=== PATIENT | male | born 1965 | race Caucasian/White ===

== ENCOUNTER 2019-06-23 09:28 | Emergency (ER) | payer OTHER, SELFPAY ==
--- NOTE | ~2019-06-23 | XR_ITS ---
XR abdomen/kub 1V DATE: 06/23/2019 10:25 INDICATION: Nausea and diarrhea for 2 weeks. History of appendectomy and left nephrectomy for renal c ancer TECHNIQUE: Portable supine AP rejection, 2 views COMPARISON: 09/29/2018 CT abdomen pelvis FINDINGS: A pinpoint calcification overlies the right renal silhouette, likely a small calcified calc ulus. Postoperative changes from left nephrectomy and appendectomy. No evidence of bowel obstruction. The psoas shadows are intact. No visceromegaly is detected. Included skeletal structures are unremarkable. IMPRESSION: Pinpoint right renal calcified calculus is suggested Status post left nephrectomy and appendectomy Reviewed, dictated and finalized at [facility]. Reviewed, dictated and finalized at [facility]. [employer]
[2019-06-23 09:44] VITALS: BP 152/84; PULSE 73; RESP 18; TEMP 36.6; O2SAT 100
--- NOTE | 2019-06-23 09:48 | ED.NAVMDI ---
HPI - Nausea/Vomiting/Diarrhea General Chief complaint: Nausea/Vomiting/Diarrhea Stated complaint: unknown Related Data Home Medications Medication Instructions Recorded Confirmed gabapentin 300 mg PO DAILY 06/23/19 06/23/19 hydrocodone-acetaminophen 1 tablet PO BID-TID PRN 06/23/19 06/23/19 hydrocodone-acetaminophen 1 tablet PO BID-TID PRN 06/23/19 06/23/19 hydroxychloroquine 200 mg PO DAILY 06/23/19 06/23/19 lorazepam 0.5 mg PO BID PRN 06/23/19 06/23/19 lovastatin 40 mg PO DAILY 06/23/19 06/23/19 omeprazole 40 mg PO DAILY 06/23/19 06/23/19 ondansetron 4 mg TRANSLINGUAL BID-TID PRN 06/23/19 06/23/19 prednisone 10 mg PO DAILY 06/23/19 06/23/19 sotalol 80 mg PO DAILY 06/23/19 06/23/19 sotalol 80 mg PO DAILY 06/23/19 06/23/19 Allergies Allergy/AdvReac Type Severity Reaction Status Date / Time No Known Allergies Allergy Unverified 12/20/17 00:50 Review of Systems Eyes: Eyes: Reports no additional eye complaints ENT: Reports system reviewed and no additional complaints, except as documented Cardiovascular: Cardiovascular: Reports no additional cardiovascular complaints, Denies chest pain, Denies rapid heart rate and Denies slow heart rate Respiratory: Respiratory: Reports no additional respiratory complaints, Denies chest congestion, Denies cough, Denies dyspnea and Denies wheezing Gastrointestinal: Gastrointestinal: Denies abdominal pain, Denies bloating, Denies constipation, Denies heartburn, Reports diarrhea, Reports nausea and Denies vomiting Genitourinary: Genitourinary: Reports no additional male genitourinary complaints, Denies genital lesions, Denies dysuria, Denies penile discharge, Denies testicular pain, Denies urinary frequency and Denies urinary incontinence Musculoskeletal: Musculoskeletal: Reports no additional musculoskeletal complaints Integumentary/Breasts: Skin/Breast: Reports system reviewed and no additional complaints, except as docu Neurologic: Reports as per HPI, Denies confusion and Reports weakness Psychiatric: Psychiatric: Reports no additional psychiatric complaints Endocrine: Endocrine: Reports no additional endocrine complaints Hematologic/Lymphatic: Hematologic/Lymphatic: Reports no additional hematologic/lymphatic complaints Allergic/Immunologic: Allergic/Immunologic: Reports no additional allergic/immunologic complaints [facility] Past Medical History Medical History (Updated 06/23/19 @ 11:41 by Abiodun Lim MD) Anxiety Atrial fibrillation CKD (chronic kidney disease), stage III Cocaine abuse GERD (gastroesophageal reflux disease) HTN (hypertension) Hyperlipidemia Neuropathy Renal cell carcinoma Rheumatoid arthritis Surgical History Surgical History (Updated 06/23/19 @ 11:23 by Abiodun Lim MD) History of appendectomy History of nephrectomy, left History of tonsillectomy and adenoidectomy Exam Const: General: no acute distress and alert; No confused Orientation/consciousness: oriented x3 Limitations: No altered mental status HENMT: Head: normal to inspection Eyes: Pupils: PERRL Neck: Neck: normal visual inspection Chest: Chest palpation & inspection: normal inspection of the chest, no tenderness and No pacemaker Resp: Effort & Inspection: normal respiratory effort Cardio: Rate: regular rate Rhythm: regular rhythm GI: GI Palp: Yes soft, No tender and No rebound tenderness Auscultation: normal bowel sounds : General: No no CVA tenderness Testes: normal Skin: General skin exam: normal color Neuro: General: oriented x3 and moves all extremities Extrem: General: normal to inspection Other: Ambulates at home with Walker. Psych: Appearance: grossly normal Mental Status: mental status grossly normal Affect: normal affect Attitude: cooperative Thought content: Yes normal, No hallucinations and No depressive thoughts Course Course Emergency Course: Patients workup reviewed w/ Patient. Encouraged him to keep ambulating (w/ walker).
[2019-06-23 10:12] LABS: Basophils Absolute Auto 0.04 K/mm3 (0.00-0.10); Basophils Percent Auto 0.5 % (0.0-1.0); Eosinophils Absolute Auto 0.14 K/mm3 (0.02-0.50); Eosinophils Percent Auto 1.7 % (1.0-6.0); Hematocrit 45.5 % (40.0-54.0); Immature Granulocyte Absolute 0.05 K/mm3 (0.00-0.00); Immature Granulocyte Percent A 0.6 % (0.0-0.0); Lymphocytes Percent Auto 16.6 % (18.0-42.0); Mean Corpuscular HGB Conc 35.2 g/dL (32.0-36.0); Mean Corpuscular Volume 93.8 fL (78.0-102.0); Mean Platelet Volume 9.9 fl (8.7-11.0); Monocytes Absolute Auto 0.78 K/mm3 (0.10-0.90); Monocytes Percent Auto 9.3 % (2.0-11.0); Neutrophils Percent Auto 71.3 % (50.0-70.0); Platelet Count Result 307 K/mm3 (150-420); Red Blood Count 4.85 M/mm3 (4.70-6.10); Red Cell Distribution Width 14.9 % (11.6-14.4); White Blood Count 8.4 K/mm3 (4.8-10.8)
[2019-06-23 10:18] LABS: Glucose Point of Care 79 (65-105)
[2019-06-23 10:22] LABS: Add Urine Microscopic? YES; Appearance Urine Clear (Clear); Bilirubin Urine 1+ (Negative); Blood Urine Negative (Negative); Color Urine Yellow (Yellow); Glucose Urine UA Negative (Negative); Ketones Urine 2+ (Negative); Leukocyte Esterase Ur Negative LEU/UL (Negative); Nitrate Urine Negative (Negative); Protein Urine Trace (Negative); Specific Grav Ur >= 1.030 (1.010-1.020); Urobilinogen Urine 0.2 mg/dL (0.2-1.0); pH Urine 5.5 (5.0-8.0)
[2019-06-23] MEDS: ONDANSETRON INJ 4 MG/2 ML VIAL IV PUSH (10:24)
[2019-06-23] MEDS: SODIUM CHLORIDE 0.9% IV 1,000 ML 999 ML IV CONT (10:24)
[2019-06-23 10:26] LABS: Partial Thromboplastin Time 31.5 SEC (22.3-31.6); Prothrombin Time 10.4 Seconds (9.64-11.0)
[2019-06-23 10:27] LABS: Alanine Aminotransferase 20 U/L (16-63); Albumin Level 3.8 g/dL (3.4-5.0); Alkaline Phosphatase 116 U/L (46-116); Anion Gap 20.5 mmol/L (7-16); Aspartate Amino Transferase 17 U/L (15-37); Bilirubin,Total 1.3 mg/dL (0.00-1.00); Blood Urea Nitrogen 22 mg/dL (7-18); Calcium 9.8 mg/dL (8.5-10.1); Carbon Dioxide 20 mmol/L (21-32); Chloride 102 mmol/L (98-108); Estimated CRCL calculation 37 ml/min; Estimated Glomerular Filt Rate 38; Glucose 99 mg/dL (70-99); Osmolality Calculated 291 mOsm/kg (285-295); Potassium 3.5 mmol/L (3.5-5.1); Sodium 139 mmol/L (136-145); Total Protein 7.9 g/dL (6.4-8.2)
[2019-06-23 10:30] LABS: Amphetamine Screen Urine Negative (Negative); Barbiturate Screen Urine Negative (Negative); Benzodiazepines Screen Urine Positive (Negative); Cannabinoid Screen Urine Positive (Negative); Cocaine Screen Urine Positive (Negative); Methadone Screen Urine Negative (Negative); Opiate Screen Urine Positive (Negative); Phencyclidine Screen Urine Negative (Negative); RBC Urine 0-2 /hpf (0-2); Squamous Epithelial Cell Urine Occasional /hpf (Few); WBC Urine 0-3 /hpf (0-3)
[2019-06-23 10:31] LABS: Bacteria Urine 1+ /hpf
[2019-06-23 10:38] LABS: Ethanol < 3 mg/dL (0-6)
[2019-06-23 10:52] LABS: Lipase 323 U/L (73-393)
--- NOTE | 2019-06-23 10:54 | PC.NURSE ---
pt sleeping, easily awakens. report to DEREK RIVERA. no distress noted. no questions or concerns at this time.
--- NOTE | 2019-06-23 11:15 | PC.NURSE ---
call to dr shukla office. requested history and med list. awaiting fax.
[2019-06-23] MEDS: CLONIDINE HCL 0.2 MG TABLET PO (11:35)
[2019-06-23] MEDS: CLONIDINE HCL 0.1 MG TABLET PO (11:35)
--- NOTE | 2019-06-23 11:46 | PC.NURSE ---
LUNCH TRAY SERVED
[2019-06-23 11:56] VITALS: BP 146/84; PULSE 68; RESP 18
== END 2019-06-23 12:00 | disposition home or self-care (01) ==
PROVIDERS: Emergency Provider Family Medicine
DX: K52.9 Noninfective gastroenteritis and colitis, unspecified (principal); N18.3 Chronic kidney disease, stage 3 (moderate); F14.10 Cocaine abuse, uncomplicated; I10 Essential (primary) hypertension
CPT/HCPCS: 36415; 74018; 80053; 80307; 81001; 82948; 83690; 85025; 85610; 85730; 96361; 96374; 99283; 99284; A9270; J2405; J7030

== ENCOUNTER 2019-08-17 17:41 | Emergency (ER) | payer OTHER, SELFPAY ==
[2019-08-17 18:04] VITALS: BP 154/91; PULSE 52; RESP 18; TEMP 36.6; O2SAT 100
--- NOTE | 2019-08-17 18:31 | ED.GENADULT ---
HPI - General Adult General Chief complaint: Anxiety Stated complaint: Anxiety Time Seen by Provider: 08/17/19 17:48 Source: EMS Mode of arrival: EMS Limitations: no limitations History of Present Illness HPI narrative: Patient is a 54-year-old male who presents to emergency department for evaluation of anxiety and depression patient notes that he had the loss of a recent friend which is caused increasing depression patient also notes anxiety. 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 Patient notes passive thoughts of wishing he was but denies any plan of hurting himself or others Related Data Home Medications Medication Instructions Recorded Confirmed gabapentin 300 mg PO DAILY 06/23/19 06/23/19 hydrocodone-acetaminophen 1 tablet PO BID-TID PRN 06/23/19 06/23/19 hydrocodone-acetaminophen 1 tablet PO BID-TID PRN 06/23/19 06/23/19 hydroxychloroquine 200 mg PO DAILY 06/23/19 06/23/19 lorazepam 0.5 mg PO BID PRN 06/23/19 06/23/19 lovastatin 40 mg PO DAILY 06/23/19 06/23/19 omeprazole 40 mg PO DAILY 06/23/19 06/23/19 ondansetron 4 mg TRANSLINGUAL BID-TID PRN 06/23/19 06/23/19 prednisone 10 mg PO DAILY 06/23/19 06/23/19 sotalol 80 mg PO DAILY 06/23/19 06/23/19 sotalol 80 mg PO DAILY 06/23/19 06/23/19 Allergies Allergy/AdvReac Type Severity Reaction Status Date / Time No Known Allergies Allergy Unverified 12/20/17 00:50 Review of Systems Review of Systems: All systems reviewed & are unremarkable except as noted in HPI and below PMFSH Past Medical History Medical History Anxiety Atrial fibrillation CKD (chronic kidney disease), stage III Cocaine abuse GERD (gastroesophageal reflux disease) HTN (hypertension) Hyperlipidemia Neuropathy Renal cell carcinoma Rheumatoid arthritis Surgical History Surgical History History of appendectomy History of nephrectomy, left History of tonsillectomy and adenoidectomy Exam Narrative: Exam Narrative: GENERAL: Well-appearing, well-nourished, and in no acute distress. HEAD: Normocephalic, atraumatic. EYES: PERRLA and EOMI. ENT: Nares clear, no rhinorrhea or epistaxis. Mucous membranes moist. Oropharynx without tonsillar hypertrophy exudate or other lesions. NECK: Supple. No adenopathy or masses. CHEST: Clear to auscultation. No respiratory distress. No wheezes rales or rhonchi HEART: Regular rate and rhythm. No murmur heard. Normal peripheral pulses. ABDOMEN: Soft, nontender, nondistended EXTREMITIES: Normal range of motion. No edema. SKIN: Warm, dry, no rash. NEURO: No focal deficits. Alert and oriented x3. Cranial nerves II through XII grossly intact PSYCH: Acutely tearful but normal affect Course Course Emergency Course: Patient in the room at this time in no distress aware of case findings treatment plan and diagnosis agreeing to follow-up with primary care and psych resources evaluated by crisis and felt appropriate for discharge home. With safety contract Vital Signs Vital signs: Vital Signs Temperature 97.9 F 08/17/19 18:04 Pulse Rate 52 L 08/17/19 18:04 Respiratory Rate 18 08/17/19 18:04 Blood Pressure 154/91 H 08/17/19 18:04 Pulse Oximetry 100 08/17/19 18:04 Temperature 97.9 F 08/17/19 18:04 Pulse Rate 52 L 08/17/19 18:04 Respiratory Rate 18 08/17/19 18:04 Blood Pressure 154/91 H 08/17/19 18:04 Pulse Oximetry 100 08/17/19 18:04 Medical Decision Making MDM Narrative Medical decision making narrative: Patient stable in the room at this time will be sent home
[2019-08-17 18:58] LABS: Basophils Absolute Auto 0.1 K/mm3 (0.0-0.1); Basophils Percent Auto 0.7 % (0.2-1.2); Eosinophils Absolute Auto 0.3 K/mm3 (0-0.3); Eosinophils Percent Auto 2.2 % (0-4.4); Hematocrit 46.3 % (42.0-52.0); Hemoglobin 15.4 g/dL (14.0-18.0); Immature Granulocyte Absolute 0.07 K/mm3 (0.00-0.031); Immature Granulocyte Percent A 0.6 % (0-0.5); Lymphocytes Absolute Auto 1.19 K/mm3 (0.9-3.2); Mean Corpuscular HGB Conc 33.3 g/dl (32-36); Mean Corpuscular Hemoglobin 32.4 pg (26-34); Mean Corpuscular Volume 97.3 fl (80-100); Mean Platelet Volume 10.3 fl (7.4-10.4); Monocytes Absolute Auto 1.1 K/mm3 (0.1-0.6); Monocytes Percent Auto 8.9 % (2.6-8.5); Neutrophils Absolute Auto 9.2 K/mm3 (1.3-6.7); Neutrophils Percent Auto 77.6 % (45.5-73.1); Platelet Count Result 316 k/mm3 (150-375); Red Blood Count 4.76 M/mm3 (4.6-6.20); Red Cell Distribution Width 14.5 % (11.5-14.5); White Blood Count 11.9 K/mm3 (4.5-10.0)
[2019-08-17 19:01] LABS: Add Urine Microscopic? YES; Appearance Urine Clear (Clear); Bilirubin Urine Negative (Negative); Blood Urine Negative (Negative); Color Urine Yellow (Yellow); Glucose Urine UA Negative (Negative); Ketones Urine Negative (Negative); Leukocyte Esterase Ur Negative LEU/UL (Negative); Mucus Urine Rare /lpf; Nitrate Urine Negative (Negative); Protein Urine 1+ mg/dL (Negative); Urobilinogen Urine Negative mg/dL (<2.0); WBC Urine 0-3 /hpf
[2019-08-17 19:09] LABS: Alanine Aminotransferase 19 U/L (4-50); Albumin Level 4.1 g/dL (3.5-5.1); Alkaline Phosphatase 106 U/L (38-126); Aspartate Amino Transferase 23 U/L (17-59); Blood Urea Nitrogen 16 mg/dL (9-20); Calcium 9.6 mg/dL (8.4-10.2); Carbon Dioxide 18 mmol/L (22-30); Chloride 111 mmol/L (98-107); Estimated CRCL calculation 37 ml/min; Estimated Glomerular Filt Rate 33; Glucose 107 mg/dL (75-110); Potassium 4.4 mmol/L (3.4-5.0); Sodium 139 mmol/L (137-145)
[2019-08-17 19:10] LABS: Ethanol < 10 mg/dL (<10)
[2019-08-17 19:14] LABS: Amphetamine Screen Urine Negative (Negative); Barbiturate Screen Urine Negative (Negative); Benzodiazepines Screen Urine Positive (Negative); Cannabinoid Screen Urine Positive (Negative); Cocaine Screen Urine Positive (Negative); Methadone Screen Urine Negative (Negative); Opiate Screen Urine Positive (Negative); Phencyclidine Screen Urine Negative (Negative)
--- NOTE | 2019-08-17 19:28 | PC.NURSE ---
CALLED CRIS[facility] [phone] THEY WILL SEND SOMEONE OUT TO EVALUATE PT
[2019-08-17 20:45] VITALS: BP 142/82; PULSE 58; RESP 16; TEMP 36.8; O2SAT 98
[2019-08-17 22:06] VITALS: BP 138/86; PULSE 60; RESP 18; O2SAT 97
== END 2019-08-17 22:09 | disposition home or self-care (01) ==
PROVIDERS: Emergency Provider Emergency Medicine
DX: F32.9 Major depressive disorder, single episode, unspecified (principal); F14.10 Cocaine abuse, uncomplicated; F12.10 Cannabis abuse, uncomplicated; F11.10 Opioid abuse, uncomplicated; F13.10 Sedative, hypnotic or anxiolytic abuse, uncomplicated; I48.91 Unspecified atrial fibrillation; I12.9 Hypertensive chronic kidney disease with stage 1 through stage 4 chronic kidney disease, or unspecified chronic kidney disease; N18.3 Chronic kidney disease, stage 3 (moderate); K21.9 Gastro-esophageal reflux disease without esophagitis; E78.5 Hyperlipidemia, unspecified; M06.9 Rheumatoid arthritis, unspecified; Z85.528 Personal history of other malignant neoplasm of kidney; G62.9 Polyneuropathy, unspecified; Z90.5 Acquired absence of kidney
CPT/HCPCS: 36415; 80053; 80307; 81001; 84443; 85025; 99284

== ENCOUNTER 2019-08-18 16:21 | Emergency (ER) | payer OTHER, SELFPAY ==
[2019-08-18 17:00] VITALS: BP 146/94; PULSE 59; RESP 13; TEMP 36.6; O2SAT 97
[2019-08-18 17:18] LABS: Influenza Control Valid (Valid)
[2019-08-18 17:21] LABS: Basophils Absolute Auto 0.06 K/mm3 (0.00-0.10); Basophils Percent Auto 0.7 % (0.0-1.0); Eosinophils Absolute Auto 0.13 K/mm3 (0.02-0.50); Eosinophils Percent Auto 1.4 % (1.0-6.0); Hematocrit 45.2 % (40.0-54.0); Hemoglobin 15.6 g/dL (14.0-18.0); Immature Granulocyte Absolute 0.05 K/mm3 (0.00-0.00); Immature Granulocyte Percent A 0.5 % (0.0-0.0); Lymphocytes Absolute Auto 0.96 K/mm3 (1.10-4.50); Lymphocytes Percent Auto 10.4 % (18.0-42.0); Mean Corpuscular HGB Conc 34.5 g/dL (32.0-36.0); Mean Corpuscular Hemoglobin 33.2 pg (27.0-31.0); Mean Corpuscular Volume 96.2 fL (78.0-102.0); Mean Platelet Volume 9.8 fl (8.7-11.0); Monocytes Absolute Auto 0.84 K/mm3 (0.10-0.90); Monocytes Percent Auto 9.1 % (2.0-11.0); Neutrophils Absolute Auto 7.2 K/mm3 (1.7-7.2); Neutrophils Percent Auto 77.9 % (50.0-70.0); Platelet Count Result 334 K/mm3 (150-420); Red Cell Distribution Width 14.1 % (11.6-14.4); White Blood Count 9.2 K/mm3 (4.8-10.8)
[2019-08-18] MEDS: SODIUM CHLORIDE 0.9% IV 1,000 ML 999 ML IV CONT (17:36)
[2019-08-18 17:48] LABS: Alanine Aminotransferase 22 U/L (16-63); Albumin Level 3.8 g/dL (3.4-5.0); Alkaline Phosphatase 104 U/L (46-116); Aspartate Amino Transferase 22 U/L (15-37); Bilirubin,Total 1.4 mg/dL (0.00-1.00); Blood Urea Nitrogen 19 mg/dL (7-18); Calcium 9.1 mg/dL (8.5-10.1); Carbon Dioxide 19 mmol/L (21-32); Chloride 103 mmol/L (98-108); Estimated CRCL calculation 34 ml/min; Estimated Glomerular Filt Rate 30; Glucose 99 mg/dL (70-99); Osmolality Calculated 288 mOsm/kg (285-295); Sodium 138 mmol/L (136-145); Total Protein 7.7 g/dL (6.4-8.2)
[2019-08-18 20:05] LABS: Add Urine Microscopic? YES; Appearance Urine Clear (Clear); Bilirubin Urine Negative (Negative); Blood Urine Negative (Negative); Color Urine Yellow (Yellow); Glucose Urine UA Negative (Negative); Ketones Urine 1+ (Negative); Leukocyte Esterase Ur Negative (Negative); Nitrate Urine Negative (Negative); Protein Urine Negative (Negative); Specific Grav Ur >= 1.030 (1.010-1.020); Urobilinogen Urine 0.2 mg/dL (0.2-1.0); pH Urine 5.5 (5.0-8.0)
[2019-08-18 20:09] LABS: Bacteria Urine Trace /hpf; RBC Urine 0-2 /hpf (0-2); WBC Urine 0-3 /hpf (0-3)
--- NOTE | 2019-08-18 20:26 | ED.GENADULT ---
HPI - General Adult General Chief complaint: Nausea/Vomiting/Diarrhea Stated complaint: vomiting History of Present Illness HPI narrative: Jay is a 54-year-old man with a past medical history of CKD stage 3, hypertension, hyperlipidemia, neuropathy, RA and cocaine abuse that was referred to the emergency department from clinic for nausea and vomiting. He reports that for the last week he has felt poorly. He has been nauseous and had nonbilious nonbloody vomiting as well as diarrhea. The diarrhea was watery and nonbloody. There is no blood in the vomit. He was also seen for an episode of anxiety / depression chest pain earlier in the week discharge from the ER. His biggest concerns are the lack of energy and inability to keep p.o. down. He currently denies any chest pain, shortness of breath, and syncope/near syncope. MD complaint: nausea vomiting Related Data Home Medications Medication Instructions Recorded Confirmed hydrocodone-acetaminophen 1 tablet PO BID-TID PRN 06/23/19 08/18/19 hydroxychloroquine 200 mg PO DAILY 06/23/19 08/18/19 lorazepam 0.5 mg PO BID PRN 06/23/19 08/18/19 lovastatin 40 mg PO DAILY 06/23/19 08/18/19 omeprazole 40 mg PO DAILY 06/23/19 08/18/19 ondansetron 4 mg TRANSLINGUAL BID-TID PRN 06/23/19 08/18/19 sotalol 80 mg PO DAILY 06/23/19 08/18/19 aspirin 81 mg tablet,delayed 81 mg PO DAILY 08/18/19 08/18/19 release naproxen 500 mg tablet 500 mg PO BID PRN 08/18/19 08/18/19 prednisone 10 mg tablet 5 mg PO DAILY tablet 08/18/19 08/18/19 tramadol 50 mg tablet 50 mg PO Q6H PRN 08/18/19 08/18/19 Allergies Allergy/AdvReac Type Severity Reaction Status Date / Time No Known Allergies Allergy Verified 08/18/19 15:44 Review of Systems Constitutional: Constitutional: Denies chills, Reports fatigue and Denies fever(s) Eyes: Eyes: Reports as per HPI ENT: Reports system reviewed and no additional complaints, except as documented Cardiovascular: Cardiovascular: Denies chest pain, Denies rapid heart rate and Denies radiating jaw, neck or arm pain Respiratory: Respiratory: Denies cough, Denies dyspnea and Denies wheezing Gastrointestinal: Gastrointestinal: Reports abdominal pain, Denies constipation, Reports diarrhea, Reports nausea and Reports vomiting Genitourinary: Genitourinary: Reports no additional male genitourinary complaints Musculoskeletal: Musculoskeletal: Reports no additional musculoskeletal complaints Integumentary/Breasts: Skin/Breast: Reports system reviewed and no additional complaints, except as docu Neurologic: Reports system reviewed and no additional complaints, except as documented Psychiatric: Psychiatric: Reports no additional psychiatric complaints Endocrine: Endocrine: Reports no additional endocrine complaints Hematologic/Lymphatic: Hematologic/Lymphatic: Reports no additional hematologic/lymphatic complaints Allergic/Immunologic: Allergic/Immunologic: Reports no additional allergic/immunologic complaints [facility] Past Medical History Medical History Anxiety Atrial fibrillation CKD (chronic kidney disease), stage III Cocaine abuse Drug abuse GERD (gastroesophageal reflux disease) HTN (hypertension) Hyperlipidemia Neuropathy Renal cell carcinoma Rheumatoid arthritis Surgical History Surgical History History of appendectomy History of nephrectomy, left History of tonsillectomy and adenoidectomy Social History Social History Substance use: current Substance use type: marijuana, crack/cocaine, opiates and prescription drug Exam Const: General: no acute distress and alert Orientation/consciousness: patient oriented x3 Limitations: No altered mental status HENMT: Head: normal to inspection and contusion Other: normocephalic, atraumatic, slightly dry mucous membranes Eyes: Conjunct
[2019-08-18 20:30] VITALS: BP 122/84; PULSE 57; RESP 14; O2SAT 96
== END 2019-08-18 20:31 | disposition home or self-care (01) ==
PROVIDERS: Emergency Provider Family Medicine; PCP Family Medicine
DX: N17.9 Acute kidney failure, unspecified (principal)
CPT/HCPCS: 36415; 80053; 81001; 85025; 87804; 96360; 99283; J7030

== ENCOUNTER 2019-08-19 10:35 | Emergency (ER) | payer OTHER, SELFPAY ==
[2019-08-19 11:30] VITALS: BP 132/82; PULSE 64; RESP 18; TEMP 36.1; O2SAT 100
--- NOTE | 2019-08-19 11:46 | ED.SYNCOPE ---
HPI - Syncope General Chief Complaint: Dizziness Stated Complaint: hot cold sweats,dizzy Time Seen by Provider: 08/19/19 11:43 Source: patient Limitations: no limitations History of Present Illness HPI narrative: patient states that he has been off and on hot and cold. Some sweats, dizziness. He has stopped doing cocaine approximately 3-4 days before. He was here in the ER last evening with an elevated kidney function. He was advised to see his doctor today and have labs retested. He said that he was so dizzy and just feeling overall poorly that his girlfriend brought him back to the emergency room. He said that he was also at [facility] 2 days ago for chest pain and was ruled out for any coronary event time. Today he continues to abstain from cocaine but he is having withdrawal symptoms. MD complaint: felt faint Onset (ago): hour(s) (2-3) -: second(s) Prodromal symptoms: none Witnessed: No Context: standing up Injuries sustained associated with event: none Current symptoms: lightheaded Treatments prior to arrival: none Related Data Home Medications Medication Instructions Recorded Confirmed hydrocodone-acetaminophen 1 tablet PO BID-TID PRN 06/23/19 08/19/19 hydroxychloroquine 200 mg PO DAILY 06/23/19 08/19/19 lorazepam 0.5 mg PO BID PRN 06/23/19 08/19/19 lovastatin 40 mg PO DAILY 06/23/19 08/19/19 omeprazole 40 mg PO DAILY 06/23/19 08/19/19 ondansetron 4 mg TRANSLINGUAL BID-TID PRN 06/23/19 08/19/19 sotalol 80 mg PO DAILY 06/23/19 08/19/19 aspirin 81 mg tablet,delayed 81 mg PO DAILY 08/18/19 08/19/19 release naproxen 500 mg tablet 500 mg PO BID PRN 08/18/19 08/19/19 prednisone 10 mg tablet 5 mg PO DAILY tablet 08/18/19 08/19/19 tramadol 50 mg tablet 50 mg PO Q6H PRN 08/18/19 08/19/19 Allergies Allergy/AdvReac Type Severity Reaction Status Date / Time No Known Allergies Allergy Verified 08/18/19 15:44 Review of Systems Constitutional: Constitutional: Reports chills and Reports weakness Eyes: Eyes: Reports no additional eye complaints ENT: Reports system reviewed and no additional complaints, except as documented Cardiovascular: Cardiovascular: Reports no additional cardiovascular complaints and Denies chest pain Respiratory: Respiratory: Reports no additional respiratory complaints and Denies dyspnea Gastrointestinal: Gastrointestinal: Reports nausea and Denies vomiting Genitourinary: Genitourinary: Reports no additional male genitourinary complaints Musculoskeletal: Musculoskeletal: Reports muscle cramps Neurologic: Denies confusion, Reports dizziness, Denies headache(s) and Denies focal weakness Psychiatric: Psychiatric: Reports no additional psychiatric complaints Hematologic/Lymphatic: Hematologic/Lymphatic: Reports no additional hematologic/lymphatic complaints PMFSH Past Medical History Medical History Anxiety Atrial fibrillation CKD (chronic kidney disease), stage III Cocaine abuse Drug abuse GERD (gastroesophageal reflux disease) HTN (hypertension) Hyperlipidemia Neuropathy Renal cell carcinoma Rheumatoid arthritis Surgical History Surgical History History of appendectomy History of nephrectomy, left History of tonsillectomy and adenoidectomy Social History Social History Substance use: current Substance use type: marijuana, crack/cocaine, opiates and prescription drug Exam Const: General: healthy appearing and no acute distress Nutritional Appearance: well nourished Orientation/consciousness: patient oriented x3 HENMT: Head: normal to inspection Ears: external ears normal General nose exam: Normal external nose present Face and sinus: normal facial exam Mouth: Yes moist mucous membranes Eyes: Conjunctivae: conjunctivae normal Pupils: Equal, round and reactive pupils present EOM: EOMs intact hanh
[2019-08-19] MEDS: SODIUM CHLORIDE 0.9% IV 1,000 ML 999 ML IV CONT (12:20)
[2019-08-19 12:38] LABS: Basophils Absolute Auto 0.06 K/mm3 (0.00-0.10); Basophils Percent Auto 0.8 % (0.0-1.0); Eosinophils Absolute Auto 0.15 K/mm3 (0.02-0.50); Eosinophils Percent Auto 1.9 % (1.0-6.0); Hematocrit 42.5 % (40.0-54.0); Hemoglobin 14.3 g/dL (14.0-18.0); Immature Granulocyte Absolute 0.03 K/mm3 (0.00-0.00); Immature Granulocyte Percent A 0.4 % (0.0-0.0); Lymphocytes Absolute Auto 1.07 K/mm3 (1.10-4.50); Lymphocytes Percent Auto 13.8 % (18.0-42.0); Mean Corpuscular HGB Conc 33.6 g/dL (32.0-36.0); Mean Corpuscular Volume 98.2 fL (78.0-102.0); Mean Platelet Volume 10.1 fl (8.7-11.0); Monocytes Absolute Auto 0.78 K/mm3 (0.10-0.90); Monocytes Percent Auto 10.1 % (2.0-11.0); Neutrophils Absolute Auto 5.6 K/mm3 (1.7-7.2); Platelet Count Result 288 K/mm3 (150-420); Red Blood Count 4.33 M/mm3 (4.70-6.10); Red Cell Distribution Width 14.1 % (11.6-14.4); White Blood Count 7.7 K/mm3 (4.8-10.8)
[2019-08-19 12:51] LABS: Alanine Aminotransferase 21 U/L (16-63); Albumin Level 3.6 g/dL (3.4-5.0); Alkaline Phosphatase 95 U/L (46-116); Anion Gap 21.6 mmol/L (7-16); Aspartate Amino Transferase 21 U/L (15-37); Bilirubin,Total 1.5 mg/dL (0.00-1.00); Blood Urea Nitrogen 20 mg/dL (7-18); Calcium 9.1 mg/dL (8.5-10.1); Carbon Dioxide 16 mmol/L (21-32); Chloride 103 mmol/L (98-108); Estimated CRCL calculation 38 ml/min; Estimated Glomerular Filt Rate 34; Glucose 64 mg/dL (70-99); Osmolality Calculated 284 mOsm/kg (285-295); Potassium 3.6 mmol/L (3.5-5.1); Sodium 137 mmol/L (136-145); Total Protein 7.4 g/dL (6.4-8.2)
[2019-08-19 13:51] VITALS: BP 106/68; PULSE 61; RESP 16; O2SAT 100
== END 2019-08-19 14:33 | disposition home or self-care (01) ==
PROVIDERS: Emergency Provider Emergency Medicine; PCP Family Medicine
DX: F14.23 Cocaine dependence with withdrawal (principal); R42 Dizziness and giddiness
CPT/HCPCS: 36415; 80053; 85025; 96360; 99283; J7030

== ENCOUNTER 2020-01-24 11:02 | Outpatient (CLI) | payer OTHER, SELFPAY ==
--- NOTE | ~2020-01-24 | CT_ITS ---
EXAMINATION:CT chest wo con DATE: 01/24/2020 11:42 INDICATION: Lung nodule. TECHNIQUE: Computed tomography (CT) of the chest was performed without intravenous contrast. Automate d exposure control and iterative reconstruction technique were employed. The dose-length product (DLP ) was 516.93 mGy-cm. COMPARISON: Chest CT 06/01/2018, CT abdomen and pelvis 07/08/2019 FINDINGS: There is mosaic attenuation the lungs, likely small airways disease. There is an 8 mm nodul e in lingula that measured 3 mm on 06/01/2018 and 7 mm on 07/08/19. There are a few scattered 2 mm nod ules in the lungs. There is a 4 mm nodule in left lower lobe and measures 3 mm on 06/01/2018. No pleu ral effusion. The heart size is normal. There are coronary artery calcifications. No pericardial effu beba. There is a 2.3 cm nodule in the thyroid. There are changes of left nephrectomy. There is mild t horacic spondylosis. There are benign bone islands in right sixth and eighth ribs. IMPRESSION: 1. Worsened pulmonary nodules measuring up to 8 mm, which may be granulomatous disease and/or maligna ncy. 2. Thyroid nodule. Consider thyroid ultrasound for risk stratification. Reviewed, dictated and finalized at [facility]. IMPRESSION: 1. Worsened pulmonary nodules measuring up to 8 mm, which may be granulomatous disease and/or malignancy. 2. Thyroid nodule. Consider thyroid ultrasound for risk stratification.
== END 2020-01-24 11:03 | disposition home or self-care (01) ==
LOC: CHSIMG 11:06
PROVIDERS: PCP Family Medicine; Visit Provider Internal Medicine Pulmonary Disease
DX: R91.8 Other nonspecific abnormal finding of lung field (principal)
CPT/HCPCS: 71250

== ENCOUNTER 2020-03-28 13:13 | Outpatient (CLI) | payer OTHER, SELFPAY ==
[2020-03-28 14:42] LABS: Thyroid Stimulating Hormone Reflex 3.34 u/IU/mL (0.36-3.74)
[2020-03-28 22:02] LABS: SARS-CoV-2 RNA PCR Negative
== END 2020-03-28 13:14 | disposition home or self-care (01) ==
LOC: CHSLAB 13:16
PROVIDERS: PCP Family Medicine; Visit Provider Family Medicine
DX: J06.9 Acute upper respiratory infection, unspecified (principal); E04.1 Nontoxic single thyroid nodule; Z20.828 Contact with and (suspected) exposure to other viral communicable diseases
CPT/HCPCS: 36415; 84443; 87635; C9803; U0003

== ENCOUNTER 2020-05-12 08:40 | Emergency (ER) | payer OTHER, SELFPAY ==
--- NOTE | ~2020-05-12 | CT_ITS ---
EXAMINATION: CTA chest PE protocol DATE: 05/12/2020 10:41 INDICATION: Dyspnea. Elevated d-dimer. TECHNIQUE: Computed tomography (CT) pulmonary angiogram of the chest was performed with 100 mL Omnipa que-350 intravenous contrast. Additional 3D reconstructions utilizing coronal maximum intensity proje ction (MIP) were performed. Automated exposure control and iterative reconstruction technique were em ployed. The dose-length product was 812.54 mGy-cm. COMPARISON: 01/24/2020 and 06/01/2018 FINDINGS: Excellent contrast opacification of the pulmonary arteries. There is mild streak artifact from dense contrast in the superior vena cava and right atrium. Mild scattered respiratory motion artifact which does not significantly limit evaluation. No pulmonary embolism. No pneumonia, pulmonary edema, pleur al effusion or pneumothorax. 8 mm lingular nodule which is increased from 3 mm on 06/01/2018. 4 mm no dule at the posterior medial left lung base increased from 3 mm on 06/01/2018. A few additional 2-3 m m nodules in the left upper, right middle and right lower lobes which are unchanged since 2018. Heart size is normal. No pericardial effusion. No pathologically enlarged thoracic lymphadenopathy. 2.3 cm nodule at the thyroid isthmus. Postoperative change of prior left nephrectomy and adrenalectomy. A c ouple sclerotic bone islands along the right sixth and eighth ribs. Mild thoracic spondylosis. IMPRESSION: 1. No pulmonary embolism or other acute cardiopulmonary disease. 2. Several small pulmonary nodules the largest measuring 8 mm at the lingula which is increased since 2018 and could be either granulomatous disease or malignancy. 3. 2.3 cm thyroid nodule. Consider thyroid ultrasound for risk stratification. Reviewed, dictated and finalized at location A. IAL ARTS INSTRUCTOR IMPRESSION: 1. No pulmonary embolism or other acute cardiopulmonary disease. 2. Several small pulmonary nodules the largest measuring 8 mm at the lingula wh ich is increased since 2018 and could be either granulomatous disease or malign ana paula. 3. 2.3 cm thyroid nodule. Consider thyroid ultrasound for risk stratification.
--- NOTE | 2020-05-12 08:52 | ECG_ITS ---
Measurements Intervals [place] Rate: 101 P: 20 OR: 135 QRS: 37 QRSD: 88 T: 12 QT: 327 QTc: 426 Interpretive Statements SINUS TACHYCARDIA BORDERLINE ST-T WAVE ABNORMALITY- INFERIOR LEADS BASELINE ARTIFACT- V5-V6 BORDERLINE ECG Electronically Signed On 05-12-2020 14:39:17 [employer] by Edvin Joshi D.O.
[2020-05-12 09:00] VITALS: BP 124/86; PULSE 98; RESP 22; TEMP 36.2; O2SAT 98
[2020-05-12 09:15] LABS: Basophils Absolute Auto 0.03 K/mm3 (0.00-0.10); Basophils Percent Auto 0.3 % (0.0-1.0); Eosinophils Absolute Auto 0.26 K/mm3 (0.02-0.50); Eosinophils Percent Auto 2.8 % (1.0-6.0); Hematocrit 43.5 % (40.0-54.0); Hemoglobin 14.8 g/dL (14.0-18.0); Immature Granulocyte Absolute 0.08 K/mm3 (0.00-0.00); Immature Granulocyte Percent A 0.9 % (0.0-0.0); Lymphocytes Absolute Auto 1.41 K/mm3 (1.10-4.50); Lymphocytes Percent Auto 15.3 % (18.0-42.0); Mean Corpuscular Hemoglobin 32.7 pg (27.0-31.0); Mean Platelet Volume 9.1 fl (8.7-11.0); Monocytes Absolute Auto 0.68 K/mm3 (0.10-0.90); Monocytes Percent Auto 7.4 % (2.0-11.0); Neutrophils Absolute Auto 6.7 K/mm3 (1.7-7.2); Neutrophils Percent Auto 73.3 % (50.0-70.0); Platelet Count Result 329 K/mm3 (150-420); Red Blood Count 4.53 M/mm3 (4.70-6.10); White Blood Count 9.2 K/mm3 (4.8-10.8)
[2020-05-12 09:30] VITALS: O2SAT 98
[2020-05-12 09:30] LABS: D Dimer 1.34 mg/L (0.19-0.50)
[2020-05-12 09:33] LABS: Influenza Control Valid (Valid)
[2020-05-12 09:34] LABS: Alanine Aminotransferase 18 U/L (16-63); Albumin Level 3.5 g/dL (3.4-5.0); Alkaline Phosphatase 66 U/L (46-116); Anion Gap 14 mmol/L (8-16); Aspartate Amino Transferase 16 U/L (15-37); Blood Urea Nitrogen 20 mg/dL (7-18); Carbon Dioxide 20 mmol/L (21-32); Chloride 103 mmol/L (98-108); Estimated CRCL calculation 46 ml/min; Estimated Glomerular Filt Rate 36; Glucose 93 mg/dL (70-99); Osmolality Calculated 286 mOsm/kg (285-295); SARS-CoV-2 Ag Negative (Negative); Sodium 137 mmol/L (136-145); Total Protein 7.7 g/dL (6.4-8.2); Troponin I < 0.02 ng/mL (0.00-0.056)
[2020-05-12] MEDS: ONDANSETRON INJ 4 MG/2 ML VIAL IV PUSH (09:36)
[2020-05-12 09:38] LABS: BNP 12.7 pg/mL (0-100)
[2020-05-12] MEDS: SODIUM CHLORIDE 0.9% IV 1,000 ML 999 ML IV CONT (09:38)
[2020-05-12 10:06] LABS: Lactic Acid Reflex 1.7 mmol/L (0.4-2.0)
[2020-05-12 10:07] LABS: Add Urine Microscopic? NO; Appearance Urine Clear (Clear); Bilirubin Urine Negative (Negative); Blood Urine Negative (Negative); Color Urine Yellow (Yellow); Glucose Urine UA Negative (Negative); Ketones Urine Negative (Negative); Leukocyte Esterase Ur Negative LEU/UL (Negative); Nitrate Urine Negative (Negative); Protein Urine Negative (Negative); Urobilinogen Urine 0.2 mg/dL (0.2-1.0)
[2020-05-12 10:13] LABS: Amphetamine Screen Urine Negative (Negative); Barbiturate Screen Urine Negative (Negative); Benzodiazepines Screen Urine Negative (Negative); Cannabinoid Screen Urine Positive (Negative); Cocaine Screen Urine Positive (Negative); Methadone Screen Urine Negative (Negative); Opiate Screen Urine Negative (Negative); Phencyclidine Screen Urine Negative (Negative)
[2020-05-12 10:40] VITALS: BP 119/69; PULSE 80; RESP 20; O2SAT 98
--- NOTE | 2020-05-12 11:04 | PC.NURSE ---
Pt. resting/sleeping, report given to Huang Mckeon
--- NOTE | 2020-05-12 11:20 | ED.SOB ---
HPI - SOB/Dyspnea General Chief Complaint: Shortness of Breath/Dyspnea Stated Complaint: ambulance Source: patient and EMS Mode of arrival: EMS Limitations: no limitations History of Present Illness HPI Narrative: This is a 54-year-old gentleman presents with a history of shortness of breath with nonproductive cough with no fever chills shortness of breath started on Friday and came in via EMS today with weakness with no chest pain and does have a discomfort in his left lower rib area with deep inspiration. Patient has a history of a renal cell carcinoma status post nephrectomy with a history of rheumatoid arthritis chronic kidney disease neuropathy. The patient currently was having some nausea and vomiting with no abdominal pain no diarrhea constipation no hematemesis, no dysuria no hematuria. MD elicited complaint: shortness of breath, cough and pain with inspiration Onset (ago): day(s) Severity: moderate Exacerbating factors: nothing Related Data Home Medications Medication Instructions Recorded Confirmed aspirin 81 mg tablet,delayed 81 mg PO DAILY 08/18/19 05/12/20 release prednisone 10 mg tablet 5 mg PO DAILY tablet 08/18/19 05/12/20 Allergies Allergy/AdvReac Type Severity Reaction Status Date / Time No Known Allergies Allergy Verified 03/28/20 12:47 Review of Systems Review of Systems: All systems reviewed & are unremarkable except as noted in HPI and below PMFSH Past Medical History Medical History (Updated 05/12/20 @ 11:54 by Wesley Montiel MD) Anxiety Atrial fibrillation CKD (chronic kidney disease), stage III Cocaine abuse Drug abuse GERD (gastroesophageal reflux disease) HTN (hypertension) Hyperlipidemia Lipoma Neuropathy Renal cell carcinoma Rheumatoid arthritis Rheumatoid arthritis Surgical History Surgical History History of appendectomy History of nephrectomy, left History of tonsillectomy and adenoidectomy Social History Social History Smoking status: Never smoker Substance use: current Substance use type: former substance user Exam Const: General: no acute distress Orientation/consciousness: patient oriented x3 HENMT: Head: normal to inspection Eyes: Conjunctivae: conjunctivae normal Pupils: Equal, round and reactive pupils present EOM: EOMs intact bilaterally Neck: Neck: normal visual inspection, no lymphadenopathy and no meningeal signs Chest: Chest palpation & inspection: normal inspection of the chest Resp: Effort & Inspection: normal respiratory effort Auscultation: clear to auscultation bilaterally Cardio: Rate: regular rate and tachycardic GI: GI Palp: Yes Soft to palpation Back/Spine/Pelvis: Back: no CVA tenderness Skin: General skin exam: normal color Rashes: no rashes Neuro: General: patient oriented x3, moves all extremities, no meningeal signs and no focal motor deficits Extrem: General: normal to inspection and no pedal edema Psych: Mental Status: mental status grossly normal Course Course Emergency Course: Reassessment of patient currently there is no nausea vomiting, no chest pain but is having some pain with inspiration left lower lung area. Reviewed his labs and EKG and CT a of lungs and told the patient that there was no evidence of pulmonary embolism, no evidence of pulmonary edema, or pneumonia. Expressed that the patient if he continues not to feel well he should follow-up with his primary care physician physician further evaluation. Vital Signs Vital signs: Vital Signs Temperature 36.2 C L 05/12/20 09:00 Pulse Rate 98 05/12/20 09:00 Respiratory Rate 22 H 05/12/20 09:00 Blood Pressure 124/86 05/12/20 09:00 Pulse Oximetry 98 05/12/20 09:00 Temperature 36.2 C L 05/12/20 09:00 Pulse Rate 80 05/12/20 10:40 Respiratory Rate 20 05/12/20 10:40 Blood Pressure 119/69 05/12/20 10:40 P
== END 2020-05-12 12:00 | disposition home or self-care (01) ==
PROVIDERS: Emergency Provider Emergency Medicine; PCP Family Medicine
DX: R09.1 Pleurisy (principal); R91.1 Solitary pulmonary nodule; Z20.828 Contact with and (suspected) exposure to other viral communicable diseases
CPT/HCPCS: 36415; 71275; 80053; 80307; 81003; 83605; 83735; 83880; 84484; 85025; 85380; 87040; 87426; 87804; 93005; 96361; 96374; 99283; 99284; J2405; J7030; Q9965

== ENCOUNTER 2020-05-16 14:29 | Emergency (ER) | payer OTHER, SELFPAY ==
[2020-05-16 14:59] VITALS: BP 134/85; PULSE 85; RESP 20; TEMP 36.3; O2SAT 99
--- NOTE | 2020-05-16 15:04 | ED.WEAKNESS ---
HPI - Weakness General Chief complaint: Weakness Stated complaint: hot/cold chills,weakness Time Seen by Provider: 05/16/20 14:49 Source: patient and RN notes reviewed Mode of arrival: wheelchair Limitations: no limitations History of Present Illness HPI Narrative: Patient presents with [place] weakness feeling mildly short of breath. He was here 5 days ago and evaluated. At that time he had a CT a to rule out pulmonary embolism. He was found to have thyroid nodules and pulmonary nodules. At that time he felt short of breath with a nonproductive cough he was COVID negative. Remainder of his labs were nondiagnostic. He went to see his primary care yesterday and told me he was feeling better. He was scheduled for ultrasound of his thyroid today but canceled that. He asks if he can get the ultrasound done here in the ER, I explained him that cannot be done has to be scheduled. Today he says he is having a little better diarrhea. He just feels like he is having chills but no fever. And weak all over. Complaint: generalized weakness Onset (ago): day(s) (5) Duration: intermittent Location: generalized Migration: none Severity: moderate Exacerbating factors: exertion Associated symptoms: shortness of breath Related Data Home Medications Medication Instructions Recorded Confirmed aspirin 81 mg tablet,delayed 81 mg PO DAILY 08/18/19 05/16/20 release prednisone 10 mg tablet 5 mg PO DAILY tablet 08/18/19 05/16/20 Allergies Allergy/AdvReac Type Severity Reaction Status Date / Time No Known Allergies Allergy Verified 05/16/20 15:40 Review of Systems Review of Systems: All systems reviewed & are unremarkable except as noted in HPI and below PMFSH Past Medical History Medical History (Updated 05/16/20 @ 16:03 by Wesley Marroquin MD) Anxiety Atrial fibrillation CKD (chronic kidney disease), stage III Cocaine abuse Drug abuse GERD (gastroesophageal reflux disease) HTN (hypertension) Hyperlipidemia Lipoma Neuropathy Renal cell carcinoma Rheumatoid arthritis Rheumatoid arthritis Surgical History Surgical History History of appendectomy History of nephrectomy, left History of tonsillectomy and adenoidectomy Social History Social History (Updated 05/16/20 @ 15:09 by Wesley Marroquin MD) Smoking status: Never smoker Substance use: current Substance use type: marijuana and crack/cocaine Gender identity (if verbalized by the patient): Male Exam Const: General: no acute distress Nutritional Appearance: well nourished and obese morbidly obese Orientation/consciousness: patient oriented x3 HENMT: Head: normal to inspection Ears: external ears normal Eyes: Conjunctivae: conjunctivae normal Pupils: Equal, round and reactive pupils present EOM: EOMs intact bilaterally Neck: Neck: normal visual inspection Resp: Effort & Inspection: normal respiratory effort Auscultation: clear to auscultation bilaterally Cardio: Rate: regular rate Rhythm: regular rhythm GI: GI Palp: Yes Soft to palpation and No Tenderness to palpation present (GI) Auscultation: normal bowel sounds Back/Spine/Pelvis: Cervical Spine: cervical ROM normal Thoracic/Lumbar Spine: thoraco-lumbar ROM normal Skin: General skin exam: normal color Rashes: no rashes Neuro: General: patient oriented x3, moves all extremities and no focal motor deficits Speech: normal speech Extrem: General: normal to inspection and no pedal edema Psych: Appearance: grossly normal and well kempt Mental Status: mental status grossly normal Affect: normal affect Attitude: cooperative Thought content: Yes Normal thought content present Course Course Emergency Course: I explained the patient that he has a viral infection. There is nothing to be given for it and it will need to run its course over the next 10-14 days. I see no evidence of dehydration at this point his kidney function re
[2020-05-16 15:14] LABS: Basophils Absolute Auto 0.05 K/mm3 (0.00-0.10); Basophils Percent Auto 0.7 % (0.0-1.0); Eosinophils Absolute Auto 0.24 K/mm3 (0.02-0.50); Eosinophils Percent Auto 3.6 % (1.0-6.0); Hematocrit 39.8 % (40.0-54.0); Hemoglobin 13.5 g/dL (14.0-18.0); Immature Granulocyte Absolute 0.05 K/mm3 (0.00-0.00); Immature Granulocyte Percent A 0.7 % (0.0-0.0); Lymphocytes Absolute Auto 1.14 K/mm3 (1.10-4.50); Mean Corpuscular HGB Conc 33.9 g/dL (32.0-36.0); Mean Corpuscular Hemoglobin 33.5 pg (27.0-31.0); Mean Corpuscular Volume 98.8 fL (78.0-102.0); Mean Platelet Volume 9.2 fl (8.7-11.0); Monocytes Percent Auto 10.5 % (2.0-11.0); Neutrophils Absolute Auto 4.5 K/mm3 (1.7-7.2); Neutrophils Percent Auto 67.5 % (50.0-70.0); Platelet Count Result 276 K/mm3 (150-420); Red Blood Count 4.03 M/mm3 (4.70-6.10); Red Cell Distribution Width 14.2 % (11.6-14.4); White Blood Count 6.7 K/mm3 (4.8-10.8)
[2020-05-16 15:24] LABS: Add Urine Microscopic? NO; Appearance Urine Clear (Clear); Bilirubin Urine Negative (Negative); Blood Urine Negative (Negative); Color Urine Yellow (Yellow); Glucose Urine UA Negative (Negative); Ketones Urine Negative (Negative); Leukocyte Esterase Ur Negative LEU/UL (Negative); Nitrate Urine Negative (Negative); Protein Urine Negative (Negative); Specific Grav Ur >= 1.030 (1.010-1.020); Urobilinogen Urine 0.2 mg/dL (0.2-1.0)
[2020-05-16 15:34] LABS: Alanine Aminotransferase 19 U/L (16-63); Albumin Level 3.4 g/dL (3.4-5.0); Alkaline Phosphatase 64 U/L (46-116); Anion Gap 13 mmol/L (8-16); Aspartate Amino Transferase 14 U/L (15-37); Bilirubin,Total 0.7 mg/dL (0.00-1.00); Blood Urea Nitrogen 23 mg/dL (7-18); Calcium 8.9 mg/dL (8.5-10.1); Carbon Dioxide 21 mmol/L (21-32); Chloride 107 mmol/L (98-108); Estimated CRCL calculation 47 ml/min; Estimated Glomerular Filt Rate 38; Glucose 90 mg/dL (70-99); Magnesium 1.9 mg/dL (1.8-2.4); Osmolality Calculated 295 mOsm/kg (285-295); Potassium 3.7 mmol/L (3.5-5.1); Sodium 141 mmol/L (136-145); Total Protein 7.1 g/dL (6.4-8.2); Troponin I 17.5 ng/L (0.00-60.4)
[2020-05-16] MEDS: IBUPROFEN 400 MG TABLET PO (16:15)
[2020-05-16 16:20] VITALS: PULSE 82; RESP 20; O2SAT 99
== END 2020-05-16 16:20 | disposition home or self-care (01) ==
PROVIDERS: Emergency Provider Emergency Medicine; PCP Family Medicine
DX: J06.9 Acute upper respiratory infection, unspecified (principal)
CPT/HCPCS: 36415; 80053; 81003; 83735; 84484; 85025; 99282; 99284; A9270

== ENCOUNTER 2020-05-17 12:18 | Outpatient (CLI) | payer OTHER, SELFPAY ==
--- NOTE | ~2020-05-17 | US_ITS ---
EXAMINATION: US thyroid EXAM DATE: 05/17/2020 12:48 INDICATION: Nontoxic single thyroid nodule . TECHNIQUE: Multiple grayscale and Doppler images of the thyroid were obtained (by a technologist who performed the scan) and subsequently reviewed. Individual nodules and recommendations may be reporte d in accordance with TI-RADS system as designated by the 2017 ACR White Paper TI-RADS committee. The re is no prior study for comparison. FINDINGS: The right thyroid lobe measures 4.9 x 2.0 x 2.2 cm, the left measuring 4.6 x 1.5 x 1.4 cm. Dimensions are mildly enlarged. There is mild diffusely heterogeneous thyroid echogenicity. Largest thyroid nodule is in the isthmus measuring 1.3 x 2.9 x 3.1 cm, solid (2 points), hypoechoic ( 2 points), wider than tall, smooth margin, without echogenic foci, category TR4 for this nodule. Nex t largest is in the right thyroid lobe measuring 1.3 cm maximally. IMPRESSION: Multinodular goiter, largest nodule in the isthmus should be considered for ultrasound-gu ided biopsy. Reviewed, dictated and finalized at location A. CIATE RELATIONS SPECIALIST IMPRESSION: Multinodular goiter, largest nodule in the isthmus should be consid ered for ultrasound-guided biopsy.
--- NOTE | ~2020-05-17 | US_ITS ---
EXAMINATION: US venous doppler [facility] DATE: 05/17/2020 13:16 INDICATION: Left calf pain. TECHNIQUE: Grayscale ultrasound images without and with compression and Doppler ultrasound images of the left lower extremity veins were obtained. COMPARISON: Ultrasound 12/20/2017 FINDINGS: The visualized portions of left common femoral vein, profunda (deep) femoral vein, femoral vein, popl iteal vein, posterior tibial veins, and greater saphenous vein outflow are patent. There is chronic n onocclusive thrombus in a left peroneal vein. IMPRESSION: 1. Chronic nonocclusive thrombus in a left peroneal vein. Reviewed, dictated and finalized at location A. TICAL CONSULTANT
== END 2020-05-17 12:19 | disposition home or self-care (01) ==
LOC: CHSIMG 12:19
PROVIDERS: PCP Family Medicine; Visit Provider Family Medicine
DX: E04.1 Nontoxic single thyroid nodule (principal); M79.605 Pain in left leg
CPT/HCPCS: 76536; 93971

== ENCOUNTER 2020-05-24 12:38 | Outpatient (CLI) | payer OTHER, SELFPAY ==
--- NOTE | ~2020-05-24 | US_ITS ---
EXAMINATION: US THYROID BIOPSY DATE: 05/26/2020 15:38 PLASTIC BOAT BUFFER INDICATION: Thyroid masses. Biopsy requested. TECHNIQUE: The procedure for biopsy of the thyroid nodule and its benefits and risks were explained to the patie nt. Potential risk included were not limited to bleeding, infection, and nondiagnostic specimen. The neck was prepped and draped in the usual sterile manner. 3 cc 1% lidocaine was used for local an esthesia. 7 passes were made with a 25G needle into the isthmus/right thyroid lesion. Appropriate ne edle location was documented with continuous sonographic guidance. The specimens were passed to the cytopathologist in the room. All needles were removed and a sterile bandage applied over the biopsy site. The patient tolerated t he procedure without immediate complications or complaints. FINDINGS: Subsequent images demonstrate needles advanced into the lesion for biopsy. IMPRESSION: 1. Successful ultrasound guided biopsy of isthmus/right thyroid nodule. Please refer to pathology r eport for final histologic analysis. Reviewed, dictated and finalized at location A. TIC BOAT BUFFER IMPRESSION: 1. Successful ultrasound guided biopsy of isthmus/right thyroid nodule. Jameson do refer to pathology report for final histologic analysis.
== END 2020-05-24 12:39 | disposition home or self-care (01) ==
PROVIDERS: PCP Family Medicine; Visit Provider Family Medicine
DX: E04.1 Nontoxic single thyroid nodule (principal)
CPT/HCPCS: 10005; 88173; 88305

== ENCOUNTER 2020-05-28 03:58 | Inpatient (IN) | payer OTHER, SELFPAY ==
[2020-05-28] VITALS (14 sets, daily range): BP systolic 106–134; BP diastolic 63–78; PULSE 60–72; RESP 16–20; TEMP 35.9–36.6; O2SAT 95–100; BMI 70.3
--- NOTE | ~2020-05-28 | NM_ITS ---
EXAMINATION: NM pulmonary perfusion DATE: 05/29/2020 08:46 INDICATION: Chest pain. TECHNIQUE: 6 mCi Tc-99m MAA was administered intravenously for perfusion images. Scintigraphic image s of the chest were obtained. COMPARISON: Chest 2 views 05/28/2020 FINDINGS: Perfusion images show small defects in left lower lobe. ] IMPRESSION: 1. Pulmonary embolism absent (very low probability). Reviewed, dictated and finalized at location A. ER PRESS OPERATOR
--- NOTE | ~2020-05-28 | XR_ITS ---
EXAMINATION: XR chest 2V DATE: 05/28/2020 05:23 INDICATION: Chest pain TECHNIQUE: frontal and lateral views of the chest were obtained. COMPARISON: Chest CT dated 05/12/2020 FINDINGS: Calcified left lower lobe nodule consistent with old granulomatous disease. No other airspace opaciti es, pulmonary edema, pleural effusion or pneumothorax. The cardiomediastinal silhouette is normal. [place] islands at the posterior right eighth rib and at L1. IMPRESSION: 1. No acute cardiopulmonary disease. Reviewed, dictated and finalized at location A. EO COMPILER
--- NOTE | 2020-05-28 04:03 | ECG_ITS ---
Measurements Intervals [place] Rate: 58 P: 29 NE: 142 QRS: 20 QRSD: 96 T: 71 QT: 426 QTc: 419 Interpretive Statements SINUS BRADYCARDIA MINIMAL Q WAVES- INFERIOR LEADS BORDERLINE ECG Electronically Signed On 05-29-2020 8:27:11 INDUSTRIAL CHEMIST by Edvin Joshi D.O.
[2020-05-28 04:24] LABS: Basophils Absolute Auto 0.03 K/mm3 (0.00-0.10); Basophils Percent Auto 0.3 % (0.0-1.0); Eosinophils Percent Auto 2.2 % (1.0-6.0); Hematocrit 38.2 % (40.0-54.0); Immature Granulocyte Percent A 1.1 % (0.0-0.0); Lymphocytes Absolute Auto 1.22 K/mm3 (1.10-4.50); Lymphocytes Percent Auto 13.2 % (18.0-42.0); Mean Corpuscular Hemoglobin 33.9 pg (27.0-31.0); Mean Corpuscular Volume 99.5 fL (78.0-102.0); Mean Platelet Volume 9.2 fl (8.7-11.0); Monocytes Absolute Auto 0.77 K/mm3 (0.10-0.90); Monocytes Percent Auto 8.3 % (2.0-11.0); Neutrophils Percent Auto 74.9 % (50.0-70.0); Platelet Count Result 264 K/mm3 (150-420); Red Blood Count 3.84 M/mm3 (4.70-6.10); Red Cell Distribution Width 14.4 % (11.6-14.4); White Blood Count 9.3 K/mm3 (4.8-10.8)
[2020-05-28 04:27] LABS: Add Urine Microscopic? NO; Appearance Urine Clear (Clear); Bilirubin Urine Negative (Negative); Blood Urine Negative (Negative); Color Urine Yellow (Yellow); Glucose Urine UA Negative (Negative); Ketones Urine Negative (Negative); Leukocyte Esterase Ur Negative LEU/UL (Negative); Nitrate Urine Negative (Negative); Protein Urine Negative (Negative); Urobilinogen Urine 0.2 mg/dL (0.2-1.0)
[2020-05-28 04:36] LABS: INR 0.9; Partial Thromboplastin Time 31.1 SEC (23.90-30.70)
[2020-05-28 04:38] LABS: D Dimer 1.15 mg/L (0.19-0.50)
[2020-05-28 04:39] LABS: Alanine Aminotransferase 22 U/L (16-63); Albumin Level 3.3 g/dL (3.4-5.0); Alkaline Phosphatase 72 U/L (46-116); Anion Gap 13 mmol/L (8-16); Aspartate Amino Transferase 15 U/L (15-37); Bilirubin,Total 0.5 mg/dL (0.00-1.00); Blood Urea Nitrogen 27 mg/dL (7-18); Calcium 8.8 mg/dL (8.5-10.1); Carbon Dioxide 23 mmol/L (21-32); Chloride 103 mmol/L (98-108); Estimated CRCL calculation 40 ml/min; Estimated Glomerular Filt Rate 32; Glucose 97 mg/dL (70-99); Lipase 342 U/L (73-393); Osmolality Calculated 293 mOsm/kg (285-295); Potassium 4.2 mmol/L (3.5-5.1); Sodium 139 mmol/L (136-145); Total Protein 7.1 g/dL (6.4-8.2); Troponin I 16.4 ng/L (0.00-60.4)
[2020-05-28] MEDS: SODIUM CHLORIDE 0.9% IV 1,000 ML 999 ML IV CONT (04:42)
--- NOTE | 2020-05-28 04:50 | ED.CHESTPAIN ---
HPI - Chest Pain General Chief Complaint: Chest Pain Stated Complaint: chest pain Source: patient and EMS Mode of arrival: EMS Limitations: no limitations History of Present Illness HPI narrative: This is a 54-year-old gentleman that presents to the emergency department via EMS after he was awoken with chest pain that he described as a sharp pressure-like pain left chest area with mild shortness of breath, with no fever or chills no cough no hematemesis, patient has a history of left lower extremity deep venous thrombosis that was diagnosed in early May and was initially on Eliquis but has been able to afford Eliquis and has been off of blood thinners since he had a biopsy of his thyroid. Patient has a history of chronic kidney disease with left nephrectomy due to renal cell carcinoma, has a history of hypertension her rheumatoid arthritis hyperlipidemia patient has a history of atrial fibrillation although currently in normal sinus rhythm. So apparently the past patient had a thyroid biopsy on May 26 and his blood thinners were held and have been on hold since then and has a history of deep venous thrombosis in his left peroneal vein, and currently having aching and pain in his left calf area. complaint: chest pain and chest heaviness Onset (ago): hour(s) Timing of current episode: constant Onset: awoke with symptoms Pain location: left chest Pain radiation: none Severity: mild Quality: aching Relieving factors: nothing Exacerbating factors: nothing Context: history of DVT/PE Treatment prior to arrival: aspirin Related Data Home Medications Medication Instructions Recorded Confirmed aspirin 81 mg tablet,delayed 81 mg PO DAILY 08/18/19 05/28/20 release prednisone 10 mg tablet 5 mg PO DAILY tablet 08/18/19 05/28/20 Allergies Allergy/AdvReac Type Severity Reaction Status Date / Time No Known Allergies Allergy Verified 05/16/20 15:40 Review of Systems Review of Systems: All systems reviewed & are unremarkable except as noted in HPI and below PMFSH Past Medical History Medical History (Updated 05/28/20 @ 05:00 by Wesley Montiel MD) Anxiety Atrial fibrillation CKD (chronic kidney disease), stage III Cocaine abuse Drug abuse GERD (gastroesophageal reflux disease) HTN (hypertension) Hyperlipidemia Lipoma Neuropathy Renal cell carcinoma Rheumatoid arthritis Rheumatoid arthritis Surgical History Surgical History History of appendectomy History of nephrectomy, left History of tonsillectomy and adenoidectomy Social History Social History Smoking status: Never smoker Substance use: current Substance use type: marijuana and crack/cocaine Gender identity (if verbalized by the patient): Male Exam Const: General: no acute distress and alert Orientation/consciousness: patient oriented x3 HENMT: Head: normal to inspection Eyes: Conjunctivae: conjunctivae normal Pupils: Equal, round and reactive pupils present Neck: Neck: normal visual inspection, no lymphadenopathy and no meningeal signs Chest: Chest palpation & inspection: normal inspection of the chest Resp: Effort & Inspection: normal respiratory effort Cardio: Rate: regular rate Rhythm: regular rhythm GI: GI Palp: Yes Soft to palpation Auscultation: normal bowel sounds : Testes: Testes normal Back/Spine/Pelvis: Back: no CVA tenderness Skin: General skin exam: normal color Rashes: no rashes Neuro: General: moves all extremities and no meningeal signs Extrem: Other: Left calf pain with palpation Psych: Mental Status: mental status grossly normal Affect: normal affect Course Course Emergency Course: reassessment of patient continues to have left calf pain and will receive morphine, chest pressure and chest pain have improved and currently about a 1 or 2/10, reviewed laboratory findings and
--- NOTE | 2020-05-28 04:56 | PC.NURSE ---
Patient to be admitted for PE r/o with planned VQ scan on Friday, assigned Rm 205. Awaiting nurse for report
[2020-05-28] MEDS: MORPHINE SULFATE (*CRX) 4 MG/ML INJ IV PUSH (05:09)
[2020-05-28] MEDS: ONDANSETRON INJ 4 MG/2 ML VIAL IV PUSH (05:09)
--- NOTE | 2020-05-28 05:31 | PC.NURSE ---
Report to Susannah REED, pt to Rm 205. He was offered to wear a hospital gown and refused and wanted to wear his clothes which included sweat pants, t-shirt, socks, and block slippers. Pt coat and cell phone was in his hand upon departure from the ER
--- NOTE | 2020-05-28 06:09 | ADMGEN ---
This patient, Jay Arreola, was admitted to 2nd Floor Room 205-1. Patient/family oriented to hospital policies and general routines including ID bracelet, bed and alarms, visiting hours, pain management, procedures, bathroom and other care routines, personal items, smoking policy, room service/diet, and visiting hours. Information on how to activate the Rapid Response Team has been discussed. Patient/Family are encouraged to report perceived risks to care and to ask questions if they do not understand what they are told or what they should do.
[2020-05-28] MEDS: SODIUM CHLORIDE 0.9% IV 1,000 ML 100 ML IV CONT ×2 (06:20→16:14)
--- NOTE | 2020-05-28 07:51 | PM.IMHP ---
H&P: HPI History of Present Illness Date/Time: 05/28/20 07:51 Chief complaint: chest pain Narrative: Jay Arreola is a 54 year old male who came to the emergency department after being woken up early in the morning with chest pain. At this time patient does not admit to any chest pain after being admitted to the floor. Patient denies any nausea or vomiting no lightheadedness no dizziness no changes in vision no balance issues. Patient states he has a DVT in his left leg and says his insurance company is deciding whether not they will pay for the Eliquis. Patient also has chronic kidney disease hypertension rheumatoid arthritis hyperlipidemia. Also according to previous toxicology screen he was found positive for cocaine and THC. Review of Systems Constitutional: Constitutional: Reports no additional constitutional complaints, Denies fatigue, Denies fever(s), Denies headache(s) and Denies night sweats Cardiovascular: Cardiovascular: Reports no additional cardiovascular complaints, Denies chest pain, Denies chest pain at rest and Denies chest pain with activity Respiratory: Respiratory: Reports no additional respiratory complaints, Denies dyspnea and Denies dyspnea on exertion Gastrointestinal: Gastrointestinal: Reports no additional gastrointestinal complaints Musculoskeletal: Comments: Left lower extremity pain related to DVT Neurologic: Reports system reviewed and no additional complaints, except as documented, Denies Abnormal speech present, Denies confusion, Denies dizziness, Denies syncope, Denies headache(s), Denies lack of coordination, Denies loss of vision and Denies numbness PMFSH Past Medical History Medical History Anxiety Atrial fibrillation CKD (chronic kidney disease), stage III Cocaine abuse Drug abuse GERD (gastroesophageal reflux disease) HTN (hypertension) Hyperlipidemia Lipoma Neuropathy Renal cell carcinoma Rheumatoid arthritis Rheumatoid arthritis Surgical History Surgical History History of appendectomy History of nephrectomy, left History of tonsillectomy and adenoidectomy Social History Social History Smoking status: Never smoker Alcohol intake: former Substance use: current Substance use type: marijuana Gender identity (if verbalized by the patient): Male Sexual Orientation (if Verbalized by the Patient): Straight or Heterosexual Spiritual care concerns: No Meds Home Medications and Allergies Home Medications Medication Instructions Recorded Confirmed Type aspirin 81 mg tablet,delayed 81 mg PO DAILY 08/18/19 05/28/20 History release prednisone 10 mg tablet 5 mg PO DAILY tablet 08/18/19 05/28/20 History lovastatin 40 mg tablet 40 mg PO DAILY #30 tablet 03/13/20 05/28/20 Rx hydroxychloroquine 200 mg tablet 200 mg PO BID #60 tablet 03/17/20 05/28/20 Rx gabapentin 300 mg capsule 900 mg PO BID #180 cap 05/15/20 05/28/20 Rx lisinopril 20 mg tablet 20 mg PO DAILY #30 tablet 05/15/20 05/28/20 Rx Allergies Allergy/AdvReac Type Severity Reaction Status Date / Time No Known Allergies Allergy Verified 05/16/20 15:40 Vital Signs Vital Signs - 24 hr 05/28/20 03:58 05/28/20 04:04 05/28/20 04:25 Temperature 98 F Pulse Rate 71 72 70 Respiratory Rate 20 18 Blood Pressure 106/66 114/75 Pulse Oximetry 98 100 05/28/20 04:56 05/28/20 05:34 05/28/20 06:00 Temperature 97.2 F L Pulse Rate 68 70 68 Respiratory Rate 18 18 16 Blood Pressure 109/68 112/67 110/65 Pulse Oximetry 98 98 98 05/28/20 06:04 Temperature Pulse Rate 68 Respiratory Rate Blood Pressure Pulse Oximetry Exam Const: General: cooperative, comfortable, no acute distress, alert, awake and Physically active Nutritional Appearance: overweight Resp: Effort & Inspection: normal respiratory effort Auscultati
[2020-05-28] MEDS: ENOXAPARIN 100 MG/ML SYRINGE SUB-Q ×2 (09:09→20:27)
[2020-05-28] MEDS: HYDROXYCHLOROQUINE SULFATE 200 MG TABLET PO ×2 (09:09→17:54)
[2020-05-28] MEDS: GABAPENTIN 300 MG CAPSULE 900 MG PO ×2 (09:09→17:54)
[2020-05-28] MEDS: ASPIRIN 81 MG ENTERIC TABLET PO (09:09)
[2020-05-28] MEDS: LOVASTATIN 20 MG TABLET 40 MG PO (09:09)
[2020-05-28] MEDS: predniSONE 5 MG TABLET PO (09:09)
[2020-05-28] MEDS: lisinopriL 20 MG TABLET PO (09:09)
[2020-05-28 10:19] LABS: Troponin I 16.8 ng/L (0.00-60.4)
--- NOTE | 2020-05-28 11:23 | ECG_ITS ---
Measurements Intervals [place] Rate: 68 P: 32 CA: 139 QRS: 24 QRSD: 92 T: 65 QT: 391 QTc: 417 Interpretive Statements SINUS RHYTHM MINIMAL Q WAVES- INFERIOR LEADS BORDERLINE ECG Electronically Signed On 05-29-2020 8:26:54 STORE MERCHANDISER by Edvin Joshi D.O.
[2020-05-28] MEDS: PHARMACIST COMMUNICATION ORDER 1 EACH XX (13:04)
[2020-05-28] MEDS: MORPHINE SULFATE (*CRX) 2 MG/ML INJ IV PUSH ×2 (13:04→22:15)
[2020-05-28 16:17] LABS: Troponin I 16.8 ng/L (0.00-60.4)
--- NOTE | 2020-05-28 22:02 | PC.NURSE ---
pt appears to be sleeping, chest movement evident, no s/sx of distress or pain, urinal emptied and placed back within reach, iv running
--- NOTE | 2020-05-28 22:22 | PC.NURSE ---
pt c/o shooting pain in L leg and feeling of someone sitting on his chest , 02 sat checked, hob elevated, given morphine for pain, pt is aware of dvt in left leg, will continue to monitor
[2020-05-29 00:30] VITALS: BP 109/68; PULSE 68; RESP 20; TEMP 36.4; O2SAT 96
[2020-05-29] MEDS: SODIUM CHLORIDE 0.9% IV 1,000 ML 100 ML IV CONT (01:39)
--- NOTE | 2020-05-29 02:00 | PC.NURSE ---
Pt. sleeping, no distress noted, tele monitor in place showing SBrady.
[2020-05-29 03:53] VITALS: PULSE 57
[2020-05-29 04:00] VITALS: BP 102/58; PULSE 57; RESP 18; TEMP 36.5; O2SAT 97
[2020-05-29 06:28] LABS: Hematocrit 39.2 % (40.0-54.0); Hemoglobin 12.6 g/dL (14.0-18.0); Mean Corpuscular HGB Conc 32.1 g/dL (32.0-36.0); Mean Corpuscular Hemoglobin 32.6 pg (27.0-31.0); Mean Corpuscular Volume 101.6 fL (78.0-102.0); Mean Platelet Volume 9.7 fl (8.7-11.0); Platelet Count Result 243 K/mm3 (150-420); Red Blood Count 3.86 M/mm3 (4.70-6.10); Red Cell Distribution Width 14.6 % (11.6-14.4); White Blood Count 6.8 K/mm3 (4.8-10.8)
[2020-05-29 06:40] LABS: Anion Gap 9 mmol/L (8-16); Blood Urea Nitrogen 20 mg/dL (7-18); Calcium 8.6 mg/dL (8.5-10.1); Carbon Dioxide 23 mmol/L (21-32); Chloride 111 mmol/L (98-108); Estimated CRCL calculation 85 ml/min; Estimated Glomerular Filt Rate 44; Glucose 75 mg/dL (70-99); Osmolality Calculated 297 mOsm/kg (285-295); Potassium 4.2 mmol/L (3.5-5.1); Sodium 143 mmol/L (136-145)
[2020-05-29 08:00] VITALS: BP 120/71; PULSE 74; PULSE 76; RESP 16; TEMP 36.3; O2SAT 96
[2020-05-29] MEDS: ENOXAPARIN 100 MG/ML SYRINGE SUB-Q (08:40)
[2020-05-29] MEDS: predniSONE 5 MG TABLET PO (08:40)
[2020-05-29] MEDS: LOVASTATIN 20 MG TABLET 40 MG PO (08:40)
[2020-05-29] MEDS: ASPIRIN 81 MG ENTERIC TABLET PO (08:41)
[2020-05-29] MEDS: HYDROXYCHLOROQUINE SULFATE 200 MG TABLET PO (08:41)
[2020-05-29] MEDS: GABAPENTIN 300 MG CAPSULE 900 MG PO (08:41)
--- NOTE | 2020-05-29 10:00 | ECHO_ITS ---
Patient Info Name: Jay Arreola Age: 54 years : 1965 Gender: Male Ht: 70 in Wt: 222 lbs BSA: 2.26 m2 HR: 75 bpm BP: 120 / 71 mmHg Heart Rhythm: Sinus Rhythm Technical Quality: Fair Exam Date: 05/29/2020 10:36 AM Exam Location: [facility] Patient Status: Inpatient Admit Date: 05/28/2020 Staff Ordering Physician: Jae Marie Sensor Technician: Ki Grover RDCS Attending Provider: Wesley Montiel MD Referring Physician: Cynthia MORALES; Exam Type: CA echo doppler color flow Study Info Indications R07.9 - Chest pain, unspecified Complete two-dimensional, color flow and Doppler transthoracic echocardiogram is performed. Strain analysis performed. History/Risk Factors Chest pain; pAfib, CKD3, PSA, HTN, bradycardia. Summary 1. Complete two-dimensional, color flow and Doppler transthoracic echocardiogram is performed. 2. Left ventricular chamber dimension is normal. 3. Left ventricular systolic function is normal, estimated at 60-65%. 4. There is mildly increased left ventricular wall thickness. 5. The left ventricular diastolic function is abnormal. 6. E/e' 11 is mildly elevated. 7. Global longitudinal strain is abnormal at -15.7%. 8. Left atrial chamber dimension is mildly enlarged. Left Ventricle E/e' 11 is mildly elevated. Global longitudinal strain is abnormal at -15.7%. Left ventricular chamber dimension is normal. Left ventricular systolic function is normal, estimated at 60-65%. There is mildly increased left ventricular wall thickness. The left ventricular diastolic function is abnormal. Right Ventricle Right ventricular chamber dimension is normal. Right ventricular systolic function is normal. Left Atria Left atrial chamber dimension is mildly enlarged. Right Atria Right atrial chamber dimension is normal. Aortic Valve The aortic valve is trileaflet. There is no aortic valve stenosis. There is no aortic valve regurgitation. Pulmonic Valve There is no pulmonic regurgitation. Mitral Valve There is no mitral valve stenosis. There is no mitral valve regurgitation. Tricuspid Valve There is no tricuspid valve regurgitation. Pericardium/Pleural There is no pericardial effusion. Inferior Vena Cava Normal inferior vena cava with >50% collapse upon inspiration consistent with normal right atrial pressure, 5 mmHg. Aorta The aortic root size at the sinus of Valsalva is normal. Left Ventricular Outflow Tract Name Value Normal LVOT 2D LVOT Diameter 1.9 cm LVOT Doppler LVOT Peak Velocity 121 cm/s LVOT Peak Gradient 6 mmHg LVOT Mean Gradient 3 mmHg LVOT VTI 23 cm LVOT VTI/AV VTI Ratio 0.7 LVOT Stroke Volume 66 ml Mitral Valve Name Value Normal MV Doppler
--- NOTE | 2020-05-29 10:42 | PM.DS ---
DS: Admitting Diagnosis Admitting Diagnosis Admitting Diagnosis: chest pain, chronic DVT LLE <FARHAN Stewart - Last Filed: 05/29/20 10:59> DS: Discharge Diagnosis Discharge Diagnosis (1) Chest pain: Qualifiers: Chest pain type: chest pain on breathing Qualified Code(s): R07.1 - Chest pain on breathing <FARHAN Stewart - Last Filed: 05/29/20 10:59> Code(s): R07.9 - Chest pain, unspecified <FARHAN Stewart - Last Filed: 05/29/20 10:59> Status: Acute <FARHAN Stewart - Last Filed: 05/29/20 10:59> Assessment and Plan: 05/28/2020 first 2 troponin values are negative, cardiac monitoring, morphine for pain, currently patient has no chest pain, obtain EKG showing sinus bradycardia awaiting official reading from precision instrument maker and repairer, echo for tomorrow 05/29/2020 Patient has been without pain since yesterday, denies any nausea vomiting, patient is having his echocardiogram done at this time, at discharge will have patient follow-up with primary care provider and precision instrument maker and repairer <FARHAN Stewart - Last Filed: 05/29/20 10:59> (2) Chronic deep vein thrombosis (DVT): Qualifiers: Affected thrombotic vein of extremity: peroneal DVT location: lower extremity Laterality: left Qualified Code(s): I82.552 - Chronic embolism and thrombosis of left peroneal vein <FARHAN Stewart - Last Filed: 05/29/20 10:59> Code(s): I82.509 - Chronic embolism and thrombosis of unspecified deep veins of unspecified lower extremity <FARHAN Stewart - Last Filed: 05/29/20 10:59> Status: Acute <FARHAN Stewart - Last Filed: 05/29/20 10:59> Assessment and Plan: 05/28/2020 Patient currently on therapeutic Lovenox and will be bridging to Coumadin, first dose given this evening with pharmacy to dose and follow starting tomorrow, patient does complain of a little bit of pain in his left leg, my understanding patient has been off of his Eliquis for a while due to the expense, MERVIN carpenter ordered 05/29/2020 V/Q scan report states very unlikely for PE, patient will be sent home on twice a day Lovenox and Coumadin for him to follow-up with laboratory INR with an appointment same day with his PCP. <FARHAN Stewart - Last Filed: 05/29/20 10:59> (3) Rheumatoid arthritis: Code(s): M06.9 - Rheumatoid arthritis, unspecified <BARB StewartC - Last Filed: 05/29/20 10:59> Status: Acute <FARHAN Stewart - Last Filed: 05/29/20 10:59> Assessment and Plan: 05/28/2020 continue with patient's hydroxychloroquine, no complaints of joint pain at this time 05/29/2020 Patient to continue medication on discharge <FARHAN Stewart - Last Filed: 05/29/20 10:59> (4) CKD (chronic kidney disease), stage III: Code(s): N18.3 - Chronic kidney disease, stage 3 (moderate) <FARHAN Stewart - Last Filed: 05/29/20 10:59> Status: Chronic <FARHAN Stewart - Last Filed: 05/29/20 10:59> Assessment and Plan: 05/28/2020 will hold lisinopril as creatinine clearance is less than 60, monitor kidney function, hold NSAIDs and other nephrotoxic agents 05/29/2020 patient is not required his lisinopril as his blood pressure has been stable <FARHAN Stewart - Last Filed: 05/29/20 10:59> (5) HTN (hypertension): Qualifiers: Hypertension type: essential hypertension Qualified Code(s): I10 - Essential (primary) hypertension <FARHAN Stewart - Last Filed: 05/29/20 10:59> Code(s): I10 - Essential (primary) hypertension <FARHAN Stewart - Last Filed: 05/29/20 10:59> Status: Chronic <JESSICA StewartN-C - Last Filed: 05/29/20 10:59> Assessment and Plan: 05/28/2020 blood pressure has been stable, will continue to monitor 05/29/2020 blood pressure has been stable without his lisinopril, p
--- NOTE | 2020-06-20 14:53 | PC.NURSE ---
Unable to contact for discharge call back.
== END 2020-05-29 12:00 | disposition home or self-care (01) | DRG 197 ==
LOC: CHSED 05:00 → CHS2ND 05-29 07:39
PROVIDERS: Nurse Practitioner Family; Admitting Provider Emergency Medicine; Emergency Provider Emergency Medicine; PCP Family Medicine; Visit Provider Emergency Medicine
DX: I82.452 Acute embolism and thrombosis of left peroneal vein (principal); R07.1 Chest pain on breathing; N18.9 Chronic kidney disease, unspecified; I12.9 Hypertensive chronic kidney disease with stage 1 through stage 4 chronic kidney disease, or unspecified chronic kidney disease; I48.20 Chronic atrial fibrillation, unspecified; M06.9 Rheumatoid arthritis, unspecified; E78.5 Hyperlipidemia, unspecified; K21.9 Gastro-esophageal reflux disease without esophagitis; F14.10 Cocaine abuse, uncomplicated; F41.9 Anxiety disorder, unspecified; Z85.528 Personal history of other malignant neoplasm of kidney; Z90.5 Acquired absence of kidney; R07.9 Chest pain, unspecified; N18.30 Chronic kidney disease, stage 3 unspecified; G62.9 Polyneuropathy, unspecified
CPT/HCPCS: 36415; 71046; 78580; 80048; 80053; 81003; 83690; 84484; 85025; 85027; 85380; 85610; 85730; 93005; 93306; 99285; A9270; A9540; J1650; J2270; J2405; J7030; J7512

== ENCOUNTER 2020-06-05 13:37 | Outpatient (CLI) | payer OTHER, SELFPAY ==
--- NOTE | ~2020-06-05 | XR_ITS ---
EXAMINATION: XR knee RT 3V DATE: 06/05/2020 14:01 INDICATION: Right knee pain. TECHNIQUE: 3 views of right knee were obtained. COMPARISON: None. FINDINGS: Bone alignment is normal. No fracture. There is mild tricompartmental osteoarthritis. There is a small knee joint effusion. IMPRESSION: 1. Mild right knee osteoarthritis. 2. Small right knee joint effusion. Reviewed, dictated and finalized at location A. CTIONS COUNSELOR ASSISTANT
[2020-06-05 14:13] LABS: INR 1.3
== END 2020-06-05 13:38 | disposition home or self-care (01) ==
LOC: CHSLAB 13:40
PROVIDERS: PCP Family Medicine; Visit Provider Family Medicine
DX: M25.561 Pain in right knee (principal); I82.552 Chronic embolism and thrombosis of left peroneal vein
CPT/HCPCS: 36415; 73562; 85610

== ENCOUNTER 2020-06-12 15:28 | Outpatient (CLI) | payer OTHER, SELFPAY ==
[2020-06-12 15:59] LABS: INR 2.2; Prothrombin Time 23.7 Seconds (9.50-12.10)
== END 2020-06-12 15:29 | disposition home or self-care (01) ==
LOC: CHSLAB 15:31
PROVIDERS: PCP Family Medicine; Visit Provider Nurse Practitioner Family
DX: I82.509 Chronic embolism and thrombosis of unspecified deep veins of unspecified lower extremity (principal)
CPT/HCPCS: 36415; 85610

== ENCOUNTER 2020-06-12 15:45 | Outpatient (RCR) | payer OTHER, SELFPAY ==
--- NOTE | 2020-06-12 16:34 | PTOPEVAL ---
Thank you for referring Jay Arreola to [facility].? The patient is scheduled to be seen for therapy? __3__x/week for 12 visits. Please review, sign, date and return this plan of care MARYCRUZ. I agree with and certify that the following plan of care is medically necessary. Referring Physician Date Admitting Provider: Attending Provider: Alverto Shine DO Referring Provider: *PT Outpatient Evaluation Start: 06/12/20 15:10 Freq: Status: Active Protocol: Document 06/12/20 15:52 PAIGE (Rec: 06/12/20 16:24 PAIGE [id number]) Therapy Assessment Status Assessment Status Assessment Status Evaluation Outpatient Past Medical History Neurological History Hx Other Neurological Disorders Yes: NEUROPATHY Cardiovascular History Hx Hypercholesterolemia Yes Hx Hypertension Yes Gastrointestinal History Hx Gastroesophageal Reflux Disease Yes Genitourinary History Hx Nephrectomy Yes Hx Other Genitourinary Disorders Yes: LEFT KIDNEY REMOVAL (CA) Musculoskeletal History Hx Arthritis Yes Hx Other Musculoskeletal Disorders Yes: neuropathy Pain History Has Past Pain Affected Your Daily Life Yes History of Long-Term Prescription Pain Yes Medication Use (Opiates) Other History Hx Cancer Yes: KIDNEY Hx Other Medical Conditions Yes: drug use and abuse Evaluation Information Problem Diagnosis right knee pain Onset 06/05/20 Subjective Information Pt. reports that he has had Query Text:As Reported By Patient/ years of right knee pain. He Family does report having a blood clot in the left leg discovered last week. He states that he has been taking blood thinners since. He reports that he has been using a cane for ambulation for a couple years. He report that he does have neuropathy in both legs. He reports that most pain is located in the front of the right knee. He states that he can drive himself. He states that he can only be on his feet for about 1 minute before having so sit due to knee pain and some back pain. He states his goal is to decrease Prior Level of Function Activity Level (Last 3 Months) Occupation disability Hand Dominance Right Activity of Daily L
--- NOTE | 2020-08-08 06:46 | PCPTNOTE ---
Pt. attended a total of 8 treatment sessions from 06/07/20 to 07/07/20. She has failed to return to the clinic and will be discharged from our care. Refer to re-evaluation on 07/07/20 for discharge status JEAN-PIERRE Rawls
--- NOTE | 2020-08-08 06:49 | PCPTNOTE ---
Pt. attended at total of 1 treatment session. He failed to return following his initial evaluation. Pt. will be discharged from our care at this time. Wesley Mar, MPT
== END 2020-06-12 16:45 | disposition home or self-care (01) ==
LOC: CHSPT 15:45
PROVIDERS: PCP Family Medicine; Visit Provider Family Medicine
DX: M25.561 Pain in right knee (principal)
CPT/HCPCS: 97110; 97161

== ENCOUNTER 2020-07-10 02:05 | Emergency (ER) | payer OTHER, SELFPAY ==
[2020-07-10] VITALS (12 sets, daily range): BP systolic 74–128; BP diastolic 54–73; PULSE 70–92; RESP 16–20; TEMP 36.4–37.2; O2SAT 94–100
--- NOTE | ~2020-07-10 | XR_ITS ---
EXAMINATION: XR chest 1V portable EXAM DATE: 07/10/2020 02:54 INDICATION: Hypertension, back pain. TECHNIQUE: Portable AP frontal chest x-ray was obtained. Comparison is made to prior examination from 05/28/2020. FINDINGS: The lungs are clear. There are no pleural effusions. Cardiac silhouette is prominent but magnified on this AP technique. There is no pneumothorax suspected. The bones and soft tissues are unremarkable. IMPRESSION: No acute cardiopulmonary findings. Reviewed, dictated and finalized at location A. ING MACHINE ATTENDANT
--- NOTE | ~2020-07-10 | CT_ITS ---
EXAMINATION: CT chest abdomen pelvis wo con EXAM DATE: 07/10/2020 05:39 INDICATION: Hypotension, back pain, ARF back pain @level of kidney, dizziness, hypotension. TECHNIQUE: Spiral CT of the chest, abdomen and pelvis was performed without contrast. Axial, myles l and sagittal images were reviewed. Coronal maximum intensity pixel images of chest reviewed. The dose-length product (DLP) for this examination was 513.80 mGy-cm. The exposure was tailored accordin g to patient size (auto mA exposure control), and iterative reconstruction (ASIR) was used as additio nal dose reduction technique. Comparison is made to prior examination from 05/12/2020, 01/24/2020, 06/17. FINDINGS: CHEST: There is a lingular 8 x 10 mm nodule, slight interval increase in size compared to CT from [facility]. There are several smaller pulmonary nodules. There are no pleural or pericardial effusions. T racheobronchial tree is patent. There is no mediastinal, hilar or axillary lymphadenopathy. There is no pneumothorax. Heart normal in size. There is moderate coronary arterial calcification, art erial sclerosis. ABDOMEN PELVIS: The liver, spleen, right adrenal gland and pancreas are unremarkable. Gallbladder is unremarkable. No biliary obstruction. Status post left nephrectomy, probable left adrenal gland re section as well. There is punctate right nephrolithiasis. No right-sided hydronephrosis. The prostat e is unremarkable. The bladder is collapsed with Ureña catheter balloon anchor inside. There is no retroperitoneal or pelvic lymphadenopathy. There is mild scattered arteriosclerotic disease. There are surgical changes consistent with appendectomy. The stomach and small bowel are unremarkab le. There is expected amount of colonic stool. No free intraperitoneal gas. There is 1.3 cm scle rotic focus in L1, was about 1 cm June 2019. Several tiny pelvic, right hip, rib sclerotic foci ar e unchanged. IMPRESSION: 1. Several small pulmonary nodules with largest in the lingula demonstrating modest growth. Possible malignancy, metastatic disease. 2. Possible slight increase in L1 sclerotic focus, possible osteoblastic disease. 3. Surgical changes from left nephrectomy, appendectomy. 4. Punctate right nephrolithiasis. 5. No acute findings. Reviewed, dictated and finalized at location A. NESS SUPPORT MANAGER IMPRESSION: 1. Several small pulmonary nodules with largest in the lingula demonstrating m odest growth. Possible malignancy, metastatic disease. 2. Possible slight increase in L1 sclerotic focus, possible osteoblastic disea se. 3. Surgical changes from left nephrectomy, appendectomy. 4. Punctate right nephrolithiasis. 5. No acute findings.
--- NOTE | 2020-07-10 02:18 | ECG_ITS ---
Measurements Intervals Mar Lin Rate: 86 P: 28 MS: 144 QRS: 35 QRSD: 92 T: 47 QT: 342 QTc: 410 Interpretive Statements SINUS RHYTHM NORMAL ECG Electronically Signed On 07-10-2020 7:22:59 ADMINISTRATION PROFESSIONAL by Edvin Joshi D.O.
--- NOTE | 2020-07-10 02:24 | ED.BACK ---
HPI - Back Pain/Injury General Chief Complaint: Back Pain/Injury Stated Complaint: back pain Time Seen by Provider: 07/10/20 02:15 Source: patient Mode of arrival: EMS Limitations: no limitations History of Present Illness HPI Narrative: 54-year-old man with a history of DVT and AFib comes in today by EMS complaining of 3 days of bilateral back pain, weakness, and, just tonight, low blood pressure at home. Patient states that he had some intermittent nausea but has had no vomiting, diarrhea, chest pain, abdominal pain, fever, dysuria, black or bloody stools, cough or cold symptoms. He's been on apixaban for 4 days. Before that he was on warfarin. MD elicited complaint: back pain Pertinent past history: cancer Onset (ago): day(s) (3) Timing: constant Severity: moderate Similar Symptoms Previously: No Quality: dull Location: lumbar spine and thoracic spine Radiation: none Exacerbating factors: none Relieving factors: none Associated symptoms: weakness Related Data Home Medications Medication Instructions Recorded Confirmed aspirin 81 mg tablet,delayed 81 mg PO DAILY 08/18/19 07/10/20 release prednisone 10 mg tablet 7.5 mg PO DAILY tablet 08/18/19 07/10/20 apixaban 5 mg (74 tabs) tablets in 5 mg PO BID 06/29/20 07/10/20 a dose pack Allergies Allergy/AdvReac Type Severity Reaction Status Date / Time No Known Allergies Allergy Verified 05/30/20 07:45 Review of Systems Constitutional: Constitutional: Denies chills, Denies fever(s) and Reports weakness Eyes: Eyes: Denies change in vision and Denies photophobia ENT: Denies dysphagia, Denies nasal congestion and Denies sore throat Cardiovascular: Cardiovascular: Denies chest pain and Denies radiating jaw, neck or arm pain Respiratory: Respiratory: Denies cough and Denies dyspnea Gastrointestinal: Gastrointestinal: Denies abdominal pain, Reports diarrhea, Reports nausea and Denies vomiting Genitourinary: Genitourinary: Denies hematuria, Denies dysuria and Denies urinary frequency Musculoskeletal: Musculoskeletal: Reports back pain, Denies arthralgias and Denies joint swelling Integumentary/Breasts: Skin/Breast: Denies pruritus, Denies erythema and Denies rash Neurologic: Denies vertigo, Denies dizziness and Denies syncope [facility] Past Medical History Medical History (Updated 07/10/20 @ 08:53 by Bib Catalan MD) Anxiety Atrial fibrillation CKD (chronic kidney disease), stage III Cocaine abuse Drug abuse GERD (gastroesophageal reflux disease) HTN (hypertension) Hyperlipidemia Lipoma Neuropathy Renal cell carcinoma Rheumatoid arthritis Rheumatoid arthritis Surgical History Surgical History History of appendectomy History of nephrectomy, left History of tonsillectomy and adenoidectomy Social History Social History Smoking status: Never smoker Alcohol intake: former Substance use: current Substance use type: marijuana and crack/cocaine Gender identity (if verbalized by the patient): Male Spiritual care concerns: No Exam Const: General: alert Nutritional Appearance: obese Orientation/consciousness: patient oriented x3 Other: Mild acute distress. HENMT: Head: normal to inspection Ears: external ears normal, TM's normal bilaterally and EAC's normal Throat: posterior oropharynx normal Eyes: Conjunctivae: conjunctivae normal Pupils: Equal, round and reactive pupils present EOM: EOMs intact bilaterally Resp: Effort & Inspection: normal respiratory effort and not labored Auscultation: clear to auscultation bilaterally, no rales, no rhonchi and no wheezes Cardio: Rate: regular rate Rhythm: regular rhythm Heart sounds: no murmurs GI: GI Palp: Yes Soft to palpation, No Tenderness to palpation present (GI) and No Guarding due to palpation present (GI) Skin: General skin exam: normal color, no jaundice an
[2020-07-10] MEDS: SODIUM CHLORIDE 0.9% IV 1,000 ML 999 ML IV CONT ×2 (02:30→03:17)
[2020-07-10 03:48] LABS: Basophils Absolute Auto 0.04 K/mm3 (0.00-0.10); Basophils Percent Auto 0.5 % (0.0-1.0); Eosinophils Absolute Auto 0.15 K/mm3 (0.02-0.50); Eosinophils Percent Auto 1.8 % (1.0-6.0); Hematocrit 33.8 % (40.0-54.0); Hemoglobin 11.5 g/dL (14.0-18.0); Immature Granulocyte Absolute 0.11 K/mm3 (0.00-0.00); Immature Granulocyte Percent A 1.3 % (0.0-0.0); Lymphocytes Absolute Auto 0.92 K/mm3 (1.10-4.50); Lymphocytes Percent Auto 10.9 % (18.0-42.0); Mean Corpuscular Hemoglobin 32.8 pg (27.0-31.0); Mean Corpuscular Volume 96.3 fL (78.0-102.0); Mean Platelet Volume 9.5 fl (8.7-11.0); Monocytes Absolute Auto 0.69 K/mm3 (0.10-0.90); Monocytes Percent Auto 8.2 % (2.0-11.0); Neutrophils Absolute Auto 6.6 K/mm3 (1.7-7.2); Neutrophils Percent Auto 77.3 % (50.0-70.0); Platelet Count Result 267 K/mm3 (150-420); Red Blood Count 3.51 M/mm3 (4.70-6.10); White Blood Count 8.5 K/mm3 (4.8-10.8)
[2020-07-10 04:21] LABS: Add Urine Microscopic? YES; Appearance Urine Clear (Clear); Bilirubin Urine Negative (Negative); Blood Urine Negative (Negative); Color Urine Yellow (Yellow); Glucose Urine UA Negative (Negative); Ketones Urine Negative (Negative); Leukocyte Esterase Ur Negative LEU/UL (Negative); Nitrate Urine Negative (Negative); Protein Urine Trace (Negative); Specific Grav Ur >= 1.030 (1.010-1.020); Urobilinogen Urine 0.2 mg/dL (0.2-1.0)
[2020-07-10 04:23] LABS: Lactic Acid Reflex 1.3 mmol/L (0.4-2.0)
[2020-07-10 04:25] LABS: Partial Thromboplastin Time 38.9 SEC (23.90-30.70); Prothrombin Time 11.3 Seconds (9.50-12.10)
[2020-07-10 04:26] LABS: Amorphous Sediment Urine Few; Mucus Urine Few /lpf
[2020-07-10 04:30] LABS: Occult Blood Negative (Negative)
[2020-07-10 04:32] LABS: Alanine Aminotransferase 22 U/L (16-63); Alkaline Phosphatase 70 U/L (46-116); Anion Gap 13 mmol/L (8-16); Aspartate Amino Transferase 18 U/L (15-37); Bilirubin,Total 0.5 mg/dL (0.00-1.00); Blood Urea Nitrogen 47 mg/dL (7-18); Calcium 7.7 mg/dL (8.5-10.1); Carbon Dioxide 18 mmol/L (21-32); Chloride 102 mmol/L (98-108); Estimated CRCL calculation 25 ml/min; Estimated Glomerular Filt Rate 17; Glucose 86 mg/dL (70-99); Lipase 847 U/L (73-393); Osmolality Calculated 287 mOsm/kg (285-295); Potassium 4.4 mmol/L (3.5-5.1); Sodium 133 mmol/L (136-145); Total Protein 6.8 g/dL (6.4-8.2); Troponin I 11.5 ng/L (0.00-60.4)
[2020-07-10 04:34] LABS: Amphetamine Screen Urine Negative (Negative); Barbiturate Screen Urine Negative (Negative); Benzodiazepines Screen Urine Negative (Negative); Cannabinoid Screen Urine Positive (Negative); Cocaine Screen Urine Positive (Negative); Methadone Screen Urine Negative (Negative); Opiate Screen Urine Negative (Negative); Phencyclidine Screen Urine Negative (Negative)
[2020-07-10] MEDS: SODIUM CHLORIDE 0.9% IV 1,000 ML 200 ML IV CONT ×2 (04:52→10:15)
[2020-07-10 05:14] LABS: Influenza Control Valid (Valid); SARS-CoV-2 Ag Negative (Negative)
--- NOTE | 2020-07-10 06:21 | PC.NURSE ---
pt resting per bed, clear urine in ritter bag noted. awaiting ct result. no concerns from patient at this time. call narayanan in reach.
--- NOTE | 2020-07-10 06:25 | PC.NURSE ---
attempting to find placement for transfer, [facility] has no icu bed availability. call to , spoke with kamini, no ICU beds available. Dr katz speaking with kamini at transfer center. awaiting call back from hospitalist for imu bed availability.
--- NOTE | 2020-07-10 06:55 | PC.NURSE ---
dr katz spoke with [facility], no bed availability. call to [facility], spoke with court, no icu beds available at this time. call to gavin, dr katz speaking with [facility] pt access/transfer.
--- NOTE | 2020-07-10 07:19 | PC.NURSE ---
report to jostin strickland.
[2020-07-10 07:27] LABS: Glucose Point of Care 96 (65-105)
[2020-07-10 07:51] LABS: Lactic Acid Reflex 0.6 mmol/L (0.4-2.0); Troponin I 12.8 ng/L (0.00-60.4)
--- NOTE | 2020-07-10 08:35 | PC.NURSE ---
Dr. Catalan speaking with Dr. Fuentes at [place]. Dr. Fuentes to accept pt. awaiting bed assignment.
--- NOTE | 2020-07-10 10:10 | PC.NURSE ---
[facility] TRANSFER LINE CALLED TO UPDATE ON BED STATUS AND STATE THAT HE IS ON THE LIST AND THEY ARE AWAITING SOME DISCHARGES.
--- NOTE | 2020-07-10 13:29 | PC.NURSE ---
NO CHANGE IN PT STATUS, CONTINUE TO AWAIT BED ASSIGNMENT AT [facility]. PT AWARE.
--- NOTE | 2020-07-10 14:06 | PC.NURSE ---
Pt sleeping awakens to verbal stimuli, denies any requests at this time.
--- NOTE | 2020-07-10 14:55 | PC.NURSE ---
[facility] contacted for update in bed status, [facility] at this time.
[2020-07-10] MEDS: SODIUM CHLORIDE 0.9% IV 1,000 ML 100 ML IV CONT (15:21)
--- NOTE | 2020-07-10 15:21 | PC.NURSE ---
er hold status cancelled, call from [facility], bed placement obtained.
--- NOTE | 2020-07-10 15:43 | PC.NURSE ---
[facility] CONTACTED FOR TRANSFER TO [facility].
--- NOTE | 2020-07-10 16:01 | PC.NURSE ---
PT UP TO BEDSIDE COMMODE, PT HAD LARGE LIQUID BM. EMS HERE TO TRANSPORT PT.
--- NOTE | 2020-07-24 09:44 | PC.NURSE ---
LATE ENTRY This note is being entered to document information to the patient's record. The following information was omitted on [07/10/20], by [Re FLEMING RN].NS CONTINUES INFUSING AT 100ML/HR UPON TRANSFER.
== END 2020-07-10 16:02 | disposition short-term general hospital (02) ==
PROVIDERS: Emergency Provider Emergency Medicine; PCP Student in an Organized Health Care Education/Training Program
DX: I95.9 Hypotension, unspecified (principal); R91.1 Solitary pulmonary nodule; M89.9 Disorder of bone, unspecified; M54.6 Pain in thoracic spine; K85.90 Acute pancreatitis without necrosis or infection, unspecified; N17.9 Acute kidney failure, unspecified; I82.4Y1 Acute embolism and thrombosis of unspecified deep veins of right proximal lower extremity; Z20.822 Contact with and (suspected) exposure to COVID-19
CPT/HCPCS: 36415; 71045; 71250; 74176; 80053; 80307; 81001; 82272; 82948; 83605; 83690; 84484; 85025; 85610; 85730; 86140; 87040; 87426; 87804; 93005; 96361; 96365; 96367; 99285; C9803; J0696; J3370; J7030

== ENCOUNTER 2020-08-06 07:26 | Emergency (ER) | payer OTHER, SELFPAY ==
[2020-08-06 07:30] VITALS: BP 127/79; PULSE 92; RESP 17; TEMP 36.7; O2SAT 99
[2020-08-06] MEDS: BACLOFEN 10 MG TABLET 20 MG PO (08:04)
[2020-08-06] MEDS: DEXAMETHASONE 4 MG TABLET 12 MG PO (08:04)
--- NOTE | 2020-08-06 08:04 | ED.LOWEXIN ---
HPI - Extremity Injury (Lower) General Chief Complaint: Recheck/Abnormal Lab/Rx Stated Complaint: Ambulance Time Seen by Provider: 08/06/20 07:35 Source: patient Mode of arrival: ambulatory Limitations: no limitations History of Present Illness HPI Narrative: Patient comes in with diffuse discomfort. He seems to be hurting worse in the wrists. This seems to be where hen has the most discomfort when his rheumatoid arthritis is flaring up. He also complains of pain in a tooth number 15. He describes this as moderately severe, ongoing, and inhibiting him from moving well at home. He states he sits in a chair most of the day. His measures taken at home have not helped him much to feel better. He describes mostly sharp pain in joints with movement. Related Data Home Medications Medication Instructions Recorded Confirmed aspirin 81 mg tablet,delayed 81 mg PO DAILY 08/18/19 08/06/20 release amlodipine 5 mg tablet 5 mg PO DAILY tablet 07/14/20 08/06/20 mirtazapine 15 mg tablet 15 mg PO DAILY tablet 07/14/20 08/06/20 lisinopril 20 mg PO DAILY 08/06/20 08/06/20 Allergies Allergy/AdvReac Type Severity Reaction Status Date / Time No Known Allergies Allergy Verified 07/14/20 16:05 Review of Systems Constitutional: Constitutional: Reports no additional constitutional complaints Eyes: Eyes: Reports no additional eye complaints ENT: Reports system reviewed and no additional complaints, except as documented Cardiovascular: Cardiovascular: Reports no additional cardiovascular complaints Respiratory: Respiratory: Reports no additional respiratory complaints Gastrointestinal: Gastrointestinal: Reports no additional gastrointestinal complaints Genitourinary: Genitourinary: Reports no additional male genitourinary complaints Musculoskeletal: Musculoskeletal: Reports no additional musculoskeletal complaints Integumentary/Breasts: Skin/Breast: Reports system reviewed and no additional complaints, except as docu Neurologic: Reports system reviewed and no additional complaints, except as documented Psychiatric: Psychiatric: Reports no additional psychiatric complaints Endocrine: Endocrine: Reports no additional endocrine complaints Hematologic/Lymphatic: Hematologic/Lymphatic: Reports no additional hematologic/lymphatic complaints Allergic/Immunologic: Allergic/Immunologic: Reports no additional allergic/immunologic complaints [facility] Past Medical History Medical History Anxiety Atrial fibrillation CKD (chronic kidney disease), stage III Cocaine abuse Drug abuse GERD (gastroesophageal reflux disease) HTN (hypertension) Hyperlipidemia Lipoma Neuropathy Osteoarthritis of right knee Renal cell carcinoma Rheumatoid arthritis Rheumatoid arthritis Surgical History Surgical History History of appendectomy History of nephrectomy, left History of tonsillectomy and adenoidectomy Family History Family History Father CAD (coronary artery disease) Social History Social History Smoking status: Never smoker Alcohol intake: former Substance use: current Substance use type: marijuana and crack/cocaine Gender identity (if verbalized by the patient): Male Spiritual care concerns: No Exam Const: General: no acute distress Orientation/consciousness: patient oriented x3 HENMT: Head: normal to inspection Ears: external ears normal General nose exam: Normal external nose present Mouth: Yes Normal oral and palatal mucosa present Throat: posterior oropharynx normal Other: Abscessed tooth, tooth #15. He has many teeth in poor condition. Eyes: Conjunctivae: conjunctivae normal Neck: Neck: normal visual inspection and no lymphadenopathy Chest: Chest palpation & inspection: normal inspection of the ches
[2020-08-06] MEDS: KETOROLAC (*BKC) 60 MG/2 ML VIAL IM (08:08)
[2020-08-06 09:51] VITALS: RESP 20
--- NOTE | 2020-08-06 11:15 | PC.NURSE ---
ALL PRESCRIPTIONS CALLED INTO [facility]
== END 2020-08-06 09:53 | disposition home or self-care (01) ==
PROVIDERS: Emergency Provider Emergency Medicine; PCP Family Medicine
DX: M06.9 Rheumatoid arthritis, unspecified (principal)
CPT/HCPCS: 96372; 99283; A9270; J1885; J8540

== ENCOUNTER 2020-08-15 07:43 | Outpatient (CLI) | payer OTHER, SELFPAY ==
--- NOTE | ~2020-08-15 | XR_ITS ---
EXAMINATION: XR knee RT min 4V EXAM DATE: 08/15/2020 08:28 INDICATION: Pain right knee x6 mo, when turn foot out feels knee pop out. TECHNIQUE: Right knee lateral, frontal AP, frontal PA tunnel, sunrise projections. Comparison is made to prior examination from 06/05/2020. FINDINGS: No evidence osteochondral defect or joint body in the right knee joint. There is mild tri compartmental primary osteoarthritis. There are no acute fractures or dislocations identified. There is no subcutaneous gas. Nonspecific generalized edema within Hoffa's fat pad and suprapatellar fat. Mild popliteal arterial vascular calcifications, arteriosclerosis. There are no radiopaque foreign b odies. IMPRESSION: Mild right knee osteoarthritis. Nonspecific edema. Reviewed, dictated and finalized at location A. LEAD BURNER
== END 2020-08-15 07:44 | disposition home or self-care (01) ==
LOC: CHSIMG 07:45
PROVIDERS: PCP Family Medicine; Visit Provider Orthopaedic Surgery
DX: M25.561 Pain in right knee (principal); M17.11 Unilateral primary osteoarthritis, right knee
CPT/HCPCS: 73564

== ENCOUNTER 2020-08-15 08:53 | Emergency (ER) | payer OTHER, SELFPAY ==
--- NOTE | ~2020-08-15 | XR_ITS ---
EXAMINATION: XR hand LT min 3V DATE: 08/15/2020 09:29 INDICATION: Left hand pain. TECHNIQUE: 3 views of left hand were obtained. COMPARISON: None. FINDINGS: Bone alignment is normal. No acute fracture. There is deformity of the tuft of second dista l phalanx, which is likely chronic. There is mild osteoarthritis of first carpometacarpal joint, seco nd and fifth metacarpal phalangeal joints, and many of the interphalangeal joints. There is severe os teoarthritis of third metacarpophalangeal joint IMPRESSION: 1. Polyarticular osteoarthritis. 2. Deformity of tuft of second distal phalanx, likely from old trauma. Reviewed, dictated and finalized at location A. OR CLINICAL DATA COORDINATOR
--- NOTE | ~2020-08-15 | XR_ITS ---
EXAMINATION: XR chest 1V portable EXAM DATE: 08/15/2020 09:29 INDICATION: Generalized chest pain, cough and shortness of breath. TECHNIQUE: Portable AP frontal chest x-ray was obtained. Comparison is made to prior examination from 07/10/2020. FINDINGS: Right midlung zone nodular density is a small bone sclerotic focus in the right 8th rib. Li ngular nodule described on CT in June is less well visualized but indicated. No acute airspace dis ease. There are no pleural effusions. The cardiomediastinal silhouette is within normal limits. Th ere is no pneumothorax suspected. IMPRESSION: 1. No acute cardiopulmonary findings. 2. Lingular nodule; correlate with CT report 07/10/2020. Reviewed, dictated and finalized at location A. ATRIC NP
[2020-08-15 08:53] VITALS: BP 107/57; PULSE 107; RESP 20; TEMP 36.9; O2SAT 99
--- NOTE | 2020-08-15 09:03 | ED.CHESTPAIN ---
HPI - Chest Pain General Chief Complaint: Chest Pain Stated Complaint: CHEST PAIN SOB Time Seen by Provider: 08/15/20 08:55 Source: patient Mode of arrival: wheelchair Limitations: no limitations History of Present Illness HPI narrative: 55-year-old man with a history of DVT, AFib and chronic kidney disease comes in today complaining of several episodes of sharp chest pain number substernal lasted only few moments. It is not present now. Patient states that he felt lightheaded and weak during the episodes but did not feel short of breath, nauseated, sweaty. He states he also has severe left hand pain that started yesterday and is worse with movement. He was feeling unwell last night and was unable to sleep. Patient was seen here 5 weeks ago for bilateral back pain weakness and low blood pressure at home. He denies vomiting, diarrhea, abdominal pain, fever, cough or cold symptoms, dysuria, black or bloody stools and syncope. MD complaint: chest pain Onset (ago): hour(s) (1) Timing of current episode: episodic Onset: during rest Pain location: substernal Pain radiation: left arm Severity: severe Quality: sharp Relieving factors: nothing Exacerbating factors: nothing Associated symptoms: dyspnea Risk Factors Coronary artery disease risk factors: hyperlipidemia, hypertension and family history of CAD before age 50 Pulmonary embolism risk factors: history of deep vein thrombosis Related Data Home Medications Medication Instructions Recorded Confirmed amlodipine 5 mg tablet 5 mg PO DAILY tablet 07/14/20 08/15/20 mirtazapine 15 mg tablet 15 mg PO DAILY tablet 07/14/20 08/15/20 lisinopril 20 mg PO DAILY 08/06/20 08/15/20 prednisone 5 mg PO DAILY 08/15/20 08/15/20 Allergies Allergy/AdvReac Type Severity Reaction Status Date / Time No Known Allergies Allergy Verified 07/14/20 16:05 Review of Systems Constitutional: Constitutional: Reports as per HPI, Denies chills, Denies fever(s) and Reports weakness Eyes: Eyes: Denies change in vision and Denies photophobia ENT: Denies nasal congestion and Denies sore throat Cardiovascular: Cardiovascular: Reports chest pain and Denies radiating jaw, neck or arm pain Respiratory: Respiratory: Denies cough and Denies dyspnea Gastrointestinal: Gastrointestinal: Denies abdominal pain, Denies diarrhea, Denies nausea and Denies vomiting Genitourinary: Genitourinary: Denies hematuria, Denies dysuria and Denies urinary frequency Musculoskeletal: Musculoskeletal: Denies back pain, Denies arthralgias and Denies joint swelling Integumentary/Breasts: Skin/Breast: Denies pruritus, Denies erythema and Denies rash Neurologic: Denies vertigo, Denies dizziness, Denies syncope, Denies headache(s), Denies focal weakness, Denies numbness and Reports weakness Hematologic/Lymphatic: Hematologic/Lymphatic: Denies easy bleeding and Denies easy bruising Allergic/Immunologic: Allergic/Immunologic: Denies lip swelling and Denies throat swelling PMFSH Past Medical History Medical History Anxiety Atrial fibrillation CKD (chronic kidney disease), stage III Cocaine abuse Drug abuse GERD (gastroesophageal reflux disease) HTN (hypertension) Hyperlipidemia Lipoma Neuropathy Osteoarthritis of right knee Renal cell carcinoma Rheumatoid arthritis Rheumatoid arthritis Surgical History Surgical History History of appendectomy History of nephrectomy, left History of tonsillectomy and adenoidectomy Family History Family History Father CAD (coronary artery disease) Social History Social History Smoking status: Never smoker Alcohol intake: former Substance use: current Substance use type: marijuana and crack/cocaine Gender identity (if verbalized by the patient): Male Spiritual care
[2020-08-15 09:15] VITALS: BP 83/70
[2020-08-15 09:23] LABS: Hematocrit 41.9 % (40.0-54.0); Hemoglobin 14.1 g/dL (14.0-18.0); Mean Corpuscular HGB Conc 33.7 g/dL (32.0-36.0); Mean Corpuscular Volume 95.2 fL (78.0-102.0); Mean Platelet Volume 9.4 fl (8.7-11.0); Platelet Count Result 256 K/mm3 (150-420); Red Cell Distribution Width 14.3 % (11.6-14.4); White Blood Count 10.7 K/mm3 (4.8-10.8)
[2020-08-15] MEDS: SODIUM CHLORIDE 0.9% IV 1,000 ML 999 ML IV CONT ×2 (09:23→11:22)
[2020-08-15] MEDS: ASPIRIN 81 MG CHEWABLE TABLET 324 MG PO (09:24)
[2020-08-15 09:32] VITALS: BP 127/84; PULSE 109; O2SAT 98
[2020-08-15 09:33] LABS: Partial Thromboplastin Time 30.2 SEC (23.90-30.70); Prothrombin Time 10.7 Seconds (9.50-12.10)
[2020-08-15 09:36] LABS: Alanine Aminotransferase 32 U/L (16-63); Albumin Level 3.1 g/dL (3.4-5.0); Alkaline Phosphatase 66 U/L (46-116); Anion Gap 13 mmol/L (8-16); Aspartate Amino Transferase 10 U/L (15-37); Bilirubin,Total 0.8 mg/dL (0.00-1.00); Blood Urea Nitrogen 31 mg/dL (7-18); Calcium 8.7 mg/dL (8.5-10.1); Carbon Dioxide 18 mmol/L (21-32); Chloride 102 mmol/L (98-108); Estimated Glomerular Filt Rate 35; Glucose 113 mg/dL (70-99); Lipase 460 U/L (73-393); Osmolality Calculated 283 mOsm/kg (285-295); Potassium 4.3 mmol/L (3.5-5.1); Sodium 133 mmol/L (136-145); Troponin I 13.8 ng/L (0.00-60.4)
[2020-08-15 09:38] LABS: CRP 4.2 mg/dL (0.0-0.9)
[2020-08-15 09:39] LABS: BNP 6 pg/mL (0-100)
[2020-08-15] MEDS: PANTOPRAZOLE SODIUM IV 40 MG VIAL IV PUSH (09:43)
[2020-08-15] MEDS: MAG HYDROX/ALUMINUM HYD/SIMETH 30 ML, PHENobarb/HYOSCY/ATROPINE/SCOP 32.4 MG, LIDOCAINE... PO (09:43)
[2020-08-15 09:46] LABS: Lactic Acid Reflex 1.6 mmol/L (0.4-2.0)
[2020-08-15 09:47] LABS: Total Cells Counted 100
[2020-08-15 09:48] LABS: Band Neutrophils Percent 0 % (0-6); Eosinophils Absolute Manual 0.53 K/mm3 (0.02-0.5); Eosinophils Percent Manual 5 % (1-6); Lymphocytes Percent Manual 15 % (18-44); Monocytes Absolute Manual 0.85 K/mm3 (0.1-0.90); Monocytes Percent Manual 8 % (3-9); Myelocytes Percent 3 %; Neutrophils Absolute Manual 7.38 K/mm3 (1.3-6.7); Neutrophils Percent Manual 69 % (46-73); Platelet Estimate Adequate (Adequate)
[2020-08-15 10:00] LABS: Add Urine Microscopic? NO; Appearance Urine Clear (Clear); Bilirubin Urine Negative (Negative); Blood Urine Negative (Negative); Color Urine Yellow (Yellow); Glucose Urine UA Negative (Negative); Ketones Urine Negative (Negative); Leukocyte Esterase Ur Negative LEU/UL (Negative); Nitrate Urine Negative (Negative); Protein Urine Negative (Negative); Specific Grav Ur >= 1.030 (1.010-1.020); Urobilinogen Urine 0.2 mg/dL (0.2-1.0); pH Urine 5.5 (5.0-8.0)
[2020-08-15 10:07] LABS: Amphetamine Screen Urine Negative (Negative); Barbiturate Screen Urine Negative (Negative); Benzodiazepines Screen Urine Negative (Negative); Cannabinoid Screen Urine Positive (Negative); Cocaine Screen Urine Positive (Negative); Methadone Screen Urine Negative (Negative); Opiate Screen Urine Negative (Negative); Phencyclidine Screen Urine Negative (Negative)
[2020-08-15 10:07] LABS: Occult Blood Negative (Negative)
[2020-08-15 10:54] VITALS: BP 103/75; PULSE 100; O2SAT 97
[2020-08-15] MEDS: ACETAMINOPHEN 500 MG TABLET 1000 MG PO (11:03)
[2020-08-15 12:00] VITALS: BP 103/77; PULSE 90; O2SAT 98
== END 2020-08-15 12:00 | disposition home or self-care (01) ==
PROVIDERS: Emergency Provider Emergency Medicine; PCP Family Medicine
DX: R07.9 Chest pain, unspecified (principal); E86.0 Dehydration
CPT/HCPCS: 36415; 71045; 73130; 80053; 80307; 81003; 82272; 83605; 83690; 83880; 84484; 85025; 85610; 85730; 86140; 87040; 87086; 93005; 96361; 96374; 99284; A9270; C9113; J7030

== ENCOUNTER 2020-09-01 08:11 | Emergency (ER) | payer OTHER, SELFPAY ==
--- NOTE | ~2020-09-01 | XR_ITS ---
EXAMINATION: XR chest 2V DATE: 09/01/2020 09:43 INDICATION: Weakness, cough and vomiting TECHNIQUE: PA and lateral views of the chest were obtained. COMPARISON: 08/15/[address] dated 07/10/2020 and 09/29/2018 FINDINGS: Again seen are couple nodular opacities in the bilateral lower lung zones on the left corresponding t o a 8 x 10 mm lingular nodule on prior CT . The right-sided nodular opacity projecting over the anter ior right fifth rib appears to correspond to a nipple shadow with no intrapulmonary correlate on the prior CT . No other airspace opacities, pulmonary edema, pleural effusion or pneumothorax. The cardio mediastinal silhouette is normal. Visualized bones and soft tissues are unremarkable. IMPRESSION: 1. Lingular nodule which has demonstrated slow growth on prior CT studies suspicious for malignancy. 2. No other acute cardiopulmonary disease. Reviewed, dictated and finalized at location B. IMPRESSION: 1. Lingular nodule which has demonstrated slow growth on prior CT studies suspi cious for malignancy. 2. No other acute cardiopulmonary disease.
[2020-09-01 08:15] VITALS: BP 152/92; PULSE 113; RESP 18; TEMP 36.3; O2SAT 99
--- NOTE | 2020-09-01 08:42 | ED.WEAKNESS ---
HPI - Weakness General Chief complaint: Weakness Stated complaint: DOESN'T FEEL GOOD Source: patient and RN notes reviewed Mode of arrival: ambulatory ( Walked in from the parking lot and says he had to have a wheelchair to go back to a room) Limitations: no limitations History of Present Illness HPI Narrative: patient comes in with generalized weakness I just do not feel good . Says it started last night. Very vague about his generalized symptoms. Says he had some diarrhea and some nausea. He denies any fever or chills but says sometimes he feels hot and cold. Complaint: generalized weakness Onset (ago): hour(s) (14) Duration: intermittent Location: generalized Migration: none Severity: moderate Relieving factors: none Exacerbating factors: none Related Data Home Medications Medication Instructions Recorded Confirmed amlodipine 5 mg tablet 5 mg PO DAILY tablet 07/14/20 09/01/20 mirtazapine 15 mg tablet 15 mg PO DAILY tablet 07/14/20 09/01/20 lisinopril 20 mg PO DAILY 08/06/20 09/01/20 Allergies Allergy/AdvReac Type Severity Reaction Status Date / Time No Known Allergies Allergy Verified 08/29/20 10:59 Review of Systems Review of Systems: All systems reviewed & are unremarkable except as noted in HPI and below Constitutional: Constitutional: Reports as per HPI Eyes: Eyes: Reports no additional eye complaints ENT: Reports system reviewed and no additional complaints, except as documented Cardiovascular: Cardiovascular: Reports no additional cardiovascular complaints Respiratory: Respiratory: Reports no additional respiratory complaints Gastrointestinal: Gastrointestinal: Reports as per HPI Genitourinary: Genitourinary: Reports no additional male genitourinary complaints Musculoskeletal: Musculoskeletal: Reports no additional musculoskeletal complaints Integumentary/Breasts: Skin/Breast: Reports system reviewed and no additional complaints, except as docu Neurologic: Reports system reviewed and no additional complaints, except as documented Psychiatric: Psychiatric: Reports no additional psychiatric complaints [facility] Past Medical History Medical History (Updated 09/01/20 @ 10:42 by Wesley Marroquin MD) Anxiety Atrial fibrillation CKD (chronic kidney disease), stage III Cocaine abuse Drug abuse GERD (gastroesophageal reflux disease) HTN (hypertension) Hyperlipidemia Lipoma Neuropathy Osteoarthritis of right knee Renal cell carcinoma Rheumatoid arthritis Surgical History Surgical History History of appendectomy History of nephrectomy, left History of tonsillectomy and adenoidectomy Family History Family History Father CAD (coronary artery disease) Other Heart disease Hypertension Social History Social History Smoking status: Never smoker Alcohol intake: former Substance use: current Substance use type: marijuana Gender identity (if verbalized by the patient): Male Spiritual care concerns: No Exam Const: General: healthy appearing and no acute distress Nutritional Appearance: well nourished and obese centrally obese Orientation/consciousness: patient oriented x3 HENMT: Head: normal to inspection Ears: external ears normal Face and sinus: normal facial exam Mouth: Yes moist mucous membranes Eyes: Conjunctivae: conjunctivae normal Pupils: Equal, round and reactive pupils present Neck: Neck: normal visual inspection Resp: Effort & Inspection: normal respiratory effort Auscultation: clear to auscultation bilaterally Cardio: Rate: regular rate Rhythm: regular rhythm GI: GI Palp: Yes Soft to palpation and Yes Tenderness to palpation present (GI) (Mild Generalized) Auscultation: normal bowel sounds Back/Spine/Pelvis: Cervical Spine: cervical ROM normal Thoracic/Lumbar Spine: thoraco-lumba
[2020-09-01 08:54] VITALS: BP 124/83; PULSE 86; RESP 16; O2SAT 94
--- NOTE | 2020-09-01 09:15 | PC.NURSE ---
Pt given urinal to obtain urine sample.
[2020-09-01 09:36] LABS: Basophils Absolute Auto 0.05 K/mm3 (0.00-0.10); Basophils Percent Auto 0.7 % (0.0-1.0); Eosinophils Absolute Auto 0.18 K/mm3 (0.02-0.50); Eosinophils Percent Auto 2.5 % (1.0-6.0); Hematocrit 39.9 % (40.0-54.0); Hemoglobin 13.4 g/dL (14.0-18.0); Immature Granulocyte Absolute 0.15 K/mm3 (0.00-0.00); Lymphocytes Absolute Auto 1.46 K/mm3 (1.10-4.50); Lymphocytes Percent Auto 19.9 % (18.0-42.0); Mean Corpuscular HGB Conc 33.6 g/dL (32.0-36.0); Mean Corpuscular Volume 95.2 fL (78.0-102.0); Mean Platelet Volume 8.8 fl (8.7-11.0); Monocytes Absolute Auto 0.69 K/mm3 (0.10-0.90); Monocytes Percent Auto 9.4 % (2.0-11.0); Neutrophils Absolute Auto 4.8 K/mm3 (1.7-7.2); Neutrophils Percent Auto 65.5 % (50.0-70.0); Platelet Count Result 268 K/mm3 (150-420); Red Blood Count 4.19 M/mm3 (4.70-6.10); Red Cell Distribution Width 14.5 % (11.6-14.4); White Blood Count 7.3 K/mm3 (4.8-10.8)
[2020-09-01 09:38] LABS: Add Urine Microscopic? YES; Appearance Urine Clear (Clear); Bilirubin Urine Negative (Negative); Blood Urine Negative (Negative); Color Urine Yellow (Yellow); Glucose Urine UA Negative (Negative); Ketones Urine Negative (Negative); Leukocyte Esterase Ur Negative LEU/UL (Negative); Nitrate Urine Negative (Negative); Protein Urine 1+ (Negative); Specific Grav Ur >= 1.030 (1.010-1.020); Urobilinogen Urine 0.2 mg/dL (0.2-1.0); pH Urine 5.5 (5.0-8.0)
[2020-09-01 09:45] LABS: Amphetamine Screen Urine Negative (Negative); Barbiturate Screen Urine Negative (Negative); Benzodiazepines Screen Urine Negative (Negative); Cannabinoid Screen Urine Positive (Negative); Cocaine Screen Urine Positive (Negative); Methadone Screen Urine Negative (Negative); Opiate Screen Urine Negative (Negative); Phencyclidine Screen Urine Negative (Negative)
[2020-09-01 09:53] LABS: Alanine Aminotransferase 37 U/L (16-63); Albumin Level 3.2 g/dL (3.4-5.0); Alkaline Phosphatase 66 U/L (46-116); Anion Gap 14 mmol/L (8-16); Aspartate Amino Transferase 13 U/L (15-37); Bilirubin,Total 0.8 mg/dL (0.00-1.00); Blood Urea Nitrogen 27 mg/dL (7-18); Calcium 9.2 mg/dL (8.5-10.1); Carbon Dioxide 21 mmol/L (21-32); Chloride 103 mmol/L (98-108); Estimated CRCL calculation 46 ml/min; Estimated Glomerular Filt Rate 36; Glucose 102 mg/dL (70-99); Magnesium 1.6 mg/dL (1.8-2.4); Osmolality Calculated 291 mOsm/kg (285-295); Sodium 138 mmol/L (136-145); Total Protein 7.2 g/dL (6.4-8.2)
[2020-09-01 09:56] LABS: RBC Urine 0-2 /hpf (0-2); Squamous Epithelial Cell Urine Few /hpf (Few); WBC Urine 0-3 /hpf (0-3)
[2020-09-01 11:43] LABS: Influenza A QL RT-PCR Negative (Negative); Influenza B QL RT-PCR Negative (Negative); SARS-CoV-2 RNA PCR Negative
[2020-09-01 11:56] VITALS: BP 121/84; PULSE 101; RESP 18; TEMP 36.2; O2SAT 99
== END 2020-09-01 12:00 | disposition home or self-care (01) ==
PROVIDERS: Emergency Provider Emergency Medicine; PCP Family Medicine
DX: E83.42 Hypomagnesemia (principal); I48.20 Chronic atrial fibrillation, unspecified; I12.9 Hypertensive chronic kidney disease with stage 1 through stage 4 chronic kidney disease, or unspecified chronic kidney disease; N18.30 Chronic kidney disease, stage 3 unspecified; K21.9 Gastro-esophageal reflux disease without esophagitis; E78.5 Hyperlipidemia, unspecified; G62.9 Polyneuropathy, unspecified; M06.9 Rheumatoid arthritis, unspecified; F41.9 Anxiety disorder, unspecified; F14.10 Cocaine abuse, uncomplicated; Z85.528 Personal history of other malignant neoplasm of kidney; Z90.5 Acquired absence of kidney; Z90.49 Acquired absence of other specified parts of digestive tract
CPT/HCPCS: 36415; 71046; 80053; 80307; 81001; 83735; 85025; 86140; 99283; C9803; U0003; U0005

== ENCOUNTER 2020-09-08 12:54 | Outpatient (CLI) | payer OTHER, SELFPAY ==
--- NOTE | 2020-09-08 13:15 | PC.NURSE ---
Patient arrived to floor via wheelchair . Right #22 IV started. NS 500ml/hr over 2 hours.
[2020-09-08 13:16] LABS: Hematocrit 40.2 % (40.0-54.0); Hemoglobin 13.6 g/dL (14.0-18.0); Mean Corpuscular HGB Conc 33.8 g/dL (32.0-36.0); Mean Corpuscular Hemoglobin 32.1 pg (27.0-31.0); Mean Corpuscular Volume 94.8 fL (78.0-102.0); Mean Platelet Volume 9.4 fl (8.7-11.0); Platelet Count Result 329 K/mm3 (150-420); Red Blood Count 4.24 M/mm3 (4.70-6.10); Red Cell Distribution Width 14.3 % (11.6-14.4); White Blood Count 10.9 K/mm3 (4.8-10.8)
[2020-09-08] MEDS: ONDANSETRON INJ 4 MG/2 ML VIAL IV PUSH (13:40)
[2020-09-08] MEDS: SODIUM CHLORIDE 0.9% IV 1,000 ML 500 ML IVPB (13:40)
[2020-09-08 13:42] LABS: Add Urine Microscopic? YES; Appearance Urine Clear (Clear); Bilirubin Urine Negative (Negative); Blood Urine Negative (Negative); Color Urine Yellow (Yellow); Glucose Urine UA Negative (Negative); Ketones Urine Negative (Negative); Leukocyte Esterase Ur Negative (Negative); Nitrate Urine Negative (Negative); Protein Urine Trace (Negative); Specific Grav Ur >= 1.030 (1.010-1.020); Urobilinogen Urine 0.2 mg/dL (0.2-1.0)
[2020-09-08 13:49] LABS: Bacteria Urine Trace /hpf; RBC Urine None seen /hpf (0-2); WBC Urine None seen /hpf (0-3)
[2020-09-08 13:53] LABS: Alanine Aminotransferase 36 U/L (16-63); Albumin Level 3.4 g/dL (3.4-5.0); Alkaline Phosphatase 68 U/L (46-116); Anion Gap 17 mmol/L (8-16); Aspartate Amino Transferase 13 U/L (15-37); Bilirubin,Total 0.6 mg/dL (0.00-1.00); Blood Urea Nitrogen 28 mg/dL (7-18); Calcium 8.9 mg/dL (8.5-10.1); Carbon Dioxide 18 mmol/L (21-32); Chloride 104 mmol/L (98-108); Estimated Glomerular Filt Rate 37; Glucose 96 mg/dL (70-99); Osmolality Calculated 293 mOsm/kg (285-295); Potassium 4.1 mmol/L (3.5-5.1); Sodium 139 mmol/L (136-145); Total Protein 6.9 g/dL (6.4-8.2)
--- NOTE | 2020-09-08 15:51 | PC.NURSE ---
#22 right forearm IV removed catheter intact. Patient transported off of floor via wheelchair.
== END 2020-09-08 12:55 | disposition home or self-care (01) ==
LOC: CHSLAB 13:19 → CHSTREATRM 13:30
PROVIDERS: PCP Family Medicine; Visit Provider Family Medicine
DX: K52.9 Noninfective gastroenteritis and colitis, unspecified (principal); E86.0 Dehydration
CPT/HCPCS: 36415; 80053; 81001; 85027; 87324; 96360; 96361; 96374; J2405; J7030

== ENCOUNTER 2020-09-11 13:49 | Outpatient (CLI) | payer OTHER, SELFPAY ==
--- NOTE | 2020-09-11 14:00 | PC.NURSE ---
Patient transported to floor via wheelchair.
[2020-09-11] MEDS: ONDANSETRON INJ 4 MG/2 ML VIAL IV PUSH (14:11)
[2020-09-11] MEDS: SODIUM CHLORIDE 0.9% IV 1,000 ML 500 ML IVPB (14:28)
--- NOTE | 2020-09-11 16:37 | PC.NURSE ---
Right hand IV removed, catheter intact. Patient transported off of floor to vehicle by filing writer. Patient tolerated IV fluids well
== END 2020-09-11 13:50 | disposition home or self-care (01) ==
LOC: CHSTREATRM 13:51
PROVIDERS: PCP Family Medicine; Visit Provider Family Medicine
DX: E86.0 Dehydration (principal); B96.89 Other specified bacterial agents as the cause of diseases classified elsewhere
CPT/HCPCS: 96360; 96361; 96374; J2405; J7030

== ENCOUNTER 2020-11-06 03:54 | Emergency (ER) | payer OTHER, SELFPAY ==
--- NOTE | ~2020-11-06 | XR_ITS ---
EXAMINATION: XR chest 2V DATE: 11/06/2020 04:20 INDICATION: Left upper back pressure ventilation TECHNIQUE: PA and lateral views of the chest are obtained. COMPARISON: 09/01/2020 FINDINGS: The lungs are free of acute opacities. A subtle nodule of the lingula is again noted There is no pleural effusion or pneumothorax. The cardiomediastinal silhouette is normal. There is mild tho racic spondylosis. IMPRESSION: 1. No acute cardiopulmonary abnormality. 2. Subtle lingular nodule previously described and concerning for malignancy. Reviewed, dictated and finalized at location A.
[2020-11-06 04:08] VITALS: BP 128/73; PULSE 96; RESP 18; TEMP 36.5; O2SAT 99
[2020-11-06 04:34] LABS: Basophils Absolute Auto 0.03 K/mm3 (0.00-0.10); Basophils Percent Auto 0.3 % (0.0-1.0); Eosinophils Absolute Auto 0.05 K/mm3 (0.02-0.50); Eosinophils Percent Auto 0.5 % (1.0-6.0); Hematocrit 36.9 % (40.0-54.0); Hemoglobin 12.4 g/dL (14.0-18.0); Immature Granulocyte Absolute 0.11 K/mm3 (0.00-0.00); Lymphocytes Absolute Auto 0.64 K/mm3 (1.10-4.50); Lymphocytes Percent Auto 6.1 % (18.0-42.0); Mean Corpuscular HGB Conc 33.6 g/dL (32.0-36.0); Mean Corpuscular Hemoglobin 31.8 pg (27.0-31.0); Mean Corpuscular Volume 94.6 fL (78.0-102.0); Mean Platelet Volume 9.1 fl (8.7-11.0); Monocytes Absolute Auto 0.52 K/mm3 (0.10-0.90); Neutrophils Absolute Auto 9.1 K/mm3 (1.7-7.2); Neutrophils Percent Auto 87.1 % (50.0-70.0); Platelet Count Result 273 K/mm3 (150-420); Red Cell Distribution Width 14.5 % (11.6-14.4); White Blood Count 10.5 K/mm3 (4.8-10.8)
--- NOTE | 2020-11-06 04:42 | ED.SOB ---
HPI - SOB/Dyspnea General Chief Complaint: Unspecified Stated Complaint: Congestion Source: patient Mode of arrival: ambulatory Limitations: no limitations History of Present Illness HPI Narrative: Patient comes in stating he feels something rattling in his chest and wishes to be evaluated. He states he has had some chills at home but no fever. He is severly concerned he has a pneumonia or something like this, this has been ongoing for the past several hours. He has had problems with anxiety disorder in the past. He denies shortness of breath. No other associated signs or symptoms. MD elicited complaint: anxiety Pertinent past history: other (anxiety) Onset (ago): hour(s) Context: medication noncompliance Timing: intermittent Severity: moderate Exacerbating factors: lying flat (rest) Relieving factors: other (movement) Associated symptoms: denies other symptoms Related Data Home oxygen amount: none Allergies Allergy/AdvReac Type Severity Reaction Status Date / Time No Known Allergies Allergy Verified 09/11/20 13:36 Review of Systems Constitutional: Constitutional: Reports no additional constitutional complaints Eyes: Eyes: Reports no additional eye complaints ENT: Reports system reviewed and no additional complaints, except as documented Cardiovascular: Cardiovascular: Reports no additional cardiovascular complaints Respiratory: Respiratory: Reports no additional respiratory complaints Gastrointestinal: Gastrointestinal: Reports no additional gastrointestinal complaints Genitourinary: Genitourinary: Reports no additional male genitourinary complaints Musculoskeletal: Musculoskeletal: Reports no additional musculoskeletal complaints Integumentary/Breasts: Skin/Breast: Reports system reviewed and no additional complaints, except as docu Neurologic: Reports system reviewed and no additional complaints, except as documented Psychiatric: Psychiatric: Reports no additional psychiatric complaints Endocrine: Endocrine: Reports no additional endocrine complaints Hematologic/Lymphatic: Hematologic/Lymphatic: Reports no additional hematologic/lymphatic complaints Allergic/Immunologic: Allergic/Immunologic: Reports no additional allergic/immunologic complaints [facility] Past Medical History Medical History Anxiety Atrial fibrillation CKD (chronic kidney disease), stage III Cocaine abuse Drug abuse GERD (gastroesophageal reflux disease) HTN (hypertension) Hyperlipidemia Lipoma Neuropathy Osteoarthritis of right knee Renal cell carcinoma Rheumatoid arthritis Surgical History Surgical History History of appendectomy History of nephrectomy, left History of tonsillectomy and adenoidectomy Family History Family History Father CAD (coronary artery disease) Other Heart disease Hypertension Social History Social History Smoking status: Never smoker Alcohol intake: former Substance use: current Substance use type: marijuana Gender identity (if verbalized by the patient): Male Spiritual care concerns: No Exam Const: General: healthy appearing, no acute distress and alert Orientation/consciousness: patient oriented x3 HENMT: Head: normal to inspection Ears: external ears normal and TM's normal bilaterally General nose exam: Normal external nose present Mouth: Yes Normal oral and palatal mucosa present Throat: posterior oropharynx normal (tonsils are not well visualized ) Eyes: Conjunctivae: conjunctivae normal Neck: Neck: normal visual inspection and no lymphadenopathy Chest: Chest palpation & inspection: normal inspection of the chest Resp: Effort & Inspection: normal respiratory effort Auscultation: clear to auscultation bilaterally Cardio: Rate: regular rate Rhythm: regular r
--- NOTE | 2020-11-06 04:45 | ECG_ITS ---
Measurements Intervals [place] Rate: 80 P: 29 AL: 142 QRS: 42 QRSD: 94 T: 60 QT: 359 QTc: 415 Interpretive Statements SINUS RHYTHM ATRIAL PREMATURE COMPLEX MINIMAL Q WAVES- INFERIOR LEADS BASELINE ARTIFACT- II, III, AVF BORDERLINE ECG Electronically Signed On 11-06-2020 7:21:38 CDT by Edvin Joshi D.O.
[2020-11-06 04:51] LABS: Lactic Acid Reflex 1.7 mmol/L (0.4-2.0)
[2020-11-06 04:53] LABS: Alanine Aminotransferase 29 U/L (16-63); Alkaline Phosphatase 97 U/L (46-116); Anion Gap 11 mmol/L (8-16); Aspartate Amino Transferase < 10 U/L (15-37); Bilirubin,Total 0.4 mg/dL (0.00-1.00); Blood Urea Nitrogen 20 mg/dL (7-18); Calcium 8.3 mg/dL (8.5-10.1); Carbon Dioxide 22 mmol/L (21-32); Chloride 102 mmol/L (98-108); Estimated CRCL calculation 42 ml/min; Estimated Glomerular Filt Rate 33; Glucose 180 mg/dL (70-99); NT Pro B Type Natriuretic Pept 163 pg/mL (0-125); Osmolality Calculated 287 mOsm/kg (285-295); Potassium 4.3 mmol/L (3.5-5.1); Sodium 135 mmol/L (136-145); Total Protein 6.3 g/dL (6.4-8.2); Troponin I 8.4 ng/L (0.00-60.4)
[2020-11-06] MEDS: KETOROLAC (*BKC) 60 MG/2 ML VIAL IM (04:57)
[2020-11-06 05:22] LABS: SARS-CoV-2 RNA PCR Negative (Negative)
[2020-11-06 05:26] LABS: Influenza A QL RT-PCR Negative (Negative); Influenza B QL RT-PCR Negative (Negative)
[2020-11-06] MEDS: SODIUM CHLORIDE 0.9% IV 1,000 ML 999 ML IV CONT (05:45)
[2020-11-06 06:31] VITALS: BP 100/65; PULSE 75; RESP 20; O2SAT 98
== END 2020-11-06 06:37 | disposition home or self-care (01) ==
PROVIDERS: Emergency Provider Emergency Medicine; PCP Family Medicine
DX: F41.9 Anxiety disorder, unspecified (principal); Z20.822 Contact with and (suspected) exposure to COVID-19
CPT/HCPCS: 36415; 71046; 80053; 83605; 83880; 84484; 85025; 87502; 93005; 96360; 96372; 99283; 99284; C9803; J1885; J7030; U0003; U0005

== ENCOUNTER 2020-11-15 15:31 | Outpatient (CLI) | payer OTHER, SELFPAY ==
--- NOTE | 2020-11-15 15:40 | PC.NURSE ---
Here for outpatient infusion and nausea medicine, to 202, call light in reach, warm blanket given
[2020-11-15] MEDS: ONDANSETRON INJ 4 MG/2 ML VIAL IV PUSH (15:51)
[2020-11-15] MEDS: SODIUM CHLORIDE 0.9% IV 1,000 ML 250 ML IVPB (15:55)
--- NOTE | 2020-11-15 17:14 | PC.NURSE ---
Sitting up in bed, eating dinner, no n/v, drinking pepsi, denies needs, fluids infusing
--- NOTE | 2020-11-15 19:01 | PC.NURSE ---
fluids infused, rate had been increased per patient request tolerated well, discharged per to home
== END 2020-11-15 15:32 | disposition home or self-care (01) ==
LOC: CHSTREATRM 15:33
PROVIDERS: PCP Family Medicine; Visit Provider Nurse Practitioner Family
DX: E86.0 Dehydration (principal)
CPT/HCPCS: 96360; 96361; 96374; J2405; J7030

== ENCOUNTER 2020-11-26 00:20 | Emergency (ER) | payer OTHER, SELFPAY ==
--- NOTE | ~2020-11-26 | CT_ITS ---
EXAMINATION: CT brain wo con EXAM DATE: 11/26/2020 02:47 INDICATION: Head injury 3 days ago, dizziness. TECHNIQUE: Spiral CT of the head was performed without contrast. Axial, coronal and sagittal images were reviewed. The dose-length product (DLP) for this examination was 681.00 mGy-cm. The exposure w as tailored according to patient size, and iterative reconstruction (ASIR) was used as additional dos e reduction technique. Comparison is made to prior examination from 04/21/2017. FINDINGS: There is no acute intraparenchymal hemorrhage. No evidence of intraparenchymal brain mass lesion. No evidence of acute infarction. There is no mass effect or midline shift. The ventricles are normal in size. There are no extra-axial collections. There are no acute calvarial fractures. T he orbits are unremarkable. Soft tissue is unremarkable. Small maxillary sinus retention cysts. IMPRESSION: 1. No acute intracranial findings. Reviewed, dictated and finalized at location A.
[2020-11-26 00:20] VITALS: BP 122/88; PULSE 98; RESP 20; TEMP 37.3; O2SAT 97
--- NOTE | 2020-11-26 00:27 | ECG_ITS ---
Measurements Intervals [place] Rate: 84 P: 42 KS: 135 QRS: 48 QRSD: 90 T: 30 QT: 338 QTc: 400 Interpretive Statements SINUS RHYTHM LOW QRS VOLTAGE IN PRECORDIAL LEADS INFERIOR INFARCT, AGE INDETERMINATE BASELINE WANDER- V2 ABNORMAL ECG Electronically Signed On 11-26-2020 10:14:54 CDT by Edvin Joshi D.O.
--- NOTE | 2020-11-26 00:48 | ED.DIZZY ---
HPI - Dizziness General Source: patient Mode of arrival: EMS Limitations: no limitations History of Present Illness HPI Narrative: 55-year-old man with a history of hypertension, chronic renal disease, atrial fibrillation, reflux and hypertension came to the emergency department via EMS with a complaint of dizzy spells at home. Patient states that been going on for weeks and he states that feels like he is moving or off balance. He denies room spinning kind of dizziness, nausea, vomiting, fever, recent cough or cold symptoms, abdominal pain, vomiting, diarrhea, headache, visual changes, or black or bloody stools. States that he fell while working on a motorcycle and struck the back of his head while trying to sit. He did not lose consciousness or have nausea or vomiting. He states he saw stars. MD elicited complaint: dizziness Pertinent past history: recent head injury Onset (ago): day(s) (3) Timing: intermittent Severity: moderate Description: sense of movement and off-balance History of similar symptoms: No Exacerbating factors: movement/ambulation Relieving factors: remaining still and rest Associated symptoms: denies other symptoms Related Data Home Medications Medication Instructions Recorded Confirmed gabapentin 600 mg PO BID 11/26/20 11/26/20 lovastatin 40 mg PO DAILY 11/26/20 11/26/20 magnesium oxide 400 mg PO DAILY 11/26/20 11/26/20 Allergies Allergy/AdvReac Type Severity Reaction Status Date / Time No Known Allergies Allergy Verified 11/22/20 08:18 Review of Systems Review of Systems: All systems reviewed & are unremarkable except as noted in HPI and below Constitutional: Constitutional: Denies chills and Denies fever(s) Eyes: Eyes: Denies change in vision and Denies photophobia ENT: Denies nasal congestion and Denies sore throat Cardiovascular: Cardiovascular: Denies chest pain and Denies radiating jaw, neck or arm pain Respiratory: Respiratory: Denies cough, Denies dyspnea and Denies wheezing Gastrointestinal: Gastrointestinal: Denies abdominal pain, Denies diarrhea, Denies nausea and Denies vomiting Genitourinary: Genitourinary: Denies dysuria and Denies urinary frequency Musculoskeletal: Musculoskeletal: Denies back pain, Denies arthralgias and Denies joint swelling Integumentary/Breasts: Skin/Breast: Denies pruritus, Denies erythema and Denies rash Neurologic: Denies vertigo, Reports dizziness, Denies syncope, Denies headache(s), Denies focal weakness and Denies numbness Hematologic/Lymphatic: Hematologic/Lymphatic: Reports easy bleeding and Reports easy bruising PM[facility] Past Medical History Medical History Anxiety Atrial fibrillation CKD (chronic kidney disease), stage III Cocaine abuse Drug abuse GERD (gastroesophageal reflux disease) HTN (hypertension) Hyperlipidemia Lipoma Neuropathy Osteoarthritis of right knee Renal cell carcinoma Rheumatoid arthritis Surgical History Surgical History History of appendectomy History of nephrectomy, left History of tonsillectomy and adenoidectomy Family History Family History Father CAD (coronary artery disease) Other Heart disease Hypertension Social History Social History Smoking status: Never smoker Alcohol intake: former Substance use: current Substance use type: marijuana and crack/cocaine Other substance usage details: States he does it when he feels like it. Gender identity (if verbalized by the patient): Male Spiritual care concerns: No Exam Const: General: healthy appearing, no acute distress and alert Orientation/consciousness: patient oriented x3 Limitations: no limitations HENMT: Head: normal to inspection Ears: TM's normal bilaterally, EAC's normal and external ear abnormal
[2020-11-26 01:04] LABS: Basophils Absolute Auto 0.04 K/mm3 (0.00-0.10); Basophils Percent Auto 0.4 % (0.0-1.0); Hematocrit 36.7 % (40.0-54.0); Hemoglobin 12.2 g/dL (14.0-18.0); Immature Granulocyte Absolute 0.19 K/mm3 (0.00-0.00); Immature Granulocyte Percent A 1.8 % (0.0-0.0); Lymphocytes Absolute Auto 0.88 K/mm3 (1.10-4.50); Lymphocytes Percent Auto 8.6 % (18.0-42.0); Mean Corpuscular HGB Conc 33.2 g/dL (32.0-36.0); Mean Corpuscular Hemoglobin 31.9 pg (27.0-31.0); Mean Corpuscular Volume 95.8 fL (78.0-102.0); Monocytes Absolute Auto 0.76 K/mm3 (0.10-0.90); Monocytes Percent Auto 7.4 % (2.0-11.0); Neutrophils Absolute Auto 8.3 K/mm3 (1.7-7.2); Neutrophils Percent Auto 80.8 % (50.0-70.0); Platelet Count Result 238 K/mm3 (150-420); Red Blood Count 3.83 M/mm3 (4.70-6.10); Red Cell Distribution Width 14.8 % (11.6-14.4); White Blood Count 10.3 K/mm3 (4.8-10.8)
[2020-11-26 01:17] LABS: Partial Thromboplastin Time 26.3 SEC (23.90-30.70); Prothrombin Time 10.3 Seconds (9.50-12.10)
[2020-11-26 01:25] LABS: Troponin I 10.8 ng/L (0.00-60.4)
[2020-11-26 01:28] LABS: Appearance Urine Clear (Clear); Bilirubin Urine Negative (Negative); Blood Urine Negative (Negative); Glucose Urine UA Negative (Negative); Ketones Urine Negative (Negative); Leukocyte Esterase Ur Negative LEU/UL (Negative); Nitrate Urine Negative (Negative); Protein Urine Negative (Negative); Urobilinogen Urine 0.2 mg/dL (0.2-1.0); pH Urine 5.5 (5.0-8.0)
[2020-11-26 01:28] LABS: CRP 4.4 mg/dL (0.0-0.9); D Dimer 1.65 mg/L (0.19-0.50)
[2020-11-26 01:29] LABS: Add Urine Microscopic? NO; Color Urine Light Yellow (Yellow)
[2020-11-26 01:31] LABS: Alanine Aminotransferase 29 U/L (16-63); Albumin Level 2.8 g/dL (3.4-5.0); Alkaline Phosphatase 53 U/L (46-116); Anion Gap 10 mmol/L (8-16); Aspartate Amino Transferase 14 U/L (15-37); Bilirubin,Total 0.5 mg/dL (0.00-1.00); Blood Urea Nitrogen 26 mg/dL (7-18); Calcium 8.1 mg/dL (8.5-10.1); Carbon Dioxide 21 mmol/L (21-32); Chloride 103 mmol/L (98-108); Estimated Glomerular Filt Rate 32; Glucose 98 mg/dL (70-99); Lactic Acid Reflex 1.3 mmol/L (0.4-2.0); Osmolality Calculated 282 mOsm/kg (285-295); Potassium 4.8 mmol/L (3.5-5.1); Sodium 134 mmol/L (136-145); Total Protein 6.1 g/dL (6.4-8.2)
[2020-11-26 01:38] LABS: Amphetamine Screen Urine Negative (Negative); Barbiturate Screen Urine Negative (Negative); Benzodiazepines Screen Urine Negative (Negative); Cannabinoid Screen Urine Positive (Negative); Cocaine Screen Urine Positive (Negative); Methadone Screen Urine Negative (Negative); Opiate Screen Urine Negative (Negative); Phencyclidine Screen Urine Negative (Negative)
[2020-11-26] MEDS: SODIUM CHLORIDE 0.9% IV 1,000 ML 999 ML IV CONT (01:58)
[2020-11-26 03:14] VITALS: BP 129/73; PULSE 81; RESP 20; TEMP 37.3; O2SAT 96
== END 2020-11-26 03:15 | disposition home or self-care (01) ==
PROVIDERS: Emergency Provider Emergency Medicine; PCP Family Medicine
DX: S09.90XA Unspecified injury of head, initial encounter (principal); R42 Dizziness and giddiness; W19.XXXA Unspecified fall, initial encounter
CPT/HCPCS: 36415; 70450; 80053; 80307; 81003; 83605; 84484; 85025; 85380; 85610; 85730; 86140; 87040; 93005; 96360; 99283; 99284; J7030

== ENCOUNTER 2020-11-27 12:13 | Emergency (ER) | payer OTHER, SELFPAY ==
--- NOTE | ~2020-11-27 | CT_ITS ---
EXAMINATION: CT abdomen pelvis w con EXAM DATE: 11/27/2020 14:40 INDICATION: Abdominal pain RLQ and LLQ abd pain with dizziness and diarrhea TECHNIQUE: Spiral CT of the abdomen and pelvis was performed following intravenous injection of 100 m L Omnipaque 350. Axial, coronal and sagittal images of the abdomen and pelvis were reviewed. The do se-length product (DLP) for this examination was 1376.46 mGy-cm. The exposure was tailored according to patient size (auto mA exposure control), and iterative reconstruction (ASIR) was used as addition al dose reduction technique. Comparison is made to prior examination from 09/29/2018, 07/10/2020. FINDINGS: There is lingular 11 x 8 mm nodule without spiculations, was 10 x 8 mm 2020, and 5 x 7 mm J anuary 2019, possible slow growing cancer. The liver, spleen, adrenal glands and pancreas are unremar kable. Gallbladder is unremarkable. No biliary obstruction. Status post left nephrectomy and adren alectomy, unremarkable nephrectomy bed. No right-sided hydronephrosis. Punctate right calyceal stone and couple of subcentimeter right renal cysts. The prostate is unremarkable. The bladder is unremark able. There is no retroperitoneal or pelvic lymphadenopathy. There is mild scattered arteriosclero tic disease. There are surgical changes consistent with appendectomy. The stomach and small bowel are unremarkab le. There is colonic fluid, correlate for diarrhea. No free intraperitoneal gas. The heart is no rmal in size. There are no pericardial or pleural effusions. Sclerotic focus within L1 vertebral body measuring 1.4 x 1.2 cm (was 9 x 12 mm on prior study 2018). Sclerotic focus within the posterior aspect of the right 8th rib measuring 10 mm. Sclerotic focus in the right 6th rib laterally measuring 5 mm. Other cervical IMPRESSION: 1. Lingular nodule which has been slowly increasing in size, possible low-grade malignancy. This is large enough for PET/CT or CT guided biopsy.. 2. Slight interval increase in size of L1 sclerotic focus, possible osteoblastic disease. 2 atherosc lerotic right rib foci unchanged compared to June 2020, but not imaged on older studies. Consider follow-up PET/CT. 3. Colonic fluid, correlate for enteritis/diarrhea. No colonic wall edema. Reviewed, dictated and finalized at location B. IMPRESSION: 1. Lingular nodule which has been slowly increasing in size, possible low-grad e malignancy. This is large enough for PET/CT or CT guided biopsy.. 2. Slight interval increase in size of L1 sclerotic focus, possible osteoblast ic disease. 2 atherosclerotic right rib foci unchanged compared to June 2020 , but not imaged on older studies. Consider follow-up PET/CT. 3. Colonic fluid, correlate for enteritis/diarrhea. No colonic wall edema.
[2020-11-27 12:20] VITALS: BP 127/82; PULSE 88; RESP 16; TEMP 37.1; O2SAT 98
--- NOTE | 2020-11-27 12:34 | ED.DIZZY ---
HPI - Dizziness General Chief Complaint: Dizziness Stated Complaint: ambulance Time Seen by Provider: 11/27/20 12:34 Source: patient Mode of arrival: EMS Limitations: no limitations History of Present Illness HPI Narrative: 55-year-old man brought by the ambulance today complaining of room spinning type dizziness that started before he got out of bed this morning. Patient states that he rolled over in bed when it started. States he has had some nausea and vomiting. states he feels bad all over. He denies having fever, diarrhea, chest pain, shortness breath, rash, cough or cold symptoms, dysuria and hematuria. He denies any blood in his stools. MD elicited complaint: vertigo Onset (ago): day(s) Timing: awoke with symptoms Severity: moderate Description: sense of movement and room spinning Context: change in body position History of similar symptoms: Yes Exacerbating factors: change in body position Relieving factors: remaining still and keeping eyes closed Associated symptoms: nausea Related Data Home Medications Medication Instructions Recorded Confirmed gabapentin 600 mg PO BID 11/26/20 11/26/20 lovastatin 40 mg PO DAILY 11/26/20 11/26/20 magnesium oxide 400 mg PO DAILY 11/26/20 11/26/20 Allergies Allergy/AdvReac Type Severity Reaction Status Date / Time No Known Allergies Allergy Verified 11/22/20 08:18 Review of Systems Review of Systems: All systems reviewed & are unremarkable except as noted in HPI and below Constitutional: Constitutional: Denies chills and Denies fever(s) Eyes: Eyes: Denies change in vision and Denies photophobia ENT: Denies nasal congestion and Denies sore throat Cardiovascular: Cardiovascular: Denies chest pain and Denies radiating jaw, neck or arm pain Respiratory: Respiratory: Denies cough and Denies dyspnea Gastrointestinal: Gastrointestinal: Reports abdominal pain, Reports nausea and Denies vomiting Genitourinary: Genitourinary: Denies hematuria, Denies dysuria and Denies urinary frequency Musculoskeletal: Musculoskeletal: Reports back pain, Denies arthralgias and Denies joint swelling Integumentary/Breasts: Skin/Breast: Denies pruritus, Denies erythema and Denies rash Neurologic: Reports vertigo, Denies dizziness and Denies syncope Hematologic/Lymphatic: Hematologic/Lymphatic: Reports easy bleeding and Reports easy bruising Comments: On apixaban for AFib Allergic/Immunologic: Allergic/Immunologic: Denies lip swelling and Denies throat swelling [facility] Past Medical History Medical History Anxiety Atrial fibrillation CKD (chronic kidney disease), stage III Cocaine abuse Drug abuse GERD (gastroesophageal reflux disease) HTN (hypertension) Hyperlipidemia Lipoma Neuropathy Osteoarthritis of right knee Renal cell carcinoma Rheumatoid arthritis Surgical History Surgical History History of appendectomy History of nephrectomy, left History of tonsillectomy and adenoidectomy Family History Family History Father CAD (coronary artery disease) Other Heart disease Hypertension Social History Social History Smoking status: Never smoker Alcohol intake: former Substance use: current Substance use type: marijuana and crack/cocaine Other substance usage details: States he does it when he feels like it. Gender identity (if verbalized by the patient): Male Spiritual care concerns: No Exam Const: General: alert Nutritional Appearance: obese Orientation/consciousness: patient oriented x3 Limitations: no limitations Other: anxious, tearful HENMT: Head: normal to inspection Ears: TM's normal bilaterally, EAC's normal and external ear abnormal General nose exam: Normal nares present Face and sinus: normal facial exam Mouth:
--- NOTE | 2020-11-27 12:45 | ECG_ITS ---
Measurements Intervals [place] Rate: 86 P: 30 ME: 133 QRS: 42 QRSD: 88 T: 21 QT: 341 QTc: 409 Interpretive Statements SINUS RHYTHM MINIMAL Q WAVES- INFERIOR LEADS BORDERLINE ECG Electronically Signed On 11-27-2020 13:03:40 CDT by Edvin Joshi D.O.
[2020-11-27] MEDS: ONDANSETRON INJ 4 MG/2 ML VIAL IV PUSH (12:55)
[2020-11-27] MEDS: SODIUM CHLORIDE 0.9% IV 1,000 ML 999 ML IV CONT (12:55)
[2020-11-27] MEDS: PANTOPRAZOLE SODIUM IV 40 MG VIAL 80 MG IV PUSH (12:55)
[2020-11-27 13:24] LABS: Basophils Absolute Auto 0.04 K/mm3 (0.00-0.10); Basophils Percent Auto 0.4 % (0.0-1.0); Hematocrit 39.6 % (40.0-54.0); Hemoglobin 13.2 g/dL (14.0-18.0); Immature Granulocyte Absolute 0.15 K/mm3 (0.00-0.00); Immature Granulocyte Percent A 1.5 % (0.0-0.0); Lymphocytes Absolute Auto 1.75 K/mm3 (1.10-4.50); Lymphocytes Percent Auto 17.2 % (18.0-42.0); Mean Corpuscular HGB Conc 33.3 g/dL (32.0-36.0); Mean Corpuscular Volume 96.1 fL (78.0-102.0); Mean Platelet Volume 9.1 fl (8.7-11.0); Monocytes Absolute Auto 0.76 K/mm3 (0.10-0.90); Monocytes Percent Auto 7.5 % (2.0-11.0); Neutrophils Absolute Auto 7.3 K/mm3 (1.7-7.2); Neutrophils Percent Auto 71.4 % (50.0-70.0); Platelet Count Result 242 K/mm3 (150-420); Red Blood Count 4.12 M/mm3 (4.70-6.10); Red Cell Distribution Width 14.8 % (11.6-14.4); White Blood Count 10.2 K/mm3 (4.8-10.8)
[2020-11-27 13:25] LABS: Add Urine Microscopic? NO; Appearance Urine Clear (Clear); Bilirubin Urine Negative (Negative); Blood Urine Negative (Negative); Color Urine Light Yellow (Yellow); Glucose Urine UA Negative (Negative); Ketones Urine Negative (Negative); Leukocyte Esterase Ur Negative LEU/UL (Negative); Nitrate Urine Negative (Negative); Protein Urine Negative (Negative); Urobilinogen Urine 0.2 mg/dL (0.2-1.0); pH Urine 6.5 (5.0-8.0)
[2020-11-27 13:39] LABS: Alanine Aminotransferase 27 U/L (16-63); Albumin Level 2.9 g/dL (3.4-5.0); Alkaline Phosphatase 55 U/L (46-116); Ammonia 13 umol/L (11-32); Anion Gap 13 mmol/L (8-16); Aspartate Amino Transferase 15 U/L (15-37); Bilirubin,Total 0.7 mg/dL (0.00-1.00); Blood Urea Nitrogen 23 mg/dL (7-18); Calcium 8.7 mg/dL (8.5-10.1); Carbon Dioxide 19 mmol/L (21-32); Chloride 106 mmol/L (98-108); Estimated Glomerular Filt Rate 34; Glucose 94 mg/dL (70-99); Lipase 520 U/L (73-393); Osmolality Calculated 289 mOsm/kg (285-295); Potassium 4.3 mmol/L (3.5-5.1); Sodium 138 mmol/L (136-145); Total Protein 6.6 g/dL (6.4-8.2); Troponin I 9.6 ng/L (0.00-60.4)
[2020-11-27 13:40] LABS: Acetaminophen < 2 ug/mL (10-30); Ethanol 3 mg/dL (0-6); Salicylate 0.5 mg/dL (2.8-20.0)
[2020-11-27 14:03] VITALS: BP 120/83
--- NOTE | 2020-11-27 14:41 | PC.NURSE ---
CALL PLACED TO [facility] FOR POSSIBLE TRANSFER
[2020-11-27 17:25] VITALS: BP 132/70; PULSE 78; RESP 16; O2SAT 95
[2020-11-27 17:58] VITALS: BP 132/88; PULSE 88; RESP 18; TEMP 36.6; O2SAT 95
--- NOTE | 2020-11-27 18:09 | PC.NURSE ---
ate 1/4 turkey sandwich, and 1/2 can of pepsi
== END 2020-11-27 18:09 | disposition home or self-care (01) ==
PROVIDERS: Emergency Provider Emergency Medicine; PCP Family Medicine
DX: R42 Dizziness and giddiness (principal); R91.8 Other nonspecific abnormal finding of lung field; F19.10 Other psychoactive substance abuse, uncomplicated
CPT/HCPCS: 36415; 74177; 80053; 80307; 81003; 82140; 83605; 83690; 84484; 85025; 87040; 93005; 96361; 96374; 96375; 99283; 99284; C9113; J2405; J7030; Q9967

== ENCOUNTER 2020-11-28 14:22 | Observation (INO) | payer OTHER, SELFPAY ==
--- NOTE | ~2020-11-28 | NM_ITS ---
EXAMINATION: NM pulmonary perfusion EXAM DATE: 11/29/2020 13:37 INDICATION: Left upper back pain, pressure. Suspect pulmonary embolism. TECHNIQUE: A perfusion lung scan was performed. The patient was injected with 5.5 mCi technetium 99m MAA and imaged. Modified PIOPED 2 criteria used for interpretation of perfusion without ventilation study (recent chest x-ray instead for comparison). Comparison is made to prior examination from . FINDINGS: There is homogeneous tracer uptake on the perfusion scan, no focal segmental or subsegmenta l filling defects. IMPRESSION: Normal perfusion scan. Reviewed, dictated and finalized at location B. IMPRESSION: Normal perfusion scan.
--- NOTE | ~2020-11-28 | US_ITS ---
EXAMINATION: US venous doppler [facility] DATE: 11/29/2020 13:40 INDICATION: Deep venous thrombosis and pulmonary embolism. Posterior left upper chest pain. TECHNIQUE: Grayscale ultrasound images without and with compression and Doppler ultrasound images of the bilateral lower extremity veins were obtained. COMPARISON: None. FINDINGS: The visualized portions of right common femoral vein, profunda (deep) femoral vein, femoral vein, pop liteal vein, posterior tibial veins, peroneal veins, gastrocnemius vein and greater saphenous vein ou tflow are patent. The visualized portions of left common femoral vein, profunda femoral vein, femoral vein, popliteal v ein, posterior tibial veins, peroneal veins, gastrocnemius vein and greater saphenous vein outflow ar e patent. IMPRESSION: 1. No deep venous thrombosis in either lower limb. Reviewed, dictated and finalized at location A.
--- NOTE | ~2020-11-28 | XR_ITS ---
EXAMINATION: XR chest 1V portable 11/29/2020 09:29 INDICATION: Dyspnea. PROCEDURE: AP portable chest COMPARISON: Comparison to multiple prior studies sequentially, with oldest reviewed study dated 05/16. FINDINGS: The lungs are clear. The cardiomediastinal silhouette is within normal limits. There are no pleural effusions. There is no pneumothorax suspected. Stable nodular densities in the lower parker g zones which may represent nipple shadows. IMPRESSION: 1: NO ACUTE CARDIOPULMONARY DISEASE. Reviewed, dictated and finalized at location A.
[2020-11-28 14:24] VITALS: BP 124/97; PULSE 113; RESP 24; TEMP 36.6; O2SAT 99
[2020-11-28 14:30] VITALS: PULSE 115
--- NOTE | 2020-11-28 14:35 | ECG_ITS ---
Measurements Intervals [place] Rate: 121 P: 21 DC: 138 QRS: 50 QRSD: 86 T: 3 QT: 289 QTc: 410 Interpretive Statements SINUS TACHYCARDIA DELAYED PRECORDIAL R/S TRANSITION MINIMAL QAVES- INFERIOR LEADS NONSPECIFIC T-WAVE ABNORMALITY- INFERIOR LEADS BASELINE ARTIFACT- II, III, AVF ABNORMAL ECG Electronically Signed On 11-28-2020 17:12:27 CDT by Edvin Joshi D.O.
--- NOTE | 2020-11-28 14:37 | PC.NURSE ---
call to archie for ekg order.
[2020-11-28 14:52] LABS: Base Excess ABG -5.8 mmol/L (0-2); HCO3 ABG 15.8 mmol/L (23-29); Oxygen Content ABG 19.1 %vol (16.0-22.0); Oxygen Saturation ABG 93.6 % (95-97); Oxyhemoglobin 92.7 % (94-100); PCO2 ABG 22.8 mmHg (35-45); Total Hemoglobin 14.7 g/dL; pH ABG 7.46 (7.35-7.45)
[2020-11-28] MEDS: ONDANSETRON HCL ODT 4 MG TABLET PO (14:53)
--- NOTE | 2020-11-28 14:53 | ED.WEAKNESS ---
HPI - Weakness General Source: patient Mode of arrival: ambulatory Limitations: no limitations History of Present Illness HPI Narrative: Patient is sent in from the physicians office. He has been weak at home and short of breath. Shortness of breath is fairly severe and has been ongoing for the last few days. Nothing has helped this at home. Complaint: generalized weakness Onset (ago): day(s) Duration: constant Location: generalized Migration: none Severity: moderate Relieving factors: none Exacerbating factors: movement Context: depression Related Data Home Medications Medication Instructions Recorded Confirmed gabapentin 600 mg PO BID 11/26/20 11/28/20 lovastatin 40 mg PO DAILY 11/26/20 11/28/20 magnesium oxide 400 mg PO DAILY 11/26/20 11/28/20 Allergies Allergy/AdvReac Type Severity Reaction Status Date / Time No Known Allergies Allergy Verified 11/28/20 13:58 Review of Systems Constitutional: Constitutional: Reports no additional constitutional complaints Eyes: Eyes: Reports no additional eye complaints ENT: Reports system reviewed and no additional complaints, except as documented Cardiovascular: Cardiovascular: Reports no additional cardiovascular complaints Respiratory: Respiratory: Reports dyspnea Gastrointestinal: Gastrointestinal: Reports no additional gastrointestinal complaints Genitourinary: Genitourinary: Reports no additional male genitourinary complaints Musculoskeletal: Musculoskeletal: Reports no additional musculoskeletal complaints Integumentary/Breasts: Skin/Breast: Reports system reviewed and no additional complaints, except as docu Neurologic: Reports system reviewed and no additional complaints, except as documented Psychiatric: Psychiatric: Reports no additional psychiatric complaints Endocrine: Endocrine: Reports no additional endocrine complaints Hematologic/Lymphatic: Hematologic/Lymphatic: Reports no additional hematologic/lymphatic complaints Allergic/Immunologic: Allergic/Immunologic: Reports no additional allergic/immunologic complaints [facility] Past Medical History Medical History Anxiety Atrial fibrillation CKD (chronic kidney disease), stage III Cocaine abuse Drug abuse GERD (gastroesophageal reflux disease) HTN (hypertension) Hyperlipidemia Lipoma Neuropathy Osteoarthritis of right knee Renal cell carcinoma Rheumatoid arthritis Surgical History Surgical History History of appendectomy History of nephrectomy, left History of tonsillectomy and adenoidectomy Family History Family History Father CAD (coronary artery disease) Mother Cancer Other Heart disease Hypertension Social History Social History Smoking status: Never smoker Alcohol intake: former Substance use: current Substance use type: marijuana and crack/cocaine Other substance usage details: States he does it when he feels like it. Last use: 11/27/2020 Gender identity (if verbalized by the patient): Male Spiritual care concerns: No Exam Const: General: alert Orientation/consciousness: patient oriented x3 HENMT: Head: normal to inspection Ears: external ears normal and TM's normal bilaterally General nose exam: Normal external nose present Throat: posterior oropharynx normal Eyes: Conjunctivae: conjunctivae normal Neck: Neck: normal visual inspection Chest: Chest palpation & inspection: normal inspection of the chest Resp: Effort & Inspection: normal respiratory effort Auscultation: clear to auscultation bilaterally Cardio: Rate: regular rate and tachycardic Rhythm: regular rhythm GI: GI Palp: Yes Soft to palpation (nontender) Skin: General skin exam: normal color Neuro: General: patient oriented x3 and moves all extremities Extrem: O
[2020-11-28 14:57] LABS: Device ROOM AIR; Modified Allen's Test Pass; Site Drawn RIGHT RADIAL
[2020-11-28 15:01] VITALS: PULSE 113
--- NOTE | 2020-11-28 15:11 | PC.NURSE ---
archie here in er to do ekg 1441. ekg completed after lab drawn at 1454. erp in with pt, admitted depression to increased sickness.
[2020-11-28 15:17] LABS: Lactic Acid Reflex 1.5 mmol/L (0.4-2.0)
--- NOTE | 2020-11-28 15:18 | PC.NURSE ---
pt tearful and admits to increased depression. reassessment of pt initiated, when asked pt if he had intentions of self harm pt states it is hard to say, i just cant keep doing this, i have been at the hospital more than i have been at home. i have no one to help me, i have no family, and no one can figure out what is wrong with me. I havent thought of a way to do it, i just feel beat down all the time. pt states has had previous suicidal attempt in his younger days. denies wanting to harm others. explained we can start process to get evaluation with [facility].
[2020-11-28 15:20] LABS: Basophils Absolute Auto 0.06 K/mm3 (0.00-0.10); Basophils Percent Auto 0.6 % (0.0-1.0); Eosinophils Absolute Auto 0.18 K/mm3 (0.02-0.50); Eosinophils Percent Auto 1.9 % (1.0-6.0); Hematocrit 41.4 % (40.0-54.0); Hemoglobin 14.1 g/dL (14.0-18.0); Immature Granulocyte Absolute 0.14 K/mm3 (0.00-0.00); Immature Granulocyte Percent A 1.5 % (0.0-0.0); Lymphocytes Absolute Auto 1.24 K/mm3 (1.10-4.50); Mean Corpuscular HGB Conc 34.1 g/dL (32.0-36.0); Mean Corpuscular Hemoglobin 32.5 pg (27.0-31.0); Mean Corpuscular Volume 95.4 fL (78.0-102.0); Mean Platelet Volume 9.4 fl (8.7-11.0); Monocytes Absolute Auto 0.78 K/mm3 (0.10-0.90); Monocytes Percent Auto 8.2 % (2.0-11.0); Neutrophils Absolute Auto 7.2 K/mm3 (1.7-7.2); Neutrophils Percent Auto 74.8 % (50.0-70.0); Platelet Count Result 280 K/mm3 (150-420); Red Blood Count 4.34 M/mm3 (4.70-6.10); Red Cell Distribution Width 14.9 % (11.6-14.4); White Blood Count 9.6 K/mm3 (4.8-10.8)
[2020-11-28 15:27] LABS: Add Urine Microscopic? YES; Appearance Urine Clear (Clear); Bilirubin Urine Negative (Negative); Blood Urine Negative (Negative); Color Urine Light Yellow (Yellow); Glucose Urine UA Negative (Negative); Ketones Urine Negative (Negative); Leukocyte Esterase Ur Negative LEU/UL (Negative); Nitrate Urine Negative (Negative); Protein Urine Trace (Negative); Specific Grav Ur 1.025 (1.010-1.020); Urobilinogen Urine 0.2 mg/dL (0.2-1.0)
[2020-11-28 15:33] LABS: Amphetamine Screen Urine Negative (Negative); Barbiturate Screen Urine Negative (Negative); Benzodiazepines Screen Urine Negative (Negative); Cannabinoid Screen Urine Positive (Negative); Cocaine Screen Urine Positive (Negative); Methadone Screen Urine Negative (Negative); Opiate Screen Urine Negative (Negative); Phencyclidine Screen Urine Negative (Negative)
[2020-11-28 15:35] LABS: RBC Urine 0-2 /hpf (0-2); WBC Urine 0-3 /hpf (0-3)
[2020-11-28 15:36] LABS: Bacteria Urine Trace /hpf
[2020-11-28 15:37] LABS: Alanine Aminotransferase 25 U/L (16-63); Albumin Level 3.2 g/dL (3.4-5.0); Alkaline Phosphatase 56 U/L (46-116); Anion Gap 15 mmol/L (8-16); Aspartate Amino Transferase 11 U/L (15-37); Bilirubin,Total 1.2 mg/dL (0.00-1.00); Blood Urea Nitrogen 21 mg/dL (7-18); Calcium 9.2 mg/dL (8.5-10.1); Carbon Dioxide 18 mmol/L (21-32); Chloride 101 mmol/L (98-108); Estimated CRCL calculation 40 ml/min; Estimated Glomerular Filt Rate 32; Glucose 97 mg/dL (70-99); Osmolality Calculated 281 mOsm/kg (285-295); Potassium 4.3 mmol/L (3.5-5.1); Sodium 134 mmol/L (136-145); Total Protein 7.3 g/dL (6.4-8.2)
[2020-11-28 15:39] LABS: Ethanol 5 mg/dL (0-6); Salicylate < 0.3 mg/dL (2.8-20.0); Thyroid Stimulating Hormone 3.76 uIU/mL (0.36-3.74)
[2020-11-28 15:40] LABS: Acetaminophen < 2 ug/mL (10-30)
[2020-11-28 15:43] LABS: NT Pro B Type Natriuretic Pept 90 pg/mL (0-125); Troponin I 10.5 ng/L (0.00-60.4)
--- NOTE | 2020-11-28 15:51 | PC.NURSE ---
ice water given as requested, repositioned in the bed.
[2020-11-28] MEDS: MAG HYDROX/ALUMINUM HYD/SIMETH 30 ML, PHENobarb/HYOSCY/ATROPINE/SCOP 32.4 MG, LIDOCAINE... PO (16:01)
[2020-11-28] MEDS: ENOXAPARIN 100 MG/ML SYRINGE SUB-Q (16:29)
[2020-11-28 16:37] VITALS: BP 125/89; PULSE 110; RESP 22; TEMP 36.6; O2SAT 99
[2020-11-28 16:58] VITALS: BMI 32.6
--- NOTE | 2020-11-28 17:12 | PC.NURSE ---
DEREK Clifford, Patient c/o being depressed due to being sick. Otto from [facility] notified. Per Otto from [facility] once patient's VQ scan results are back and patient is medically cleared staff to notify [facility] so they can come out for visit.
--- NOTE | 2020-11-28 18:06 | PC.NURSE ---
pt c/o chest pain, left side with radiation to neck, and headache, Dr Ramos notified, orders received.
[2020-11-28] MEDS: HYDROXYCHLOROQUINE SULFATE 200 MG TABLET PO (18:12)
[2020-11-28] MEDS: ACETAMINOPHEN 500 MG TABLET 1000 MG PO ×2 (18:12→22:33)
[2020-11-28] MEDS: GABAPENTIN 300 MG CAPSULE 600 MG PO (18:12)
[2020-11-28] MEDS: SODIUM CHLORIDE 0.9% IV 1,000 ML 150 ML IV CONT (18:14)
--- NOTE | 2020-11-28 18:35 | PC.NURSE ---
pt resting in bed, lights dimmed and curtain pulled to help with headache, tele monitor on with alarms
[2020-11-28 20:00] VITALS: BP 119/73; PULSE 104; RESP 20; TEMP 36.1; O2SAT 99
[2020-11-29] VITALS: BP 110/72; PULSE 85; PULSE 98; RESP 20; TEMP 36.2; O2SAT 96
--- NOTE | 2020-11-29 01:01 | PC.NURSE ---
Dr. Ramos notified of pt's request for medication to help him sleep; Orders received and noted.
[2020-11-29] MEDS: SODIUM CHLORIDE 0.9% IV 1,000 ML 150 ML IV CONT ×2 (01:10→07:44)
[2020-11-29] MEDS: ZOLPIDEM TARTRATE (*CRX) 5 MG TABLET 10 MG PO (01:13)
[2020-11-29] MEDS: HYDROcodone/acetaminophen (*CRX) 5-325 MG TABLET 1 TAB PO ×2 (01:17→09:08)
--- NOTE | 2020-11-29 03:00 | PC.NURSE ---
Instructed by ER physician, Dr. Ramos to administer Lovenox INJ at 6am to accommodate new order schedule, Lovenox 100mg SUB- Q Q12 hrs. also advised to let pt sleep and obtain vitals at 0600 instead of 0400.
[2020-11-29 04:00] VITALS: BP 118/63; PULSE 79; PULSE 89; RESP 24; TEMP 36.4; O2SAT 95
[2020-11-29] MEDS: ENOXAPARIN 100 MG/ML SYRINGE SUB-Q (05:35)
--- NOTE | 2020-11-29 05:58 | PC.NURSE ---
Pt emesis 200ml, stomach contents noted, PT states feeling better after emesis. VS: T 97.6, R 20, SPO2 95%, HR 79, BP 118/63. Noted resident coughing intermediately throughout night. No c/o nausea or abd pain. ER physician notified.
--- NOTE | 2020-11-29 06:00 | PC.NURSE ---
Dr. Ramos notified of pt's emesis; New orders received and noted.
[2020-11-29 07:38] LABS: Hematocrit 35.7 % (40.0-54.0); Hemoglobin 11.8 g/dL (14.0-18.0); Mean Corpuscular HGB Conc 33.1 g/dL (32.0-36.0); Mean Corpuscular Hemoglobin 31.7 pg (27.0-31.0); Mean Platelet Volume 9.1 fl (8.7-11.0); Platelet Count Result 202 K/mm3 (150-420); Red Blood Count 3.72 M/mm3 (4.70-6.10); White Blood Count 7.4 K/mm3 (4.8-10.8)
[2020-11-29 07:43] LABS: Alanine Aminotransferase 22 U/L (16-63); Albumin Level 2.6 g/dL (3.4-5.0); Alkaline Phosphatase 45 U/L (46-116); Anion Gap 13 mmol/L (8-16); Aspartate Amino Transferase 13 U/L (15-37); Bilirubin,Total 0.9 mg/dL (0.00-1.00); Blood Urea Nitrogen 21 mg/dL (7-18); Carbon Dioxide 19 mmol/L (21-32); Chloride 104 mmol/L (98-108); Estimated CRCL calculation 43 ml/min; Estimated Glomerular Filt Rate 33; Glucose 90 mg/dL (70-99); Osmolality Calculated 285 mOsm/kg (285-295); Potassium 4.5 mmol/L (3.5-5.1); Sodium 136 mmol/L (136-145)
[2020-11-29] MEDS: PROCHLORPERAZINE EDISYLATE 10 MG/2 ML VIAL 5 MG IV PUSH (07:44)
[2020-11-29 07:45] VITALS: BP 118/76; PULSE 87; RESP 20; TEMP 36.6; O2SAT 98
--- NOTE | 2020-11-29 08:35 | PC.NURSE ---
To imaging via wheel chair
--- NOTE | 2020-11-29 08:58 | PC.NURSE ---
Patient returned from imaging
[2020-11-29] MEDS: LOVASTATIN 20 MG TABLET 40 MG PO (09:06)
[2020-11-29] MEDS: GABAPENTIN 300 MG CAPSULE 600 MG PO (09:06)
[2020-11-29] MEDS: predniSONE 5 MG TABLET PO (09:07)
[2020-11-29] MEDS: lisinopriL 20 MG TABLET 40 MG PO (09:07)
[2020-11-29] MEDS: MAGNESIUM OXIDE 400 MG TABLET PO (09:07)
[2020-11-29] MEDS: HYDROXYCHLOROQUINE SULFATE 200 MG TABLET PO (09:07)
--- NOTE | 2020-11-29 09:21 | PC.NURSE ---
radiology in room for chest xray
--- NOTE | 2020-11-29 10:15 | PC.NURSE ---
pt sleeping, respirations even and regular, no evidence of distress noted, tele monitor on with alarms
[2020-11-29 12:00] VITALS: BP 119/73; PULSE 87; RESP 20; TEMP 36.5; O2SAT 97
--- NOTE | 2020-11-29 13:11 | PC.NURSE ---
Radiology at bedside to perform doppler
--- NOTE | 2020-11-29 13:19 | PM.IMHP ---
H&P: HPI History of Present Illness Date/Time: 11/29/20 13:19 this is a 55-year-old male that presented to our emergency department after being sent from his primary care physician for shortness of breath and tachycardia. patient has a past medical history of anxiety, A. fib, chronic kidney disease stage III, cocaine abuse, drug abuse, GERD, hypertension, hyperlipidemia, neuropathy, renal cell carcinoma, and rheumatoid arthritis. Patient presented to our ED on 11/26 and 11/26 with complaints of dizzy spells at home. Patient does have a history of drug abuse and was believed to be caused by drug use. Patient's lab were within normal limit or at baseline imaging was unremarkable at that time. On admission patient CT did indicate enteritis WBCs 9.6 hemoglobin 14.1 hematocrit 41.4 platelets 280, sodium 134, potassium 4.3 BUN 21 creatinine 2.17 lactic acid 1.5 ABG respiratory alkalosis, positive for cocaine in THC, EKG sinus tach 121. It was reported by patient was at his primary care physician office today he has suicidal ideations. Today patient denies any suicidal or homicidal ideations. Patient notes that his condition has improved. The patient denies SOB, CP, palpitation, extremity numbness, lightheadedness, dizziness, constipation,chills, or fever. Patient is known to be noncompliant with his medication and follow-up treatment. Observation Time spent 60minutes times Disposition Home with self-care <CHAI Hall - Last Filed: 11/29/20 14:29> Chief Complaint: Shortness of breath <CHAI Hall - Last Filed: 11/29/20 14:29> Review of Systems Review of Systems: Narrative: A 14 organ system Review of Systems was performed and pertinent positives included in the HPI, otherwise remaining ROS is negative. <CHAI Hall - Last Filed: 11/29/20 14:29> [facility] Past Medical History Medical History: Medical History Anxiety Atrial fibrillation CKD (chronic kidney disease), stage III Cocaine abuse Drug abuse GERD (gastroesophageal reflux disease) HTN (hypertension) Hyperlipidemia Lipoma Neuropathy Osteoarthritis of right knee Renal cell carcinoma Rheumatoid arthritis <CHAI Hall - Last Filed: 11/29/20 14:29> Surgical History Surgical History: Surgical History History of appendectomy History of nephrectomy, left History of tonsillectomy and adenoidectomy <CHAI Hall - Last Filed: 11/29/20 14:29> Family History Family History: Family History Father CAD (coronary artery disease) Mother Cancer Other Heart disease Hypertension <CHAI Hall - Last Filed: 11/29/20 14:29> Social History Social History: Social History Smoking status: Never smoker Alcohol intake: former Substance use: current Substance use type: marijuana and crack/cocaine Other substance usage details: States he does it when he feels like it. Last use: 11/27/2020 Gender identity (if verbalized by the patient): Male Spiritual care concerns: No <CHAI Hall - Last Filed: 11/29/20 14:29> Meds Home Medications and Allergies Home medications: Home Medications Medication Instructions Recorded Confirmed Type acetaminophen 500 mg tablet 500 mg PO Q6H PRN #120 tablet 07/14/20 11/28/20 Rx apixaban 5 mg tablet 5 mg PO BID #60 tablet 07/20/20 11/28/20 Rx hydroxychloroquine 200 mg tablet 200 mg PO BID #60 tablet 10/17/20 11/28/20 Rx lisinopril 5 mg tablet 5 mg PO DAILY #30 tablet 10/23/20 11/28/20 Rx prednisone 5 mg tablet 5 mg PO DAILY #30 tablet 11/06/20 11/28/20 Rx gabapentin 600 mg PO BID 11/26/20 11/28/20 History lovastatin 40 mg PO DAILY 11/26/20 11/28/20 History magnesium oxide 400 mg PO DAILY 11/26/20 11/28/20 History risper
--- NOTE | 2020-11-29 14:45 | PC.NURSE ---
pt given discharge instructions, verbalized understanding, tele monitor removed, iv removed, pt transported via wheelchair in stable condition
--- NOTE | 2020-12-05 10:40 | PC.NURSE ---
Unable to contact for discharge call back.
== END 2020-11-29 15:00 | disposition home or self-care (01) ==
LOC: CHSED 16:20 → CHS2ND 11-29 07:10
PROVIDERS: Nurse Practitioner; Admitting Provider Emergency Medicine; Emergency Provider Emergency Medicine; PCP Family Medicine; Visit Provider Emergency Medicine
DX: R06.02 Shortness of breath (principal); R53.1 Weakness; I48.20 Chronic atrial fibrillation, unspecified; I12.9 Hypertensive chronic kidney disease with stage 1 through stage 4 chronic kidney disease, or unspecified chronic kidney disease; N18.30 Chronic kidney disease, stage 3 unspecified; E78.5 Hyperlipidemia, unspecified; K52.9 Noninfective gastroenteritis and colitis, unspecified; K21.9 Gastro-esophageal reflux disease without esophagitis; M17.11 Unilateral primary osteoarthritis, right knee; M06.9 Rheumatoid arthritis, unspecified; G62.9 Polyneuropathy, unspecified; G47.00 Insomnia, unspecified; R91.1 Solitary pulmonary nodule; F14.10 Cocaine abuse, uncomplicated; F41.9 Anxiety disorder, unspecified; F32.9 Major depressive disorder, single episode, unspecified; Z85.528 Personal history of other malignant neoplasm of kidney; Z90.5 Acquired absence of kidney
CPT/HCPCS: 36415; 36600; 71045; 78580; 80053; 80307; 81001; 82805; 83605; 83880; 84439; 84443; 84484; 85025; 85027; 93005; 93970; 96360; 96361; 96372; 96374; 99285; A9270; A9540; G0378; G0379; J0780; J1650; J7030; J7512

== ENCOUNTER 2020-12-28 15:18 | Emergency (ER) | payer OTHER, SELFPAY ==
--- NOTE | ~2020-12-28 | XR_ITS ---
EXAMINATION: XR chest 2V DATE: 12/28/2020 18:12 INDICATION: Soreness of breath, cough and weakness TECHNIQUE: frontal and lateral views of the chest were obtained. COMPARISON: Chest radiograph dated 11/29/2020 FINDINGS: Again seen is a small nodular opacity in the frontal projection now projecting along the inferior mar gin of the right third rib is likely representing a nipple shadow. Lungs remain otherwise clear with no focal airspace opacities, pulmonary edema, pleural effusion or pneumothorax. The cardiomediastinal silhouette is normal. Visualized bones and soft tissues are unremarkable. IMPRESSION: 1. No acute cardiopulmonary disease. Reviewed, dictated and finalized at location A.
[2020-12-28 16:31] VITALS: BP 118/88; PULSE 94; RESP 20; TEMP 36.6; O2SAT 98
--- NOTE | 2020-12-28 17:03 | ED.WEAKNESS ---
HPI - Weakness General Chief complaint: Weakness Stated complaint: weakness Time Seen by Provider: 12/28/20 17:10 Source: patient Mode of arrival: wheelchair Limitations: no limitations History of Present Illness HPI Narrative: 55-year-old man with a history of atrial fibrillation, chronic kidney disease, drug abuse, renal cell carcinoma and lung mass comes to the emergency department complaining of weakness. Patient states that his symptoms started yesterday. States he feels mildly short of breath and has a poor appetite but denies focal weakness, chest pain, cough, cold symptoms, abdominal pain, nausea and vomiting, dysuria, and abdominal pain. He cannot tell me whether not he has had any black or bloody stools. His apixaban is on hold starting yesterday as he is due to have a lung biopsy on FridayJanuary 01. MD Complaint: generalized weakness, lack of energy and difficulty walking Onset (ago): day(s) (2) Duration: constant Location: generalized Migration: none Severity: moderate Relieving factors: none Exacerbating factors: none Associated symptoms: loss of appetite Related Data Home Medications Medication Instructions Recorded Confirmed lovastatin 40 mg PO DAILY 11/26/20 12/28/20 lisinopril 5 mg PO DAILY 12/27/20 12/28/20 Allergies Allergy/AdvReac Type Severity Reaction Status Date / Time No Known Allergies Allergy Verified 12/27/20 14:31 Review of Systems Review of Systems: All systems reviewed & are unremarkable except as noted in HPI and below Constitutional: Constitutional: Denies chills, Reports fatigue, Denies fever(s) and Reports weakness Eyes: Eyes: Denies change in vision and Denies photophobia ENT: Denies nasal congestion and Denies sore throat Cardiovascular: Cardiovascular: Denies chest pain and Denies radiating jaw, neck or arm pain Respiratory: Respiratory: Denies cough and Reports dyspnea Gastrointestinal: Gastrointestinal: Denies abdominal pain, Reports diarrhea ( chronic), Denies nausea and Denies vomiting Genitourinary: Genitourinary: Denies hematuria, Denies dysuria and Denies urinary frequency Musculoskeletal: Musculoskeletal: Denies back pain, Denies arthralgias and Denies joint swelling Integumentary/Breasts: Skin/Breast: Denies pruritus, Denies erythema and Denies rash Neurologic: Denies vertigo, Denies dizziness, Denies syncope, Denies focal weakness and Denies numbness Endocrine: Endocrine: Denies polydipsia and Denies polyuria Hematologic/Lymphatic: Hematologic/Lymphatic: Denies easy bleeding and Denies easy bruising Allergic/Immunologic: Allergic/Immunologic: Denies lip swelling and Denies throat swelling PMFSH Past Medical History Medical History Anxiety Atrial fibrillation CKD (chronic kidney disease), stage III Cocaine abuse Drug abuse GERD (gastroesophageal reflux disease) HTN (hypertension) Hyperlipidemia Lipoma Neuropathy Osteoarthritis of right knee Renal cell carcinoma Rheumatoid arthritis Surgical History Surgical History History of appendectomy History of nephrectomy, left History of tonsillectomy and adenoidectomy Family History Family History Father CAD (coronary artery disease) Mother Cancer Other Heart disease Hypertension Social History Social History Smoking status: Never smoker Alcohol intake: former Substance use: current Substance use type: marijuana and crack/cocaine Other substance usage details: States he does it when he feels like it. Last use: 11/27/2020 Gender identity (if verbalized by the patient): Male Spiritual care concerns: No Exam Const: General: alert and ill appearing chronically Orientation/consciousness: patient oriented x3 Limitations: no limitations Other: mild acu
[2020-12-28] MEDS: SODIUM CHLORIDE 0.9% IV 1,000 ML 999 ML IV CONT ×2 (17:22→19:04)
[2020-12-28] MEDS: ONDANSETRON INJ 4 MG/2 ML VIAL IV PUSH (17:23)
[2020-12-28 17:44] LABS: Basophils Absolute Auto 0.04 K/mm3 (0.00-0.10); Basophils Percent Auto 0.4 % (0.0-1.0); Eosinophils Absolute Auto 0.14 K/mm3 (0.02-0.50); Eosinophils Percent Auto 1.3 % (1.0-6.0); Hemoglobin 13.8 g/dL (14.0-18.0); Immature Granulocyte Absolute 0.11 K/mm3 (0.00-0.00); Immature Granulocyte Percent A 1.1 % (0.0-0.0); Lymphocytes Absolute Auto 1.36 K/mm3 (1.10-4.50); Mean Corpuscular HGB Conc 32.9 g/dL (32.0-36.0); Mean Corpuscular Hemoglobin 30.5 pg (27.0-31.0); Mean Corpuscular Volume 92.9 fL (78.0-102.0); Mean Platelet Volume 9.2 fl (8.7-11.0); Monocytes Absolute Auto 0.94 K/mm3 (0.10-0.90); Neutrophils Absolute Auto 7.9 K/mm3 (1.7-7.2); Neutrophils Percent Auto 75.2 % (50.0-70.0); Platelet Count Result 281 K/mm3 (150-420); Red Blood Count 4.52 M/mm3 (4.70-6.10); Red Cell Distribution Width 14.8 % (11.6-14.4); White Blood Count 10.5 K/mm3 (4.8-10.8)
[2020-12-28 18:00] LABS: Partial Thromboplastin Time 30.1 SEC (23.90-30.70); Prothrombin Time 10.3 Seconds (9.50-12.10)
[2020-12-28 18:17] LABS: Alanine Aminotransferase 29 U/L (16-63); Albumin Level 3.3 g/dL (3.4-5.0); Alkaline Phosphatase 60 U/L (46-116); Anion Gap 15 mmol/L (8-16); Aspartate Amino Transferase 14 U/L (15-37); Bilirubin,Total 0.8 mg/dL (0.00-1.00); Blood Urea Nitrogen 25 mg/dL (7-18); CRP 5.8 mg/dL (0.0-0.9); Calcium 9.3 mg/dL (8.5-10.1); Carbon Dioxide 20 mmol/L (21-32); Chloride 102 mmol/L (98-108); Estimated CRCL calculation 44 ml/min; Estimated Glomerular Filt Rate 35; Glucose 80 mg/dL (70-99); Osmolality Calculated 287 mOsm/kg (285-295); Potassium 4.3 mmol/L (3.5-5.1); Sodium 137 mmol/L (136-145); Total Protein 7.3 g/dL (6.4-8.2)
[2020-12-28 18:19] LABS: Lactic Acid Reflex 2.4 mmol/L (0.4-2.0)
[2020-12-28 19:15] LABS: Add Urine Microscopic? YES; Appearance Urine Clear (Clear); Bilirubin Urine Negative (Negative); Blood Urine Negative (Negative); Color Urine Light Yellow (Yellow); Glucose Urine UA Negative (Negative); Ketones Urine 1+ (Negative); Leukocyte Esterase Ur Negative LEU/UL (Negative); Nitrate Urine Negative (Negative); Protein Urine Negative (Negative); Urobilinogen Urine 0.2 mg/dL (0.2-1.0)
[2020-12-28 19:19] LABS: Bacteria Urine Trace /hpf; RBC Urine 0-2 /hpf (0-2); Squamous Epithelial Cell Urine None seen /hpf (Few); WBC Urine 0-3 /hpf (0-3)
[2020-12-28 19:20] LABS: Amphetamine Screen Urine Negative (Negative); Barbiturate Screen Urine Negative (Negative); Benzodiazepines Screen Urine Negative (Negative); Cannabinoid Screen Urine Positive (Negative); Cocaine Screen Urine Positive (Negative); Methadone Screen Urine Negative (Negative); Opiate Screen Urine Negative (Negative); Phencyclidine Screen Urine Negative (Negative)
[2020-12-28 19:31] LABS: Influenza Control Valid (Valid)
[2020-12-28 19:57] LABS: SARS-CoV-2 RNA PCR Negative (Negative)
[2020-12-28 20:07] VITALS: BP 133/80; PULSE 80; RESP 18; TEMP 36.4; O2SAT 95
[2020-12-28 20:39] LABS: Reflex Lactic Acid Yes or No Add Lactic
== END 2020-12-28 20:14 | disposition home or self-care (01) ==
PROVIDERS: Emergency Provider Emergency Medicine; PCP Family Medicine
DX: E86.0 Dehydration (principal); I48.20 Chronic atrial fibrillation, unspecified; R91.8 Other nonspecific abnormal finding of lung field; I12.9 Hypertensive chronic kidney disease with stage 1 through stage 4 chronic kidney disease, or unspecified chronic kidney disease; N18.32 Chronic kidney disease, stage 3b; M06.9 Rheumatoid arthritis, unspecified; K21.9 Gastro-esophageal reflux disease without esophagitis; M17.11 Unilateral primary osteoarthritis, right knee; G62.9 Polyneuropathy, unspecified; F14.10 Cocaine abuse, uncomplicated; F19.10 Other psychoactive substance abuse, uncomplicated; Z20.822 Contact with and (suspected) exposure to COVID-19; Z90.5 Acquired absence of kidney; Z85.528 Personal history of other malignant neoplasm of kidney
CPT/HCPCS: 36415; 71046; 80053; 80307; 81001; 83605; 84484; 85025; 85610; 85730; 86140; 87040; 87086; 87804; 93005; 96361; 96374; 99284; C9803; J2405; J7030; U0003; U0005

== ENCOUNTER 2021-01-01 07:45 | Outpatient (CLI) | payer OTHER, SELFPAY ==
[2020-12-27 14:53] VITALS: BMI 31.6
[2021-01-01] VITALS (10 sets, daily range): BP systolic 103–155; BP diastolic 61–92; PULSE 62–84; RESP 16–18; O2SAT 97–100
--- NOTE | ~2021-01-01 | XR_ITS ---
EXAMINATION: XR chest 1V portable DATE: 01/01/2021 16:02 INDICATION: Status post left lung biopsy TECHNIQUE: frontal view of the chest was obtained. COMPARISON: Chest radiograph dated 01/01/2021 FINDINGS: Small lingular nodule is seen at the lateral left lung base. No other airspace opacities, pulmonary e yared, pleural effusion or pneumothorax. The cardiomediastinal silhouette is normal. IMPRESSION: 1. No pneumothorax or other acute cardiopulmonary disease post attempted percutaneous biopsy of an in determinate nodule at the lingula. Reviewed, dictated and finalized at location A. IMPRESSION: 1. No pneumothorax or other acute cardiopulmonary disease post attempted percut aneous biopsy of an indeterminate nodule at the lingula.
--- NOTE | ~2021-01-01 | CT_ITS ---
EXAMINATION: CT biopsy lung w/imaging DATE: 01/01/2021 12:58 INDICATION: Lingular nodule TECHNIQUE: The procedure including the risks and benefits was discussed with the patient. Risks discu ssed included infection, approximately 1/20 risk of symptomatic hemorrhage beyond mild hemoptysis, ap proximately 1/3 risk of pneumothorax, and approximately 1/10 risk of pneumothorax severe enough to wa rrant chest tube placement. The patient understood the risks and agreed to proceed. The patient was p laced supine. The skin overlying the anterolateral left lower hemithorax was prepped and draped in s terile fashion. Anesthetic was administered with 1% lidocaine subcutaneously. A 19 gauge outer need le was advanced under CT guidance to the intercostal space overlying the pulmonary nodule of concern. There was significant craniocaudal movement of the nodule over the course of the attempted biopsy du e to respiratory motion. Imaging was performed during inspiration and expiration to assess the limits of the excursion of the nodule during the respiratory phase. Despite attempting to time the final ad vancement of the needle into the lung with the respiratory phase the degree of inspiration is greater than anticipated resulting in the nodule lying centimeter colon to the tip of the needle. 3 mm of th e patient's blood was aspirated from the peripheral IV and injected through the guide needle during w ithdrawal to blood patch the needle tract in anticipation of a second attempt. Throughout the course of the biopsy the patient became progressively more anxious resulting in greate r degree of respiratory variability and shaking of the patient's arms. At this point the patient stat ed he was unsure whether he could proceed with additional attempts at biopsy. Prior to withdrawal of the guide needle I discussed the course of the procedure to that point and attempted to give the adwoa ent a realistic estimation that given the small size of the nodule measuring 8 mm craniocaudally rela tive to the degree of movement during respiration particularly with the increased variability in the patient's respirations potentially exacerbated by his anxiety. I informed him that there was a signif icant likelihood of requiring several attempts at guide needle advancement into the lung in order to successfully place the guide needle tip in appropriate location to attempt subsequent biopsy as well as the risk of developing iatrogenic pneumothorax increasing with each attempt with no assurance of s uccessful biopsy. I also discussed the option of assessing the potential for malignancy with PET/CT b ut also the risk of both false positive and negative PET CT findings, the risk of delay to treatment in the setting of a primary malignancy and finally that a positive PET CT study might still be inconc lusive whether the lesion was more likely primary or metastatic. The patient did not feel that he wou ld be able to continue and it was decided to defer additional attempts at biopsy. At this point to gu leia needle was removed and the entry site was cleaned and dressed. There were no immediate complicat ions. The dose-length product was 293.56 mGy-cm. FINDINGS: CT images demonstrate the outer needle tip adjacent in the lingula slightly cephalad to the nodule of concern. There was no evident pneumothorax on the images obtained following withdrawal of the needle.. IMPRESSION: 1. Unsuccessful attempt at CT-guided biopsy of a small nodule in the lingula primarily due to signifi cant variability in the large amount of craniocaudal respiratory motion of the nodule relative to its size. This was further exacerbated during the course of the study due to progressive patient anxiety . Further characterization of the nodules could be obtained with PET/CT which if demonstrating increa sed metabolic activity at several of the nodules would favor either an infectious/inflammatory etiolo gy
--- NOTE | ~2021-01-01 | XR_ITS ---
EXAMINATION: XR chest 1V portable DATE: 01/01/2021 14:06 INDICATION: Status post thoracentesis TECHNIQUE: frontal view of the chest was obtained. COMPARISON: Chest radiograph dated 01/01/2021 FINDINGS: Again seen is a small lingular nodule at the lateral left lung base. No other airspace opacities, pul monary edema, pleural effusion or pneumothorax. The cardiomediastinal silhouette is normal. IMPRESSION: 1. No pneumothorax or other acute cardiopulmonary disease post attempted biopsy of a lingular nodule. Reviewed, dictated and finalized at location A.
--- NOTE | ~2021-01-01 | XR_ITS ---
EXAMINATION: XR chest 1V DATE: 01/01/2021 12:51 INDICATION: Status post percutaneous lung biopsy TECHNIQUE: frontal view of the chest was obtained. COMPARISON: Chest radiograph dated 12/28/20 FINDINGS: Small nodule at the lateral left lower lung zone. No other airspace opacities, pulmonary edema, pleur al effusion or pneumothorax. The cardiomediastinal silhouette is normal. IMPRESSION: 1. No pneumothorax or other acute cardiopulmonary disease post attempted biopsy of an indeterminate l ingular nodule. Reviewed, dictated and finalized at location A. IMPRESSION: 1. No pneumothorax or other acute cardiopulmonary disease post attempted biopsy of an indeterminate lingular nodule.
[2021-01-01 08:21] LABS: Basophils Percent Auto 0.3 % (0.2-1.2); Eosinophils Absolute Auto 0.2 K/mm3 (0-0.3); Eosinophils Percent Auto 2.6 % (0-4.4); Hematocrit 37.6 % (42.0-52.0); Hemoglobin 11.9 g/dL (14.0-18.0); Immature Granulocyte Absolute 0.06 K/mm3 (0.00-0.031); Immature Granulocyte Percent A 0.8 % (0-0.5); Lymphocytes Absolute Auto 1.15 K/mm3 (0.9-3.2); Mean Corpuscular HGB Conc 31.6 g/dl (32-36); Mean Corpuscular Hemoglobin 30.7 pg (26-34); Mean Corpuscular Volume 96.9 fl (80-100); Monocytes Absolute Auto 0.7 K/mm3 (0.1-0.6); Monocytes Percent Auto 9.2 % (2.6-8.5); Neutrophils Absolute Auto 5.1 K/mm3 (1.3-6.7); Neutrophils Percent Auto 71.1 % (45.5-73.1); Platelet Count Result 258 k/mm3 (150-375); Red Blood Count 3.88 M/mm3 (4.6-6.20); Red Cell Distribution Width 15.1 % (11.5-14.5); White Blood Count 7.2 K/mm3 (4.5-10.0)
[2021-01-01 08:28] LABS: INR 0.8; Prothrombin Time 11.2 Seconds (11.1-14.7)
--- NOTE | 2021-01-01 16:10 | SUR.PHASEII ---
20 guage IV catheter removed from left hand, catheter intact, dressing applied
== END 2021-01-01 16:30 | disposition home or self-care (01) ==
PROVIDERS: Radiology Diagnostic Radiology; PCP Family Medicine; Visit Provider Nurse Practitioner Family
DX: R91.1 Solitary pulmonary nodule (principal)
CPT/HCPCS: 32408; 36415; 71045; 85025; 85610

== ENCOUNTER 2021-01-18 04:22 | Emergency (ER) | payer OTHER, SELFPAY ==
--- NOTE | ~2021-01-18 | XR_ITS ---
EXAMINATION: XR chest 1V portable INDICATION: Headache TECHNIQUE: Portable AP chest at 0516 hours COMPARISON: 01/01/2021 FINDINGS: The known nodule of the lingula is faintly visualized. The lungs are free of acute opacitie s. There is no pleural effusion or pneumothorax. The cardiomediastinal silhouette is normal. IMPRESSION: 1. No acute cardiopulmonary abnormality. 2. Faint visualization of the known lingular nodule. Reviewed, dictated and finalized at location A.
--- NOTE | 2021-01-18 04:53 | ECG_ITS ---
Measurements Intervals [place] Rate: 66 P: 86 NJ: 135 QRS: 26 QRSD: 87 T: 56 QT: 366 QTc: 384 Interpretive Statements SINUS RHYTHM BASELINE ARTIFACT- II, III, AVR, AVL, AVF NORMAL ECG Electronically Signed On 01-18-2021 8:55:50 CDT by Edvin Joshi D.O.
--- NOTE | 2021-01-18 04:55 | ED.GENADULT ---
HPI - General Adult General Chief complaint: Unspecified Stated complaint: PAIN Source: patient Mode of arrival: ambulatory Limitations: no limitations History of Present Illness HPI narrative: Jay is a 55M with a complex PMH that presented to the ED with a variety of symptoms. Starting a few days ago he has had significant fatigue, body aches, muscle cramps, and pain in his wrists, elbows and knees bilaterally. He also has had diarrhea and decreased PO intake. Lastly he had a constant dry cough. No fevers, chills, CP, SOB or lightheadedness. Related Data Home Medications Medication Instructions Recorded Confirmed lovastatin 40 mg PO DAILY 11/26/20 01/18/21 lisinopril 5 mg PO DAILY 12/27/20 01/18/21 Allergies Allergy/AdvReac Type Severity Reaction Status Date / Time No Known Allergies Allergy Verified 01/03/21 07:33 Review of Systems Constitutional: Constitutional: Reports fatigue and Reports weakness Eyes: Eyes: Reports no additional eye complaints ENT: Reports system reviewed and no additional complaints, except as documented Cardiovascular: Cardiovascular: Reports no additional cardiovascular complaints Respiratory: Respiratory: Reports as per HPI Gastrointestinal: Gastrointestinal: Reports as per HPI Genitourinary: Genitourinary: Reports no additional male genitourinary complaints Musculoskeletal: Musculoskeletal: Reports as per HPI Integumentary/Breasts: Skin/Breast: Reports system reviewed and no additional complaints, except as docu Neurologic: Reports system reviewed and no additional complaints, except as documented Psychiatric: Psychiatric: Reports no additional psychiatric complaints Endocrine: Endocrine: Reports no additional endocrine complaints Hematologic/Lymphatic: Hematologic/Lymphatic: Reports no additional hematologic/lymphatic complaints Allergic/Immunologic: Allergic/Immunologic: Reports no additional allergic/immunologic complaints [facility] Past Medical History Medical History Anxiety Atrial fibrillation CKD (chronic kidney disease), stage III Cocaine abuse Drug abuse GERD (gastroesophageal reflux disease) HTN (hypertension) Hyperlipidemia Lipoma Neuropathy Osteoarthritis of right knee Renal cell carcinoma Rheumatoid arthritis Surgical History Surgical History History of appendectomy History of nephrectomy, left History of tonsillectomy and adenoidectomy Family History Family History Father CAD (coronary artery disease) Mother Cancer Other Heart disease Hypertension Social History Social History Smoking status: Never smoker Alcohol intake: former Substance use: current Substance use type: marijuana and crack/cocaine Other substance usage details: States he does it when he feels like it. Last use: 11/27/2020 Gender identity (if verbalized by the patient): Male Spiritual care concerns: No Exam Const: General: no acute distress and alert Orientation/consciousness: patient oriented x3 Limitations: No altered mental status HENMT: Head: normal to inspection Other: atraumatic. Dry mucous membranes. Eyes: Conjunctivae: conjunctivae normal Pupils: Equal, round and reactive pupils present Neck: Neck: normal visual inspection Chest: Chest palpation & inspection: normal inspection of the chest Resp: Effort & Inspection: normal respiratory effort Auscultation: clear to auscultation bilaterally Cardio: Rate: regular rate Rhythm: regular rhythm GI: Inspection: non-distended GI Palp: Yes Soft to palpation, No Tenderness to palpation present (GI) and No Guarding due to palpation present (GI) Skin: General skin exam: normal color Rashes: no rashes Other: minor skin tenting Neuro: General: patient oriented x3
[2021-01-18 04:58] VITALS: BP 122/74; PULSE 73; RESP 20; TEMP 36.6; O2SAT 99
[2021-01-18] MEDS: SODIUM CHLORIDE 0.9% IV 1,000 ML 500 ML IV CONT (05:16)
[2021-01-18 05:18] LABS: Basophils Absolute Auto 0.03 K/mm3 (0.00-0.10); Basophils Percent Auto 0.4 % (0.0-1.0); Eosinophils Absolute Auto 0.09 K/mm3 (0.02-0.50); Eosinophils Percent Auto 1.1 % (1.0-6.0); Hematocrit 37.4 % (40.0-54.0); Hemoglobin 12.2 g/dL (14.0-18.0); Immature Granulocyte Absolute 0.12 K/mm3 (0.00-0.00); Immature Granulocyte Percent A 1.5 % (0.0-0.0); Lymphocytes Absolute Auto 0.74 K/mm3 (1.10-4.50); Mean Corpuscular HGB Conc 32.6 g/dL (32.0-36.0); Mean Corpuscular Hemoglobin 31.4 pg (27.0-31.0); Mean Corpuscular Volume 96.1 fL (78.0-102.0); Mean Platelet Volume 8.8 fl (8.7-11.0); Monocytes Absolute Auto 0.72 K/mm3 (0.10-0.90); Monocytes Percent Auto 8.8 % (2.0-11.0); Neutrophils Absolute Auto 6.5 K/mm3 (1.7-7.2); Neutrophils Percent Auto 79.2 % (50.0-70.0); Platelet Count Result 249 K/mm3 (150-420); Red Blood Count 3.89 M/mm3 (4.70-6.10); Red Cell Distribution Width 15.7 % (11.6-14.4); White Blood Count 8.2 K/mm3 (4.8-10.8)
[2021-01-18 05:32] LABS: Anion Gap 14 mmol/L (8-16); CRP 5.3 mg/dL (0.0-0.9); Calcium 8.9 mg/dL (8.5-10.1); Carbon Dioxide 20 mmol/L (21-32); Chloride 104 mmol/L (98-108); Estimated CRCL calculation 42 ml/min; Estimated Glomerular Filt Rate 38; Magnesium 1.8 mg/dL (1.8-2.4); Potassium 4.9 mmol/L (3.5-5.1); Sodium 138 mmol/L (136-145)
[2021-01-18 05:51] LABS: Albumin Level 3.1 g/dL (3.4-5.0); Blood Urea Nitrogen 25 mg/dL (7-18); Glucose 105 mg/dL (70-99); Osmolality Calculated 290 mOsm/kg (285-295); Prothrombin Time 10.4 Seconds (9.50-12.10)
[2021-01-18 06:07] LABS: SARS-CoV-2 RNA PCR Negative (Negative)
[2021-01-18 06:15] LABS: Alanine Aminotransferase 33 U/L (16-63); Alkaline Phosphatase 67 U/L (46-116); Aspartate Amino Transferase 14 U/L (15-37); Bilirubin,Total 0.5 mg/dL (0.00-1.00); NT Pro B Type Natriuretic Pept 137 pg/mL (0-125); Thyroid Stimulating Hormone 1.62 uIU/mL (0.36-3.74); Total Protein 6.8 g/dL (6.4-8.2)
[2021-01-18] MEDS: HYDROcodone/acetaminophen (*CRX) 5-325 MG TABLET 1 TAB PO (06:25)
[2021-01-18] MEDS: SODIUM CHLORIDE 0.9% IV 500 ML 999 ML IV CONT (06:26)
[2021-01-18 06:28] LABS: Add Urine Microscopic? NO; Appearance Urine Clear (Clear); Bilirubin Urine Negative (Negative); Blood Urine Negative (Negative); Color Urine Light Yellow (Yellow); Glucose Urine UA Negative (Negative); Ketones Urine Negative (Negative); Leukocyte Esterase Ur Negative (Negative); Nitrate Urine Negative (Negative); Protein Urine Negative (Negative); Specific Grav Ur <= 1.005 (1.010-1.020); Urobilinogen Urine 0.2 mg/dL (0.2-1.0)
[2021-01-18 06:42] LABS: Amphetamine Screen Urine Negative (Negative); Barbiturate Screen Urine Negative (Negative); Benzodiazepines Screen Urine Negative (Negative); Cannabinoid Screen Urine Positive (Negative); Cocaine Screen Urine Positive (Negative); Methadone Screen Urine Negative (Negative); Opiate Screen Urine Negative (Negative); Phencyclidine Screen Urine Negative (Negative)
[2021-01-18 06:50] VITALS: BP 110/68; PULSE 74; RESP 20; O2SAT 97
== END 2021-01-18 06:53 | disposition home or self-care (01) ==
PROVIDERS: Emergency Provider Family Medicine; PCP Family Medicine
DX: M06.9 Rheumatoid arthritis, unspecified (principal)
CPT/HCPCS: 36415; 71045; 80053; 80307; 81003; 83735; 83880; 84443; 84484; 85025; 85610; 86140; 93005; 96360; 96361; 99283; 99284; A9270; C9803; J7030; J7040; U0003; U0005

== ENCOUNTER 2021-01-25 11:01 | Outpatient (CLI) | payer OTHER, SELFPAY ==
--- NOTE | ~2021-01-25 | PE_ITS ---
EXAMINATION: PET skull to mid thigh DATE: 01/25/2021 13:34 INDICATION: Solitary pulmonary nodule. TECHNIQUE: Blood glucose level was 118 mg/dL. 11.506 mCi of 18-fluorodeoxyglucose (18-FDG) was admini stered i.v. Low dose computed tomography (CT) images were acquired from the base of the brain to the proximal thighs for attenuation correction and anatomic localization. Automated exposure control was employed. Dose-length product (DLP) was 1167 mGy-cm. Positron emission tomography (PET) images were a cquired in the same distribution. COMPARISON: CT abdomen and pelvis 11/27/2020, 06/27/18, 05/01/18, chest CT 01/01/2021, 06/01/18, 01/24/20 FINDINGS: Head/neck: There is increased activity in the oral cavity, oropharynx, and parotid glands, and glotti s, and muscles of mastication without CT correlate, likely physiologic. There are no pathologically e nlarged lymph nodes. Chest: There is an 11 mm nodule in the lingula with maximum SUV of 1.2. No pleural effusion. The hear t size is normal. There are coronary artery calcifications. No pericardial effusion. There are no pat hologically enlarged lymph nodes. There are sclerotic lesions in right 8th rib, left 3rd rib, and lef t 7th rib, likely benign bone islands. Abdomen/pelvis/proximal thighs: The liver, gallbladder, spleen, pancreas, and right adrenal gland are normal. There are changes of left adrenalectomy and nephrectomy. There is a 4 mm stone in right kidn ey. There are no dilated loops of bowel. The prostate is mildly enlarged. There are no pathologically enlarged lymph nodes. There is no free intraperitoneal fluid. There is a 10 x 18 mm right external i liac node without increased activity, likely reactive. There is a benign bone island in right femoral head. There is a 1.6 cm sclerotic lesion in L1 vertebral body, increased from 1.2 cm on 05/01/18, roberth mixon a benign bone island. IMPRESSION: 1. 11 mm nodule in the lingula without increased activity, increased in size from 8 mm on 01/24/20 and 3 mm on 06/01/2018. This finding may be granulomatous disease or a low-grade neoplasm. Consider repe at CT-guided biopsy. Reviewed, dictated and finalized at location A. IMPRESSION: 1. 11 mm nodule in the lingula without increased activity, increased in size fr om 8 mm on 01/24/20 and 3 mm on 06/01/2018. This finding may be granulomatous di sease or a low-grade neoplasm. Consider repeat CT-guided biopsy.
[2021-01-25 12:07] LABS: Glucose Point of Care 118 mg/dl (65-105)
== END 2021-01-25 11:02 | disposition home or self-care (01) ==
PROVIDERS: PCP Family Medicine; Visit Provider Nurse Practitioner Family
DX: M89.9 Disorder of bone, unspecified (principal); R91.1 Solitary pulmonary nodule
CPT/HCPCS: 78815; A9552

== ENCOUNTER 2021-02-12 09:07 | Outpatient (CLI) | payer OTHER, SELFPAY ==
--- NOTE | ~2021-02-12 | CT_ITS ---
EXAMINATION:CT diagnostic chest wo con DATE: 02/12/2021 09:55 INDICATION: Solitary pulmonary nodule. TECHNIQUE: Computed tomography (CT) of the chest was performed without intravenous contrast. Automate d exposure control and iterative reconstruction technique were employed. The dose-length product (DLP ) was 586.61 mGy-cm. COMPARISON: Chest CT 07/10/2020, 05/12/20, PET/CT 01/25/21 FINDINGS: There is an 11 mm nodule in lingula. There are scattered other pulmonary nodules measuring up to 6 mm in right lower lobe, stable from 05/12/20. There are mild groundglass opacities in the per ihilar regions. No pleural effusion. No pleural effusion. The heart size is normal. There are coronar y artery calcifications. No pericardial effusion. There are changes of left nephrectomy. There are be nign bone island in right sixth and eighth ribs. There is mild thoracic spondylosis. IMPRESSION: 1. 11 mm nodule in the lingula without increased activity on prior PET, increased in size from 8 mm i n 01/24/2020 and 3 mm on 06/01/2018. This finding may be granulomatous disease or a low-grade neoplasm . Consider repeat CT-guided biopsy. Reviewed, dictated and finalized at location A. IMPRESSION: 1. 11 mm nodule in the lingula without increased activity on prior PET, increas ed in size from 8 mm in 01/24/2020 and 3 mm on 06/01/2018. This finding may be g ranulomatous disease or a low-grade neoplasm. Consider repeat CT-guided biopsy.
== END 2021-02-12 09:08 | disposition home or self-care (01) ==
LOC: CHSIMG 09:08
PROVIDERS: PCP Family Medicine; Visit Provider Nurse Practitioner Family
DX: R91.1 Solitary pulmonary nodule (principal)
CPT/HCPCS: 71250

== ENCOUNTER 2021-05-11 17:17 | Outpatient (CLI) | payer OTHER, SELFPAY ==
--- NOTE | ~2021-05-11 | XR_ITS ---
XR foot RT min 3V, XR foot LT min 3V 05/11/2021 18:24 Indication: Rheumatoid arthritis. Joint pain. Procedure: 4 views each foot Comparison: No prior studies for comparison. Findings: Osteopenia. Lisfranc joint is intact bilaterally. There is mild polyarticular osteoarthriti s, most advanced in the first digits at the MTP and IP joints. There are vascular calcifications bila terally. No marginal erosions are identified. No focal soft tissue abnormality. No foreign bodies. Impression: 1: Mild polyarticular osteoarthritis of the feet. Reviewed, dictated and finalized at location A. IDE TOOL MAKER Impression: 1: Mild polyarticular osteoarthritis of the feet. Impression: 1: Mild polyarticular osteoarthritis of the feet.
--- NOTE | ~2021-05-11 | XR_ITS ---
XR_CERV2-3V_CR 05/11/2021 18:24 Indication: Rheumatoid arthritis Procedure: 3 views cervical spine Comparison: No prior studies for comparison. Findings: Lung apices are normal. Odontoid process within normal limits. There is mild multilevel unc inate and facet degenerative changes. No prevertebral soft tissue swelling. No acute fracture or trau matic malalignment. No erosive changes. No significant disc narrowing identified. Impression: 1: Mild cervical spondylosis. Reviewed, dictated and finalized at location A. UTER TECHNICIAN Impression: 1: Mild cervical spondylosis.
--- NOTE | ~2021-05-11 | XR_ITS ---
XR hand LT min 3V, XR wrist LT min 3V 05/11/2021 18:23 (accession [id number]), 05/11/2021 18:24 (accession [id number]) Indication: Rheumatoid arthritis. Procedure: 3 views left hand and 4 views left wrist Comparison: No prior studies for comparison. Findings: Osteopenia. Mild polyarticular osteoarthritis of the left hand and wrist. There is partial amputation of the second finger at the distal phalanx. No erosive changes identified. No fracture, vasquez bluxation or dislocation. Impression: 1: Mild polyarticular osteoarthritis. Reviewed, dictated and finalized at location A. ITECTURE TECHNICIAN Impression: 1: Mild polyarticular osteoarthritis. Impression: 1: Mild polyarticular osteoarthritis.
--- NOTE | ~2021-05-11 | XR_ITS ---
XR hand RT min 3V, XR wrist RT min 3V 05/11/2021 18:23 (accession [id number]), 05/11/2021 18:24 (accession [id number]) Indication: Rheumatoid arthritis. Positive rheumatoid factor. Procedure: 3 views of the right hand and 4 views of the right breast Comparison: No prior studies for comparison. Findings: There is mild polyarticular osteoarthritis. There is an erosion of the triquetrum, suspicio us for inflammatory arthropathy. There are cysts in the scaphoid and lunate, likely degenerative subc hondral cyst. No other erosions are identified. No fracture or traumatic malalignment. Impression: 1: Erosive change involving the triquetrum, suspicious for focal sequela of inflammatory arthropathy. 2: Mild polyarticular osteoarthritis with probable degenerative subchondral cyst formation in the sc aphoid and lunate. Reviewed, dictated and finalized at location A. ENSING LEAD Impression: 1: Erosive change involving the triquetrum, suspicious for focal sequela of inf lammatory arthropathy. 2: Mild polyarticular osteoarthritis with probable degenerative subchondral cy st formation in the scaphoid and lunate. Impression: 1: Erosive change involving the triquetrum, suspicious for focal sequela of inf lammatory arthropathy. 2: Mild polyarticular osteoarthritis with probable degenerative subchondral cy st formation in the scaphoid and lunate.
== END 2021-05-11 17:18 | disposition home or self-care (01) ==
LOC: CHSLAB 17:24 → CHSIMG 18:23
PROVIDERS: PCP Family Medicine
DX: M05.79 Rheumatoid arthritis with rheumatoid factor of multiple sites without organ or systems involvement (principal); I77.6 Arteritis, unspecified; I96 Gangrene, not elsewhere classified; D84.821 Immunodeficiency due to drugs; Z79.899 Other long term (current) drug therapy; F14.90 Cocaine use, unspecified, uncomplicated; Z79.52 Long term (current) use of systemic steroids; R91.8 Other nonspecific abnormal finding of lung field
CPT/HCPCS: 72040; 73110; 73130; 73630

== ENCOUNTER 2021-05-11 18:14 | Emergency (ER) | payer OTHER, SELFPAY ==
--- NOTE | 2021-05-11 18:59 | ED_ITS ---
HPI - General Adult General Stated complaint: back pain, shoulder pain, dehydrated Time Seen by Provider: 05/11/21 18:20 History of Present Illness MD complaint: Pt was not seen by Dr Taylor on 05/11/2021 Related Data Allergies Allergy/AdvReac Type Severity Reaction Status Date / Time No Known Allergies Allergy Verified 01/03/21 07:33 [facility] Past Medical History Medical History Anxiety Atrial fibrillation CKD (chronic kidney disease), stage III Cocaine abuse Drug abuse GERD (gastroesophageal reflux disease) HTN (hypertension) Hyperlipidemia Lipoma Neuropathy Osteoarthritis of right knee Renal cell carcinoma Rheumatoid arthritis Surgical History Surgical History History of appendectomy History of nephrectomy, left History of tonsillectomy and adenoidectomy Family History Family History Father CAD (coronary artery disease) Mother Cancer Other Heart disease Hypertension Social History Social History Smoking status: Never smoker Alcohol intake: former Substance use: current Substance use type: marijuana and crack/cocaine Other substance usage details: States he does it when he feels like it. Last use: 11/27/2020 Gender identity (if verbalized by the patient): Male Sexual Orientation (if Verbalized by the Patient): Straight or Heterosexual Spiritual care concerns: No Discharge Plan Discharge Clinical Impression: Back pain Qualifiers: Back pain location: low back pain Chronicity: chronic Back pain laterality: unspecified Sciatica presence: without sciatica Qualified Code(s): M54.50 - Low back pain, unspecified Patient Disposition: Left Without Being Seen Prescriptions: No Action acetaminophen 500 mg capsule 500 mg PO Q6H PRN (Reason: pain) Qty: 60 RF: 0 magnesium oxide 400 mg (241.3 mg magnesium) tablet See Rx Instructions .ROUTE .COMPLEX Qty: 90 RF: 1 lovastatin 40 mg tablet See Rx Instructions .ROUTE .COMPLEX Qty: 30 RF: 5 hydroxychloroquine 200 mg tablet See Rx Instructions .ROUTE .COMPLEX Qty: 60 RF: 3 sertraline 50 mg tablet See Rx Instructions .ROUTE .COMPLEX Qty: 30 RF: 3 risperidone 0.5 mg tablet See Rx Instructions .ROUTE .COMPLEX Qty: 30 RF: 3 lisinopril 5 mg tablet See Rx Instructions .ROUTE .COMPLEX Qty: 30 RF: 3 Eliquis 5 mg tablet See Rx Instructions .ROUTE .COMPLEX Qty: 60 RF: 3 prednisone 10 mg tablet 10 mg PO DAILY Qty: 30 RF: 2 prednisone 5 mg tablet 5 mg PO DAILY Qty: 30 RF: 0 gabapentin 300 mg capsule See Rx Instructions .ROUTE .COMPLEX Qty: 180 RF: 3 Follow-up/Referrals: Alverto Shine DO [Primary Care Provider] - Time of Disposition: 18:30
== END 2021-05-11 18:15 | disposition left against medical advice (07) ==
PROVIDERS: Emergency Provider Emergency Medicine; PCP Family Medicine
DX: M54.50 Low back pain, unspecified (principal); Z53.8 Procedure and treatment not carried out for other reasons
CPT/HCPCS: 99199

== ENCOUNTER 2021-05-14 15:51 | Outpatient (CLI) | payer OTHER, SELFPAY ==
[2021-05-14 17:33] LABS: Hematocrit 39.9 % (40.0-54.0); Hemoglobin 13.1 g/dL (14.0-18.0); Mean Corpuscular HGB Conc 32.8 g/dL (32.0-36.0); Mean Corpuscular Hemoglobin 31.9 pg (27.0-31.0); Mean Corpuscular Volume 97.1 fL (78.0-102.0); Mean Platelet Volume 9.5 fl (8.7-11.0); Platelet Count Result 276 K/mm3 (150-420); Red Blood Count 4.11 M/mm3 (4.70-6.10); Red Cell Distribution Width 14.9 % (11.6-14.4); White Blood Count 8.4 K/mm3 (4.8-10.8)
[2021-05-14 17:35] LABS: Add Urine Microscopic? YES; Appearance Urine Clear (Clear); Bilirubin Urine Negative (Negative); Blood Urine Negative (Negative); Color Urine Light Yellow (Yellow); Glucose Urine UA Negative (Negative); Ketones Urine Negative (Negative); Leukocyte Esterase Ur Negative (Negative); Nitrate Urine Negative (Negative); Protein Urine Trace (Negative); Specific Grav Ur >= 1.030 (1.010-1.020); Urobilinogen Urine 0.2 mg/dL (0.2-1.0); pH Urine 5.5 (5.0-8.0)
[2021-05-14 17:40] LABS: Bacteria Urine Trace /hpf; RBC Urine 0-2 /hpf (0-2); Squamous Epithelial Cell Urine Rare /hpf (Few); WBC Urine 0-3 /hpf (0-3)
[2021-05-14 17:48] LABS: Amphetamine Screen Urine Positive (Negative); Barbiturate Screen Urine Negative (Negative); Benzodiazepines Screen Urine Negative (Negative); Cannabinoid Screen Urine Positive (Negative); Cocaine Screen Urine Positive (Negative); Methadone Screen Urine Negative (Negative); Opiate Screen Urine Negative (Negative); Phencyclidine Screen Urine Negative (Negative); Total Protein Urine Random 53.9 mg/dL (0.0-11.9); Ur Ttl Prot Creatinine Ratio 0.32 mg/mg (0-0.20)
[2021-05-14 17:53] LABS: Alanine Aminotransferase 30 U/L (16-63); Albumin Level 3.1 g/dL (3.4-5.0); Alkaline Phosphatase 57 U/L (46-116); Anion Gap 15 mmol/L (8-16); Aspartate Amino Transferase 16 U/L (15-37); Bilirubin,Total 0.6 mg/dL (0.00-1.00); Blood Urea Nitrogen 22 mg/dL (7-18); CRP 6.3 mg/dL (0.0-0.9); Calcium 8.4 mg/dL (8.5-10.1); Carbon Dioxide 21 mmol/L (21-32); Chloride 104 mmol/L (98-108); Estimated Glomerular Filt Rate 33; Glucose 81 mg/dL (70-99); Osmolality Calculated 292 mOsm/kg (285-295); Potassium 4.4 mmol/L (3.5-5.1); Sodium 140 mmol/L (136-145); Total Protein 6.4 g/dL (6.4-8.2)
[2021-05-14 18:24] LABS: Band Neutrophils Percent 0 % (0-6); Basophils Percent Manual 0 % (0-1); Eosinophils Absolute Manual 0.08 K/mm3 (0.02-0.5); Eosinophils Percent Manual 1 % (1-6); Lymphocytes Absolute Manual 1.93 K/mm3 (1.1-4.5); Lymphocytes Percent Manual 23 % (18-44); Metamyelocytes Percent 1 %; Monocytes Absolute Manual 0.58 K/mm3 (0.1-0.90); Monocytes Percent Manual 7 % (3-9); Neutrophils Absolute Manual 5.71 K/mm3 (1.3-6.7); Neutrophils Percent Manual 68 % (46-73); Total Cells Counted 100
[2021-05-14 18:25] LABS: Platelet Estimate Adequate (Adequate)
[2021-05-14 18:36] LABS: Erythrocyte Sedimentation Rate 50 mm/hr (0-20)
[2021-05-16 03:29] LABS: Hexagonal Phase Confirm Negative (Negative); Lupus dRVVT 1:1 Mix Interpreta Not Indicated; Lupus dRVVT Confirmation Negative (Negative); Lupus dRVVT Screen 65 sec (<=45); PTT-LA Screen 47 sec (<=40)
[2021-05-16 11:43] LABS: Immunoglobulin A 176 mg/dL (47-310); Immunoglobulin G 892 mg/dL (600-1640); Immunoglobulin M 64 mg/dL (50-300)
[2021-05-16 11:59] LABS: Myeloperoxidase Antibody <1.0 AI (<1.0); Proteinase 3 PR3 Antibodies <1.0 AI (<1.0)
[2021-05-16 14:14] LABS: Albumin 3.2 g/dL (3.8-4.8); Alpha 1 Globulin 0.6 g/dL (0.2-0.3); Beta 1 Globulin 0.5 g/dL (0.4-0.6); Gamma Globulin 0.8 g/dL (0.8-1.7); Protein, Total 6.3 g/dL (6.1-8.1)
[2021-05-16 15:56] LABS: Hepatitis B Surface Antibody Nonreactive (Nonreactive); Hepatitis B Surface Antigen Nonreactive (Nonreactive); Hepatitis C Signal to Cutoff 0.01 ratio (<1.00); Hepatitis C Virus Antibody Nonreactive (Nonreactive)
[2021-05-16 18:45] LABS: Hepatitis B Core Ab Total Nonreactive (Nonreactive)
[2021-05-18 15:02] LABS: Creatinine, Random Urine 165 mg/dL (20-320); Total Protein/Creatinine Ratio 176 mg/g creat (22-128)
[2021-05-22 06:59] LABS: NIL 0.01
[2021-05-22 07:00] LABS: TB1-NIL 0.02
== END 2021-05-14 15:52 | disposition home or self-care (01) ==
PROVIDERS: PCP Family Medicine
DX: D84.821 Immunodeficiency due to drugs (principal); Z79.899 Other long term (current) drug therapy; I77.6 Arteritis, unspecified; F14.90 Cocaine use, unspecified, uncomplicated; Z79.52 Long term (current) use of systemic steroids; R91.8 Other nonspecific abnormal finding of lung field; I96 Gangrene, not elsewhere classified
CPT/HCPCS: 36415; 80053; 80307; 81001; 82570; 82784; 84155; 84156; 84165; 84166; 85025; 85597; 85598; 85613; 85652; 85730; 86021; 86140; 86146; 86147; 86334; 86356; 86480; 86704; 86706

== ENCOUNTER 2021-07-03 15:43 | Emergency (ER) | payer OTHER, SELFPAY ==
--- NOTE | ~2021-07-03 | CT_ITS ---
EXAMINATION: CT chest abdomen pelvis wo con DATE: 07/03/2021 17:57 INDICATION: Nausea and vomiting. Diarrhea. Cough. TECHNIQUE: Computed tomography (CT) of the chest, abdomen, and pelvis was performed without intraveno us contrast. Automated exposure control and iterative reconstruction technique were employed. The dos e-length product was 1536.39 mGy-cm. COMPARISON: Chest CT 02/12/2021, CT abdomen and pelvis 11/27/2020 FINDINGS: CHEST CT: There are 4 nodules in the lungs measuring up to 13 mm in the lingula, increased from 11 mm on 021. There are patchy groundglass opacities in the mid and lower lung zones involving all lobes. No p leural effusion. The heart size is normal. There are coronary artery calcifications. No pericardial e ffusion. There is mild thoracic spondylosis. ABDOMEN/PELVIS CT: There is diffuse hepatic steatosis. The gallbladder, spleen, pancreas, and right adrenal gland are no rmal. There is a 2 mm stone in right kidney. There are changes of left adrenalectomy and left nephrec alessandro. There are no dilated loops of bowel. There are changes of appendectomy. There are no pathologic ally enlarged lymph nodes. There is no free intraperitoneal fluid. There is mild lumbar spondylosis. There is a benign bone island in L1 vertebral body. IMPRESSION: 1. Mild diffuse lung disease, consistent with COVID-19 pneumonia. 2. Worsened pulmonary nodules, consistent metastatic disease. Reviewed, dictated and finalized at location A. IFICATIONS WRITER
[2021-07-03 15:52] VITALS: BP 95/70; PULSE 110; RESP 18; TEMP 35.8; O2SAT 96
[2021-07-03] MEDS: ONDANSETRON INJ 4 MG/2 ML VIAL IV PUSH (16:43)
[2021-07-03] MEDS: SODIUM CHLORIDE 0.9% IV 1,000 ML 999 ML IV CONT (16:43)
[2021-07-03] MEDS: PANTOPRAZOLE SODIUM IV 40 MG VIAL IV PUSH (16:43)
[2021-07-03 16:50] LABS: Basophils Absolute Auto 0.03 K/mm3 (0.00-0.10); Basophils Percent Auto 0.5 % (0.0-1.0); Eosinophils Absolute Auto 0.04 K/mm3 (0.02-0.50); Eosinophils Percent Auto 0.7 % (1.0-6.0); Hematocrit 37.8 % (40.0-54.0); Hemoglobin 12.6 g/dL (14.0-18.0); Immature Granulocyte Absolute 0.18 K/mm3 (0.00-0.00); Immature Granulocyte Percent A 2.9 % (0.0-0.0); Lymphocytes Absolute Auto 0.68 K/mm3 (1.10-4.50); Lymphocytes Percent Auto 11.1 % (18.0-42.0); Mean Corpuscular HGB Conc 33.3 g/dL (32.0-36.0); Mean Corpuscular Hemoglobin 32.3 pg (27.0-31.0); Mean Corpuscular Volume 96.9 fL (78.0-102.0); Monocytes Absolute Auto 0.75 K/mm3 (0.10-0.90); Monocytes Percent Auto 12.2 % (2.0-11.0); Neutrophils Absolute Auto 4.5 K/mm3 (1.7-7.2); Neutrophils Percent Auto 72.6 % (50.0-70.0); Platelet Count Result 224 K/mm3 (150-420); White Blood Count 6.1 K/mm3 (4.8-10.8)
[2021-07-03 17:12] LABS: Alanine Aminotransferase 40 U/L (16-63); Albumin Level 3.2 g/dL (3.4-5.0); Alkaline Phosphatase 48 U/L (46-116); Anion Gap 15 mmol/L (8-16); Aspartate Amino Transferase 36 U/L (15-37); Bilirubin,Total 0.4 mg/dL (0.00-1.00); Blood Urea Nitrogen 26 mg/dL (7-18); Calcium 8.9 mg/dL (8.5-10.1); Carbon Dioxide 20 mmol/L (21-32); Chloride 98 mmol/L (98-108); Estimated CRCL calculation 37 ml/min; Estimated Glomerular Filt Rate 28; Glucose 78 mg/dL (70-99); Lipase 330 U/L (73-393); Osmolality Calculated 279 mOsm/kg (285-295); Sodium 133 mmol/L (136-145)
[2021-07-03 17:21] LABS: Influenza Control Valid (Valid); SARS-CoV-2 Ag Positive (Negative)
[2021-07-03 17:27] VITALS: BP 122/71; PULSE 72; O2SAT 96
--- NOTE | 2021-07-03 18:48 | ED.NAVMDI ---
HPI - Nausea/Vomiting/Diarrhea General Chief complaint: Nausea/Vomiting/Diarrhea Stated complaint: AMB Time Seen by Provider: 07/03/21 15:45 Source: patient, EMS and RN notes reviewed Mode of arrival: EMS Limitations: no limitations History of Present Illness HPI Narrative: also mild SOB MD elicited complaint: nausea, vomiting and diarrhea Onset (ago): day(s) (1) Description of vomiting: food contents and watery Description of diarrhea: watery Associated nausea: Yes Associated abdominal pain: Yes Location of pain: diffuse Pain consistency: constant and colicky Severity: mild Pain scale (0-10): 3 Quality: cramping and dull Exacerbating factors: none Relieving factors: none Associated symptoms: nausea/vomiting and shortness of breath Related Data Allergies Allergy/AdvReac Type Severity Reaction Status Date / Time No Known Allergies Allergy Verified 07/09/21 16:04 Review of Systems Review of Systems: All systems reviewed & are unremarkable except as noted in HPI and below Gastrointestinal: Gastrointestinal: Reports abdominal pain, Reports diarrhea, Reports nausea and Reports vomiting PMFSH Past Medical History Medical History Anxiety Atrial fibrillation CKD (chronic kidney disease), stage III Cocaine abuse Drug abuse GERD (gastroesophageal reflux disease) HTN (hypertension) Hyperlipidemia Lipoma Neuropathy Osteoarthritis of right knee Renal cell carcinoma Rheumatoid arthritis Surgical History Surgical History History of appendectomy History of nephrectomy, left History of tonsillectomy and adenoidectomy Family History Family History Father CAD (coronary artery disease) Mother Cancer Other Heart disease Hypertension Social History Social History Smoking status: Never smoker Second hand tobacco smoke exposure: Yes Alcohol intake: former Substance use: current Substance use type: marijuana and crack/cocaine Other substance usage details: States he does it when he feels like it. Last use: 11/27/2020 Gender identity (if verbalized by the patient): Male Sexual Orientation (if Verbalized by the Patient): Straight or Heterosexual Spiritual care concerns: No Exam Const: General: no acute distress and alert Nutritional Appearance: well nourished Orientation/consciousness: patient oriented x3 HENMT: Head: normal to inspection Ears: external ears normal and TM's normal bilaterally General nose exam: Normal external nose present and Normal nares present Mouth: Yes lip normal and Yes moist mucous membranes Teeth and gingiva: dentition normal Eyes: Cornea: corneas normal Pupils: Equal, round and reactive pupils present EOM: EOMs intact bilaterally Neck: Neck: normal visual inspection Other: supple neck. Chest: Chest palpation & inspection: normal inspection of the chest Resp: Effort & Inspection: normal respiratory effort Auscultation: crackles, rhonchi and wheezes Cardio: Rate: regular rate Rhythm: regular rhythm GI: GI Palp: Yes Soft to palpation and Yes Tenderness to palpation present (GI) (minimal generalized tenderness) : General: Yes bladder normal to palpation and Yes no CVA tenderness Male General Exam: Yes normal external exam Back/Spine/Pelvis: Back: no CVA tenderness Skin: General skin exam: normal color Rashes: no rashes Neuro: General: patient oriented x3, moves all extremities, no meningeal signs, no focal motor deficits and CN's II-XI intact bilaterally Extrem: General: normal to inspection and no pedal edema Psych: Appearance: grossly normal and well kempt Mental Status: mental status grossly normal Affect: normal affect Attitude: cooperative Thought content: Yes Normal thought content present Course Course Emergency Co
== END 2021-07-03 19:32 | disposition home or self-care (01) ==
PROVIDERS: Emergency Provider Emergency Medicine; PCP Family Medicine
DX: R91.1 Solitary pulmonary nodule (principal); K52.9 Noninfective gastroenteritis and colitis, unspecified; U07.1 COVID-19; J12.82 Pneumonia due to coronavirus disease 2019
CPT/HCPCS: 71250; 74176; 80053; 83690; 85025; 87426; 87804; 96361; 96374; 96375; 99283; 99284; C9113; C9803; J0696; J2405; J7030

== ENCOUNTER 2021-07-09 15:30 | Observation (INO) | payer OTHER, SELFPAY ==
[2021-07-09] VITALS (8 sets, daily range): BP systolic 117–130; BP diastolic 70–91; PULSE 85–101; RESP 20; TEMP 36.2–36.3; O2SAT 90–99; BMI 32.7
--- NOTE | 2021-07-09 15:48 | ED.NAVMDI ---
HPI - Nausea/Vomiting/Diarrhea General Chief complaint: Nausea/Vomiting/Diarrhea Stated complaint: ambulance Time Seen by Provider: 07/09/21 15:48 Source: patient Mode of arrival: EMS Limitations: no limitations History of Present Illness HPI Narrative: 55-year-old man with a history of rheumatoid arthritis, atrial fibrillation, chronic kidney disease, and drug use comes in today complaining of vomiting and diarrhea and weakness. Patient states that he was seen here on the 18 of this month and diagnosed with COVID. He presented similarly. He denies blood in his vomitus or diarrhea, chest pain, shortness of breath, productive cough, abdominal pain, and extremity pain. He states somebody who lives with him has similar symptoms. MD elicited complaint: nausea, vomiting and diarrhea Onset (ago): day(s) (5) Description of vomiting: food contents and watery Description of diarrhea: watery Associated nausea: Yes Associated abdominal pain: No Exacerbating factors: eating Relieving factors: none Context: sick contacts Associated symptoms: myalgias, cough, malaise, nausea/vomiting and weakness Related Data Allergies Allergy/AdvReac Type Severity Reaction Status Date / Time No Known Allergies Allergy Verified 07/09/21 16:04 Review of Systems Review of Systems: All systems reviewed & are unremarkable except as noted in HPI and below Constitutional: Constitutional: Denies chills, Reports fatigue, Denies fever(s) and Reports weakness ENT: Reports nasal congestion and Reports sore throat Cardiovascular: Cardiovascular: Denies chest pain and Denies radiating jaw, neck or arm pain Respiratory: Respiratory: Reports cough and Denies dyspnea Gastrointestinal: Gastrointestinal: Denies abdominal pain, Reports diarrhea, Reports nausea and Reports vomiting Genitourinary: Genitourinary: Denies dysuria and Denies urinary frequency Musculoskeletal: Musculoskeletal: Denies arthralgias and Denies joint swelling Integumentary/Breasts: Skin/Breast: Denies pruritus, Denies erythema and Denies rash Neurologic: Denies vertigo, Reports dizziness and Denies syncope PMFSH Past Medical History Medical History Anxiety Atrial fibrillation CKD (chronic kidney disease), stage III Cocaine abuse Drug abuse GERD (gastroesophageal reflux disease) HTN (hypertension) Hyperlipidemia Lipoma Neuropathy Osteoarthritis of right knee Renal cell carcinoma Rheumatoid arthritis Surgical History Surgical History History of appendectomy History of nephrectomy, left History of tonsillectomy and adenoidectomy Family History Family History Father CAD (coronary artery disease) Mother Cancer Other Heart disease Hypertension Social History Social History Smoking status: Never smoker Alcohol intake: former Substance use: current Substance use type: marijuana and crack/cocaine Other substance usage details: States he does it when he feels like it. Last use: 11/27/2020 Gender identity (if verbalized by the patient): Male Sexual Orientation (if Verbalized by the Patient): Straight or Heterosexual Spiritual care concerns: No Exam Const: General: alert and ill appearing (Mildly and) acutely Orientation/consciousness: patient oriented x3 Other: [id number] acute distress. HENMT: Head: normal to inspection Ears: external ears normal, TM's normal bilaterally and EAC's normal General nose exam: Normal nares present Face and sinus: normal facial exam Mouth: Yes moist mucous membranes Throat: posterior oropharynx normal Eyes: Cornea: corneas normal Pupils: Equal, round and reactive pupils present EOM: EOMs intact bilaterally Resp: Effort & Inspection: normal respiratory effort and not labored Auscultation:
[2021-07-09] MEDS: ONDANSETRON INJ 4 MG/2 ML VIAL IV PUSH ×2 (15:59→20:01)
[2021-07-09] MEDS: SODIUM CHLORIDE 0.9% IV 1,000 ML 999 ML IV CONT ×2 (15:59→17:15)
[2021-07-09 16:30] LABS: Basophils Absolute Auto 0.04 K/mm3 (0.00-0.10); Basophils Percent Auto 0.7 % (0.0-1.0); Eosinophils Absolute Auto 0.11 K/mm3 (0.02-0.50); Eosinophils Percent Auto 1.9 % (1.0-6.0); Hematocrit 36.5 % (40.0-54.0); Hemoglobin 12.5 g/dL (14.0-18.0); Immature Granulocyte Absolute 0.17 K/mm3 (0.00-0.00); Immature Granulocyte Percent A 2.9 % (0.0-0.0); Lymphocytes Absolute Auto 0.91 K/mm3 (1.10-4.50); Lymphocytes Percent Auto 15.7 % (18.0-42.0); Mean Corpuscular HGB Conc 34.2 g/dL (32.0-36.0); Mean Corpuscular Hemoglobin 32.8 pg (27.0-31.0); Mean Corpuscular Volume 95.8 fL (78.0-102.0); Mean Platelet Volume 9.6 fl (8.7-11.0); Monocytes Percent Auto 6.9 % (2.0-11.0); Neutrophils Absolute Auto 4.2 K/mm3 (1.7-7.2); Neutrophils Percent Auto 71.9 % (50.0-70.0); Platelet Count Result 210 K/mm3 (150-420); Red Blood Count 3.81 M/mm3 (4.70-6.10); Red Cell Distribution Width 14.9 % (11.6-14.4); White Blood Count 5.8 K/mm3 (4.8-10.8)
[2021-07-09 16:53] LABS: Alanine Aminotransferase 20 U/L (16-63); Alkaline Phosphatase 43 U/L (46-116); Anion Gap 15 mmol/L (8-16); Aspartate Amino Transferase 11 U/L (15-37); Bilirubin,Total 0.5 mg/dL (0.00-1.00); Blood Urea Nitrogen 29 mg/dL (7-18); Calcium 8.5 mg/dL (8.5-10.1); Carbon Dioxide 19 mmol/L (21-32); Chloride 100 mmol/L (98-108); Estimated CRCL calculation 41 ml/min; Estimated Glomerular Filt Rate 31; Glucose 94 mg/dL (70-99); Lipase 184 U/L (73-393); Osmolality Calculated 283 mOsm/kg (285-295); Potassium 3.7 mmol/L (3.5-5.1); Sodium 134 mmol/L (136-145); Total Protein 7.2 g/dL (6.4-8.2)
[2021-07-09 16:54] LABS: CRP 15.7 mg/dL (0.0-0.9)
[2021-07-09 16:58] LABS: Lactic Acid Reflex 1.8 mmol/L (0.4-2.0)
[2021-07-09 17:37] LABS: Occult Blood Positive (Negative)
[2021-07-09 18:30] LABS: Appearance Urine Clear (Clear); Bilirubin Urine Negative (Negative); Color Urine Light Yellow (Yellow); Glucose Urine UA Negative (Negative); Ketones Urine Trace (Negative); Leukocyte Esterase Ur Negative LEU/UL (Negative); Nitrate Urine Negative (Negative); Protein Urine 1+ (Negative); Specific Grav Ur >= 1.030 (1.010-1.020); Urobilinogen Urine 0.2 mg/dL (0.2-1.0); pH Urine 5.5 (5.0-8.0)
[2021-07-09 18:39] LABS: Add Urine Microscopic? YES; Blood Urine Trace-Intact (Negative); RBC Urine 0-2 /hpf (0-2); WBC Urine 0-3 /hpf (0-3)
[2021-07-09 18:39] LABS: Amphetamine Screen Urine Negative (Negative); Barbiturate Screen Urine Negative (Negative); Benzodiazepines Screen Urine Negative (Negative); Cannabinoid Screen Urine Positive (Negative); Cocaine Screen Urine Positive (Negative); Methadone Screen Urine Negative (Negative); Opiate Screen Urine Negative (Negative); Phencyclidine Screen Urine Negative (Negative)
[2021-07-09 18:40] LABS: Amorphous Sediment Urine Few; Bacteria Urine Trace /hpf; Mucus Urine Rare /lpf; Squamous Epithelial Cell Urine None seen /hpf (Few)
[2021-07-09] MEDS: SODIUM CHLORIDE 0.9% IV 1,000 ML 150 ML IV CONT (20:00)
--- NOTE | 2021-07-09 20:55 | ECG_ITS ---
Measurements Intervals [place] Rate: 87 P: 79 MI: 147 QRS: 28 QRSD: 84 T: 42 QT: 355 QTc: 427 Interpretive Statements SINUS RHYTHM BASELINE ARTIFACT- II, III, AVF NORMAL ECG Electronically Signed On 07-10-2021 5:46:58 SALES ORDER COORDINATOR by Edvin Joshi D.O.
[2021-07-09] MEDS: guaiFENesin 12 HR 600 MG TABCR PO (21:31)
[2021-07-09] MEDS: risperiDONE 0.5 MG TABLET BY MOUTH (21:31)
[2021-07-09] MEDS: ACETAMINOPHEN 500 MG TABLET 1000 MG PO (21:45)
[2021-07-09 21:47] LABS: Troponin I 12.4 ng/L (0.00-60.4)
--- NOTE | 2021-07-09 22:31 | ADMGEN ---
This patient, Jay Arreola, was admitted to 2nd Floor Room 210-2. Patient/family oriented to hospital policies and general routines including ID bracelet, bed and alarms, pain management, procedures, bathroom and other care routines, personal items, smoking policy, room service/diet, and visiting hours. Information on how to activate the Rapid Response Team has been discussed. Patient/Family are encouraged to report perceived risks to care and to ask questions if they do not understand what they are told or what they should do.
--- NOTE | 2021-07-09 23:42 | PC.NURSE ---
Contacted Dr. Catalan regarding pt's request for something to help him sleep; New orders received and noted.
[2021-07-09] MEDS: LORazepam (*CRX) 0.5 MG TABLET PO (23:44)
[2021-07-10] VITALS: BP 117/77; PULSE 92; RESP 20; TEMP 36.6; O2SAT 98
[2021-07-10] MEDS: SODIUM CHLORIDE 0.9% IV 1,000 ML 150 ML IV CONT ×2 (03:08→09:27)
[2021-07-10] MEDS: ONDANSETRON INJ 4 MG/2 ML VIAL IV PUSH (04:20)
[2021-07-10 05:05] LABS: Hematocrit 35.6 % (40.0-54.0); Hemoglobin 11.5 g/dL (14.0-18.0); Mean Corpuscular HGB Conc 32.3 g/dL (32.0-36.0); Mean Corpuscular Hemoglobin 32.5 pg (27.0-31.0); Mean Corpuscular Volume 100.6 fL (78.0-102.0); Platelet Count Result 197 K/mm3 (150-420); Red Blood Count 3.54 M/mm3 (4.70-6.10); White Blood Count 4.6 K/mm3 (4.8-10.8)
[2021-07-10 05:19] LABS: Anion Gap 14 mmol/L (8-16); Blood Urea Nitrogen 21 mg/dL (7-18); Calcium 7.9 mg/dL (8.5-10.1); Carbon Dioxide 13 mmol/L (21-32); Chloride 102 mmol/L (98-108); Estimated CRCL calculation 50 ml/min; Estimated Glomerular Filt Rate 39; Glucose 68 mg/dL (70-99); Magnesium 1.7 mg/dL (1.8-2.4); Osmolality Calculated 269 mOsm/kg (285-295); Potassium 4.8 mmol/L (3.5-5.1); Sodium 129 mmol/L (136-145)
[2021-07-10 05:29] LABS: Band Neutrophils Percent 0 % (0-6); Lymphocytes Absolute Manual 0.78 K/mm3 (1.1-4.5); Lymphocytes Percent Manual 17 % (18-44); Neutrophils Absolute Manual 3.35 K/mm3 (1.3-6.7); Neutrophils Percent Manual 73 % (46-73)
[2021-07-10 05:30] LABS: Basophils Percent Manual 0 % (0-1); Eosinophils Percent Manual 0 % (1-6); Metamyelocytes Percent 2 %; Monocytes Absolute Manual 0.36 K/mm3 (0.1-0.90); Monocytes Percent Manual 8 % (3-9); Platelet Estimate Adequate (Adequate)
[2021-07-10 08:00] VITALS: BP 122/102; PULSE 109; RESP 18; TEMP 37.1; O2SAT 98
[2021-07-10] MEDS: predniSONE 5 MG TABLET PO (08:10)
[2021-07-10] MEDS: SODIUM CHLORIDE 1 GM TABLET PO (09:19)
[2021-07-10] MEDS: LOVASTATIN 20 MG TABLET 40 MG BY MOUTH (09:20)
[2021-07-10] MEDS: MAGNESIUM OXIDE 400 MG TABLET BY MOUTH (09:20)
[2021-07-10] MEDS: HYDROXYCHLOROQUINE SULFATE 200 MG TABLET BY MOUTH (09:20)
[2021-07-10] MEDS: CALCIUM CARBONATE (TUMS) 500 MG (200 MG ELEMENTAL) PO (09:20)
[2021-07-10] MEDS: GABAPENTIN 300 MG CAPSULE 900 MG BY MOUTH (09:20)
[2021-07-10] MEDS: LOPERAMIDE HCL 2 MG CAPSULE (09:22)
[2021-07-10] MEDS: APIXABAN 2.5 MG TABLET 5 MG BY MOUTH (09:23)
[2021-07-10] MEDS: lisinopriL 5 MG TABLET BY MOUTH (09:23)
[2021-07-10] MEDS: VANCOMYCIN HCL 250 MG CAPSULE PO (09:24)
[2021-07-10] MEDS: guaiFENesin/DEXTROMETHORPHAN 5 ML UDC 10 ML PO (09:51)
[2021-07-10] MEDS: MAGNESIUM OXIDE 400 MG TABLET PO (09:51)
[2021-07-10] MEDS: SERTRALINE HCL 50 MG TABLET BY MOUTH (09:51)
--- NOTE | 2021-07-10 11:17 | PM.SD2 ---
Same Day Admit/Disch: HPI History of Present Illness Chief complaint: DEHYDRATION COVID 19 <CHAI Hall - Last Filed: 07/10/21 12:55> Narrative: Jay Arreola is a 55 year old male with no that presented to emergency department with complaints vomiting and diarrhea with weakness. Patient. Patient has a past medical history of anxiety, A. fib, CKD, hypertension, hyperlipidemia, anxiety, AFib, CKD, cocaine abuse, drug abuse, GERD, hypertension, hyperlipidemia, neuropathy osteoarthritis , renal cell carcinoma, osteoarthritis,and rheumatoid arthritis. WBC 5.8 hemoglobin 12.5 hematocrit 36.5 platelets 210, sodium 134, potassium 3.7, sodium 134, potassium 3.7 BUN 29 creatinine 2.21 glucose 94 lactic acid 1.8 total bili 0.5 AST 11 ALT 20 troponin 12.4, CRP 15.7 UA with a trace of ketone ,blood, and bacteria, occult blood positive, positive for cocaine and cannabis, C diff negative for toxins, EKG sinus rhythm with a heart rate of 87. patient will discharge home today he was instructed to follow up with a GI specialist due to a positive occult blood patient is not actively bleeding at the time of discharge. Patient was given instruction on preventing dehydration. Patient denies cp, sob, palpitation, constipation, lightheadness, headache, dizziness or chills and fevers. <CHAI Hall - Last Filed: 07/10/21 12:55> [facility] Past Medical History Medical History: Medical History Anxiety Atrial fibrillation CKD (chronic kidney disease), stage III Cocaine abuse Drug abuse GERD (gastroesophageal reflux disease) HTN (hypertension) Hyperlipidemia Lipoma Neuropathy Osteoarthritis of right knee Renal cell carcinoma Rheumatoid arthritis <CHAI Hall - Last Filed: 07/10/21 12:55> Surgical History Surgical History: Surgical History History of appendectomy History of nephrectomy, left History of tonsillectomy and adenoidectomy <CHAI Hall - Last Filed: 07/10/21 12:55> Family History Family History: Family History Father CAD (coronary artery disease) Mother Cancer Other Heart disease Hypertension <Jennifer AlmendarezCHAI Hart - Last Filed: 07/10/21 12:55> Social History Social History: Social History Smoking status: Never smoker Second hand tobacco smoke exposure: Yes Alcohol intake: former Substance use: current Substance use type: marijuana and crack/cocaine Other substance usage details: States he does it when he feels like it. Last use: 11/27/2020 Gender identity (if verbalized by the patient): Male Sexual Orientation (if Verbalized by the Patient): Straight or Heterosexual Spiritual care concerns: No <CHAI Hall - Last Filed: 07/10/21 12:55> Same Day Admit/Disch: Med Pre-admit Medications Home Medications: Home Medications Medication Instructions Recorded Confirmed Type lovastatin 40 mg tablet See Rx Instructions .ROUTE 02/12/21 07/09/21 Rx .COMPLEX #30 tablet hydroxychloroquine 200 mg tablet See Rx Instructions .ROUTE 03/19/21 07/09/21 Rx .COMPLEX #60 tablet sertraline 50 mg tablet See Rx Instructions .ROUTE 04/03/21 07/09/21 Rx .COMPLEX #30 tablet lisinopril 5 mg tablet See Rx Instructions .ROUTE 04/05/21 07/09/21 Rx .COMPLEX #30 tablet risperidone 0.5 mg tablet See Rx Instructions .ROUTE 04/05/21 07/09/21 Rx .COMPLEX #30 tablet apixaban 5 mg tablet See Rx Instructions .ROUTE 04/09/21 07/09/21 Rx .COMPLEX #60 tablet prednisone 5 mg tablet 5 mg PO DAILY #30 tablet 04/16/21 07/09/21 Rx gabapentin 300 mg capsule See Rx Instructions .ROUTE 04/17/21 07/09/21 Rx .COMPLEX #180 cap acetaminophen 500 mg tablet 500 mg PO Q6H PRN #90 tablet 05/22/21 07/09/21 Rx magnesium o
[2021-07-10] MEDS: cloNIDine HCL 0.1 MG TABLET PO (11:20)
[2021-07-10 11:51] VITALS: BP 137/77; PULSE 86; RESP 16; TEMP 36.4; O2SAT 98
--- NOTE | 2021-07-10 12:54 | PC.NURSE ---
Pt discharged to home with stable VS. Discharge instructions given to pt, medications reviewed. Pt instructed to return to ER if he developes a fever, or worsening diarrhea. Pt verbalized understanding of all instructions.
--- NOTE | 2021-07-13 10:05 | PC.NURSE ---
Unable to contact for discharge call back.
== END 2021-07-10 12:25 | disposition home or self-care (01) ==
LOC: CHSED 19:02 → CHS2ND 07-10 07:38
PROVIDERS: Admitting Provider Emergency Medicine; Emergency Provider Emergency Medicine; PCP Family Medicine; Visit Provider Emergency Medicine
DX: U07.1 COVID-19 (principal); E86.0 Dehydration; I48.20 Chronic atrial fibrillation, unspecified; I12.9 Hypertensive chronic kidney disease with stage 1 through stage 4 chronic kidney disease, or unspecified chronic kidney disease; N18.9 Chronic kidney disease, unspecified; N18.30 Chronic kidney disease, stage 3 unspecified; E78.5 Hyperlipidemia, unspecified; G62.9 Polyneuropathy, unspecified; K21.9 Gastro-esophageal reflux disease without esophagitis; M06.9 Rheumatoid arthritis, unspecified; R19.5 Other fecal abnormalities; F14.10 Cocaine abuse, uncomplicated; F41.9 Anxiety disorder, unspecified; Z85.528 Personal history of other malignant neoplasm of kidney; Z90.5 Acquired absence of kidney; Z79.899 Other long term (current) drug therapy
CPT/HCPCS: 36415; 80048; 80053; 80307; 81001; 82272; 83605; 83690; 83735; 84484; 85025; 86140; 87040; 87045; 87269; 87272; 87324; 87427; 93005; 96361; 96374; 99285; A9270; G0378; J2405; J7030; J7512

== ENCOUNTER 2021-08-26 20:30 | Emergency (ER) | payer OTHER, SELFPAY ==
--- NOTE | ~2021-08-26 | XR_ITS ---
EXAMINATION: XR chest 1V portable DATE: 08/26/2021 21:58 INDICATION: Chest pain TECHNIQUE: frontal view of the chest was obtained. COMPARISON: Chest radiograph dated 01/18/[address] dated 07/03/2021 FINDINGS: Persistent indeterminate nodule at the lingula. No pulmonary edema, pleural effusion or pneumothorax. The cardiomediastinal silhouette is normal. IMPRESSION: 1. No acute cardiopulmonary disease. 2. Persistent indeterminate nodule at the lingula which could be granulomatous disease or malignant. Reviewed, dictated and finalized at location A.
--- NOTE | ~2021-08-26 | CT_ITS ---
EXAMINATION: CT abdomen pelvis w con DATE: 08/26/2021 21:58 INDICATION: Chest pain, reflux and nausea. TECHNIQUE: Computed tomography (CT) of the abdomen and pelvis was performed without intravenous contr ast. The dose-length product was 1262.64 mGy-cm. COMPARISON: None. FINDINGS: There is a 1.5 x 1.1 cm nodule in the lingula. Slightly increased compared with prior exami nation when it measured 1.5 x 0.9 cm. There are additional smaller nodules in the lower lobes which a re slightly increased in size. There are patchy groundglass opacities in the lower lungs. No signific ant pleural or pericardial effusion. Heart size is normal. No significant vascular abnormality. Fatty infiltration of the liver. Gallbladder is present. The spleen, pancreas, right adrenal gland ar e unremarkable. There is a right renal cyst. Status post left nephrectomy. Nonobstructive bowel gas p attern. There is a stable small sclerotic lesion of L1, likely bone island. IMPRESSION: 1. Slightly increased size of pulmonary nodules in the lung bases, consistent with metastatic disease . 2: No acute abdominal abnormality. Reviewed, dictated and finalized at location B. IMPRESSION: 1. Slightly increased size of pulmonary nodules in the lung bases, consistent w ith metastatic disease. 2: No acute abdominal abnormality.
[2021-08-26 20:32] VITALS: BP 115/72; PULSE 115; RESP 16; TEMP 37.1; O2SAT 99
--- NOTE | 2021-08-26 20:37 | ECG_ITS ---
Measurements Intervals [place] Rate: 103 P: 19 VT: 137 QRS: 16 QRSD: 89 T: 30 QT: 319 QTc: 418 Interpretive Statements SINUS TACHYCARDIA WITH OCCASIONAL SUPRAVENTRICULAR PREMATURE COMPLEXES ABNORMAL RHYTHM ECG COMPARED TO ECG 07/09/2021 21:13:54 SINUS TACHYCARDIA NOW PRESENT Electronically Signed On 08-27-2021 14:36:34 CDT by Wesley Dolan M.D.
--- NOTE | 2021-08-26 20:53 | ED.GENADULT ---
HPI - General Adult General Chief complaint: Unspecified Stated complaint: nausea, body aches Time Seen by Provider: 08/26/21 20:32 Source: patient, EMS and RN notes reviewed Mode of arrival: EMS Limitations: no limitations History of Present Illness Onset (ago): day(s) (3) Location: upper extremity and lower extremity Severity: moderate Severity scale (1-10): 7 Quality: aching and dull Pain Consistency: constant Relieving factors: none Exacerbating factors: none Associated symptoms: nausea/vomiting Treatments prior to arrival: other (tylenol) Related Data Allergies Allergy/AdvReac Type Severity Reaction Status Date / Time No Known Allergies Allergy Verified 08/26/21 20:43 Review of Systems Review of Systems: All systems reviewed & are unremarkable except as noted in HPI and below Constitutional: Constitutional: Reports no additional constitutional complaints and Reports body ache(s) Eyes: Eyes: Reports as per HPI PMFSH Past Medical History Medical History Anxiety Atrial fibrillation CKD (chronic kidney disease), stage III Cocaine abuse Drug abuse GERD (gastroesophageal reflux disease) HTN (hypertension) Hyperlipidemia Lipoma Neuropathy Osteoarthritis of right knee Renal cell carcinoma Rheumatoid arthritis Surgical History Surgical History History of appendectomy History of nephrectomy, left History of tonsillectomy and adenoidectomy Family History Family History Father CAD (coronary artery disease) Mother Cancer Other Heart disease Hypertension Social History Social History Second hand tobacco smoke exposure: Yes Alcohol intake: former Substance use: current Substance use type: marijuana and crack/cocaine Other substance usage details: States he does it when he feels like it. Last use: 11/27/2020 Gender identity (if verbalized by the patient): Male Sexual Orientation (if Verbalized by the Patient): Straight or Heterosexual Spiritual care concerns: No Exam Const: General: cooperative, no acute distress, alert and uncomfortable Orientation/consciousness: patient oriented x3 Limitations: no limitations HENMT: Head: normal to inspection and normocephalic Ears: hearing grossly normal bilaterally, external ears normal, TM's normal bilaterally, EAC's normal and hearing grossly impaired General nose exam: Normal external nose present and Normal nares present Face and sinus: normal facial exam and sinuses nontender Mouth: Yes Normal oral and palatal mucosa present, Yes lip normal, Yes tongue normal, Yes oropharynx normal and Yes moist mucous membranes Eyes: General: appearance normal, both eyes and all related structures EOM: EOMs intact bilaterally Neck: Neck: normal visual inspection, full ROM, no lymphadenopathy and no meningeal signs Chest: Chest palpation & inspection: normal inspection of the chest and normal palpation of entire chest wall Resp: Effort & Inspection: normal respiratory effort and able to speak in complete sentences Auscultation: clear to auscultation bilaterally Cardio: Jugular venous distension: no JVD Rate: regular rate and tachycardic Rhythm: regular rhythm Peripheral pulses: Peripheral pulses 2+ throughout GI: Inspection: normal to inspection GI Palp: Yes abdominal tenderness (minimal generalized) Auscultation: normal bowel sounds : General: Yes bladder normal to inspection, Yes bladder normal to palpation and Yes no CVA tenderness Back/Spine/Pelvis: Back: no CVA tenderness Thoracic/Lumbar Spine: thoracic and lumbar spine normal to inspection Skin: General skin exam: normal color and turgor normal Neuro: General: oriented to person and patient oriented x3 Cranial nerves: Yes CN's II-XII intact bilaterally, Yes Intact
[2021-08-26] MEDS: SODIUM CHLORIDE 0.9% IV 1,000 ML 999 ML IV CONT (21:02)
[2021-08-26] MEDS: KETOROLAC (*BKC) 60 MG/2 ML VIAL IM (21:03)
[2021-08-26] MEDS: ONDANSETRON INJ 4 MG/2 ML VIAL IV PUSH (21:05)
[2021-08-26] MEDS: PANTOPRAZOLE SODIUM IV 40 MG VIAL IV PUSH (21:06)
[2021-08-26 21:16] LABS: Basophils Absolute Auto 0.05 K/mm3 (0.00-0.10); Basophils Percent Auto 0.4 % (0.0-1.0); Eosinophils Absolute Auto 0.09 K/mm3 (0.02-0.50); Eosinophils Percent Auto 0.8 % (1.0-6.0); Hematocrit 35.7 % (40.0-54.0); Hemoglobin 11.4 g/dL (14.0-18.0); Immature Granulocyte Absolute 0.18 K/mm3 (0.00-0.00); Immature Granulocyte Percent A 1.5 % (0.0-0.0); Lymphocytes Absolute Auto 0.85 K/mm3 (1.10-4.50); Lymphocytes Percent Auto 7.1 % (18.0-42.0); Mean Corpuscular HGB Conc 31.9 g/dL (32.0-36.0); Mean Corpuscular Hemoglobin 31.7 pg (27.0-31.0); Mean Corpuscular Volume 99.2 fL (78.0-102.0); Monocytes Absolute Auto 0.94 K/mm3 (0.10-0.90); Monocytes Percent Auto 7.9 % (2.0-11.0); Neutrophils Absolute Auto 9.8 K/mm3 (1.7-7.2); Neutrophils Percent Auto 82.3 % (50.0-70.0); Platelet Count Result 296 K/mm3 (150-420); Red Cell Distribution Width 14.6 % (11.6-14.4); White Blood Count 11.9 K/mm3 (4.8-10.8)
[2021-08-26 21:34] LABS: Alanine Aminotransferase 27 U/L (16-63); Albumin Level 2.6 g/dL (3.4-5.0); Alkaline Phosphatase 73 U/L (46-116); Anion Gap 18 mmol/L (8-16); Aspartate Amino Transferase 16 U/L (15-37); Bilirubin,Total 0.7 mg/dL (0.00-1.00); Blood Urea Nitrogen 28 mg/dL (7-18); Calcium 8.8 mg/dL (8.5-10.1); Carbon Dioxide 14 mmol/L (21-32); Chloride 98 mmol/L (98-108); Estimated Glomerular Filt Rate 31; Ethanol 4 mg/dL (0-6); Glucose 108 mg/dL (70-99); Lactic Acid Reflex 1.6 mmol/L (0.4-2.0); Lipase 143 U/L (73-393); Osmolality Calculated 276 mOsm/kg (285-295); Potassium 4.2 mmol/L (3.5-5.1); Sodium 130 mmol/L (136-145); Total Protein 7.3 g/dL (6.4-8.2); Troponin I 10.3 ng/L (0.00-60.4)
[2021-08-26 22:02] VITALS: BP 111/79; PULSE 95; RESP 12; O2SAT 95
[2021-08-26 22:51] LABS: Add Urine Microscopic? YES; Appearance Urine Clear (Clear); Bilirubin Urine Negative (Negative); Blood Urine Negative (Negative); Glucose Urine UA Negative (Negative); Ketones Urine Negative (Negative); Leukocyte Esterase Ur Negative (Negative); Nitrate Urine Negative (Negative); Protein Urine Trace (Negative); Specific Grav Ur >= 1.030 (1.010-1.020); Urobilinogen Urine 0.2 mg/dL (0.2-1.0); pH Urine 5.5 (5.0-8.0)
[2021-08-26 22:57] LABS: Amphetamine Screen Urine Negative (Negative); Barbiturate Screen Urine Negative (Negative); Benzodiazepines Screen Urine Negative (Negative); Cannabinoid Screen Urine Positive (Negative); Cocaine Screen Urine Positive (Negative); Methadone Screen Urine Negative (Negative); Opiate Screen Urine Negative (Negative); Phencyclidine Screen Urine Negative (Negative)
[2021-08-26 23:03] LABS: Color Urine Dark Yellow (Yellow)
[2021-08-26 23:04] LABS: Amorphous Sediment Urine Moderate; Bacteria Urine 1+ /hpf; Mucus Urine Few /lpf; RBC Urine 0-2 /hpf (0-2); Squamous Epithelial Cell Urine Few /hpf (Few); WBC Urine 0-3 /hpf (0-3)
[2021-08-26 23:08] VITALS: BP 90/67; PULSE 90; RESP 20; O2SAT 98
[2021-08-26 23:32] VITALS: BP 115/75; PULSE 90; RESP 16; TEMP 36.6; O2SAT 96
== END 2021-08-26 23:37 | disposition home or self-care (01) ==
PROVIDERS: Emergency Provider Emergency Medicine; PCP Family Medicine
DX: K52.9 Noninfective gastroenteritis and colitis, unspecified (principal); F14.10 Cocaine abuse, uncomplicated; M79.18 Myalgia, other site
CPT/HCPCS: 36415; 71045; 74177; 80053; 80307; 81001; 83605; 83690; 84484; 85025; 93005; 96361; 96372; 96374; 96375; 99284; C9113; J1885; J2405; J7030; Q9967

== ENCOUNTER 2021-09-01 11:33 | Emergency (ER) | payer OTHER, SELFPAY ==
--- NOTE | ~2021-09-01 | CT_ITS ---
EXAMINATION: CT abdomen pelvis w con DATE: 09/01/2021 13:20 INDICATION: Diarrhea for one week. TECHNIQUE: Computed tomography (CT) of the abdomen and pelvis was performed without intravenous contr ast. The dose-length product was 1390.05 mGy-cm. COMPARISON: Comparison to multiple prior studies sequentially, with oldest reviewed study dated 01/25. . FINDINGS: Enlarging lingular nodule measuring 1.6 x 1.1 cm compared with 1.5 x 0.9 cm on 07/03/2021. T here is dependent atelectasis. No significant vascular abnormality. Status post left nephrectomy. The liver, spleen, right adrenal g land are unremarkable. There is a low-density lesion in the right kidney measuring 11 mm, likely chanelle gn cysts. There is a 2 mm nonobstructing right renal stone. Nonobstructive bowel gas pattern. There a re appendectomy clips. No free air or free fluid. Gallbladder is present. No lymphadenopathy. Colonic diverticulosis without evidence for diverticulitis. There are degenerative changes of the hips. Stab le benign bone island of L1. IMPRESSION: 1. No acute abdominal abnormality. 2: Enlarging lingular nodule measuring 1.6 x 1.1 cm, suspicious for malignancy. Reviewed, dictated and finalized at location A. IMPRESSION: 1. No acute abdominal abnormality. 2: Enlarging lingular nodule measuring 1.6 x 1.1 cm, suspicious for malignancy .
[2021-09-01 11:52] VITALS: BP 122/97; PULSE 111; RESP 20; TEMP 36.7; O2SAT 100
--- NOTE | 2021-09-01 11:52 | ED.NAVMDI ---
HPI - Nausea/Vomiting/Diarrhea General Chief complaint: Nausea/Vomiting/Diarrhea Stated complaint: ambulance Time Seen by Provider: 09/01/21 12:49 Source: patient and EMS Mode of arrival: EMS Limitations: no limitations History of Present Illness HPI Narrative: patient presents via EMS he is a 56-year-old gentleman with history of drug abuse for pain/ marijuana with history of hypertension, atrial fibrillation rheumatoid arthritis. Patient presents with some multiple episodes of nausea and vomiting with episodes of diarrhea and abdominal discomfort and pain. Patient denies any fever chills no shortness of breath no chest pain no flank pain no dysuria or hematuria. MD elicited complaint: nausea, vomiting, diarrhea and abdominal pain Pertinent past history: cyclical vomiting Onset (ago): day(s) Description of vomiting: watery Description of diarrhea: semi-solid Associated abdominal pain: Yes Location of pain: diffuse Severity: moderate Quality: cramping Related Data Home Medications Medication Instructions Recorded Confirmed acetaminophen 500 mg PO Q6H PRN 09/01/21 09/01/21 apixaban [Eliquis] 5 mg PO BID 09/01/21 09/01/21 gabapentin 900 mg PO BID 09/01/21 09/01/21 hydroxychloroquine 200 mg PO BID 09/01/21 09/01/21 lisinopril 5 mg PO DAILY 09/01/21 09/01/21 lovastatin 40 mg PO DAILY 09/01/21 09/01/21 prednisone 5 mg PO DAILY 09/01/21 09/01/21 risperidone 0.5 mg PO DAILY 09/01/21 09/01/21 Allergies Allergy/AdvReac Type Severity Reaction Status Date / Time No Known Allergies Allergy Verified 09/01/21 11:58 Review of Systems Review of Systems: All systems reviewed & are unremarkable except as noted in HPI and below PMFSH Past Medical History Medical History Anxiety Atrial fibrillation CKD (chronic kidney disease), stage III Cocaine abuse Drug abuse GERD (gastroesophageal reflux disease) HTN (hypertension) Hyperlipidemia Lipoma Neuropathy Osteoarthritis of right knee Renal cell carcinoma Rheumatoid arthritis Surgical History Surgical History History of appendectomy History of nephrectomy, left History of tonsillectomy and adenoidectomy Family History Family History Father CAD (coronary artery disease) Mother Cancer Other Heart disease Hypertension Social History Social History Second hand tobacco smoke exposure: Yes Alcohol intake: former Substance use: current Substance use type: marijuana and crack/cocaine Other substance usage details: States he does it when he feels like it. Last use: 11/27/2020 Gender identity (if verbalized by the patient): Male Sexual Orientation (if Verbalized by the Patient): Straight or Heterosexual Spiritual care concerns: No Exam Const: General: no acute distress Orientation/consciousness: patient oriented x3 HENMT: Head: normal to inspection Eyes: Pupils: Equal, round and reactive pupils present EOM: EOMs intact bilaterally Neck: Neck: normal visual inspection, no lymphadenopathy and no meningeal signs Chest: Chest palpation & inspection: normal inspection of the chest Resp: Effort & Inspection: normal respiratory effort Auscultation: clear to auscultation bilaterally Cardio: Rate: regular rate Rhythm: regular rhythm GI: GI Palp: Yes Soft to palpation and Yes Tenderness to palpation present (GI) ( Diffusely tender) : Testes: Testes normal Back/Spine/Pelvis: Back: no CVA tenderness Skin: General skin exam: normal color Rashes: no rashes Neuro: General: patient oriented x3 Extrem: General: normal to inspection and no pedal edema Psych: Mental Status: mental status grossly normal Course Course Emergency Course: CT scan abdomen pelvis with contrast reviewed, the patient had blood work that was rev
[2021-09-01] MEDS: ONDANSETRON INJ 4 MG/2 ML VIAL IV PUSH (12:12)
[2021-09-01] MEDS: SODIUM CHLORIDE 0.9% IV 1,000 ML 999 ML IV CONT (12:12)
[2021-09-01 12:17] LABS: Hematocrit 37.4 % (40.0-54.0); Hemoglobin 12.5 g/dL (14.0-18.0); Mean Corpuscular HGB Conc 33.4 g/dL (32.0-36.0); Mean Corpuscular Hemoglobin 31.6 pg (27.0-31.0); Mean Corpuscular Volume 94.4 fL (78.0-102.0); Mean Platelet Volume 8.8 fl (8.7-11.0); Platelet Count Result 429 K/mm3 (150-420); Red Blood Count 3.96 M/mm3 (4.70-6.10); Red Cell Distribution Width 14.5 % (11.6-14.4); White Blood Count 12.4 K/mm3 (4.8-10.8)
[2021-09-01 12:19] LABS: Add Urine Microscopic? YES; Appearance Urine Clear (Clear); Bilirubin Urine 2+ (Negative); Blood Urine Negative (Negative); Color Urine Yellow (Yellow); Glucose Urine UA Negative (Negative); Ketones Urine Trace (Negative); Leukocyte Esterase Ur Negative (Negative); Nitrate Urine Negative (Negative); Protein Urine 1+ (Negative); Specific Grav Ur >= 1.030 (1.010-1.020); Urobilinogen Urine 0.2 mg/dL (0.2-1.0); pH Urine 5.5 (5.0-8.0)
[2021-09-01 12:26] LABS: Bacteria Urine Trace /hpf; Mucus Urine Few /lpf; RBC Urine None seen /hpf (0-2); Squamous Epithelial Cell Urine Occasional /hpf (Few); WBC Urine None seen /hpf (0-3)
[2021-09-01 12:28] LABS: Amphetamine Screen Urine Negative (Negative); Barbiturate Screen Urine Negative (Negative); Benzodiazepines Screen Urine Negative (Negative); Cannabinoid Screen Urine Positive (Negative); Cocaine Screen Urine Positive (Negative); Methadone Screen Urine Negative (Negative); Opiate Screen Urine Negative (Negative); Phencyclidine Screen Urine Negative (Negative)
[2021-09-01 12:29] LABS: Band Neutrophils Percent 0 % (0-6); Eosinophils Absolute Manual 0.12 K/mm3 (0.02-0.5); Eosinophils Percent Manual 1 % (1-6); Lymphocytes Absolute Manual 0.99 K/mm3 (1.1-4.5); Lymphocytes Percent Manual 8 % (18-44); Monocytes Absolute Manual 0.62 K/mm3 (0.1-0.90); Monocytes Percent Manual 5 % (3-9); Neutrophils Absolute Manual 10.66 K/mm3 (1.3-6.7); Neutrophils Percent Manual 86 % (46-73); Platelet Estimate Increased (Adequate); Total Cells Counted 100
[2021-09-01 12:33] LABS: Lipase 177 U/L (73-393)
[2021-09-01 12:33] LABS: Alanine Aminotransferase 35 U/L (16-63); Albumin Level 2.8 g/dL (3.4-5.0); Alkaline Phosphatase 72 U/L (46-116); Anion Gap 17 mmol/L (8-16); Aspartate Amino Transferase 15 U/L (15-37); Bilirubin,Total 0.5 mg/dL (0.00-1.00); Blood Urea Nitrogen 26 mg/dL (7-18); Calcium 9.5 mg/dL (8.5-10.1); Carbon Dioxide 19 mmol/L (21-32); Chloride 97 mmol/L (98-108); Estimated CRCL calculation 42 ml/min; Estimated Glomerular Filt Rate 33; Glucose 114 mg/dL (70-99); Osmolality Calculated 281 mOsm/kg (285-295); Sodium 133 mmol/L (136-145)
[2021-09-01 12:39] LABS: Lactic Acid Reflex 1.4 mmol/L (0.4-2.0)
[2021-09-01 14:01] VITALS: BP 115/93; PULSE 99; RESP 20; TEMP 36.6; O2SAT 95
--- NOTE | 2021-09-06 14:14 | PC.NURSE ---
Attempted to call pt at [phone] to inform of positive blood cultures and need for antibiotics. Pt did not answer left message to return call to ED. Antibiotics called in to pharmacy Bactrim DS bid x10 days per Tiana Sanchez.
--- NOTE | 2021-09-06 16:46 | PC.NURSE ---
rn spoke with patient about culture report, patient made aware of antibiotics called into [facility] in [place], patient is going to go cotton picker tonight and get started on them.
== END 2021-09-01 14:05 | disposition home or self-care (01) ==
PROVIDERS: Emergency Provider Emergency Medicine
DX: R11.10 Vomiting, unspecified (principal)
CPT/HCPCS: 36415; 74177; 80053; 80307; 81001; 83605; 83690; 85025; 87040; 87147; 87186; 96361; 96374; 99284; J2405; J7030; Q9967

== ENCOUNTER 2021-09-03 11:15 | Emergency (ER) | payer OTHER, SELFPAY ==
--- NOTE | ~2021-09-03 | XR_ITS ---
XR chest 1V portable 09/03/2021 12:39 Indication: Chest pain, nausea and vomiting Procedure: AP portable chest Comparison: 08/26/2021 Findings: Subtle bibasilar infiltrates may represent atelectasis or developing pneumonia. Shallow ins piration. No pleural effusion, edema or pneumothorax. Heart size normal. Impression: 1: Subtle bibasilar infiltrates may represent atelectasis or developing pneumonia. Reviewed, dictated and finalized at location A. Impression: 1: Subtle bibasilar infiltrates may represent atelectasis or developing pneumon ia.
[2021-09-03 11:15] VITALS: BP 106/73; PULSE 113; RESP 20; TEMP 36; O2SAT 99
--- NOTE | 2021-09-03 11:25 | ED.NAVMDI ---
HPI - Nausea/Vomiting/Diarrhea General Chief complaint: Nausea/Vomiting/Diarrhea Stated complaint: ambulance Time Seen by Provider: 09/03/21 11:26 Source: patient Mode of arrival: EMS History of Present Illness HPI Narrative: 56-year-old male history polysubstance abuse obesity, atrial fibrillation on Eliquis cell carcinoma status post left nephrectomy, hypertension, rheumatoid arthritis, pulmonary nodules presents to the ER with -- diffuse abdominal pain off and on for the past 1 week -- nausea with 1 episode of vomiting this morning -- 1 episode of loose stool this morning no fever. No hematemesis melena. The patient presented to the ER on 09/01/2021 and 08/26/2021 with similar complaints. Patient had a CT of the abdomen and pelvis which did not show any acute findings. The patient was noted to have an enlarging lingular nodule. the patient is on prednisone 5 mg on a regular basis. while the lab was drawing blood the patient complained of anterior chest pain. MD elicited complaint: nausea, vomiting, diarrhea and abdominal pain Pertinent past history: anorexia Onset (ago): day(s) ( 7 days ago) Description of vomiting: watery Description of diarrhea: watery Associated nausea: Yes Associated abdominal pain: Yes Location of pain: diffuse Pain consistency: intermittent Severity: moderate Quality: aching Exacerbating factors: none Relieving factors: none Associated symptoms: denies other symptoms and anxiety Treatment prior to arrival: immodium and other ( Zofran and amoxicillin) Related Data Home Medications Medication Instructions Recorded Confirmed acetaminophen 500 mg PO Q6H PRN 09/01/21 09/03/21 apixaban [Eliquis] 5 mg PO BID 09/01/21 09/03/21 gabapentin 900 mg PO BID 09/01/21 09/03/21 hydroxychloroquine 200 mg PO BID 09/01/21 09/03/21 lisinopril 5 mg PO DAILY 09/01/21 09/03/21 lovastatin 40 mg PO DAILY 09/01/21 09/03/21 prednisone 5 mg PO DAILY 09/01/21 09/03/21 risperidone 0.5 mg PO DAILY 09/01/21 09/03/21 Allergies Allergy/AdvReac Type Severity Reaction Status Date / Time No Known Allergies Allergy Verified 09/03/21 11:24 Review of Systems Review of Systems: All systems reviewed & are unremarkable except as noted in HPI and below Constitutional: Constitutional: Reports as per HPI and Reports no additional constitutional complaints Eyes: Eyes: Reports as per HPI and Reports no additional eye complaints ENT: Reports system reviewed and no additional complaints, except as documented Cardiovascular: Cardiovascular: Reports as per HPI, Reports no additional cardiovascular complaints and Reports chest pain Respiratory: Respiratory: Reports as per HPI and Reports no additional respiratory complaints Gastrointestinal: Gastrointestinal: Reports as per HPI, Reports no additional gastrointestinal complaints, Reports abdominal pain, Reports diarrhea, Reports nausea and Reports vomiting Genitourinary: Genitourinary: Reports no additional male genitourinary complaints Comments: decreased urine output Musculoskeletal: Musculoskeletal: Reports no additional musculoskeletal complaints and Reports as per HPI Integumentary/Breasts: Skin/Breast: Reports system reviewed and no additional complaints, except as docu Neurologic: Reports system reviewed and no additional complaints, except as documented Psychiatric: Psychiatric: Reports no additional psychiatric complaints and Reports anxiety Endocrine: Endocrine: Reports no additional endocrine complaints Hematologic/Lymphatic: Hematologic/Lymphatic: Reports no additional hematologic/lymphatic complaints Allergic/Immunologic: Allergic/Immunologic: Reports no additional allergic/immunologic complaints [facility] Past Medical History Medical History Anxiety Atrial fibrillation CKD (chronic kidney disease), stage III Cocaine abuse Drug abuse GERD (gastroesophageal reflux disease) HTN (hypertension) Hyperlipidemia
[2021-09-03] MEDS: SODIUM CHLORIDE 0.9% IV 500 ML 999 ML IV CONT (11:53)
[2021-09-03] MEDS: ONDANSETRON INJ 4 MG/2 ML VIAL IV PUSH (11:54)
[2021-09-03] MEDS: HYDROCORTISONE SODIUM SUCCINATE 100 MG/2 ML VIAL IV PUSH (11:56)
--- NOTE | 2021-09-03 12:01 | PC.NURSE ---
lab at bedside drawing blood. pt c/o feeling sternal c/p with resp.
--- NOTE | 2021-09-03 12:02 | ECG_ITS ---
Measurements Intervals [place] Rate: 92 P: 28 OH: 150 QRS: 32 QRSD: 81 T: 28 QT: 343 QTc: 425 Interpretive Statements SINUS RHYTHM WITHIN NORMAL LIMITS COMPARED TO ECG 08/26/2021 20:18:30 NO SIGNIFICANT DIFFERENCE Electronically Signed On 09-03-2021 15:54:37 CDT by Wesley Dolan M.D.
[2021-09-03 12:17] LABS: Basophils Absolute Auto 0.05 K/mm3 (0.00-0.10); Basophils Percent Auto 0.4 % (0.0-1.0); Eosinophils Absolute Auto 0.05 K/mm3 (0.02-0.50); Eosinophils Percent Auto 0.4 % (1.0-6.0); Hematocrit 37.6 % (40.0-54.0); Hemoglobin 12.4 g/dL (14.0-18.0); Immature Granulocyte Absolute 0.36 K/mm3 (0.00-0.00); Immature Granulocyte Percent A 2.9 % (0.0-0.0); Lymphocytes Percent Auto 8.1 % (18.0-42.0); Mean Corpuscular Hemoglobin 31.4 pg (27.0-31.0); Mean Corpuscular Volume 95.2 fL (78.0-102.0); Mean Platelet Volume 8.8 fl (8.7-11.0); Monocytes Absolute Auto 0.58 K/mm3 (0.10-0.90); Monocytes Percent Auto 4.7 % (2.0-11.0); Neutrophils Absolute Auto 10.4 K/mm3 (1.7-7.2); Neutrophils Percent Auto 83.5 % (50.0-70.0); Platelet Count Result 385 K/mm3 (150-420); Red Blood Count 3.95 M/mm3 (4.70-6.10); Red Cell Distribution Width 14.5 % (11.6-14.4); White Blood Count 12.4 K/mm3 (4.8-10.8)
[2021-09-03 12:31] LABS: INR 1.1; Prothrombin Time 11.9 Seconds (9.50-12.10)
[2021-09-03 12:35] LABS: SARS-CoV-2 Ag Negative (Negative)
[2021-09-03 12:40] LABS: Alanine Aminotransferase 23 U/L (16-63); Albumin Level 2.5 g/dL (3.4-5.0); Alkaline Phosphatase 68 U/L (46-116); Anion Gap 18 mmol/L (8-16); Aspartate Amino Transferase 13 U/L (15-37); Bilirubin,Total 0.6 mg/dL (0.00-1.00); Blood Urea Nitrogen 22 mg/dL (7-18); Calcium 8.8 mg/dL (8.5-10.1); Carbon Dioxide 15 mmol/L (21-32); Chloride 97 mmol/L (98-108); Estimated CRCL calculation 39 ml/min; Estimated Glomerular Filt Rate 30; Glucose 91 mg/dL (70-99); Lactic Acid Reflex 2.5 mmol/L (0.4-2.0); Lipase 130 U/L (73-393); Osmolality Calculated 273 mOsm/kg (285-295); Potassium 3.8 mmol/L (3.5-5.1); Sodium 130 mmol/L (136-145); Total Protein 7.4 g/dL (6.4-8.2)
[2021-09-03] MEDS: LACTATED RINGERS 1,000 ML 999 ML IV CONT (13:38)
[2021-09-03 14:27] VITALS: BP 111/65; PULSE 84; RESP 18; TEMP 36.7; O2SAT 99
[2021-09-03 15:13] LABS: Reflex Lactic Acid Yes or No Add Lactic
--- NOTE | 2021-09-03 15:21 | PC.NURSE ---
pt attempted to provide stool specimen. unable to at this time.
[2021-09-03 15:23] LABS: Appearance Urine Clear (Clear); Bilirubin Urine 1+ (Negative); Color Urine Light Yellow (Yellow); Glucose Urine UA Negative (Negative); Ketones Urine 2+ (Negative); Leukocyte Esterase Ur Negative (Negative); Nitrate Urine Negative (Negative); Protein Urine Trace (Negative); Specific Grav Ur >= 1.030 (1.010-1.020); Urobilinogen Urine 0.2 mg/dL (0.2-1.0); pH Urine 5.5 (5.0-8.0)
[2021-09-03 15:34] LABS: Add Urine Microscopic? YES; Bacteria Urine 3+ /hpf; Blood Urine Trace-Intact (Negative); RBC Urine 0-2 /hpf (0-2); Squamous Epithelial Cell Urine Rare /hpf (Few); WBC Urine 0-3 /hpf (0-3)
[2021-09-03 15:59] VITALS: BP 113/64; PULSE 89; RESP 18; TEMP 36.9; O2SAT 98
== END 2021-09-03 16:00 | disposition home or self-care (01) ==
PROVIDERS: Emergency Provider Internal Medicine Critical Care Medicine
DX: K52.9 Noninfective gastroenteritis and colitis, unspecified (principal); N17.9 Acute kidney failure, unspecified; Z20.822 Contact with and (suspected) exposure to COVID-19
CPT/HCPCS: 36415; 71045; 80053; 81001; 83605; 83690; 84484; 85025; 85610; 87426; 93005; 96361; 96374; 96375; 99284; C9803; J1720; J2405; J7040; J7120

== ENCOUNTER 2021-09-09 10:08 | Emergency (ER) | payer OTHER, SELFPAY ==
[2021-09-09] VITALS (8 sets, daily range): BP systolic 72–96; BP diastolic 42–68; PULSE 92–113; RESP 16–22; TEMP 36.3–36.8; O2SAT 97–99
--- NOTE | ~2021-09-09 | XR_ITS ---
EXAMINATION: XR chest 1V portable EXAM DATE: 09/09/2021 14:15 INDICATION: Sepsis. TECHNIQUE: Portable AP frontal chest x-ray was obtained. Comparison is made to prior examination from 09/03/2021. FINDINGS: There is approximately 1 cm left basilar nodule identified, correlate with recent cross-sec tional imaging reports. The lungs are otherwise clear. There are no pleural effusions. Cardiac silh ouette is prominent but magnified on this AP technique. There is no pneumothorax suspected. The mattie zita and soft tissues are unremarkable. IMPRESSION: Left lower lobe nodule. No acute findings. Reviewed, dictated and finalized at location G.
--- NOTE | 2021-09-09 10:15 | ED.NAVMDI ---
HPI - Nausea/Vomiting/Diarrhea General Chief complaint: Nausea/Vomiting/Diarrhea Stated complaint: ambulance Time Seen by Provider: 09/09/21 10:10 Source: patient, EMS and RN notes reviewed Mode of arrival: EMS Limitations: no limitations History of Present Illness MD elicited complaint: nausea, vomiting and diarrhea Pertinent past history: cyclical vomiting Onset (ago): day(s) (3) Description of vomiting: bilious Description of diarrhea: watery Associated nausea: Yes Location of pain: none Exacerbating factors: eating and movement Relieving factors: none Associated symptoms: weakness Related Data Home Medications Medication Instructions Recorded Confirmed acetaminophen 500 mg PO Q6H PRN 09/01/21 09/09/21 apixaban [Eliquis] 5 mg PO BID 09/01/21 09/09/21 gabapentin 900 mg PO BID 09/01/21 09/09/21 hydroxychloroquine 200 mg PO BID 09/01/21 09/09/21 lisinopril 5 mg PO DAILY 09/01/21 09/09/21 lovastatin 40 mg PO DAILY 09/01/21 09/09/21 prednisone 5 mg PO DAILY 09/01/21 09/09/21 risperidone 0.5 mg PO HS 09/01/21 09/09/21 sulfamethoxazole 500 mg PO BID 09/07/21 09/09/21 Allergies Allergy/AdvReac Type Severity Reaction Status Date / Time No Known Allergies Allergy Verified 09/09/21 10:30 Review of Systems Review of Systems: All systems reviewed & are unremarkable except as noted in HPI and below Constitutional: Constitutional: Denies chills and Denies fever(s) Cardiovascular: Cardiovascular: Denies chest pain Respiratory: Respiratory: Denies dyspnea and Denies wheezing Gastrointestinal: Gastrointestinal: Reports as per HPI Genitourinary: Genitourinary: Denies hematuria and Reports oliguria [facility] Past Medical History Medical History Anxiety Atrial fibrillation CKD (chronic kidney disease), stage III Cocaine abuse Depression Drug abuse GERD (gastroesophageal reflux disease) HTN (hypertension) Hyperlipidemia Lipoma Neuropathy Obesity Osteoarthritis of right knee Renal cell carcinoma Rheumatoid arthritis Surgical History Surgical History History of appendectomy History of nephrectomy, left History of tonsillectomy and adenoidectomy Family History Family History Father CAD (coronary artery disease) Mother Cancer Other Heart disease Hypertension Social History Social History Second hand tobacco smoke exposure: Yes Alcohol intake: former Substance use: current Substance use type: marijuana and crack/cocaine Other substance usage details: States he does it when he feels like it. Last use: 11/27/2020 Gender identity (if verbalized by the patient): Male Sexual Orientation (if Verbalized by the Patient): Straight or Heterosexual Spiritual care concerns: No Exam Const: General: no acute distress, alert and ill appearing chronically Nutritional Appearance: obese morbidly obese Orientation/consciousness: patient oriented x3 HENMT: Head: normal to inspection Ears: external ears normal Face and sinus: normal facial exam Eyes: Cornea: corneas normal Pupils: Equal, round and reactive pupils present EOM: EOMs intact bilaterally Neck: Neck: normal visual inspection Resp: Effort & Inspection: normal respiratory effort Auscultation: clear to auscultation bilaterally Cardio: Rate: regular rate Rhythm: regular rhythm GI: GI Palp: Yes Soft to palpation, No Tenderness to palpation present (GI), No Guarding due to palpation present (GI) and No Rebound tenderness present Auscultation: Hypoactive bowel sounds present Other: With movement during exam for his lungs he then began vomiting. Back/Spine/Pelvis: Cervical Spine: cervical ROM normal Thoracic/Lumbar Spine: thoraco-lumbar ROM normal Skin: General skin exam: normal color Rashes: no rashes Neuro: General: pat
[2021-09-09] MEDS: SODIUM CHLORIDE 0.9% IV 1,000 ML 999 ML IV CONT (10:21)
[2021-09-09] MEDS: ONDANSETRON INJ 4 MG/2 ML VIAL IV PUSH (10:42)
[2021-09-09] MEDS: KETOROLAC 15 MG/ML VIAL (*BKC) IV PUSH (10:51)
--- NOTE | 2021-09-09 10:55 | PC.NURSE ---
patient's bp has improved, erp is aware. IVF finished infusing.
--- NOTE | 2021-09-09 11:07 | PC.NURSE ---
assummed care of pt. pt resting on stretcher continues to complain of feeling dizzy. pt denies pain or nausea at this time.
[2021-09-09 11:12] LABS: Basophils Absolute Auto 0.05 K/mm3 (0.00-0.10); Basophils Percent Auto 0.3 % (0.0-1.0); Eosinophils Absolute Auto 0.05 K/mm3 (0.02-0.50); Eosinophils Percent Auto 0.3 % (1.0-6.0); Hematocrit 33.4 % (40.0-54.0); Hemoglobin 10.9 g/dL (14.0-18.0); Immature Granulocyte Absolute 0.36 K/mm3 (0.00-0.00); Immature Granulocyte Percent A 2.3 % (0.0-0.0); Lymphocytes Absolute Auto 1.11 K/mm3 (1.10-4.50); Lymphocytes Percent Auto 7.1 % (18.0-42.0); Mean Corpuscular HGB Conc 32.6 g/dL (32.0-36.0); Mean Corpuscular Hemoglobin 31.5 pg (27.0-31.0); Mean Corpuscular Volume 96.5 fL (78.0-102.0); Mean Platelet Volume 9.4 fl (8.7-11.0); Monocytes Absolute Auto 0.82 K/mm3 (0.10-0.90); Monocytes Percent Auto 5.3 % (2.0-11.0); Neutrophils Absolute Auto 13.2 K/mm3 (1.7-7.2); Neutrophils Percent Auto 84.7 % (50.0-70.0); Platelet Count Result 383 K/mm3 (150-420); Red Blood Count 3.46 M/mm3 (4.70-6.10); Red Cell Distribution Width 14.6 % (11.6-14.4); White Blood Count 15.6 K/mm3 (4.8-10.8)
[2021-09-09 11:29] LABS: Alanine Aminotransferase 21 U/L (16-63); Albumin Level 2.3 g/dL (3.4-5.0); Alkaline Phosphatase 63 U/L (46-116); Anion Gap 16 mmol/L (8-16); Aspartate Amino Transferase 13 U/L (15-37); Bilirubin,Total 0.5 mg/dL (0.00-1.00); Blood Urea Nitrogen 19 mg/dL (7-18); Calcium 8.3 mg/dL (8.5-10.1); Carbon Dioxide 19 mmol/L (21-32); Chloride 97 mmol/L (98-108); Estimated CRCL calculation 26 ml/min; Estimated Glomerular Filt Rate 19; Glucose 122 mg/dL (70-99); Lipase 105 U/L (73-393); Osmolality Calculated 277 mOsm/kg (285-295); Sodium 132 mmol/L (136-145); Total Protein 6.8 g/dL (6.4-8.2)
[2021-09-09] MEDS: LACTATED RINGERS 1,000 ML 999 ML IV CONT (11:44)
[2021-09-09 11:56] LABS: CRP 20.2 mg/dL (0.0-0.9)
--- NOTE | 2021-09-09 12:01 | PC.NURSE ---
UA obtained and sent to lab. pt repositioned and resting on stretcher.
--- NOTE | 2021-09-09 12:16 | PC.NURSE ---
pt sleeping easily awakens b/p remains [address] Marroquin aware no new orders at this time.
--- NOTE | 2021-09-09 12:30 | PC.NURSE ---
IVF infusing without difficulty VSS no c/o nausea or vomiting.
[2021-09-09 12:53] LABS: Amphetamine Screen Urine Negative (Negative); Barbiturate Screen Urine Negative (Negative); Benzodiazepines Screen Urine Negative (Negative); Cannabinoid Screen Urine Positive (Negative); Cocaine Screen Urine Positive (Negative); Methadone Screen Urine Negative (Negative); Opiate Screen Urine Negative (Negative)
[2021-09-09 13:01] LABS: Add Urine Microscopic? YES; Appearance Urine Clear (Clear); Bacteria Urine 3+ /hpf; Bilirubin Urine Negative (Negative); Blood Urine Negative (Negative); Color Urine Yellow (Yellow); Glucose Urine UA Negative (Negative); Ketones Urine Negative (Negative); Leukocyte Esterase Ur Negative LEU/UL (Negative); Nitrate Urine Negative (Negative); Protein Urine 1+ (Negative); RBC Urine 0-2 /hpf (0-2); Specific Grav Ur >= 1.030 (1.010-1.020); Squamous Epithelial Cell Urine Few /hpf (Few); Urobilinogen Urine 0.2 mg/dL (0.2-1.0); pH Urine 5.5 (5.0-8.0)
[2021-09-09] MEDS: SODIUM CHLORIDE 0.9% IV 1,000 ML 150 ML IV CONT (13:01)
[2021-09-09 13:02] LABS: Mucus Urine Moderate /lpf
--- NOTE | 2021-09-09 13:32 | PC.NURSE ---
provider refused admission for [facility] states needs higher level of care. Call placed to warehouse stocker Dylan at [facility], awaiting call back at this time. No change in pts status pt is sleeping.
[2021-09-09 13:52] LABS: Reflex Lactic Acid Yes or No Add Lactic
[2021-09-09 14:41] LABS: Lactic Acid 0.8 mmol/L (0.4-2.0)
--- NOTE | 2021-09-09 14:59 | PC.NURSE ---
1415 pt had small loose stool. pt states that he has had diarrhea for approx 1 week.
--- NOTE | 2021-09-09 15:24 | PC.NURSE ---
EMS contacted for transport.
== END 2021-09-09 15:55 | disposition short-term general hospital (02) ==
PROVIDERS: Emergency Provider Emergency Medicine
DX: I95.9 Hypotension, unspecified (principal); A41.9 Sepsis, unspecified organism; N17.9 Acute kidney failure, unspecified
CPT/HCPCS: 36415; 71045; 80053; 80307; 81001; 83605; 83690; 85025; 86140; 87040; 96361; 96365; 96367; 96375; 99285; J0692; J1885; J2405; J3370; J7030; J7120

== ENCOUNTER 2021-09-09 16:38 | Inpatient (IN) | payer OTHER, SELFPAY ==
--- NOTE | ~2021-09-09 | XR_ITS ---
EXAMINATION: XR chest 1V portable DATE: 09/14/2021 07:27 INDICATION: Pneumothorax post lung biopsy. TECHNIQUE: frontal view of the chest was obtained. COMPARISON: Chest radiograph dated 09/13/21 FINDINGS: No pneumothorax. The biopsied lingular nodule is seen at the lateral left lower lung zone which remai ns concerning for primary bronchogenic carcinoma. No new airspace opacities, pulmonary edema or pleur al effusion. The cardiomediastinal silhouette is normal. IMPRESSION: 1. No pneumothorax or other acute cardiopulmonary disease. 2. Small lingular nodule which is concerning for primary bronchogenic carcinoma. Reviewed, dictated and finalized at location A. IMPRESSION: 1. No pneumothorax or other acute cardiopulmonary disease. 2. Small lingular nodule which is concerning for primary bronchogenic carcinoma .
--- NOTE | ~2021-09-09 | XR_ITS ---
EXAMINATION: XR chest 1V DATE: 09/13/2021 10:38 INDICATION: Status post percutaneous left lung biopsy TECHNIQUE: frontal and lateral views of the chest were obtained. COMPARISON: Chest radiograph dated 09/09/2021 FINDINGS: Very small left apical pneumothorax. The biopsied lingular nodule is visible in the left lower lung z one. No pleural effusion or right-sided pneumothorax. The cardiomediastinal silhouette is normal. Min imal amount of lateral left lower chest related to the biopsy. IMPRESSION: 1. Very small left apical pneumothorax is biopsy of a nodule at the lingula which is suspicious for p rimary bronchogenic carcinoma. Reviewed, dictated and finalized at location A. IMPRESSION: 1. Very small left apical pneumothorax is biopsy of a nodule at the lingula whi ch is suspicious for primary bronchogenic carcinoma.
--- NOTE | ~2021-09-09 | CT_ITS ---
EXAMINATION: CT biopsy lung w/imaging DATE: 09/13/2021 10:34 INDICATION: Lung nodule. TECHNIQUE: The procedure including the risks and benefits was discussed with the patient. Risks discu ssed included infection, approximately 1/20 risk of symptomatic hemorrhage beyond mild hemoptysis, ap proximately 1/3 risk of pneumothorax, and approximately 1/10 risk of pneumothorax severe enough to wa rrant chest tube placement. The patient understood the risks and agreed to proceed. The patient was p laced supine. The skin overlying the lateral left chest was prepped and draped in sterile fashion. Anesthetic was administered with 1% lidocaine subcutaneously. A 19 gauge outer needle was advanced u nder CT guidance to the lesion of interest. A 20 gauge core biopsy needle was then used to obtain a s crisyt core biopsy specimens. Immediately subsequent to the biopsy the patient experienced a vigorous about of coughing which resulted in bending of the guide needle and no other additional biopsy specim ens were able to be obtained. The position of the guide needle had been challenging with very inconsi stent respirations and with patient frequently changing position due to shoulder pain. Should the spe cimen proved nondiagnostic would recommend conscious sedation for any subsequent attempted lung biops y. The needle was removed and the entry site was cleaned and dressed. There were no immediate compli cations. The dose-length product was 314.11 mGy-cm. FINDINGS: CT images demonstrate the outer needle tip adjacent to a 1.6 x 1.1 cm lingular nodule with lobular margins. IMPRESSION: 1. Successful CT-guided biopsy of a 1.6 cm nodule at the lingula.. Reviewed, dictated and finalized at location A.
--- NOTE | 2021-09-09 16:51 | ADMGEN ---
This patient, Jay Arreola, was admitted to Intensive Care Unit-5 at 1637. Patient/family oriented to hospital policies and general routines including ID bracelet, bed and alarms, visiting hours, pain management, procedures, bathroom and other care routines, personal items, smoking policy, room service/diet, and visiting hours. Information on how to activate the Rapid Response Team has been discussed. Patient/Family are encouraged to report perceived risks to care and to ask questions if they do not understand what they are told or what they should do.
--- NOTE | 2021-09-09 17:00 | PM.IMHP ---
H&P: HPI History of Present Illness Date/Time: 09/09/21 17:00 Chief Complaint: Hypotension. Narrative: This is a 56-year-old male with paroxysmal atrial fibrillation, coronary artery disease, hypertension, rheumatoid arthritis, vasculitis, renal cell carcinoma status post left nephrectomy, and C diff who is being admitted to the ICU from the emergency department at the [facility] for further treatment evaluation of hypotension. He reports frequent nausea and intermittent episodes of vomiting over the past several weeks and in fact he was seen in the ER in [place] on August 26, , and for evaluation of the same. He had a CT of the abdomen and pelvis done on 2 of those visits showed no acute findings however did demonstrate an enlarging lingular nodule measuring 1.6 x 1.1 cm suspicious for malignancy. He was treated with supportive care and was discharged with presumed viral gastroenteritis. Unfortunately he continued to have frequent nausea, vomiting, dry heaves, and watery diarrhea (none since arrival to this facility) and he once again return to the emergency department where he was found to have a white blood cell count of 15.6, lactic acid of 4.0, and an increase in creatinine from baseline. Despite receiving 2 L of IV fluid his blood pressures remained soft and with concerns for sepsis (1 of 2 blood cultures drawn on 09/01/2021 showed staphylococcus epidermidis and hominis subspecies) transfer was initiated to our facility. At the time my evaluation he continues to feel bad and complains of diffuse weakness. He has noticed a decrease in urine output in fact he does not think he has urinated at all since arrival to the hospital. He lives alone and does not work and he denies sick contacts. He was recently started on antibiotic for the aforementioned blood culture growth. He denies fever, chills, sweats, chest pain, shortness of breath, hematemesis, melena, and hematochezia. Review of Systems Review of Systems: Twelve systems were reviewed. No recent cold or flu symptoms. No sick contacts. No chest pain, pleuritic pain, shortness of breath, or cough. No dysuria or hematuria. He denies rash. Except as documented, all other systems were reviewed and are negative. [facility] Past Medical History Medical History (Updated 09/09/21 @ 21:14 by Lisa Courtney PA-C) Anxiety Chronic anemia Chronic anticoagulation Chronic kidney disease, stage 3 Clostridium difficile diarrhea Deep venous thrombosis Depression Drug abuse History of marijuana and cocaine abuse Gastroesophageal reflux disease Hyperlipidemia Hypertension Neuropathy Obesity Paroxysmal atrial fibrillation Renal cell carcinoma Status post left nephrectomy. Rheumatoid arthritis Surgical History Surgical History (Updated 09/09/21 @ 20:44 by Lisa Courtney PA-C) History of appendectomy History of cataract extraction History of left nephrectomy History of tonsillectomy and adenoidectomy Family History Family History Father CAD (coronary artery disease) Mother Cancer Other Heart disease Hypertension Social History Social History (Updated 09/09/21 @ 20:58 by Lisa Courtney PA-C) Social History: Surrogate decision maker: Anayeli Al, . Code status: Full code. Smoking status: Never smoker Second hand tobacco smoke exposure: Yes Alcohol intake: former Substance use: current Substance use type: marijuana and crack/cocaine Living arrangements: alone Occupation/Education: unemployed Spiritual care concerns: No Meds Home Medications and Allergies Home Medications Medication Instructions Recorded Confirmed Type acetaminophen 500 mg PO Q6H PRN 09/01/21 09/09/21 History apixaban [Eliquis] 5 mg PO BID 09/01/21 09/09/21 History gabapentin 900 mg PO BID 09/01/21 09/09/21 History hydroxychloroquine 200 mg PO BID 09/01/21 09/09/21 History lisinopril 5
[2021-09-09 17:06] VITALS: BMI 31.9
[2021-09-09 17:14] VITALS: O2SAT 100
[2021-09-09 17:41] VITALS: BP 109/70
[2021-09-09 18:00] VITALS: BP 105/85; PULSE 95; PULSE 96; RESP 26; TEMP 36.2; O2SAT 100
[2021-09-09] MEDS: SODIUM CHLORIDE 0.9% IV 1,000 ML 100 ML IV CONT (18:51)
[2021-09-09 20:00] VITALS: BP 112/67; PULSE 93; RESP 22; TEMP 36.6; O2SAT 99
[2021-09-09 22:00] VITALS: BP 106/71; PULSE 96; RESP 22; O2SAT 99
[2021-09-09 22:11] LABS: Anion Gap 8 mmol/L (8-16); Blood Urea Nitrogen 20 mg/dL (9-20); Calcium 8.1 mg/dL (8.4-10.2); Carbon Dioxide 22 mmol/L (22-30); Chloride 102 mmol/L (98-107); Creatine Kinase 66 U/L (55-170); Estimated CRCL calculation 30 ml/min; Estimated Glomerular Filt Rate 22; Glucose 91 mg/dL (65-110); Magnesium 1.6 mg/dL (1.6-2.3); Potassium 3.8 mmol/L (3.4-5.0); Sodium 132 mmol/L (137-145)
[2021-09-09 22:21] LABS: Iron 22 ug/dL (49-181)
[2021-09-09] MEDS: risperiDONE 0.5 MG TABLET PO (22:25)
[2021-09-09] MEDS: APIXABAN 5 MG TABLET PO (22:25)
[2021-09-09] MEDS: GABAPENTIN 300 MG CAPSULE 900 MG PO (22:26)
[2021-09-09 22:31] LABS: Percent Iron Saturation 10 % (20-50)
[2021-09-09 23:17] LABS: Folic Acid 5.1 ng/mL (2.76->20)
[2021-09-10] VITALS (13 sets, daily range): BP systolic 93–121; BP diastolic 62–87; PULSE 87–102; RESP 22–32; TEMP 36.3–37.7; O2SAT 95–100
[2021-09-10 04:37] LABS: Hematocrit 28.7 % (42.0-52.0); Hemoglobin 9.3 g/dL (14.0-18.0); Mean Corpuscular HGB Conc 32.4 g/dl (32-36); Mean Corpuscular Hemoglobin 30.9 pg (26-34); Mean Corpuscular Volume 95.3 fl (80-100); Mean Platelet Volume 8.8 fl (7.4-10.4); Platelet Count Result 245 k/mm3 (150-375); Red Blood Count 3.01 M/mm3 (4.6-6.20); Red Cell Distribution Width 14.8 % (11.5-14.5); White Blood Count 11.6 K/mm3 (4.5-10.0)
[2021-09-10 04:48] LABS: Alanine Aminotransferase 14 U/L (4-50); Albumin Level 2.9 g/dL (3.5-5.1); Alkaline Phosphatase 62 U/L (38-126); Anion Gap 6 mmol/L (8-16); Aspartate Amino Transferase 20 U/L (17-59); Bilirubin,Total 0.7 mg/dL (0.2-1.3); Blood Urea Nitrogen 20 mg/dL (9-20); Calcium 7.7 mg/dL (8.4-10.2); Carbon Dioxide 23 mmol/L (22-30); Chloride 104 mmol/L (98-107); Creatine Kinase 56 U/L (55-170); Estimated CRCL calculation 35 ml/min; Estimated Glomerular Filt Rate 27; Glucose 90 mg/dL (65-110); Magnesium 1.6 mg/dL (1.6-2.3); Sodium 133 mmol/L (137-145)
[2021-09-10 04:59] LABS: Lactic Acid Reflex 0.6 mmol/L (0.7-2.1)
[2021-09-10] MEDS: SODIUM CHLORIDE 0.9% IV 1,000 ML 100 ML IV CONT ×3 (05:53→20:35)
[2021-09-10] MEDS: hetaSTARCH 6%/NACL 500 ML 250 ML IV CONT (08:20)
[2021-09-10] MEDS: APIXABAN 5 MG TABLET PO ×2 (08:25→20:32)
[2021-09-10] MEDS: HYDROXYCHLOROQUINE SULFATE 200 MG TABLET PO ×2 (08:25→17:23)
[2021-09-10] MEDS: LOVASTATIN 20 MG TABLET 40 MG PO (08:25)
[2021-09-10] MEDS: predniSONE 5 MG TABLET PO (08:25)
[2021-09-10] MEDS: GABAPENTIN 300 MG CAPSULE 900 MG PO ×2 (08:25→17:23)
--- NOTE | 2021-09-10 09:01 | WPDCNINT ---
Assessment and Plan Assessment and plan (1) Sepsis: Code(s): A41.9 - Sepsis, unspecified organism Status: Acute Assessment and Plan: Sepsis could be related to diarrhea,, vomiting, bacteremia -hypotensive at the outside hospital along with lactic acid level of 4.0. Lactic acid is 0.6 this morning. -leukocytosis improving, -patient was started on cefepime and vancomycin (09/09) at the outside hospital, will switch cefepime to Zosyn (09/10) -blood cultures were positive for Staphylococcus epidermidis and hominis (on 09/01 at the outside hospital 1/2 bottles) -repeat blood cultures have been obtained -UA suggestive of UTI, urine cultures have been obtained and pending -a total of 2 L of IV fluids, low urine output, dry oral mucosa -will give more IV fluids in the ICU and continue maintenance IV fluids -will monitor urine output -patient has not required any pressors (2) Acute kidney injury superimposed on chronic kidney disease: Code(s): N17.9 - Acute kidney failure, unspecified; N18.9 - Chronic kidney disease, unspecified Status: Acute Assessment and Plan: Acute on chronic kidney failure, baseline creatinine is around 1.8-2.2 -patient received IV fluids on admission, will give additional fluids in the ICU -continue to monitor urine output, electrolytes and renal function (3) Abnormal urinalysis: Code(s): R82.90 - Unspecified abnormal findings in urine Status: Acute Assessment and Plan: Possible UTI continue antibiotics as above (4) Diarrhea: Qualifiers: Diarrhea type: unspecified type Qualified Code(s): R19.7 - Diarrhea, unspecified Code(s): R19.7 - Diarrhea, unspecified Status: Acute Assessment and Plan: Patient has been complaining of nausea, vomiting, diarrhea, will have GI evaluate the patient -started on Zosyn and discontinued cefepime (5) Bacteremia: Code(s): R78.81 - Bacteremia Status: Acute Assessment and Plan: As above (6) Chronic anemia: Code(s): D64.9 - Anemia, unspecified Status: Acute Assessment and Plan: Hemoglobin is stable, will continue to monitor (7) Paroxysmal atrial fibrillation: Code(s): I48.0 - Paroxysmal atrial fibrillation Status: Acute Assessment and Plan: History of atrial fibrillation, currently in sinus rhythm, rate controlled -continue Eliquis (8) DVT prophylaxis: Code(s): Z29.9 - Encounter for prophylactic measures, unspecified Status: Acute Assessment and Plan: Continue Eliquis (9) Drug abuse: Code(s): F19.10 - Other psychoactive substance abuse, uncomplicated Status: Chronic Assessment and Plan: Have counseled patient on cessation of cocaine and marijuana use, the nausea and the vomiting could be related to marijuana use Additional Plan Discussed with patient updated with his condition and plan of care. He is aware that GI r. Will follow the patient in this admission for his nausea, vomiting and diarrhea Code status: Full code Critical care time spent: Critical care time spent 44 minutes This dictation may have been done utilizing a voice recognition system. Attempts have been made to correct errors. However, there may be uncorrected grammatical, spelling, and recognition errors present. Due to a high probability of clinically significant, life threatening deterioration, the patient required my highest level of preparedness to intervene emergently and I personally spent this critical care time directly and personally managing the patient. This critical care time included obtaining a history; examining the patient; pulse oximetry; ordering and review of studies; arranging urgent treatment with development of a management plan; evaluation of patient's response to treatment; frequent reassessment; and discussions with other providers. It was exclusive of separately billable procedures and treating other patients and
[2021-09-10 09:36] LABS: IFOB Positive Control Positive; Immunochemical Fecal Occult Bl Negative (N)
[2021-09-10 10:08] LABS: Toxigenic C. Diff NEGATIVE (NEGATIVE)
[2021-09-10] MEDS: ONDANSETRON INJ 4 MG/2 ML VIAL IV PUSH (10:28)
--- NOTE | 2021-09-10 10:47 | PM.IMPN ---
Progress Note: A&P Assessment and Plan (1) Sepsis: Code(s): A41.9 - Sepsis, unspecified organism Status: Acute Assessment and Plan: Sepsis could be related to diarrhea,, vomiting, bacteremia -hypotensive at the outside hospital along with lactic acid level of 4.0. Lactic acid is 0.6 this morning. -leukocytosis improving 15 K on admission to 11 K, -patient was started on cefepime and vancomycin (09/09) at the outside hospital, switched to Zosyn from cefepime -blood cultures were positive for Staphylococcus epidermidis and hominis (on 09/01 at the outside hospital 1/2 bottles) -repeat blood cultures have been obtained -UA suggestive of UTI, urine cultures have been obtained and pending -a total of 2 L of IV fluids, low urine output, dry oral mucosa Continue maintenance IV fluids -will monitor urine output -patient did not require any pressors (2) Acute kidney injury superimposed on chronic kidney disease: Code(s): N17.9 - Acute kidney failure, unspecified; N18.9 - Chronic kidney disease, unspecified Status: Acute Assessment and Plan: Acute on chronic kidney failure, baseline creatinine is around 1.8-2.2 admission creatinine of 3.4 -patient received IV fluids on admission -continue to monitor urine output, electrolytes and renal function Creatinine continues to improve down to 2.5 09/10/2021 (3) Abnormal urinalysis: Code(s): R82.90 - Unspecified abnormal findings in urine Status: Acute Assessment and Plan: Possible UTI continue antibiotics as above (4) Diarrhea: Qualifiers: Diarrhea type: unspecified type Qualified Code(s): R19.7 - Diarrhea, unspecified Code(s): R19.7 - Diarrhea, unspecified Status: Acute Assessment and Plan: Patient has been complaining of nausea, vomiting, diarrhea, GI consulted for ongoing nausea vomiting C diff came back negative -started on Zosyn and discontinued cefepime (5) Bacteremia: Code(s): R78.81 - Bacteremia Status: Acute Assessment and Plan: One of 2 blood cultures drawn on 09/01/2021 grew out Staphylococcus epidermidis and hominis sub species, likely contaminant. He was started on Bactrim for this 3 days ago, which we will hold in light of his worsening renal function. Repeat blood cultures no growth to date (6) Chronic anemia: Code(s): D64.9 - Anemia, unspecified Status: Acute Assessment and Plan: Hemoglobin is stable, no signs of active bleeding, Will continue to monitor (7) Paroxysmal atrial fibrillation: Code(s): I48.0 - Paroxysmal atrial fibrillation Status: Acute Assessment and Plan: History of atrial fibrillation, currently in sinus rhythm, rate controlled -continue Eliquis (8) DVT prophylaxis: Code(s): Z29.9 - Encounter for prophylactic measures, unspecified Status: Acute Assessment and Plan: Continue Eliquis (9) Drug abuse: Code(s): F19.10 - Other psychoactive substance abuse, uncomplicated Status: Chronic Assessment and Plan: Have counseled patient on cessation of cocaine and marijuana use, the nausea and the vomiting could be related to marijuana use (10) Nodule of left lung: Code(s): R91.1 - Solitary pulmonary nodule Status: Acute Assessment and Plan: Concerning for malignancy. Patient does have a history of renal cell carcinoma status post left nephrectomy. Will likely need an outpatient PET-CT and close follow-up. (11) Rheumatoid arthritis: Qualifiers: Rheumatoid arthritis location: unspecified site Rheumatoid factor presence: with rheumatoid factor Qualified Code(s): M05.9 - Rheumatoid arthritis with rheumatoid factor, unspecified Code(s): M06.9 - Rheumatoid arthritis, unspecified Status: Chronic Assessment and Plan: Continue hydroxychloroquine and low-dose prednisone. Consider stress dose steroids if blood pressures remain soft. He was few we
--- NOTE | 2021-09-10 12:00 | WPDGICN ---
Assessment and Plan Assessment and plan (1) Vomiting: Code(s): R11.10 - Vomiting, unspecified Status: Acute Assessment and Plan: Patient with recurrent vomiting. The etiology of this likely is multifactorial. Given his drug abuse suspect this is most likely diagnosis. Cyclical vomiting associated with marijuana use is highly likely. Other medical problems may contribute to his vomiting these include his lung lesions which may be tumor versus metastatic disease. Azotemia also could contribute to his vomiting and likewise could be a consequence given diet dehydration. Would recommend stool cultures be considered. After he is hydrated endoscopy could be performed to exclude other organic disease. (2) Acute dehydration: Code(s): E86.0 - Dehydration Status: Acute Assessment and Plan: Patient with azotemia this may represent dehydration given his vomiting. Continued monitoring renal function is advised. (3) Azotemia: Code(s): R79.89 - Other specified abnormal findings of blood chemistry Status: Acute Assessment and Plan: Patient with azotemia suggesting acute kidney injury. Although chronic kidney disease may be underlying nature. He has only 1 kidney after nephrectomy for renal cell carcinoma in the past. (4) Nodule of left lung: Code(s): R91.1 - Solitary pulmonary nodule Status: Acute Assessment and Plan: Nodule of the lung being evaluated by Pulmonary service concern over possible malignancy in attempts to biopsies have been attempted the past continue pulmonary follow-up in eventual biopsy of this lesion is advised. Additionally CT scan suggests multiple small lesions which have been read as possible metastatic disease although ither etiologies are possible . continue pulmonary follow-up encourage period (5) Chronic anticoagulation: Code(s): Z79.01 - senior living (current) use of anticoagulants Status: Acute (6) Paroxysmal atrial fibrillation: Code(s): I48.0 - Paroxysmal atrial fibrillation Status: Acute (7) Chronic kidney disease, stage 3: Code(s): N18.30 - Chronic kidney disease, stage 3 unspecified Status: Acute (8) C. difficile enteritis: Code(s): A04.72 - Enterocolitis due to Clostridium difficile, not specified as recurrent Status: Acute Assessment and Plan: patient has a history of C diff now resolved. Stool cultures reveal no C diff at present. (9) Drug abuse: Code(s): F19.10 - Other psychoactive substance abuse, uncomplicated Status: Chronic (10) Rheumatoid arthritis: Qualifiers: Rheumatoid arthritis location: unspecified site Rheumatoid factor presence: with rheumatoid factor Qualified Code(s): M05.9 - Rheumatoid arthritis with rheumatoid factor, unspecified Code(s): M06.9 - Rheumatoid arthritis, unspecified Status: Chronic (11) Renal cell carcinoma: Code(s): C64.9 - Malignant neoplasm of unspecified kidney, except renal pelvis Status: Acute Assessment and Plan: Patient is status post nephrectomy for renal cell carcinoma. Given the abdomen abnormal radiology interpretation of his chest x-ray and CT scan of the chest. Strongly encouraged biopsy to exclude metastatic disease. GI Consult Note Consult date/time: 09/10/21 12:00 HPI: Jay Arreola is a 56 year old male I am asked to see for recurrent nausea vomiting and diarrhea. Patient states he has had nausea vomiting diarrhea over the last 3 weeks. He has been to the ER at least 3 times. Admitted last evening with azotemia for IV fluid rehydration. Patient has a longstanding history of cocaine abuse, marijuana use. This is continued throughout the last month. Patient has a distant history of renal cell carcinoma for which she has undergone a nephrectomy. Patient has been found to have atrial fibrillation is on chronic Eliquis anticoagulation. additionally patient brumfield
[2021-09-10] MEDS: ACETAMINOPHEN 500 MG TABLET PO (18:31)
[2021-09-10] MEDS: risperiDONE 0.5 MG TABLET PO (20:32)
[2021-09-11] VITALS (7 sets, daily range): BP systolic 101–129; BP diastolic 61–79; PULSE 85–96; RESP 16–24; TEMP 35.8–37.1; O2SAT 97–100
[2021-09-11 04:41] LABS: Basophils Percent Auto 0.3 % (0.2-1.2); Eosinophils Absolute Auto 0.1 K/mm3 (0-0.3); Eosinophils Percent Auto 1.9 % (0-4.4); Hematocrit 26.1 % (42.0-52.0); Hemoglobin 8.5 g/dL (14.0-18.0); Immature Granulocyte Absolute 0.12 K/mm3 (0.00-0.031); Immature Granulocyte Percent A 1.7 % (0-0.5); Lymphocytes Absolute Auto 0.73 K/mm3 (0.9-3.2); Lymphocytes Percent Auto 10.4 % (18.3-44.2); Mean Corpuscular HGB Conc 32.6 g/dl (32-36); Mean Corpuscular Volume 95.3 fl (80-100); Mean Platelet Volume 9.1 fl (7.4-10.4); Monocytes Absolute Auto 0.5 K/mm3 (0.1-0.6); Neutrophils Absolute Auto 5.5 K/mm3 (1.3-6.7); Neutrophils Percent Auto 78.7 % (45.5-73.1); Platelet Count Result 258 k/mm3 (150-375); Red Blood Count 2.74 M/mm3 (4.6-6.20); Red Cell Distribution Width 14.3 % (11.5-14.5)
[2021-09-11 05:04] LABS: Alanine Aminotransferase 14 U/L (4-50); Albumin Level 2.5 g/dL (3.5-5.1); Alkaline Phosphatase 57 U/L (38-126); Anion Gap 4 mmol/L (8-16); Aspartate Amino Transferase 20 U/L (17-59); Bilirubin,Total 0.4 mg/dL (0.2-1.3); Blood Urea Nitrogen 14 mg/dL (9-20); Calcium 7.6 mg/dL (8.4-10.2); Carbon Dioxide 24 mmol/L (22-30); Chloride 107 mmol/L (98-107); Estimated CRCL calculation 44 ml/min; Estimated Glomerular Filt Rate 34; Glucose 89 mg/dL (65-110); Magnesium 1.8 mg/dL (1.6-2.3); Potassium 3.6 mmol/L (3.4-5.0); Sodium 135 mmol/L (137-145)
[2021-09-11] MEDS: ACETAMINOPHEN 500 MG TABLET PO (05:15)
[2021-09-11] MEDS: APIXABAN 5 MG TABLET PO (07:41)
[2021-09-11] MEDS: GABAPENTIN 300 MG CAPSULE 900 MG PO ×2 (07:41→17:36)
[2021-09-11] MEDS: predniSONE 5 MG TABLET PO (07:41)
[2021-09-11] MEDS: LOVASTATIN 20 MG TABLET 40 MG PO (07:41)
[2021-09-11] MEDS: HYDROXYCHLOROQUINE SULFATE 200 MG TABLET PO ×2 (07:41→17:37)
[2021-09-11] MEDS: SODIUM CHLORIDE 0.9% IV 1,000 ML 100 ML IV CONT (07:43)
--- NOTE | 2021-09-11 11:14 | WPDGIPROGNO ---
Progress Note: A&P Assessment and Plan (1) Vomiting: Code(s): R11.10 - Vomiting, unspecified Status: Acute Assessment and Plan: Vomiting appears resolved. He appears to have improved with rehydration. Likely etiology is that of drug abuse. Cyclic vomiting associated with marijuana use is strongly suspected. Patient should avoid cocaine and marijuana. Will consider elective EGD to to exclude organic disease of the upper GI tract but this can be performed electively. May perform tomorrow if he remains in the hospital. (2) Azotemia: Code(s): R79.89 - Other specified abnormal findings of blood chemistry Status: Acute Assessment and Plan: Creatinine improving with rehydration suggesting a component of this is related to dehydration. (3) Nodule of left lung: Code(s): R91.1 - Solitary pulmonary nodule Status: Acute Assessment and Plan: Nodule of the lung described by Radiology as suspicious for malignancy patient should have Pulmonary follow up biopsy. Perhaps this can be done before discharge. He will need to have anticoagulation held. (4) Renal cell carcinoma: Code(s): C64.9 - Malignant neoplasm of unspecified kidney, except renal pelvis Status: Acute Assessment and Plan: Patient has a history of nephrectomy for renal cell carcinoma. (5) Drug abuse: Code(s): F19.10 - Other psychoactive substance abuse, uncomplicated Status: Chronic Assessment and Plan: Patient continues to use marijuana and cocaine. Likely this contributes to ongoing nausea vomiting. The should be discontinued. (6) Rheumatoid arthritis: Qualifiers: Rheumatoid arthritis location: unspecified site Rheumatoid factor presence: with rheumatoid factor Qualified Code(s): M05.9 - Rheumatoid arthritis with rheumatoid factor, unspecified Code(s): M06.9 - Rheumatoid arthritis, unspecified Status: Chronic (7) Chronic anticoagulation: Code(s): Z79.01 - snf (current) use of anticoagulants Status: Acute Subjective Date/time seen: 09/11/21 11:14 patient reports less nausea vomiting today. Denies abdominal pain. No diarrhea since admission to the hospital. Review of Systems Review of Systems: All systems reviewed & are unremarkable except as noted in HPI and below Exam Narrative: Physical exam patient is alert comfortable at rest HEENT exam reveals no icterus. Lungs are clear. Heart without murmur. Abdomen bowel sounds present soft with no localized tenderness. Objective Data Vital Signs Vital Signs: Vital Signs - 24 hr 09/10/21 11:40 09/10/21 12:00 09/10/21 16:00 Temperature 97.9 F 97.4 F L Pulse Rate 96 102 H 92 Respiratory Rate 32 H 32 H Blood Pressure 121/68 94/64 L Pulse Oximetry 95 100 09/10/21 19:53 09/10/21 19:56 09/10/21 20:00 Temperature 98.4 F 98.4 F Pulse Rate 87 87 87 Respiratory Rate 22 H 22 H Blood Pressure 97/62 L Pulse Oximetry 97 97 09/11/21 00:00 09/11/21 04:00 09/11/21 08:00 Temperature 98.3 F 98.4 F 98.7 F Pulse Rate 87 87 87 Respiratory Rate 22 H 22 H 23 H Blood Pressure 101/69 112/77 103/69 Pulse Oximetry 99 99 97 Intake/Output Intake/Output: Intake & Output 09/08/21 09/09/21 09/10/21 09/11/21 23:59 23:59 23:59 23:59 Intake Total 5020 1850 Output Total 2300 1500 Balance 2720 350 Meds/Results Medications: Active Medications Generic Name Dose Route Start Last Admin Trade Name Freq PRN Reason Stop Dose Admin Acetaminophen 500 mg 09/09/21 21:26 09/11/21 05:15 Acetaminophen 500 Mg Tablet PO 500 mg Q6H PRN Administration Pain Apixaban 5 mg 09/09/21 21:35 09/11/21 07:41 Apixaban 5 Mg Tablet PO 5 mg Q12HR DIDI Administration Gabapentin 900 mg 09/09/21 21:35 09/11/21 07:41 Gabapentin 300 Mg Capsule PO 900 mg BID DIDI Administration Hydroxychloroquine Sulfate 200 mg 09/10/21 08:00 09/11/21 07:41
--- NOTE | 2021-09-11 13:24 | P.PNIM_ITS ---
Progress Note: A&P Assessment and Plan (1) Sepsis: Code(s): A41.9 - Sepsis, unspecified organism Status: Acute Assessment and Plan: Sepsis could be related to diarrhea,, vomiting, bacteremia -hypotensive at the outside hospital along with lactic acid level of 4.0. Lactic acid is 0.6 this morning. -leukocytosis improving 15 K on admission to 11 K, -patient was started on cefepime and vancomycin (09/09) at the outside hospital, switched to Zosyn from cefepime -blood cultures were positive for Staphylococcus epidermidis and hominis (on 09/01 at the outside hospital 1/2 bottles) -repeat blood cultures have been obtained -UA suggestive of UTI, urine cultures have been obtained and pending -a total of 2 L of IV fluids, low urine output, dry oral mucosa Continue maintenance IV fluids -will monitor urine output -patient did not require any pressors (2) Acute kidney injury superimposed on chronic kidney disease: Code(s): N17.9 - Acute kidney failure, unspecified; N18.9 - Chronic kidney disease, unspecified Status: Acute Assessment and Plan: Acute on chronic kidney failure, baseline creatinine is around 1.8-2.2 admission creatinine of 3.4 -patient received IV fluids on admission -continue to monitor urine output, electrolytes and renal function Creatinine continues to improve down to 2.5 09/10/2021 back to baseline 09/11/2021 will stop IV fluid (3) Abnormal urinalysis: Code(s): R82.90 - Unspecified abnormal findings in urine Status: Acute Assessment and Plan: Possible UTI continue antibiotics as above (4) Diarrhea: Qualifiers: Diarrhea type: unspecified type Qualified Code(s): R19.7 - Diarrhea, unspecified Code(s): R19.7 - Diarrhea, unspecified Status: Acute Assessment and Plan: Patient has been complaining of nausea, vomiting, diarrhea, GI consulted for ongoing nausea vomiting C diff came back negative -started on Zosyn and discontinued cefepime Stool studies negative CK a, Cryptosporidium and Giardia. Continue to follow stool culture report (5) Bacteremia: Code(s): R78.81 - Bacteremia Status: Acute Assessment and Plan: One of 2 blood cultures drawn on 09/01/2021 grew out Staphylococcus epidermidis and hominis sub species, likely contaminant. He was started on Bactrim for this 3 days ago, which we will hold in light of his worsening renal function. Repeat blood cultures no growth to date Most Likely contamination (6) Chronic anemia: Code(s): D64.9 - Anemia, unspecified Status: Acute Assessment and Plan: Hemoglobin is stable, no signs of active bleeding, Will continue to monitor (7) Paroxysmal atrial fibrillation: Code(s): I48.0 - Paroxysmal atrial fibrillation Status: Acute Assessment and Plan: History of atrial fibrillation, currently in sinus rhythm, rate controlled -continue Eliquis (8) DVT prophylaxis: Code(s): Z29.9 - Encounter for prophylactic measures, unspecified Status: Acute Assessment and Plan: Continue Eliquis (9) Drug abuse: Code(s): F19.10 - Other psychoactive substance abuse, uncomplicated Status: Chronic Assessment and Plan: Have counseled patient on cessation of cocaine and marijuana use, the nausea and the vomiting could be related to marijuana use (10) Nodule of left lung: Code(s): R91.1 - Solitary pulmonary nodule Status: Acute Assessment and Plan: Concerning for malignancy. Patient does have a history of renal cell carcinoma status po
--- NOTE | 2021-09-11 20:44 | PC.NURSE ---
1934 Dr. Morel called and informed of patient taking eliquis. Orders to hold tonight.
[2021-09-11] MEDS: risperiDONE 0.5 MG TABLET PO (21:15)
[2021-09-12] VITALS (11 sets, daily range): BP systolic 96–147; BP diastolic 60–98; PULSE 84–110; RESP 18–31; TEMP 35.8–36.7; O2SAT 97–100
[2021-09-12 05:23] LABS: Basophils Percent Auto 0.4 % (0.2-1.2); Eosinophils Absolute Auto 0.2 K/mm3 (0-0.3); Eosinophils Percent Auto 3.9 % (0-4.4); Hemoglobin 8.4 g/dL (14.0-18.0); Immature Granulocyte Absolute 0.09 K/mm3 (0.00-0.031); Immature Granulocyte Percent A 1.7 % (0-0.5); Lymphocytes Absolute Auto 0.85 K/mm3 (0.9-3.2); Lymphocytes Percent Auto 15.9 % (18.3-44.2); Mean Corpuscular HGB Conc 31.1 g/dl (32-36); Mean Corpuscular Hemoglobin 30.8 pg (26-34); Mean Corpuscular Volume 98.9 fl (80-100); Mean Platelet Volume 9.3 fl (7.4-10.4); Monocytes Absolute Auto 0.5 K/mm3 (0.1-0.6); Neutrophils Absolute Auto 3.7 K/mm3 (1.3-6.7); Neutrophils Percent Auto 69.1 % (45.5-73.1); Platelet Count Result 281 k/mm3 (150-375); Red Blood Count 2.73 M/mm3 (4.6-6.20); Red Cell Distribution Width 14.2 % (11.5-14.5); White Blood Count 5.4 K/mm3 (4.5-10.0)
[2021-09-12 05:38] LABS: Alanine Aminotransferase 27 U/L (4-50); Albumin Level 2.5 g/dL (3.5-5.1); Alkaline Phosphatase 64 U/L (38-126); Anion Gap 3 mmol/L (8-16); Aspartate Amino Transferase 48 U/L (17-59); Bilirubin,Total 0.3 mg/dL (0.2-1.3); Blood Urea Nitrogen 10 mg/dL (9-20); Calcium 7.6 mg/dL (8.4-10.2); Carbon Dioxide 24 mmol/L (22-30); Chloride 108 mmol/L (98-107); Estimated CRCL calculation 49 ml/min; Estimated Glomerular Filt Rate 39; Glucose 82 mg/dL (65-110); Magnesium 1.7 mg/dL (1.6-2.3); Potassium 3.7 mmol/L (3.4-5.0); Sodium 135 mmol/L (137-145)
[2021-09-12] MEDS: HYDROXYCHLOROQUINE SULFATE 200 MG TABLET PO ×2 (08:04→17:07)
[2021-09-12] MEDS: LOVASTATIN 20 MG TABLET 40 MG PO (08:04)
[2021-09-12] MEDS: GABAPENTIN 300 MG CAPSULE 900 MG PO ×2 (08:04→17:07)
[2021-09-12] MEDS: predniSONE 5 MG TABLET PO (08:04)
--- NOTE | 2021-09-12 09:09 | PC.NURSE ---
This patient, Jay Arreola, was transferred to [facility] on 09/12/21 at 0840. Personal belongings sent with patient. Report given to Shasta REED. Appropriate documentation sent with patient.
--- NOTE | 2021-09-12 10:21 | WPDANESEPPF ---
Anes - Initial Pre Proc Eval Procedure: Operation Date: 09/12/21 12:30 Proposed Procedures p Esophagogastroduodenoscopy - Wesley Morel MD Date/Time: 09/12/21 10:21 Surgeon: Jeff Bell MD Pre Op Diagnosis: Renal Failure Patient Data Age: 56 Gender: M Height: 1.78 m Weight: 102.2 kg Last Vital Signs Temp 36.7 C 09/12/21 04:31 Pulse 88 09/12/21 04:31 Resp 22 H 09/12/21 04:31 BP 102/69 09/12/21 04:31 Pulse Ox 97 09/12/21 04:31 Allergies Allergy/AdvReac Type Severity Reaction Status Date / Time No Known Allergies Allergy Verified 09/09/21 10:30 Home Medications Medication Instructions Recorded Confirmed Type acetaminophen 500 mg PO Q6H PRN 09/01/21 09/09/21 History apixaban [Eliquis] 5 mg PO BID 09/01/21 09/09/21 History gabapentin 900 mg PO BID 09/01/21 09/09/21 History hydroxychloroquine 200 mg PO BID 09/01/21 09/09/21 History lisinopril 5 mg PO DAILY 09/01/21 09/09/21 History lovastatin 40 mg PO DAILY 09/01/21 09/09/21 History ondansetron HCl 4 mg PO Q6H PRN #10 tablet 09/01/21 09/09/21 Rx prednisone 5 mg PO DAILY 09/01/21 09/09/21 History risperidone 0.5 mg PO HS 09/01/21 09/09/21 History sulfamethoxazole 500 mg PO BID 09/07/21 09/09/21 History Laboratory Tests 09/12/21 09/12/21 04:47 04:47 WBC 5.4 K/mm3 K/mm3 (4.5-10.0) RBC 2.73 M/mm3 L M/mm3 (4.6-6.20) Hgb 8.4 g/dL L g/dL (14.0-18.0) Hct 27.0 % L % (42.0-52.0) MCV 98.9 fl fl (80-100) MCH 30.8 pg pg (26-34) MCHC 31.1 g/dl L g/dl (32-36) RDW 14.2 % % (11.5-14.5) Plt Count 281 k/mm3 k/mm3 (150-375) MPV 9.3 fl fl (7.4-10.4) Immature Gran % (Auto) 1.7 % H % (0-0.5) Neut % (Auto) 69.1 % % (45.5-73.1) Lymph % (Auto) 15.9 % L % (18.3-44.2) Sanborn % (Auto) 9.0 % H % (2.6-8.5) Eos % (Auto) 3.9 % % (0-4.4) Baso % (Auto) 0.4 % % (0.2-1.2) Lymph # (Auto) 0.85 K/mm3 L K/mm3 (0.9-3.2) [place] # (Auto) 0.5 K/mm3 K/mm3 (0.1-0.6) Eos # (Auto) 0.2 K/mm3 K/mm3 (0-0.3) Baso # (Auto) 0.0 K/mm3 K/mm3 (0.0-0.1) Abs Immat Gran (auto) 0.09 K/mm3 H K/mm3 (0.00-0.031) Absolute Neuts (auto) 3.7 K/mm3 K/mm3 (1.3-6.7) Absolute Nucleated RBC 0.0 K/mm3 K/mm3 (0.0-0.012) Nucleated RBC % 0.0 % % (0.0-0.2) Sodium 135 mmol/L L mmol/L (137-145) Potassium 3.7 mmol/L mmol/L (3.4-5.0) Chloride 108 mmol/L H mmol/L (98-107) Carbon Dioxide 24 mmol/L mmol/L (22-30) Anion Gap 3 mmol/L L mmol/L (8-16) BUN 10 mg/dL mg/dL (9-20) Creatinine 1.80 mg/dL H mg/dL (0.7-1.3) Estim Creat Clear Calc 49 ml/min ml/min Estimated GFR 39 L (59 - ) Glucose 82 mg/dL mg/dL (65-110) Calcium 7.6 mg/dL L mg/dL (8.4-10.2) Magnesium 1.7 mg/dL mg/dL (1.6-2.3) Total Bilirubin 0.3 mg/dL mg/dL (0.2-1.3) AST 48 U/L U/L (17-59) ALT 27 U/L U/L (4-50) Alkaline Phosphatase 64 U/L U/L (38-126) Total Protein 5.0 g/dL L g/dL (6.3-8.2) Albumin 2.5 g/dL L g/dL (3.5-5.1) Patient hx anesthesia problems: none Family hx anesthesia problems: none Results Review: All pre-operative results and documents have been reviewed as part of the pre-operative evaluation. [facility] Past Medical History Medical History (Updated 09/10/21 @ 12:06 by Wesley Morel MD) Anxiety Chronic anemia Chronic anticoagulation Chronic kidney disease, stage 3 Clostridium difficile diarrhea Deep venous thrombosis Depression Drug abuse History of marijuana and cocaine abuse Gastroesophageal reflux disease Hyperlipidemia Hypertension Neuropathy Obesity Paroxysmal atrial fibrillation Renal cell carcinoma Status post left nephrectomy. Rheumatoid arthritis Surgical History Surgical History (Updated 09/09/21 @ 20:44 by Lisa Courtney PA-C) Hi
[2021-09-12] MEDS: LACTATED RINGERS 1,000 ML 150 ML IV CONT (12:01)
[2021-09-12] MEDS: ONDANSETRON INJ 4 MG/2 ML VIAL IV PUSH (12:04)
--- NOTE | 2021-09-12 13:05 | PM.CNPUL ---
Assessment and Plan Assessment and plan (1) Nodule of left lung: Code(s): R91.1 - Solitary pulmonary nodule Status: Acute Assessment and Plan: patient with a history of renal cell carcinoma status post left nephrectomy in 2018, daily marijuana smoking, history of illicit drug use and now with an enlarging lingular nodule. Etiology of this nodule includes cancer and also possibly rheumatoid nodule. Patient had an unsuccessful CT-guided biopsy on 01/01/2021. Patient was scheduled for repeat biopsy on 08/09/2021 but this was canceled by the patient and rescheduled for 09/21/2021. I spoke with the patient and is willing to proceed for this with this biopsy as an inpatient. I have spoken to Radiology and he received his last dose of Eliquis on 09/11 at 07:41 and this is on hold now. Will hold for 48 hours and then proceed with biopsy. The patient should be given a mild sedative such as 0.5 mg of Xanax approximately 1 hour prior to the procedure as he had difficulty with anxiety on previous biopsy attempts. I have told Radiology suite to call the hospitalist 1 hour prior to his scheduled procedure time so that this can be implemented. Further recommendations following pathology report. Discussed with Dr. Mejia Will follow with you. History of Present Illness History of Present Illness Consult date: 09/12/21 Reason for consult: abnormal CXR/CT Chief complaint: Renal Failure Narrative: 09/12/2021 this is a new pulmonary consult for lung nodule and lymphadenopathy Patient is followed in the Pulmonary Clinic for lung nodules and last seen on 07/27/2021. patient tells me he is rescheduled the biopsy for 09/21/2021. Patient was scheduled for an outpatient CT-guided biopsy on 08/09/2021 but he called that day and said he was not feeling well and canceled. previous biopsy attempt on 01/01/2021 was unsuccessful because of the location of the nodule relative to the rib and the patient was very anxious and was having difficulty cooperating with his breath holding. 56 YO with H/O paroxysmal atrial fibrillation, coronary artery disease, hypertension, rheumatoid arthritis, vasculitis, renal cell carcinoma status post left nephrectomy, COVID on 07/03/21 and C diff who was ais being admitted to the ICU from the emergency department at the [facility] for further treatment evaluation of hypotension. patient was treated for sepsis and was treated with IV fluids, vancomycin and cefepime. Blood cultures from an outside hospital positive for Staph epidermidis and hominis. he had acute kidney injury. he was found to have a UTI. He has had no respiratory complaints in the hospital and he is on room air with saturations 98%. His COVID test was negative on 09/03, his C diff is negative on 09/10. Patient was on Eliquis for his atrial fibrillation and his last dose was given on 09/11 at 7:41 a.m. 09/12/2021: Patient's creatinine has improved and is currently 1.8. His BUN is 10. Patient had an EGD earlier today that demonstrated Reflux esophagitis and duodenal ulcers. recommended anti reflux measures, bland diet, Protonix 40 twice a day avoid aspirin, nonsteroidals, marijuana use And cocaine use. DATA: EXAMINATION: CT abdomen pelvis w con DATE: 09/01/2021 13:20 INDICATION: Diarrhea for one week. TECHNIQUE: Computed tomography (CT) of the abdomen and pelvis was performed without intravenous contrast. The dose-length product was 1390.05 mGy-cm. COMPARISON: Comparison to multiple prior studies sequentially, with oldest reviewed study dated 01/25/2021. . FINDINGS: Enlarging lingular nodule measuring 1.6 x 1.1 cm compared with 1.5 x 0.9 cm on 07/03/2021. There is dependent atelectasis. No significant vascular abnormality. Status post left nephrectomy. The liver, spleen, right adrenal gland are unremarkable. There is a low-density lesion in the right kidney measuring 11 mm, l
--- NOTE | 2021-09-12 14:28 | PCPTNOTE ---
Patient refused treatment this session. Patient reported he wanted to rest at this time and would like therapy to come back at a later time.
[2021-09-12] MEDS: PANTOPRAZOLE 40 MG TABLET PO (21:27)
[2021-09-12] MEDS: risperiDONE 0.5 MG TABLET PO (21:27)
[2021-09-13] VITALS (13 sets, daily range): BP systolic 104–126; BP diastolic 63–83; PULSE 80–115; RESP 12–24; TEMP 36.3–37; O2SAT 94–100
[2021-09-13 05:58] LABS: Hematocrit 29.1 % (42.0-52.0); Hemoglobin 9.5 g/dL (14.0-18.0); Mean Corpuscular HGB Conc 32.6 g/dl (32-36); Mean Corpuscular Hemoglobin 31.1 pg (26-34); Mean Corpuscular Volume 95.4 fl (80-100); Mean Platelet Volume 8.8 fl (7.4-10.4); Platelet Count Result 281 k/mm3 (150-375); Red Blood Count 3.05 M/mm3 (4.6-6.20); White Blood Count 5.2 K/mm3 (4.5-10.0)
[2021-09-13 06:09] LABS: Albumin Level 2.8 g/dL (3.5-5.1); Anion Gap 5 mmol/L (8-16); Blood Urea Nitrogen 10 mg/dL (9-20); Calcium 7.9 mg/dL (8.4-10.2); Carbon Dioxide 24 mmol/L (22-30); Chloride 106 mmol/L (98-107); Estimated CRCL calculation 44 ml/min; Estimated Glomerular Filt Rate 34; Glucose 82 mg/dL (65-110); Magnesium 1.6 mg/dL (1.6-2.3); Phosphorus 3.2 mg/dL (2.5-4.5); Potassium 3.7 mmol/L (3.4-5.0); Sodium 135 mmol/L (137-145)
[2021-09-13 07:42] LABS: INR 1.1
[2021-09-13 07:43] LABS: Partial Thromboplastin Time 39.2 SECONDS (22.3-36.8)
[2021-09-13] MEDS: LORazepam INJ (*CRX) 2 MG/ML VIAL 1 MG IV PUSH (08:35)
--- NOTE | 2021-09-13 08:42 | PM.PNPUL ---
Progress Note: A&P Assessment and Plan (1) Nodule of left lung: Code(s): R91.1 - Solitary pulmonary nodule Status: Acute Assessment and Plan: 09/12 patient with a history of renal cell carcinoma status post left nephrectomy in 2018, daily marijuana smoking, history of illicit drug use and now with an enlarging lingular nodule. Etiology of this nodule includes cancer and also possibly rheumatoid nodule. Patient had an unsuccessful CT-guided biopsy on 01/01/2021. Patient was scheduled for repeat biopsy on 08/09/2021 but this was canceled by the patient and rescheduled for 09/21/2021. I spoke with the patient and is willing to proceed for this with this biopsy as an inpatient. I have spoken to Radiology and he received his last dose of Eliquis on 09/11 at 07:41 and this is on hold now. Will hold for 48 hours and then proceed with biopsy. The patient should be given a mild sedative approximately 1 hour prior to the procedure as he had difficulty with anxiety on previous biopsy attempts. I have told Radiology suite to call the hospitalist 1 hour prior to his scheduled procedure time so that this can be implemented. 09/13 Patient without respiratory complaints. Scheduled for CT-guided lung biopsy later today with p.r.n. sedation. Further recommendations following pathology report. From a respiratory standpoint patient does not need to stay in the hospital after the biopsy as long as there are no complications. Discussed with Dr. Mejia Will follow with you. Subjective Date/time seen: 09/13/21 08:42 Interval history: 09/12/2021 this is a new pulmonary consult for lung nodule and lymphadenopathy Patient is followed in the Pulmonary Clinic for lung nodules and last seen on 07/27/2021. patient tells me he is rescheduled the biopsy for 09/21/2021. Patient was scheduled for an outpatient CT-guided biopsy on 08/09/2021 but he called that day and said he was not feeling well and canceled. previous biopsy attempt on 01/01/2021 was unsuccessful because of the location of the nodule relative to the rib and the patient was very anxious and was having difficulty cooperating with his breath holding. 56 YO with H/O paroxysmal atrial fibrillation, coronary artery disease, hypertension, rheumatoid arthritis, vasculitis, renal cell carcinoma status post left nephrectomy, COVID on 1/18/22 and C diff who was ais being admitted to the ICU from [place] emergency [place] [facility] [place] treatment evaluation of hypotension. patient was treated for sepsis and was treated with IV fluids, vancomycin and cefepime. Blood cultures from an outside hospital positive for Staph epidermidis and hominis. he had acute kidney injury. he was found to have a UTI. He has had no respiratory complaints in the hospital and he is on room air with saturations 98%. His COVID test was negative on 09/03, his C diff is negative on 09/10. Patient was on Eliquis for his atrial fibrillation and his last dose was given on 09/11 at 7:41 a.m. 09/12/2021: Patient's creatinine has improved and is currently 1.8. His BUN is 10. Patient had an EGD earlier today that demonstrated Reflux esophagitis and duodenal ulcers. recommended anti reflux measures, bland diet, Protonix 40 twice a day avoid aspirin, nonsteroidals, marijuana use And cocaine use. 09/13 Patient has no respiratory complaints. Room air saturations 96%. Creatinine is 2.0. Patient is scheduled for CT-guided lung biopsy later today with p.r.n. sedation. DATA: EXAMINATION: CT abdomen pelvis w con DATE: 09/01/2021 13:20 INDICATION: Diarrhea for one week. TECHNIQUE: Computed tomography (CT) of the abdomen and pelvis was performed without intravenous contrast. The dose-length product was 1390.05 mGy-cm. COMPARISON: Comparison to multiple prior studies sequentially, with oldest reviewed study dated 01/25/2021. . FINDINGS: Kishan
--- NOTE | 2021-09-13 09:18 | PC.NURSE ---
Pt to CT per bed
--- NOTE | 2021-09-13 10:06 | WPDGIPROGNO ---
Progress Note: A&P Assessment and Plan (1) Ulcer, duodenum peptic: Code(s): K26.3 - Acute duodenal ulcer without hemorrhage or perforation Status: Acute Assessment and Plan: Patient found to have multiple duodenal ulcers. Plan to continue proton pump inhibitor use and avoid NSAIDs after discharge. This potentially could have contributed to anemia. Could contribute to nausea vomiting but also likely site secondary to substance use. (2) Erosive esophagitis: Code(s): K22.10 - Ulcer of esophagus without bleeding Status: Acute Assessment and Plan: Erosive esophagitis likely from significant vomiting. Would recommend long-term PPI use. (3) Renal cell carcinoma: Code(s): C64.9 - Malignant neoplasm of unspecified kidney, except renal pelvis Status: Acute Assessment and Plan: Renal cell carcinoma status post resection of kidney. (4) Nodule of left lung: Code(s): R91.1 - Solitary pulmonary nodule Status: Acute Assessment and Plan: Nodule of lung undergoing evaluation by pulmonary service. Hopefully biopsy can confirm whether this is significant or not. Differential diagnosis includes malignancy versus infection versus rheumatoid nodule. (5) Chronic anticoagulation: Code(s): Z79.01 - longterm (current) use of anticoagulants Status: Acute Assessment and Plan: Anticoagulation on hold because of ulcerations in need for biopsy. May be resumed at some point in the future. (6) Drug abuse: Code(s): F19.10 - Other psychoactive substance abuse, uncomplicated Status: Chronic Assessment and Plan: I discussed with patient that is ongoing nausea vomiting likely related to substance abuse. Most likely marijuana use. He is encouraged to abstain. (7) Rheumatoid arthritis: Qualifiers: Rheumatoid arthritis location: unspecified site Rheumatoid factor presence: with rheumatoid factor Qualified Code(s): M05.9 - Rheumatoid arthritis with rheumatoid factor, unspecified Code(s): M06.9 - Rheumatoid arthritis, unspecified Status: Chronic Subjective Date/time seen: 09/13/21 10:06 Patient denies ongoing nausea vomiting. Tolerating diet at present. Denies abdominal pain. No diarrhea. Review of Systems Review of Systems: All systems reviewed & are unremarkable except as noted in HPI and below Exam Narrative: Physical exam reveals patient be alert. Comfortable at rest. HEENT exam unremarkable. Lungs are clear. Heart without murmur. Abdomen bowel sounds present soft nontender with no organomegaly. Objective Data Vital Signs Vital Signs: Vital Signs - 24 hr 09/12/21 11:30 09/12/21 12:32 09/12/21 12:42 Temperature 97.5 F L Pulse Rate 110 H 98 97 Respiratory Rate 20 31 H 28 H Blood Pressure 147/86 H 141/98 H 108/70 Pulse Oximetry 100 97 100 09/12/21 12:52 09/12/21 13:30 09/12/21 16:00 Temperature 96.5 F L 97.5 F L Pulse Rate 94 92 93 Respiratory Rate 24 H 18 24 H Blood Pressure 104/69 104/73 103/61 Pulse Oximetry 98 100 98 09/12/21 18:00 09/12/21 21:09 09/12/21 21:10 Temperature 97.8 F 98.0 F Pulse Rate 88 84 Respiratory Rate 20 20 Blood Pressure 102/63 96/60 L 96/60 L Pulse Oximetry 99 100 09/12/21 21:11 09/13/21 01:16 09/13/21 06:00 Temperature 97.6 F 98.2 F Pulse Rate 80 89 Respiratory Rate 14 14 Blood Pressure 114/68 104/75 123/68 Pulse Oximetry 99 96 Intake/Output Intake/Output: Intake & Output 09/10/21 09/11/21 09/12/21 09/13/21 23:59 23:59 23:59 23:59 Intake Total 5020 2730 1920 500 Output Total 2300 2450 1500 700 Balance 2720 280 420 -200 Meds/Results Medications: Active Medications Generic Name Dose Route Start Last Admin Trade Name Freq PRN Reason Stop Dose Admin Acetaminophen 500 mg 09/09/21 21:26 09/11/21 05:15 Acetaminophen 500 Mg Tablet PO 500 mg Q6H PRN Administration Pain Apixaban 5 mg 09/09/21
--- NOTE | 2021-09-13 10:29 | WPDANESPN ---
Anes - Prog Note Post-Op Date/Time: 09/13/21 10:29 Cardiovascular status: normal Respiratory status: normal Airway patency: baseline Mental status: baseline Post-Op hydration status: normal Vital Signs: Last Vital Signs Temp 98.2 F 09/13/21 06:00 Pulse 89 09/13/21 06:00 Resp 14 09/13/21 06:00 BP 123/68 09/13/21 06:00 Pulse Ox 96 09/13/21 06:00 Pain Score (VAS): 06/25 I/O: Intake & Output 09/12/21 09/13/21 09/13/21 23:59 07:59 15:59 Intake Total 530 500 Output Total 700 700 Balance -170 -200 Laboratory Tests 09/13/21 05:44 09/13/21 05:44 09/13/21 09/13/21 09/13/21 05:44 05:44 07:10 WBC 5.2 RBC 3.05 L Hgb 9.5 L Hct 29.1 L MCV 95.4 MCH 31.1 MCHC 32.6 RDW 14.0 Plt Count 281 MPV 8.8 PT 14.0 INR 1.1 APTT 39.2 H Sodium 135 L Potassium 3.7 Chloride 106 Carbon Dioxide 24 Anion Gap 5 L BUN 10 Creatinine 2.00 H Estim Creat Clear Calc 44 Estimated GFR 34 L Glucose 82 Calcium 7.9 L Phosphorus 3.2 Magnesium 1.6 Albumin 2.8 L Microbiology 09/10/21 08:40 Stool Escherichia coli Shiga Toxins - Final 09/10/21 08:40 Stool Salmonella/Shigella Culture - Final 09/10/21 08:40 Stool Campylobacter Antigen Assay - Final 09/10/21 08:40 Stool Cryptosporidium Exam - Final 09/10/21 08:40 Stool Giardia Antigen (DINA) - Final Post-procedural complaints: none Patient Feedback: Patient satisfied with anesthetic care.
--- NOTE | 2021-09-13 10:56 | PC.NURSE ---
Pt return from CT per bed 1050 09/13/21.
--- NOTE | 2021-09-13 12:01 | PCOTNOTE ---
Attempted to see pt. originally out of room for lung biopsy, RN stated pt. would have to lay flat on his back for 4 hours post. Will continue plan of care tomorrow.
[2021-09-13] MEDS: DOXYCYCLINE 100 MG/NS 100 ML 100 MG/100 ML BAG IVPB (14:18)
[2021-09-13] MEDS: predniSONE 5 MG TABLET PO (15:09)
[2021-09-13] MEDS: LOVASTATIN 20 MG TABLET 40 MG PO (15:09)
[2021-09-13] MEDS: PANTOPRAZOLE 40 MG TABLET PO ×2 (15:09→20:53)
[2021-09-13] MEDS: HYDROXYCHLOROQUINE SULFATE 200 MG TABLET PO (16:52)
[2021-09-13] MEDS: GABAPENTIN 300 MG CAPSULE 900 MG PO (16:52)
[2021-09-13] MEDS: risperiDONE 0.5 MG TABLET PO (20:53)
[2021-09-14 02:00] VITALS: BP 114/74; PULSE 95; RESP 20; TEMP 36.5; O2SAT 99
[2021-09-14 05:17] LABS: Hemoglobin 9.7 g/dL (14.0-18.0); Mean Corpuscular HGB Conc 31.3 g/dl (32-36); Mean Corpuscular Hemoglobin 30.6 pg (26-34); Mean Corpuscular Volume 97.8 fl (80-100); Platelet Count Result 329 k/mm3 (150-375); Red Blood Count 3.17 M/mm3 (4.6-6.20); Red Cell Distribution Width 14.1 % (11.5-14.5); White Blood Count 5.7 K/mm3 (4.5-10.0)
[2021-09-14 05:21] VITALS: BP 114/74; PULSE 95; RESP 20; TEMP 36.5; O2SAT 99
[2021-09-14 05:27] LABS: Anion Gap 8 mmol/L (8-16); Blood Urea Nitrogen 9 mg/dL (9-20); Carbon Dioxide 21 mmol/L (22-30); Chloride 105 mmol/L (98-107); Estimated CRCL calculation 53 ml/min; Estimated Glomerular Filt Rate 45; Glucose 90 mg/dL (65-110); Magnesium 1.8 mg/dL (1.6-2.3); Phosphorus 3.7 mg/dL (2.5-4.5); Potassium 3.7 mmol/L (3.4-5.0); Sodium 134 mmol/L (137-145)
[2021-09-14] MEDS: HYDROXYCHLOROQUINE SULFATE 200 MG TABLET PO ×2 (08:55→17:05)
[2021-09-14] MEDS: GABAPENTIN 300 MG CAPSULE 900 MG PO ×2 (08:55→17:05)
[2021-09-14] MEDS: predniSONE 5 MG TABLET PO (08:55)
[2021-09-14] MEDS: PANTOPRAZOLE 40 MG TABLET PO (08:55)
[2021-09-14] MEDS: LOVASTATIN 20 MG TABLET 40 MG PO (08:55)
[2021-09-14] MEDS: ACETAMINOPHEN 500 MG TABLET 1000 MG PO (08:58)
[2021-09-14] MEDS: CYCLOBENZAPRINE HCL 5 MG TABLET PO (08:59)
--- NOTE | 2021-09-14 09:22 | PM.PNPUL ---
Progress Note: A&P Assessment and Plan (1) Nodule of left lung: Code(s): R91.1 - Solitary pulmonary nodule Status: Acute Assessment and Plan: 09/12 patient with a history of renal cell carcinoma status post left nephrectomy in 2018, daily marijuana smoking, history of illicit drug use and now with an enlarging lingular nodule. Etiology of this nodule includes cancer and also possibly rheumatoid nodule. Patient had an unsuccessful CT-guided biopsy on 01/01/2021. Patient was scheduled for repeat biopsy on 08/09/2021 but this was canceled by the patient and rescheduled for 09/21/2021. I spoke with the patient and is willing to proceed for this with this biopsy as an inpatient. I have spoken to Radiology and he received his last dose of Eliquis on 09/11 at 07:41 and this is on hold now. Will hold for 48 hours and then proceed with biopsy. The patient should be given a mild sedative approximately 1 hour prior to the procedure as he had difficulty with anxiety on previous biopsy attempts. I have told Radiology suite to call the hospitalist 1 hour prior to his scheduled procedure time so that this can be implemented. 09/13 Patient without respiratory complaints. Scheduled for CT-guided lung biopsy later today with p.r.n. sedation. Further recommendations following pathology report. From a respiratory standpoint patient does not need to stay in the hospital after the biopsy as long as there are no complications. later in day patient had CT-guided biopsy of the left lingular nodule. Small pneumothorax post procedure. 09/14 Patient states he has no respiratory complaints. Room air saturations 99%. Chest x-ray demonstrates resolution of his left pneumothorax. Creatinine is 1.6. Patient is suitable for discharge from a pulmonary perspective. He is not on any pulmonary medicines. Patient has a follow-up appointment on 09/21/2021 at 11:00 a.m. with Deni Hussein in the Pulmonary Clinic. He should keep this appointment. Will sign off, call with questions. Discussed with Dr. Mejia Subjective Date/time seen: 09/14/21 09:22 Interval history: 09/12/2021 this is a new pulmonary consult for lung nodule and lymphadenopathy Patient is followed in the Pulmonary Clinic for lung nodules and last seen on 07/27/2021. patient tells me he is rescheduled the biopsy for 09/21/2021. Patient was scheduled for an outpatient CT-guided biopsy on 08/09/2021 but he called that day and said he was not feeling well and canceled. previous biopsy attempt on 01/01/2021 was unsuccessful because of the location of the nodule relative to the rib and the patient was very anxious and was having difficulty cooperating with his breath holding. 56 YO with H/O paroxysmal atrial fibrillation, coronary artery disease, hypertension, rheumatoid arthritis, vasculitis, renal cell carcinoma status post left nephrectomy, COVID on 07/03/21 and C diff who was ais being admitted to the ICU from the emergency department at the [facility] for further treatment evaluation of hypotension. patient was treated for sepsis and was treated with IV fluids, vancomycin and cefepime. Blood cultures from an outside hospital positive for Staph epidermidis and hominis. he had acute kidney injury. he was found to have a UTI. He has had no respiratory complaints in the hospital and he is on room air with saturations 98%. His COVID test was negative on 09/03, his C diff is negative on 09/10. Patient was on Eliquis for his atrial fibrillation and his last dose was given on 09/11 at 7:41 a.m. 09/12/2021: Patient's creatinine has improved and is currently 1.8. His BUN is 10. Patient had an EGD earlier today that demonstrated Reflux esophagitis and duodenal ulcers. recommended anti reflux measures, bland diet, Protonix 40 twice a day avoid aspirin, nonsteroidals, marijuana use And cocaine use. 09/13 Patient has no respiratory complaints.
[2021-09-14 10:15] VITALS: BP 108/70; PULSE 98; RESP 20; TEMP 36.8; O2SAT 98
--- NOTE | 2021-09-14 13:51 | PCOTNOTE ---
Attempted to see patient 2x today for OT. Patient reported earlier approx. 10am he wanted to continue to sleep. Patient again attempted to see for therapy at 2pm, patient again refused. Patient reports feeling tired and working with the other therapy really hard today...so I'll do double work tomorrow. Patient continued to refuse OT despite patient requesting urinal for toileting and patient asked to attempt ambulating to toilet to urinate. Patient stated Good try. Will continue OT per plan of care.
[2021-09-14 14:15] VITALS: BP 105/64; PULSE 93; RESP 18; TEMP 36.8; O2SAT 99
[2021-09-14] MEDS: DOXYCYCLINE 100 MG/NS 100 ML 100 MG/100 ML BAG IVPB (14:38)
--- NOTE | 2021-09-14 15:54 | PM.DS ---
DS: Admitting Diagnosis Discharge Date 09/14/2021 Admitting Diagnosis Hypotension. DS: Discharge Diagnosis Discharge Diagnosis (1) Sepsis: Code(s): A41.9 - Sepsis, unspecified organism Status: Acute Assessment and Plan: Sepsis could be related to diarrhea,, vomiting, bacteremia -hypotensive at the outside hospital along with lactic acid level of 4.0. Lactic acid is 0.6 this morning. -leukocytosis improving 15 K on admission to 11 K, -patient was started on cefepime and vancomycin (09/09) at the outside hospital, switched to Zosyn from cefepime -blood cultures were positive for Staphylococcus epidermidis and hominis (on 09/01 at the outside hospital 1/2 bottles) -repeat blood cultures have been obtained -UA suggestive of UTI, urine cultures have been obtained and pending -a total of 2 L of IV fluids, low urine output, dry oral mucosa Continue maintenance IV fluids -will monitor urine output -patient did not require any pressors (2) Acute kidney injury superimposed on chronic kidney disease: Code(s): N17.9 - Acute kidney failure, unspecified; N18.9 - Chronic kidney disease, unspecified Status: Acute Assessment and Plan: Acute on chronic kidney failure, baseline creatinine is around 1.8-2.2 admission creatinine of 3.4 -patient received IV fluids on admission -continue to monitor urine output, electrolytes and renal function Creatinine continues to improve down to 2.5 09/10/2021 back to baseline 09/11/2021 will stop IV fluid (3) Abnormal urinalysis: Code(s): R82.90 - Unspecified abnormal findings in urine Status: Acute Assessment and Plan: Possible UTI continue antibiotics as above (4) Diarrhea: Qualifiers: Diarrhea type: unspecified type Qualified Code(s): R19.7 - Diarrhea, unspecified Code(s): R19.7 - Diarrhea, unspecified Status: Acute Assessment and Plan: Patient has been complaining of nausea, vomiting, diarrhea, GI consulted for ongoing nausea vomiting C diff came back negative -started on Zosyn and discontinued cefepime Stool studies negative CK a, Cryptosporidium and Giardia. Continue to follow stool culture report (5) Bacteremia: Code(s): R78.81 - Bacteremia Status: Acute Assessment and Plan: One of 2 blood cultures drawn on 09/01/2021 grew out Staphylococcus epidermidis and hominis sub species, likely contaminant. He was started on Bactrim for this 3 days ago, which we will hold in light of his worsening renal function. Repeat blood cultures no growth to date Most Likely contamination (6) Chronic anemia: Code(s): D64.9 - Anemia, unspecified Status: Acute Assessment and Plan: Hemoglobin is stable, no signs of active bleeding, Will continue to monitor (7) Paroxysmal atrial fibrillation: Code(s): I48.0 - Paroxysmal atrial fibrillation Status: Acute Assessment and Plan: History of atrial fibrillation, currently in sinus rhythm, rate controlled -continue Eliquis (8) DVT prophylaxis: Code(s): Z29.9 - Encounter for prophylactic measures, unspecified Status: Acute Assessment and Plan: Continue Eliquis (9) Drug abuse: Code(s): F19.10 - Other psychoactive substance abuse, uncomplicated Status: Chronic Assessment and Plan: Have counseled patient on cessation of cocaine and marijuana use, the nausea and the vomiting could be related to marijuana use (10) Nodule of left lung: Code(s): R91.1 - Solitary pulmonary nodule Status: Acute Assessment and Plan: Concerning for malignancy. Patient does have a history of renal cell carcinoma status post left nephrectomy. Will likely need an outpatient PET-CT and close follow-up. His planned for biopsy done next week (11) Rheumatoid arthritis: Qualifiers: Rheumatoid arthritis location: unspecified site Rheumatoid factor presence: with rheumatoid factor Qualified Code(
[2021-09-14 17:34] VITALS: BP 104/72; BP 108/76
[2021-09-14 17:35] VITALS: BP 105/75
== END 2021-09-14 17:52 | disposition home health service (06) | DRG 720 ==
LOC: ANHICU 09-11 12:59 → ANH2MED 09-14 15:37 → ANHICU 09-17 13:59 → ANHIMU 09-17 13:59
PROVIDERS: Internal Medicine; Internal Medicine Gastroenterology; Internal Medicine Pulmonary Disease; Physician Assistant; Admitting Provider Family Medicine; PCP Family Medicine; Visit Provider Family Medicine
PROC: 0DJ08ZZ Inspection of Upper Intestinal Tract, Via Natural or Artificial Opening Endoscopic (ICD-10-PCS; CPT 43235; principal; 2021-09-12 12:30)
DX: A41.1 Sepsis due to other specified staphylococcus (principal); C64.9 Malignant neoplasm of unspecified kidney, except renal pelvis; K21.00 Gastro-esophageal reflux disease with esophagitis, without bleeding; J95.811 Postprocedural pneumothorax; K26.3 Acute duodenal ulcer without hemorrhage or perforation; I12.9 Hypertensive chronic kidney disease with stage 1 through stage 4 chronic kidney disease, or unspecified chronic kidney disease; N18.30 Chronic kidney disease, stage 3 unspecified; I25.10 Atherosclerotic heart disease of native coronary artery without angina pectoris; E78.5 Hyperlipidemia, unspecified; G62.9 Polyneuropathy, unspecified; I77.6 Arteritis, unspecified; Z79.01 Long term (current) use of anticoagulants; Z79.899 Other long term (current) drug therapy; Z86.19 Personal history of other infectious and parasitic diseases; Z86.718 Personal history of other venous thrombosis and embolism; Z86.79 Personal history of other diseases of the circulatory system; N17.9 Acute kidney failure, unspecified; N39.0 Urinary tract infection, site not specified; E86.0 Dehydration; R19.7 Diarrhea, unspecified; D64.9 Anemia, unspecified; M05.9 Rheumatoid arthritis with rheumatoid factor, unspecified; I48.0 Paroxysmal atrial fibrillation; R91.1 Solitary pulmonary nodule; Z28.21 Immunization not carried out because of patient refusal; F19.10 Other psychoactive substance abuse, uncomplicated; Z90.5 Acquired absence of kidney; Z98.49 Cataract extraction status, unspecified eye
CPT/HCPCS: 32408; 36415; 71045; 80048; 80053; 80069; 82274; 82550; 82607; 82728; 82746; 83540; 83550; 83605; 83735; 84443; 85025; 85027; 85610; 85730; 87045; 87081; 87086; 87269; 87272; 87427; 87493; 88305; 96361; 96365; 96366; 96367; 96374; 96375; 97110; 97116; 97161; 97165; 97530; A9270; G0378; G0379; J0131; J0692; J2060; J2405; J2543; J2704; J3370; J7030; J7120; J7512

== ENCOUNTER 2021-10-02 11:24 | Emergency (ER) | payer OTHER, SELFPAY ==
--- NOTE | ~2021-10-02 | US_ITS ---
EXAMINATION: US venous doppler LE RT DATE: 10/02/2021 11:51 INDICATION: Right lower limb pain TECHNIQUE: Grayscale ultrasound images without and with compression and Doppler ultrasound images of the right lower extremity veins were obtained. COMPARISON: None. FINDINGS: The visualized portions of right common femoral vein, profunda (deep) femoral vein, femoral vein, pop liteal vein, peroneal trunk, posterior tibial veins, peroneal veins, gastrocnemius vein and greater s aphenous vein outflow are patent. There is a small, shape Little's cyst with typical configuration at the right popliteal fossa. There is an additional larger multilobulated likely complex fluid collecti on measuring 12.5 x 1.7 x 4.8 cm which is predominantly hypoechoic with small amount of anechoic flui d at the periphery. Appearance suggests synovitis within a larger extension of the Little's cyst altho ugh differential would include hematoma related to muscle strain and could not exclude abscess in the appropriate clinical setting. IMPRESSION: 1. No deep venous thrombosis in the right lower limb. 2. 12.5 x 1.7 x 4.8 cm loculated complex fluid collection in the region of pain which could represent either synovitis within a large extension of a Little's cyst or hematoma such as in the setting of mu scle strain. Although considered less likely by appearance, differential would include abscess in the appropriate clinical setting. Reviewed, dictated and finalized at location A. IMPRESSION: 1. No deep venous thrombosis in the right lower limb. 2. 12.5 x 1.7 x 4.8 cm loculated complex fluid collection in the region of pain which could represent either synovitis within a large extension of a Little's c yst or hematoma such as in the setting of muscle strain. Although considered le ss likely by appearance, differential would include abscess in the appropriate clinical setting.
[2021-10-02 11:25] VITALS: BP 116/74; PULSE 97; RESP 20; TEMP 37.1; O2SAT 98
--- NOTE | 2021-10-02 11:28 | ED.LOWEXIN ---
HPI - Extremity Injury (Lower) General Chief Complaint: Extremity Injury, Lower Stated Complaint: AMBULANCE Source: patient Mode of arrival: EMS Limitations: no limitations History of Present Illness HPI Narrative: Pt says he noticed discomfort in his right calf yesterday and some swelling around his right ankle. Pt denies injury. Pt has diabetic neuropathy so has decreased sensation in feet so has no pain in ankle or foot. Pt on eliquis. Relieving factors: nothing Exacerbating factors: weight bearing Related Data Home Medications Medication Instructions Recorded Confirmed Eliquis 5 mg PO BID 09/01/21 09/09/21 gabapentin 900 mg PO BID 09/01/21 09/09/21 hydroxychloroquine 200 mg PO BID 09/01/21 09/09/21 lisinopril 5 mg PO DAILY 09/01/21 09/09/21 lovastatin 40 mg PO DAILY 09/01/21 09/09/21 prednisone 5 mg PO DAILY 09/01/21 09/09/21 risperidone 0.5 mg PO HS 09/01/21 09/09/21 sulfamethoxazole 500 mg PO BID 09/07/21 09/09/21 Allergies Allergy/AdvReac Type Severity Reaction Status Date / Time No Known Allergies Allergy Verified 09/09/21 10:30 Review of Systems Review of Systems: All systems reviewed & are unremarkable except as noted in HPI and below PMFSH Past Medical History Medical History (Updated 10/02/21 @ 12:12 by Emilio Gutiérrez III, DO) Anxiety Chronic anemia Chronic anticoagulation Chronic kidney disease, stage 3 Clostridium difficile diarrhea Deep venous thrombosis Depression Drug abuse History of marijuana and cocaine abuse Gastroesophageal reflux disease Hyperlipidemia Hypertension Neuropathy Obesity Paroxysmal atrial fibrillation Renal cell carcinoma Status post left nephrectomy. Rheumatoid arthritis Surgical History Surgical History (Updated 09/09/21 @ 20:44 by Lisa Courtney PA-C) History of appendectomy History of cataract extraction History of left nephrectomy History of tonsillectomy and adenoidectomy Family History Family History Father CAD (coronary artery disease) Mother Cancer Other Heart disease Hypertension Social History Social History (Updated 09/09/21 @ 20:58 by Lisa Courtney PA-C) Social History: Surrogate decision maker: Anayeli Melendez, . Code status: Full code. Smoking status: Never smoker Second hand tobacco smoke exposure: Yes Alcohol intake: former Substance use: current Substance use type: marijuana and crack/cocaine Spiritual care concerns: No Exam Const: General: no acute distress Orientation/consciousness: patient oriented x3 HENMT: Head: normal to inspection Resp: Effort & Inspection: normal respiratory effort Auscultation: clear to auscultation bilaterally Cardio: Rate: regular rate Rhythm: regular rhythm GI: GI Palp: Yes Soft to palpation Auscultation: normal bowel sounds Skin: General skin exam: normal color Neuro: General: patient oriented x3, moves all extremities and no focal motor deficits Extrem: General: edema Other: slight swelling around right ankle but no bruising, tender to palpation right calf. Psych: Appearance: grossly normal Mental Status: mental status grossly normal Affect: normal affect Attitude: cooperative Thought content: Yes Normal thought content present Discharge Plan Discharge Clinical Impression: Muscle strain Patient Disposition: Home, Self-Care Condition: Stable Instructions: Antibiotic Form, Muscle Strain (ED), Muscle Strain (DC) Prescriptions: No Action lovastatin 40 mg tablet 40 mg PO DAILY RF: 0 prednisone 5 mg tablet 5 mg PO DAILY RF: 0 gabapentin 300 mg capsule 900 mg PO BID RF: 0 lisinopril 5 mg tablet 5 mg PO DAILY RF: 0 Hold Instructions: until seen by his primary care provider hydroxychloroquine 200 mg tablet 200 mg PO BID RF: 0 risperidone 0.5 mg tablet 0.5 mg PO HS RF: 0 Eliquis 5 mg tablet 5 mg PO BID RF: 0 ondan
[2021-10-02 12:20] VITALS: BP 116/75; PULSE 98; RESP 20; TEMP 37.1; O2SAT 97
[2021-10-02] MEDS: KETOROLAC 30 MG/ML VIAL (*BKC) IM (12:25)
== END 2021-10-02 12:35 | disposition home or self-care (01) ==
PROVIDERS: Emergency Provider Emergency Medicine; PCP Family Medicine
DX: S86.911A Strain of unspecified muscle(s) and tendon(s) at lower leg level, right leg, initial encounter (principal)
CPT/HCPCS: 93971; 96372; 99284; J1885

== ENCOUNTER 2021-12-13 01:33 | Emergency (ER) | payer OTHER, SELFPAY ==
--- NOTE | ~2021-12-13 | XR_ITS ---
XR chest 2V 12/13/2021 02:42 Indication: Left anterior chest pain for 3 days Procedure: 2 view chest Comparison: 09/14/2021 Findings: Heart size normal. Bilateral pulmonary nodules which are not significantly changed from niya or examination. Cannot exclude malignancy. Correlate with previous biopsy results. No pleural effusio n, edema, focal pneumonia or pneumothorax. No acute osseous abnormality. Impression: 1: No acute cardiopulmonary disease. 2: Bilateral pulmonary nodules are stable allowing for differences of technique. Correlate with prev ious biopsy results. Reviewed, dictated and finalized at location A. Impression: 1: No acute cardiopulmonary disease. 2: Bilateral pulmonary nodules are stable allowing for differences of techniqu e. Correlate with previous biopsy results.
--- NOTE | 2021-12-13 01:40 | ED.CHESTPAIN ---
HPI - Chest Pain General Chief Complaint: Chest Pain Stated Complaint: Chest Pain Time Seen by Provider: 12/13/21 01:40 Source: patient, EMS and RN notes reviewed Mode of arrival: ambulatory Limitations: no limitations History of Present Illness HPI narrative: patient states he had some chest pain all day yesterday. Said it would last a couple of seconds sharp left chest with no radiation. Said than a minute later would come back again and then go away just as quickly as it came on. He denies any other associated symptoms of nausea vomiting, diaphoresis, radiation of pain, shortness of breath. He said that he is having diarrhea for the last 2 weeks intermittently. He says this happened another time about 3 months ago and then it went away after some fluids and antibiotics. States that he did some cocaine and marijuana yesterday but none today. complaint: chest pain Onset (ago): day(s) (2) Timing of current episode: episodic and now resolved ( No chest pain today) Prior episodes: Yes Onset: during rest Pain location: substernal Pain radiation: none Severity: mild Quality: sharp Relieving factors: nothing Exacerbating factors: nothing Treatment prior to arrival: none Risk Factors Coronary artery disease risk factors: hyperlipidemia, hypertension and cocaine use Related Data Home Medications Medication Instructions Recorded Confirmed apixaban 5 mg tablet (Eliquis) 5 mg PO BID 09/01/21 12/13/21 gabapentin 300 mg capsule 900 mg PO BID 09/01/21 12/13/21 lisinopril 5 mg tablet 5 mg PO DAILY 09/01/21 12/13/21 lovastatin 40 mg tablet 40 mg PO DAILY 09/01/21 12/13/21 risperidone 0.5 mg tablet 0.5 mg PO HS 09/01/21 12/13/21 sulfamethoxazole 500 mg tablet 500 mg PO BID 09/07/21 12/13/21 Allergies Allergy/AdvReac Type Severity Reaction Status Date / Time No Known Allergies Allergy Verified 12/13/21 01:50 Review of Systems Review of Systems: All systems reviewed & are unremarkable except as noted in HPI and below Gastrointestinal: Gastrointestinal: Denies abdominal pain, Denies bloating, Reports diarrhea, Denies nausea and Denies vomiting PMFSH Past Medical History Medical History Anxiety Chronic anemia Chronic anticoagulation Chronic kidney disease, stage 3 Clostridium difficile diarrhea Deep venous thrombosis Depression Drug abuse History of marijuana and cocaine abuse Gastroesophageal reflux disease Hyperlipidemia Hypertension Neuropathy Obesity Paroxysmal atrial fibrillation Renal cell carcinoma Status post left nephrectomy. Rheumatoid arthritis Surgical History Surgical History History of appendectomy History of cataract extraction History of left nephrectomy History of tonsillectomy and adenoidectomy Family History Family History Father CAD (coronary artery disease) Mother Cancer Other Heart disease Hypertension Social History Social History Social History: Surrogate decision maker: Anayeli Melendez, sister. Code status: Full code. Smoking status: Never smoker Second hand tobacco smoke exposure: Yes Alcohol intake: former Substance use: current Substance use type: marijuana and crack/cocaine Spiritual care concerns: No Exam Const: General: no acute distress, alert and ill appearing chronically Nutritional Appearance: well nourished and obese morbidly obese Orientation/consciousness: patient oriented x3 Limitations: no limitations HENMT: Head: normal to inspection Ears: external ears normal Face and sinus: normal facial exam Eyes: Conjunctivae: conjunctivae normal Pupils: Equal, round and reactive pupils present EOM: EOMs intact bilaterally Neck: Neck: normal visual inspection Chest: Chest palpation & inspection: normal inspection of the chest and no
--- NOTE | 2021-12-13 01:43 | ECG_ITS ---
Measurements Intervals [place] Rate: 104 P: 15 [place]: 130 QRS: 6 QRSD: 86 T: 36 QT: 315 QTc: 416 Interpretive Statements SINUS TACHYCARDIA WITH OCCASIONAL SUPRAVENTRICULAR PREMATURE COMPLEXES COMPARED TO ECG 09/03/2021 12:18:24 SINUS TACHYCARDIA NOW PRESENT Electronically Signed On 12-13-2021 18:14:28 CDT by Yelena Ybarra M.D.
[2021-12-13 01:51] VITALS: BP 137/92; PULSE 108; RESP 17; TEMP 36.8; O2SAT 98
[2021-12-13 02:02] VITALS: BP 124/68; PULSE 110; RESP 17
[2021-12-13 02:03] LABS: Basophils Absolute Auto 0.04 K/mm3 (0.00-0.10); Basophils Percent Auto 0.5 % (0.0-1.0); Eosinophils Absolute Auto 0.12 K/mm3 (0.02-0.50); Eosinophils Percent Auto 1.4 % (1.0-6.0); Hematocrit 43.2 % (40.0-54.0); Hemoglobin 13.8 g/dL (14.0-18.0); Immature Granulocyte Absolute 0.11 K/mm3 (0.00-0.00); Immature Granulocyte Percent A 1.3 % (0.0-0.0); Lymphocytes Absolute Auto 1.08 K/mm3 (1.10-4.50); Lymphocytes Percent Auto 12.9 % (18.0-42.0); Mean Corpuscular HGB Conc 31.9 g/dL (32.0-36.0); Mean Corpuscular Hemoglobin 29.2 pg (27.0-31.0); Mean Corpuscular Volume 91.5 fL (78.0-102.0); Mean Platelet Volume 8.8 fl (8.7-11.0); Monocytes Absolute Auto 0.75 K/mm3 (0.10-0.90); Monocytes Percent Auto 8.9 % (2.0-11.0); Neutrophils Absolute Auto 6.3 K/mm3 (1.7-7.2); Platelet Count Result 230 K/mm3 (150-420); Red Blood Count 4.72 M/mm3 (4.70-6.10); Red Cell Distribution Width 15.9 % (11.6-14.4); White Blood Count 8.4 K/mm3 (4.8-10.8)
[2021-12-13 02:16] LABS: INR 0.9; Prothrombin Time 10.4 Seconds (9.50-12.10)
[2021-12-13 02:21] LABS: Alanine Aminotransferase 18 U/L (16-63); Albumin Level 2.7 g/dL (3.4-5.0); Alkaline Phosphatase 73 U/L (46-116); Anion Gap 12 mmol/L (8-16); Aspartate Amino Transferase 12 U/L (15-37); Bilirubin,Total 0.5 mg/dL (0.00-1.00); Blood Urea Nitrogen 20 mg/dL (7-18); Calcium 8.6 mg/dL (8.5-10.1); Carbon Dioxide 23 mmol/L (21-32); Chloride 102 mmol/L (98-108); Estimated CRCL calculation 45 ml/min; Estimated Glomerular Filt Rate 36; Glucose 94 mg/dL (70-99); Osmolality Calculated 286 mOsm/kg (285-295); Potassium 3.7 mmol/L (3.5-5.1); Sodium 137 mmol/L (136-145); Total Protein 6.8 g/dL (6.4-8.2); Troponin I 21.7 ng/L (0.00-60.4)
[2021-12-13 02:24] LABS: Ethanol < 3 mg/dL (0-6)
[2021-12-13 02:27] LABS: Amphetamine Screen Urine Negative (Negative); Barbiturate Screen Urine Negative (Negative); Benzodiazepines Screen Urine Negative (Negative); Cannabinoid Screen Urine Positive (Negative); Cocaine Screen Urine Positive (Negative); Methadone Screen Urine Negative (Negative); Opiate Screen Urine Negative (Negative); Phencyclidine Screen Urine Negative (Negative)
[2021-12-13 03:08] VITALS: BP 114/96; PULSE 107; RESP 17; O2SAT 99
[2021-12-13 03:15] VITALS: BP 132/97; PULSE 107; RESP 18; O2SAT 94
[2021-12-13] MEDS: SODIUM CHLORIDE 0.9% IV 1,000 ML 999 ML IV CONT (03:38)
[2021-12-13 04:01] VITALS: BP 142/77; PULSE 103; RESP 17; O2SAT 94
--- NOTE | 2021-12-13 04:55 | PC.NURSE ---
pt states that he does not have a ride home at this time. contacted [facility] for pt transfer from the ER to his home.
--- NOTE | 2021-12-13 04:57 | PC.NURSE ---
[facility] unable to transport pt at this time.
[2021-12-13 05:00] VITALS: BP 137/75; PULSE 105; RESP 17; TEMP 36.3; O2SAT 98
--- NOTE | 2021-12-13 05:14 | PC.NURSE ---
pt able to secure transportation home. pt escorted to private vehicle via wheelchair.
== END 2021-12-13 05:13 | disposition home or self-care (01) ==
PROVIDERS: Emergency Provider Emergency Medicine; PCP Family Medicine
DX: F14.10 Cocaine abuse, uncomplicated (principal); E86.0 Dehydration
CPT/HCPCS: 36415; 71046; 80053; 80307; 84484; 85025; 85610; 93005; 96360; 99284; J7030

== ENCOUNTER 2022-02-16 09:46 | Outpatient (CLI) | payer OTHER, SELFPAY ==
--- NOTE | ~2022-02-16 | MR_ITS ---
EXAMINATION: MR knee RT wo con DATE: 02/16/2022 10:41 INDICATION: Right knee pain. Twisting injury and fall several years ago. TECHNIQUE: Magnetic resonance imaging (MRI) of the right knee was performed without intravenous contr ast. Sequences included axial PD-weighted FS FSE, coronal PD-weighted FSE and PD-weighted FS FSE, sag ittal PD-weighted FSE, and sagittal T2-weighted FS FSE. COMPARISON: None. FINDINGS: Medial compartment: Posterior horn/body tear with flipped meniscal fragment noted anteromedially. Background of severe de generative meniscal attenuation. Diffuse full-thickness cartilage loss in the medial compartment Lateral compartment: Apical blunting of the meniscal body. Lateral displacement of the meniscus. Extensive degenerative at tenuation of the meniscus. Full-thickness cartilage loss on the lateral femoral condyle. Patellofemoral compartment: Full-thickness cartilage loss with subchondral marrow edema along the median ridge. Retinacula are in tact. Ligaments and tendons: Chronic complete ACL tear. PCL is intact. Intact MCL and LCL. Remaining flexor and extensor tendons a re intact. Fluid: Large volume joint fluid. Moderate volume Little's cyst. Osseous/other: No suspicious focal or diffuse marrow signal. IMPRESSION: 1. Tear of the posterior horn and body, medial meniscus displacement of the meniscal fragment into th e anterolateral joint recess. 2. Apical tear of the body of the lateral meniscus. 3. Severe tricompartmental osteoarthritis. 4. Large volume joint effusion. 5. Moderate-sized Little's cyst. 6. Chronic full-thickness ACL tear. Reviewed, dictated and finalized at location K. IMPRESSION: 1. Tear of the posterior horn and body, medial meniscus displacement of the men iscal fragment into the anterolateral joint recess. 2. Apical tear of the body of the lateral meniscus. 3. Severe tricompartmental osteoarthritis. 4. Large volume joint effusion. 5. Moderate-sized Little's cyst. 6. Chronic full-thickness ACL tear.
== END 2022-02-16 09:47 | disposition home or self-care (01) ==
LOC: CHSIMG 09:47
PROVIDERS: PCP Family Medicine; Visit Provider Family Medicine
DX: M25.461 Effusion, right knee (principal); M25.561 Pain in right knee
CPT/HCPCS: 73721

== ENCOUNTER 2022-03-12 08:40 | Outpatient (CLI) | payer OTHER, SELFPAY ==
--- NOTE | ~2022-03-12 | XR_ITS ---
EXAMINATION: XR knee RT min 4V DATE: 03/12/2022 09:39 INDICATION: Right knee pain TECHNIQUE: Four views of the right knee were obtained. COMPARISON: 08/15/2020 FINDINGS: Alignment is normal. No fracture or osteochondral lesion. There is moderate tricompartmenta l osteoarthritis of the knee. There is a large knee joint effusion. Calcified atherosclerosis is note d. IMPRESSION: 1. Moderate osteoarthritis with large knee joint effusion. Reviewed, dictated and finalized at location A.
== END 2022-03-12 08:41 | disposition home or self-care (01) ==
LOC: CHSIMG 08:43
PROVIDERS: PCP Family Medicine; Visit Provider Orthopaedic Surgery
DX: M25.561 Pain in right knee (principal); M17.11 Unilateral primary osteoarthritis, right knee
CPT/HCPCS: 73564

== ENCOUNTER 2022-04-01 18:32 | Outpatient (CLI) | payer OTHER, SELFPAY ==
[2022-04-01 19:10] LABS: Basophils Absolute Auto 0.04 K/mm3 (0.00-0.10); Basophils Percent Auto 0.6 % (0.0-1.0); Eosinophils Percent Auto 1.6 % (1.0-6.0); Hematocrit 42.9 % (40.0-54.0); Hemoglobin 13.7 g/dL (14.0-18.0); Immature Granulocyte Absolute 0.11 K/mm3 (0.00-0.00); Immature Granulocyte Percent A 1.8 % (0.0-0.0); Lymphocytes Percent Auto 17.6 % (18.0-42.0); Mean Corpuscular HGB Conc 31.9 g/dL (32.0-36.0); Mean Corpuscular Volume 94.1 fL (78.0-102.0); Mean Platelet Volume 9.2 fl (8.7-11.0); Monocytes Absolute Auto 0.38 K/mm3 (0.10-0.90); Monocytes Percent Auto 6.1 % (2.0-11.0); Neutrophils Absolute Auto 4.5 K/mm3 (1.7-7.2); Neutrophils Percent Auto 72.3 % (50.0-70.0); Platelet Count Result 219 K/mm3 (150-420); Red Blood Count 4.56 M/mm3 (4.70-6.10); Red Cell Distribution Width 15.9 % (11.6-14.4); White Blood Count 6.3 K/mm3 (4.8-10.8)
[2022-04-01 19:29] LABS: Alanine Aminotransferase 19 U/L (16-63); Alkaline Phosphatase 74 U/L (46-116); Anion Gap 10 mmol/L (8-16); Aspartate Amino Transferase < 10 U/L (15-37); Bilirubin,Total 0.5 mg/dL (0.00-1.00); Blood Urea Nitrogen 17 mg/dL (7-18); CRP 1.8 mg/dL (0.0-0.9); Calcium 8.5 mg/dL (8.5-10.1); Carbon Dioxide 24 mmol/L (21-32); Chloride 106 mmol/L (98-108); Estimated Glomerular Filt Rate 46; Glucose 82 mg/dL (70-99); Osmolality Calculated 290 mOsm/kg (285-295); Sodium 140 mmol/L (136-145); Total Protein 6.9 g/dL (6.4-8.2)
[2022-04-01 20:14] LABS: Erythrocyte Sedimentation Rate 37 mm/hr (0-20)
== END 2022-04-01 18:33 | disposition home or self-care (01) ==
PROVIDERS: PCP Family Medicine
DX: M05.79 Rheumatoid arthritis with rheumatoid factor of multiple sites without organ or systems involvement (principal)
CPT/HCPCS: 36415; 80053; 85025; 85652; 86140

== ENCOUNTER 2022-04-09 14:58 | Outpatient (RCR) | payer OTHER, SELFPAY ==
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
== END 2022-04-16 09:00 | disposition home or self-care (01) ==
LOC: CHSPT 14:58
PROVIDERS: Visit Provider Orthopaedic Surgery
DX: M17.11 Unilateral primary osteoarthritis, right knee (principal); R53.1 Weakness
CPT/HCPCS: 97110; 97162; 97530

== ENCOUNTER 2022-04-16 14:47 | Outpatient (CLI) | payer OTHER, SELFPAY ==
[2022-04-16 15:25] LABS: Hemoglobin 12.8 g/dL (14.0-18.0); Mean Corpuscular Hemoglobin 30.3 pg (27.0-31.0); Mean Corpuscular Volume 94.6 fL (78.0-102.0); Mean Platelet Volume 9.1 fl (8.7-11.0); Platelet Count Result 253 K/mm3 (150-420); Red Blood Count 4.23 M/mm3 (4.70-6.10); Red Cell Distribution Width 15.8 % (11.6-14.4); White Blood Count 7.4 K/mm3 (4.8-10.8)
[2022-04-16 15:28] LABS: Appearance Urine Clear (Clear); Bilirubin Urine Negative (Negative); Blood Urine Negative (Negative); Glucose Urine UA Negative (Negative); Ketones Urine Negative (Negative); Leukocyte Esterase Ur Negative LEU/UL (Negative); Nitrate Urine Negative (Negative); Protein Urine Negative (Negative); Specific Grav Ur 1.025 (1.010-1.020); Urobilinogen Urine 0.2 mg/dL (0.2-1.0)
[2022-04-16 15:35] LABS: Add Urine Microscopic? NO; Color Urine Light Yellow (Yellow)
[2022-04-16 15:41] LABS: Creatinine Urine 116.03 mg/dL (40-278); Ur Ttl Prot Creatinine Ratio 0.31 mg/mg (0-0.20)
[2022-04-16 15:53] LABS: Anion Gap 9 mmol/L (8-16); Blood Urea Nitrogen 13 mg/dL (7-18); Calcium 8.4 mg/dL (8.5-10.1); Carbon Dioxide 25 mmol/L (21-32); Chloride 107 mmol/L (98-108); Cholesterol 156 mg/dL (0-200); Estimated Glomerular Filt Rate 38; Glucose 102 mg/dL (70-99); HDL Direct 51 mg/dL (40-60); LDL Cholesterol Calculated 86 mg/dL (<130); Osmolality Calculated 292 mOsm/kg (285-295); Phosphorus 2.8 mg/dL (2.6-4.7); Potassium 3.7 mmol/L (3.5-5.1); Sodium 141 mmol/L (136-145); Triglycerides 97 mg/dL (0-150)
[2022-04-16 16:32] LABS: Erythrocyte Sedimentation Rate 46 mm/hr (0-20)
[2022-04-18 12:45] LABS: Kappa\\Lambda Light Chains 1.16 (0.26-1.65); Lambda Light Chain 39.8 mg/L (5.7-26.3)
[2022-04-19 10:43] LABS: Complement C3 114 mg/dL (82-185)
[2022-04-19 19:23] LABS: Complement Total CH50 >60 U/mL (31-60)
[2022-04-22 13:01] LABS: Parathyroid Intact 199 pg/mL (14-64)
== END 2022-04-16 14:48 | disposition home or self-care (01) ==
LOC: CHSLAB 14:52
PROVIDERS: Internal Medicine Cardiovascular Disease; PCP Family Medicine; Visit Provider Internal Medicine Nephrology
DX: E78.5 Hyperlipidemia, unspecified (principal); N18.31 Chronic kidney disease, stage 3a
CPT/HCPCS: 36415; 80061; 80069; 81003; 82570; 83883; 83970; 84156; 85027; 85652; 86038; 86160; 86162; 86334

== ENCOUNTER 2022-04-19 10:32 | Outpatient (CLI) | payer OTHER, SELFPAY ==
--- NOTE | ~2022-04-19 | US_ITS ---
US retroperitoneal comp 04/19/2022 11:17 Procedure: Realtime transabdominal ultrasound of the kidneys and bladder. Indication: Stage IIIa chronic kidney disease Comparison: No prior studies for comparison. Findings: Renal echotexture is normal bilaterally without hydronephrosis, contour deforming mass or r enal calculus. The right kidney measures 11.4 cm. The left kidney is surgically absent. Bladder is un remarkable. No abnormalities of the left renal fossa. Impression: 1: Unremarkable right renal ultrasound. No stones, masses or hydronephrosis. Reviewed, dictated and finalized at location A. Impression: 1: Unremarkable right renal ultrasound. No stones, masses or hydronephrosis.
[2022-04-24 19:50] LABS: Albumin 38 %; Measured Kappa Chains 4.72 mg/dL (<2.00); Measured Lambda Chains 1.81 mg/dL (<2.00); Pro/Creat Ratio 221 mg/g creat (<100); Total Kappa Chains 54.28 mg/24 h; Total Lambda Chains 20.815 mg/24 h
[2022-04-30 14:57] LABS: Protein,total, 24 Hr Ur 311 mg/24h
== END 2022-04-19 10:33 | disposition home or self-care (01) ==
LOC: CHSIMG 10:34
PROVIDERS: PCP Internal Medicine Nephrology; Visit Provider Internal Medicine Nephrology
DX: N18.31 Chronic kidney disease, stage 3a (principal)
CPT/HCPCS: 76770; 86335

== ENCOUNTER 2022-04-27 04:34 | Emergency (ER) | payer OTHER, SELFPAY ==
--- NOTE | ~2022-04-27 | XR_ITS ---
EXAMINATION: XR chest 1V portable INDICATION: Nausea TECHNIQUE: Portable AP chest at 0507 hours COMPARISON: 12/13/2021 FINDINGS: The lungs are free of acute opacities. A nodule is again noted in the left lower lobe. No p leural effusion or pneumothorax. The cardiomediastinal silhouette is normal. IMPRESSION: 1. No acute cardiopulmonary abnormality. Reviewed, dictated and finalized at location A. ERIZING AND SIFTING OPERATOR
[2022-04-27 04:40] VITALS: BP 102/88; PULSE 118; RESP 20; TEMP 36.1; O2SAT 96
--- NOTE | 2022-04-27 04:47 | ECG_ITS ---
Measurements Intervals [place] Rate: 126 P: [place]: 0 QRS: 33 QRSD: 92 T: 23 QT: 304 QTc: 441 Interpretive Statements ATRIAL FIBRILLATION WITH RAPID VENTRICULAR RESPONSE MINIMAL Q WAVES- INFERIOR LEADS BASELINE ARTIFACT- I, II, III, AVR, AVL, AVF, V3 ABNORMAL ECG COMPARED TO ECG 12/13/2021 01:58:04 ATRIAL FIBRILLATION NOW PRESENT Electronically Signed On 04-27-2022 7:08:56 BRASS CHASER by Edvin Joshi D.O.
[2022-04-27] MEDS: SODIUM CHLORIDE 0.9% IV 1,000 ML 999 ML IV CONT (04:59)
[2022-04-27] MEDS: ONDANSETRON INJ 4 MG/2 ML VIAL IV PUSH ×2 (05:00→07:01)
[2022-04-27 05:22] LABS: Basophils Absolute Auto 0.05 K/mm3 (0.00-0.10); Basophils Percent Auto 0.5 % (0.0-1.0); Eosinophils Absolute Auto 0.06 K/mm3 (0.02-0.50); Eosinophils Percent Auto 0.6 % (1.0-6.0); Hematocrit 41.1 % (40.0-54.0); Lymphocytes Absolute Auto 0.87 K/mm3 (1.10-4.50); Lymphocytes Percent Auto 8.7 % (18.0-42.0); Mean Corpuscular HGB Conc 31.6 g/dL (32.0-36.0); Mean Corpuscular Volume 94.7 fL (78.0-102.0); Monocytes Absolute Auto 0.71 K/mm3 (0.10-0.90); Monocytes Percent Auto 7.1 % (2.0-11.0); Neutrophils Absolute Auto 8.1 K/mm3 (1.7-7.2); Neutrophils Percent Auto 81.1 % (50.0-70.0); Platelet Count Result 253 K/mm3 (150-420); Red Blood Count 4.34 M/mm3 (4.70-6.10); Red Cell Distribution Width 15.5 % (11.6-14.4)
[2022-04-27 05:32] VITALS: BP 138/84; PULSE 100; RESP 20; O2SAT 97
[2022-04-27 05:42] LABS: Alanine Aminotransferase 16 U/L (16-63); Alkaline Phosphatase 70 U/L (46-116); Anion Gap 11 mmol/L (8-16); Aspartate Amino Transferase 11 U/L (15-37); Bilirubin,Total 0.7 mg/dL (0.00-1.00); Blood Urea Nitrogen 18 mg/dL (7-18); Calcium 8.2 mg/dL (8.5-10.1); Carbon Dioxide 23 mmol/L (21-32); Chloride 107 mmol/L (98-108); Estimated CRCL calculation 42 ml/min; Estimated Glomerular Filt Rate 33; Glucose 125 mg/dL (70-99); Osmolality Calculated 294 mOsm/kg (285-295); Potassium 3.7 mmol/L (3.5-5.1); Sodium 141 mmol/L (136-145); Total Protein 6.7 g/dL (6.4-8.2)
[2022-04-27 05:44] LABS: Ethanol < 3 mg/dL (0-6)
[2022-04-27 05:47] LABS: Lactic Acid Reflex 2.9 mmol/L (0.4-2.0)
[2022-04-27 05:57] LABS: Add Urine Microscopic? YES; Appearance Urine Clear (Clear); Bilirubin Urine Negative (Negative); Blood Urine Negative (Negative); Color Urine Yellow (Yellow); Glucose Urine UA Negative (Negative); Ketones Urine Trace (Negative); Leukocyte Esterase Ur Negative (Negative); Nitrate Urine Negative (Negative); Protein Urine Trace (Negative); Specific Grav Ur >= 1.030 (1.010-1.020); Urobilinogen Urine 0.2 mg/dL (0.2-1.0)
[2022-04-27 06:04] LABS: Amphetamine Screen Urine Negative (Negative); Barbiturate Screen Urine Negative (Negative); Benzodiazepines Screen Urine Negative (Negative); Cannabinoid Screen Urine Positive (Negative); Cocaine Screen Urine Positive (Negative); Methadone Screen Urine Negative (Negative); Opiate Screen Urine Negative (Negative); Phencyclidine Screen Urine Negative (Negative)
[2022-04-27 06:05] LABS: Bacteria Urine Trace /hpf; RBC Urine 0-2 /hpf (0-2); Squamous Epithelial Cell Urine Occasional /hpf (Few); WBC Urine None seen /hpf (0-3)
[2022-04-27 06:05] LABS: Influenza A QL RT-PCR Negative (Negative); Influenza B QL RT-PCR Negative (Negative)
[2022-04-27 06:05] LABS: SARS-CoV-2 RNA PCR Negative (Negative)
[2022-04-27 06:43] VITALS: BP 139/81; PULSE 92; RESP 20; O2SAT 97
--- NOTE | 2022-04-27 07:01 | ED.WEAKNESS ---
HPI - Weakness General Chief complaint: Weakness Stated complaint: nausea Time Seen by Provider: 04/27/22 04:36 Source: patient, EMS and RN notes reviewed Mode of arrival: EMS Limitations: no limitations History of Present Illness HPI Narrative: nausea and diarrhea x 12 hrs. Complaint: generalized weakness Onset (ago): hour(s) (12) Duration: constant Location: generalized Migration: none Severity scale (1-10): 4 Relieving factors: none Exacerbating factors: none Associated symptoms: nausea/vomiting Related Data Home Medications Medication Instructions Recorded Confirmed lisinopril 5 mg tablet 5 mg PO DAILY 09/01/21 04/27/22 Allergies Allergy/AdvReac Type Severity Reaction Status Date / Time No Known Allergies Allergy Verified 04/08/22 13:54 Review of Systems Review of Systems: All systems reviewed & are unremarkable except as noted in HPI and below Constitutional: Constitutional: Reports no additional constitutional complaints Eyes: Eyes: Reports no additional eye complaints ENT: Reports system reviewed and no additional complaints, except as documented Cardiovascular: Cardiovascular: Reports no additional cardiovascular complaints Respiratory: Respiratory: Reports no additional respiratory complaints Gastrointestinal: Gastrointestinal: Reports no additional gastrointestinal complaints, Reports diarrhea and Reports nausea Musculoskeletal: Musculoskeletal: Reports no additional musculoskeletal complaints Integumentary/Breasts: Skin/Breast: Reports system reviewed and no additional complaints, except as docu Neurologic: Reports system reviewed and no additional complaints, except as documented Psychiatric: Psychiatric: Reports no additional psychiatric complaints Endocrine: Endocrine: Reports no additional endocrine complaints Hematologic/Lymphatic: Hematologic/Lymphatic: Reports no additional hematologic/lymphatic complaints Allergic/Immunologic: Allergic/Immunologic: Reports no additional allergic/immunologic complaints PMF Past Medical History Medical History Anxiety Chronic anemia Chronic anticoagulation Chronic kidney disease, stage 3 Clostridium difficile diarrhea Deep venous thrombosis Depression Drug abuse History of marijuana and cocaine abuse Gastroesophageal reflux disease Hyperlipidemia Hypertension Neuropathy Obesity Paroxysmal atrial fibrillation Renal cell carcinoma Status post left nephrectomy. Rheumatoid arthritis Surgical History Surgical History History of appendectomy History of cataract extraction History of left nephrectomy History of tonsillectomy and adenoidectomy Family History Family History Father CAD (coronary artery disease) Mother Cancer Other Heart disease Hypertension Social History Social History Social History: Surrogate decision maker: Anayeli Melendez, sister. Code status: Full code. Smoking status: Never smoker Second hand tobacco smoke exposure: Yes Alcohol intake: former Substance use: current Substance use type: marijuana and crack/cocaine Spiritual care concerns: No Exam Const: General: no acute distress and well nourished Nutritional Appearance: well nourished Orientation/consciousness: patient oriented x3 Limitations: no limitations HENMT: Head: normal to inspection Ears: external ears normal, TM's normal bilaterally and EAC's normal Face/Nose/Sinus: Normal external nose present, Normal nares present, normal facial exam and sinuses nontender Face and sinus: normal facial exam and sinuses nontender Mouth: Yes Normal oral and palatal mucosa present and Yes moist mucous membranes Teeth and gingiva: dentition normal Throat: posterior oropharynx normal Eyes: Conjunctivae: conjunct
[2022-04-27 07:06] VITALS: BP 120/74; PULSE 87; RESP 20; TEMP 36.8; O2SAT 100
[2022-04-27 08:17] LABS: Reflex Lactic Acid Yes or No Add Lactic
== END 2022-04-27 07:13 | disposition home or self-care (01) ==
PROVIDERS: Emergency Provider Emergency Medicine; PCP Family Medicine
DX: B34.9 Viral infection, unspecified (principal); I48.91 Unspecified atrial fibrillation; Z20.822 Contact with and (suspected) exposure to COVID-19
CPT/HCPCS: 36415; 71045; 80053; 80307; 81001; 83605; 85025; 87502; 93005; 96361; 96374; 96376; 99284; J2405; J7030; U0003; U0005

== ENCOUNTER 2022-05-07 16:06 | Emergency (ER) | payer OTHER, SELFPAY ==
[2022-05-07] VITALS (11 sets, daily range): BP systolic 0–112; BP diastolic 0–71; PULSE 0–124; TEMP 36.7; O2SAT 99–100
--- NOTE | ~2022-05-07 | XR_ITS ---
EXAMINATION: XR chest ET placement DATE: 05/07/2022 17:28 INDICATION: Endotracheal tube placement TECHNIQUE: frontal view of the chest was obtained. COMPARISON: Chest radiograph dated 04/27/2022 FINDINGS: Endotracheal tube tip 6.1 cm above the shawna. Cardiac fibrillator pad projects over the right should er. Additional material external to the patient projects over the thorax. Cardiomegaly with mild perihilar opacities suspicious for pulmonary edema. Streaky atelectasis at the medial left lung base. No pleural effusion or pneumothorax. IMPRESSION: 1. Endotracheal tube tip 6.1 cm above the shawna. 2. Cardiomegaly with mild perihilar opacities which could represent pulmonary edema or less likely pn eumonia. Reviewed, dictated and finalized at location A. SHOVER IMPRESSION: 1. Endotracheal tube tip 6.1 cm above the shawna. 2. Cardiomegaly with mild perihilar opacities which could represent pulmonary e yared or less likely pneumonia.
[2022-05-07] MEDS: SODIUM CHLORIDE 0.9% IV 1,000 ML 999 ML IV CONT ×2 (16:10→16:14)
[2022-05-07] MEDS: DOPamine 400 MG/D5W 250 ML 400 MG/250 ML BAG 22.13 MG IV CONT (16:27)
--- NOTE | 2022-05-07 16:43 | PC.NURSE ---
erp attempting central line placement to left groin at this time. ritter insertion was unsuccessful. bp 80/54 hr 123. pt is mottled to all extremities and abd.
[2022-05-07] MEDS: LACTATED RINGERS 1,000 ML 999 ML IV CONT (16:55)
[2022-05-07 17:08] LABS: Hematocrit 39.8 % (40.0-54.0); Hemoglobin 11.5 g/dL (14.0-18.0); Immature Platelet Fraction Pct 3.1 % (1.0-7.0); Mean Corpuscular HGB Conc 28.9 g/dL (32.0-36.0); Mean Corpuscular Hemoglobin 29.9 pg (27.0-31.0); Mean Corpuscular Volume 103.4 fL (78.0-102.0); Mean Platelet Volume 9.9 fl (8.7-11.0); Platelet Count Result 243 K/mm3 (150-420); Red Blood Count 3.85 M/mm3 (4.70-6.10); Red Cell Distribution Width 15.6 % (11.6-14.4)
--- NOTE | 2022-05-07 17:20 | PC.NURSE ---
et tube dunn aplied per resp therapy.
--- NOTE | 2022-05-07 17:33 | PC.NURSE ---
1635-pulse found at left groin per hand-held doppler.
--- NOTE | 2022-05-07 17:37 | PC.NURSE ---
1645-erp attempting central line left groin.
--- NOTE | 2022-05-07 17:42 | PC.NURSE ---
1700-erp unable to insert a central line. will make second attempt. 1710-erp unabole to insert central line at this time.
--- NOTE | 2022-05-07 17:43 | PC.NURSE ---
1720-erp speaking with braulio wick [facility] to discuss potential transfer.
--- NOTE | 2022-05-07 17:44 | ED.CPR ---
HPI - CPR General Chief Complaint: Cardiac Arrest/CPR Stated Complaint: ambulance Time Seen by Provider: 05/07/22 16:20 History of Present Illness HPI narrative: Pt called 911 for SOB. On EMS arrival patient stated i Can't breathe and collapsed. Pt was unresponsive and had no pulse so CPR was initiated immediately and an Igel airway was placed. Pt in PEA and given several rounds of epi before arrival without change. Pt still in PEA on arrival. Related Data Home Medications Medication Instructions Recorded Confirmed lisinopril 5 mg tablet 5 mg PO DAILY 09/01/21 04/27/22 Allergies Allergy/AdvReac Type Severity Reaction Status Date / Time No Known Allergies Allergy Verified 05/01/22 07:56 Review of Systems Review of Systems: ROS unobtainable: Yes unobtainable due to medical condition PMFSH Past Medical History Medical History Anxiety Chronic anemia Chronic anticoagulation Chronic kidney disease, stage 3 Clostridium difficile diarrhea Deep venous thrombosis Depression Drug abuse History of marijuana and cocaine abuse Gastroesophageal reflux disease Hyperlipidemia Hypertension Neuropathy Obesity Paroxysmal atrial fibrillation Renal cell carcinoma Status post left nephrectomy. Rheumatoid arthritis Surgical History Surgical History History of appendectomy History of cataract extraction History of left nephrectomy History of tonsillectomy and adenoidectomy Family History Family History Father CAD (coronary artery disease) Mother Cancer Other Heart disease Hypertension Social History Social History Social History: Surrogate decision maker: Anayeli Melendez, sister. Code status: Full code. Smoking status: Never smoker Second hand tobacco smoke exposure: Yes Alcohol intake: former Substance use: current Substance use type: marijuana and crack/cocaine Spiritual care concerns: No Exam Const: Nutritional Appearance: obese Limitations: altered mental status (unresponsive) HENMT: Head: normal to inspection Eyes: Other: pupils fixed and dilated Chest: Chest palpation & inspection: normal inspection of the chest Resp: Other: breath sounds with bagged respirations only Cardio: Other: no pulse initially GI: GI Palp: Yes Soft to palpation Skin: General skin exam: pallor (cyanotic and mottled) Neuro: Other: unresponsive and not following commands Extrem: General: no pedal edema Course Course Emergency Course: CPR with Chris device in progress, Pt had I/O which was functioning well. Pt given epi per ACLS protocol and 1 amp bicarb. Pt in PEA for about 50-55 minutes and then got weak pulse back. BP in 80's, dopamine started, rocephin 1 g IV given, ETT placed using glide scope 7.5 F 27 cm at lips with color change and good capnography afterward. Very weak femoral pulse noted. Central line attempted x 2 without success. discussed with [facility] [place], will accept pending discussion with Center Human Resources Manager, Dr Benson. While on phone with Dr Benson, pt lost pulse and pressure. Asystole on monitor. CPR started again. Given the prolonged down time earlier and the extensive rescusitative efforts the code was called at 1852. family informed by rn. [facility] and Dr Benson notified Vital Signs Vital signs: Vital Signs Temperature 98.0 F 05/07/22 16:06 Temperature 98.0 F 05/07/22 16:06 Pulse Rate 0 L 05/07/22 18:54 Blood Pressure 0/0 L 05/07/22 18:54 Pulse Oximetry 99 05/07/22 17:38 Oxygen Delivery Mechanical Ventilation 05/07/22 17:54 Oxygen Flow Rate 15 05/07/22 16:40 Procedures Central Line Placement Left Femoral: Central Line Date: 05/07/22 Performed Emergently - Given emergent patient condition, tempo
[2022-05-07 17:51] LABS: Alanine Aminotransferase 31 U/L (16-63); Albumin Level 1.8 g/dL (3.4-5.0); Alkaline Phosphatase 98 U/L (46-116); Anion Gap 28 mmol/L (8-16); Aspartate Amino Transferase 43 U/L (15-37); Blood Urea Nitrogen 21 mg/dL (7-18); Calcium 7.9 mg/dL (8.5-10.1); Carbon Dioxide 7 mmol/L (21-32); Chloride 101 mmol/L (98-108); Creatine Kinase 410 U/L (39-308); Estimated Glomerular Filt Rate 18; Glucose 87 mg/dL (70-99); Osmolality Calculated 284 mOsm/kg (285-295); Potassium 5.2 mmol/L (3.5-5.1); Sodium 136 mmol/L (136-145); Total Protein 5.9 g/dL (6.4-8.2)
[2022-05-07 17:53] LABS: Troponin I 73.5 ng/L (0.00-60.4)
[2022-05-07 17:54] LABS: White Blood Count 21.9 K/mm3 (4.8-10.8)
[2022-05-07 17:55] LABS: Band Neutrophils Percent 11 % (0-6); Eosinophils Percent Manual 0 % (1-6); Lymphocytes Absolute Manual 4.16 K/mm3 (1.1-4.5); Lymphocytes Percent Manual 19 % (18-44); Monocytes Absolute Manual 1.09 K/mm3 (0.1-0.90); Monocytes Percent Manual 5 % (3-9); Neutrophils Absolute Manual 15.33 K/mm3 (1.3-6.7); Neutrophils Percent Manual 59 % (46-73); Total Cells Counted 100
[2022-05-07 17:56] LABS: Basophils Percent Manual 0 % (0-1); Metamyelocytes Percent 4 %; Myelocytes Percent 2 %; Platelet Estimate Adequate (Adequate)
--- NOTE | 2022-05-07 18:14 | ECG_ITS ---
Measurements Intervals [place] Rate: 111 P: 36 [place]: 154 QRS: 57 QRSD: 77 T: 24 QT: 332 QTc: 453 Interpretive Statements SINUS TACHYCARDIA INCOMPLETE RIGHT BUNDLE BRANCH BLOCK LOW QRS VOLTAGE IN PRECORDIAL LEADS NONSPECIFIC ST & T-WAVE ABNORMALITY- ANTERIOR LEADS BASELINE ARTIFACT- II, AVR, AVL, AVF, V2-V6 ABNORMAL ECG COMPARED TO ECG 04/27/2022 05:01:23 SINUS TACHYCARDIA NOW PRESENT Electronically Signed On 05-08-2022 9:11:33 EKG TECHNICIAN by Edvin Joshi D.O.
--- NOTE | 2022-05-07 18:19 | PC.NURSE ---
1640-18fr ritter unable to insert due to palpable obstruction.
--- NOTE | 2022-05-07 18:22 | PC.NURSE ---
1700-ice bags applied to bilat groins and bialt axilla.
--- NOTE | 2022-05-07 18:56 | PC.NURSE ---
1850-pt hr decreasing to 50['s. erp notified. pt becoming more cyanotic
--- NOTE | 2022-05-07 18:57 | PC.NURSE ---
1850-no pulse. asystole. erp at bedside. cpr begun manually 1851-asystole remains. no palpable pulse. no audible heart beat apically. erp called time of 1851
--- NOTE | 2022-05-07 20:37 | PCDIET ---
190-signal tower operator perez gilliland
--- NOTE | 2022-05-07 20:39 | PC.NURSE ---
1904-multi site leasing consultant perez contacted. [facility] he will notify the family and call back with home arrangements. pt cleaned and covered.
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
--- NOTE | 2022-05-07 20:42 | PC.NURSE ---
2035-[facility] notified, baljinder, ref #[id number], will contact next of kin for donation conversation and they will contact home.
--- NOTE | 2022-05-14 12:17 | PC.NURSE ---
BLOOD CULTURE RESULTS FINAL X2: NO GROWTH AFTER 5 DAYS. PT
== END 2022-05-07 21:25 | disposition expired ==
PROVIDERS: Emergency Provider Emergency Medicine
DX: I46.9 Cardiac arrest, cause unspecified (principal)
CPT/HCPCS: 31500; 36415; 36556; 80053; 82550; 82553; 84484; 85025; 85055; 87040; 92950; 93005; 94002; 96361; 96365; 96366; 96368; 99285; C1751; J0171; J0696; J1265; J7030; J7120